=== PATIENT | female | born 1950 | race Caucasian/White ===

== ENCOUNTER → 2019-12-20 13:57 | Outpatient (REF) | payer OTHER, SELFPAY ==
--- NOTE | 2019-12-20 14:00 | CA_ITS ---
Transthoracic Echocardiogram Patient (Last, First, Middle): Negra Cameron, Gender: Female Date of : 1950 Age: 69 Procedure Date: 12/20/2019 Procedure Type: Transthoracic Echocardiogram Location: OP Height: 165.1 cm Weight: 109.77 kg BSA: 2.15 m2 Heart Rate: bpm BP: 142 / 76 mmHg [employer] Manager: BENOIT Referring MD: Axel Whitehead MD Credit Risk Analytics Manager: Jamaal William MD Symptoms: [facility] Study Quality: Fair ECG Rhythm: Sinus Conclusions: - 1. Normal LV systolic function with mild LVH with impaired relaxation filling pattern 2. Mildly dilated left atrium 3. Mild aortic stenosis 4. Moderate mitral annular calcification 5. Normal RV systolic pressure 6. No pericardial effusion Findings Left Ventricle Normal left ventricular size and systolic function. There is mildly increased left ventricular wall thickness. The visually estimated ejection fraction is between 65-70%. Spectral Doppler is indicative of an impaired relaxation filling pattern. E/E prime ratio is between 8 and 15 consistent with indeterminate filling pressures. Right Ventricle Normal right ventricular cavity size and systolic function. Atria The left atrium is mildly dilated. There is lipomatous hypertrophy of the interatrial septum. There is no evidence of interatrial shunt. The right atrium is normal in size. Aortic Valve There is moderate calcification of the aortic valve. There is mild thickening of the aortic valve. There is mild aortic valve stenosis. There is no aortic valve regurgitation. Mitral Valve There is mild anterior and moderate posterior mitral leaflet thickening. There is moderate mitral annular calcification. There is mild mitral valve regurgitation. There is no mitral valve stenosis. Pulmonic Valve The pulmonic valve was not well visualized. Tricuspid Valve Likely normal tricuspid valve structure and function. There is mild tricuspid valve regurgitation. The right ventricular systolic pressure is normal. The right ventricular systolic pressure is 31 mmHg. Normal right atrial pressure. There is no evidence of pulmonary hypertension. Great Vessels All visible segments of the aorta are normal in size. The pulmonary artery was not well visualized. Venous The inferior vena cava is normal in size and collapses greater than 50% with inspiration. Pericardium/Pleural There is no evidence of pericardial effusion. Prior Study Comparison No prior study available for comparison. Measurements 2D Linear Measurements IVSd: 1.46 0.6-0.9/0.6-1.0 cm LVIDd: 4.09 3.9-5.3/4.2-5.9 cm LVIDd Index: 1.90 2.4-3.2/2.2-3.1 cm/m2 LVIDs: 2.97 2.0-3.6 cm LVPWd: 1.24 0.7-1.1 cm Ao Root: 2.70 2.1-3.5 cm LA Diam: 4.50 2.7-3.8/3.0-4.0 cm LAIDs Index: 2.09 1.5-2.3 cm/m2 LV Mass: 254.41 67-162/88-224 g LV Mass Index: 118.33 43-95/49-115 g/m2 LVOT Diam: 2.00 3.0+(-)1.3 cm 2D Systolic Function EF 4C: 62.50 >55% EF 2C: 73.00 >55% EF BiP: 68.40 >55% Mitral Valve MV Pk E: 1.02 MV PK A: 1.15 MV Decel Time: 246.00 E/A: 0.90 E'Lateral: 6.77 E'Medial: 7.16 E/E' Med: 14.20 E/E' Lat: 15.10 PHT: 72.00 MVA PHT: 3.06 Decel Grimes: 4.13 Aortic Valve AoV Pk Hans: 3.01 AoV Mn Hans: 2.21 AoV VTI: 0.74 AoV Pk Grad: 36.00 Aov Mn Grad: 22.00 DEREK Cont.VTI: 1.59 LVOT LVOT Pk Hans: 1.50 LVOT Mn Hans: 1.07 LVOT VTI: 0.38 LVOT Pk Grad: 9.00 LVOT Mn Grad: 5.00 LVOT Diam: 2.00 LVOT Area: 3.14 Diastolic Function MV Pk E: 1.02 MV Pk A: 1.15 E/A: 0.90 E'Medial: 7.16 E/E' Med: 14.20 E' Laterial: 6.77 E/E' Lat: 15.10 Tricuspid Valve TR Pk Hans: 2.63 TR Pk Grad: 28.00 RA Press: 3.00 RVSP: 31.00 Great Vessels Aorta Ao Root-2D: 2.70 2.0-3.7 cm Ao Asc: 3.40 2.1-3.4 cm Updated in Other Vendor System with Status of Final Jamaal William MD electronically signed on 12/21/2019 2:58:01 PM with status of Final
== END ==
LOC: HO.CARD 13:57
PROVIDERS: PCP Internal Medicine; Visit Provider Internal Medicine
DX: R01.1 Cardiac murmur, unspecified (principal)
CPT/HCPCS: 93306

== ENCOUNTER 2021-01-21 13:06 | Emergency (ER) | payer MEDICARE, SELFPAY ==
--- NOTE | ~2021-01-21 | CT_ITS ---
EXAMINATION: CT ABDOMEN AND PELVIS WITH CONTRAST CLINICAL INFORMATION: Diffuse abdominal pain with vomiting and diarrhea COMPARISON: None TECHNIQUE: Multidetector volumetric images were obtained from the superior aspect of the liver through the pubic symphysis following administration 85 mL of Omnipaque 350 intravenous contrast. Sagittal and coronal reformatted images were obtained on the technologist's workstation. Oral contrast: No This CT examination was performed using dose optimization techniques as appropriate, variously including the following: *Automated exposure control *Adjustment of mA and/or kV according to patient size (this includes techniques or standardized protocols for targeted exams where dose is matched to indication/reason for exam; i.e. extremities or head) *Use of iterative reconstruction technique DLP: 971 mGy-cm FINDINGS: LUNG BASES: Mosaic groundglass changes are present at the lung bases along with right basilar atelectasis. Calcification of the aortic cusps noted along with a calcified mitral annulus. LIVER, GALLBLADDER, AND BILIARY TREE: The liver is normal in size, shape, and attenuation. No focal hepatic lesion or biliary ductal dilatation is present. The gallbladder has been removed. PANCREAS: Unremarkable. SPLEEN: Unremarkable. A small splenule is present. ADRENAL GLANDS: Unremarkable. KIDNEYS AND URETERS: The kidneys are normal in size, shape, and attenuation. No hydronephrosis, hydroureter, or calculi seen. No perinephric stranding. BLADDER: Unremarkable. GASTROINTESTINAL TRACT: A small hiatal hernia is present. There is a thickened loop of small bowel present in the right mid abdomen with some minimal inflammatory changes around it. A small spigelian hernia is present in the right lower quadrant in this region containing a knuckle of small bowel. There is atrophy of the right rectus muscle. A tiny fluid collection is present in this region measuring 4.3 x 1.4 x 0.4 cm. The small and large bowel are otherwise unremarkable. The appendix is seen.. ABDOMINAL WALL: See discussion above regarding right sided small spigelian hernia with collection LYMPH NODES: No retroperitoneal lymphadenopathy. VASCULAR: Atherosclerotic changes with calcified plaque but no aneurysm. PELVIC VISCERA: An anteverted uterus is present. An abnormal adnexal mass is not seen. There is a tiny amount of free fluid present in the cul-de-sac. OSSEOUS STRUCTURES: Marked degenerative changes are present throughout the spine most marked at L5-S1 with grade 1 anterolisthesis L4 upon L5. CT/CT abdomen pelvis w con IMPRESSION: There is a thickened loop is small bowel right midabdomen with some inflammatory changes around it which could represent focal enteritis. At this same location, there is a small spigelian hernia seen with a tiny knuckle of small bowel extending into it with a fluid collection present adjacent to it. Please correlate with physical exam to ascertain if this is the region of the patient's discomfort.
[2021-01-21 13:45] VITALS: BP 178/76; PULSE 85; RESP 18; TEMP 36.9; O2SAT 99; BMI 44.2
--- NOTE | 2021-01-21 17:02 | ED.NAVMDI ---
HPI - Nausea/Vomiting/Diarrhea General Chief complaint: Nausea/Vomiting/Diarrhea Stated complaint: abd pain Time Seen by Provider: 01/21/21 16:32 Source: patient Mode of arrival: ambulatory Limitations: no limitations History of Present Illness HPI Narrative: 70 yo female with past medical history of cholecystectomy, bowel obstruction w/ resection at [facility] (2016), HTN here with complaints of abdominal pain, nausea/vomiting/diarrhea since Tuesday. Went to PCP today and referred into the emergency department for further evaluation. patient tells me that she started to have pain with vomiting and diarrhea on Tuesday evening. This continued until yesterday afternoon. No vomiting or diarrhea since then. Today she is having persistent pain. She feels like the pain is generalized. No urinary symptoms. She did have a low-grade fever of 99.38 yesterday but no fever today. Fully vaccinated for COVID. Associated nausea: Yes Related Data Previous Rx's Medication Instructions Recorded dicyclomine 10 mg capsule 10 mg PO QID PRN #10 cap 01/21/21 ondansetron 4 mg disintegrating 4 mg PO Q6H PRN #10 tab 01/21/21 tablet oxycodone 5 mg tablet 5 mg PO Q6H PRN #5 tab 01/21/21 Allergies Allergy/AdvReac Type Severity Reaction Status Date / Time vancomycin [VANCOMYCIN] Allergy Unknown HIVES Unverified 12/06/19 15:56 Review of Systems Review of Systems: Yes all other systems are reviewed and are negative Constitutional: Constitutional: Reports no additional constitutional complaints, Denies body ache(s), Denies chills, Reports fever(s) (low grade fever ), Denies headache(s) and Denies weakness Eyes: Eyes: Reports no additional eye complaints and Denies change in vision ENT: Reports system reviewed and no additional complaints, except as documented, Denies dizziness, Denies headache(s), Denies nasal congestion, Denies nasal discharge and Denies neck pain Cardiovascular: Cardiovascular: Reports no additional cardiovascular complaints, Denies chest pain, Denies leg edema and Denies dyspnea Respiratory: Respiratory: Reports no additional respiratory complaints, Denies cough and Denies dyspnea Gastrointestinal: Gastrointestinal: Reports no additional gastrointestinal complaints, Reports abdominal pain, Reports diarrhea, Reports nausea and Reports vomiting Genitourinary: Genitourinary: Reports no additional female genitourinary complaints and Denies urinary incontinence Musculoskeletal: Musculoskeletal: Reports no additional musculoskeletal complaints, Denies back pain, Denies arthralgias, Denies joint swelling, Denies neck pain, Denies numbness and Denies tingling Integumentary/Breasts: Skin/Breast: Reports system reviewed and no additional complaints, except as docu and Denies rash Neurologic: Reports system reviewed and no additional complaints, except as documented, Denies Abnormal speech present, Denies dizziness, Denies headache(s), Denies numbness, Denies tingling and Denies weakness PMFSH Past Medical History Attestation statement: The following information was validated with the patient. Source: old records reviewed and nursing notes reviewed Social History Social History Advance Directives: No Advance Directives Information Provided: No Physical Exam Vital Signs: Vital Signs: Last Vital Signs Temp 98.3 F 01/21/21 17:04 Pulse 70 01/21/21 19:35 Resp 18 01/21/21 19:35 BP 152/60 H 01/21/21 19:35 Pulse Ox 94 01/21/21 19:35 Body Mass Index 44.2 Const: General: cooperative, healthy appearing, comfortable and no acute distress Orientation/consciousness: patient oriented x3 Limitations: no limitations HENMT: Head: Yes normal to inspection Ears: hearing grossly normal bilaterally General nose exam: Normal external nose present Face and sinus: Yes normal facial exam Mouth: Normal oral and palatal mucosa present Throat: Yes posterior oropharynx normal Eyes: General: appearance normal, both eyes and all related structures Pupils: Equal, round and reactive pupils present Neck: Neck: Yes normal visual inspection Chest: Chest palpation & inspection: normal inspection of the chest Resp: Effort & Inspection: normal respiratory effort Auscultation: clear to auscultation bilaterally Cardio: Rate: regular rate Rhythm: regular rhythm Peripheral pulses: Peripheral pulses 2+ throughout GI: Inspection: Yes normal to inspection Palpation (GI): Soft to palpation and Tenderness to palpation present (GI) (Diffuse abdominal pain. No rebound or guarding) Auscultation: normal bowel sounds Back/Spine/Pelvis: Thoracic/Lumbar Spine: thoracic and lumbar spine normal to inspection Skin: General skin exam: no rashes or lesions noted Neuro: General: patient oriented x3, no focal motor deficits and normal sensation to monofilament Cranial nerves: Yes Equal, round and reactive pupils present Cognition (Neuro): normal cognition Speech: No Abnormal speech present Gait exam (Neuro): Normal gait present Motor exam (neuro): 5/5 motor strength present throughout Extrem: General: Yes normal to inspection Course Course Course Narrative: 70-year-old female here with complaints of abdominal pain, vomiting and diarrhea since Tuesday evening was low-grade fever. On exam she has diffuse tenderness with no focal tenderness, rebound or guarding. Will check labs, UA, COVID screen, CT A/P. 1910-CT shows thickened loop of the small bowel right mid abdomen with some inflammatory changes which could represent focal enteritis. There is a small spigelian hernia seen with a tiny knuckle of small bowel extending into it with a fluid collection adjacent to this. Labs are unremarkable. I spoke to the patient and her pain is improved in the abdomen. She still has some mild diffuse tenderness of overall is feeling better after 1 dose of morphine 4 mg. Will discuss with General surgery 1929-discussed case with Dr. Baker from General surgery. More likely enteritis viral infection. No obstruction noted. Spoke to the patient. She is feeling improved. Her abdominal exam is improved. No vomiting episodes here. She is drinking jose daniel shania. Will discharge her home with supportive care. Reviewed worrisome signs and symptoms and when to return to the emergency department. Comfortable discharge home. MDM - Nausea/Vomiting/Diarrhea MDM Narrative Medical decision making narrative: Bowel obstruction, diverticulitis, viral syndrome, gastroenteritis Medical Records Attestation: I reviewed the patient's medical records. Lab Data Attestation: I reviewed the patient's lab results. Result diagrams: 01/21/21 17:01/21/21 17:01 Labs: Lab Results 01/21/21 01/21/21 01/21/21 Range/Units 17:01 17:01 17:19 WBC 8.9 (4.8-10.8) X10*3/uL RBC 3.95 L (4.20-5.50) X10*6/uL Hgb 10.2 L (12.0-16.0) g/dl Hct 30.1 L (37.0-47.0) % MCV 76.2 L (80.0-98.0) fL MCH 25.8 L (27.0-33.0) pg MCHC 33.9 (31.0-35.0) g/dl RDW 15.5 (11.0-16.0) % Plt Count 257 (160-400) X10*3/uL MPV 9.4 (9.4-12.3) fL Immature Gran % (Auto) 0.3 (0.0-0.4) % Neut % (Auto) 65.2 (45-73) % Lymph % (Auto) 22.3 (20-40) % [place] % (Auto) 10.5 (2-11) % Eos % (Auto) 1.3 (0-4) % Baso % (Auto) 0.4 (0-2) % Lymph # (Auto) 2.0 (1.2-4.9) X10*3/uL [place] # (Auto) 0.9 (0.1-1.2) X10*3/uL Eos # (Auto) 0.1 (0.0-0.4) X10*3/uL Baso # (Auto) 0.0 (0.0-0.2) X10*3/uL Abs Immat Gran (auto) 0.03 (0.00-0.03) X10*3/uL Absolute Neuts (auto) 5.82 (2.0-8.3) x10*3/uL Absolute Nucleated RBC 0.000 (0.0-0.012) X10*3/uL Nucleated RBC % (auto) 0.0 (0.0-0.2) /100WBC Sodium 143 (135-145) mmol/L Potassium 3.3 (3.3-5.1) mmol/L Chloride 106 (96-108) mmol/L Carbon Dioxide 30 H (22-29) mmol/L Anion Gap 10 L (12-20) BUN 6 L (9-16) mg/dL Creatinine 0.58 (0.5-1.4) mg/dL Estim Creat Clear Calc 112.5 Estimated GFR > 60 Random Glucose 84 (60-115) mg/dL Calcium 8.7 (8.4-10.2) mg/dL Total Bilirubin 0.9 (0.0-1.0) mg/dL Direct Bilirubin 0.4 (0.0-0.5) mg/dL AST 23 (5-31) U/L ALT 14 (0-31) U/L Alkaline Phosphatase 90 (39-117) U/L Total Protein 6.4 L (6.5-8.0) g/dL Albumin 3.9 (3.5-5.0) g/dL Lipase 30 (8-78) U/L Urine Color Urine Appearance Urine pH (5.0-8.0) Ur Specific [place] (1.005-1.025) Urine Protein (NEG-TRACE) MG/DL Urine Glucose (UA) (NEG) MG/DL Urine Ketones (NEG) MG/DL Urine Blood (NEG) Urine Nitrite (NEG) Ur Leukocyte Esterase (NEG) Urine RBC (0) /HPF Urine WBC (0-4) /HPF Ur Squamous Epith Cells /LPF Urine Bacteria /LPF COVID-19 (TANVI) Negative (Negative) COVID-19 Clin Com See Note 01/21/21 Range/Units 18:45 WBC (4.8-10.8) X10*3/uL RBC (4.20-5.50) X10*6/uL Hgb (12.0-16.0) g/dl Hct (37.0-47.0) % MCV (80.0-98.0) fL MCH (27.0-33.0) pg MCHC (31.0-35.0) g/dl RDW (11.0-16.0) % Plt Count (160-400) X10*3/uL MPV (9.4-12.3) fL Immature Gran % (Auto) (0.0-0.4) % Neut % (Auto) (45-73) % Lymph % (Auto) (20-40) % [place] % (Auto) (2-11) % Eos % (Auto) (0-4) % Baso % (Auto) (0-2) % Lymph # (Auto) (1.2-4.9) X10*3/uL [place] # (Auto) (0.1-1.2) X10*3/uL Eos # (Auto) (0.0-0.4) X10*3/uL Baso # (Auto) (0.0-0.2) X10*3/uL Abs Immat Gran (auto) (0.00-0.03) X10*3/uL Absolute Neuts (auto) (2.0-8.3) x10*3/uL Absolute Nucleated RBC (0.0-0.012) X10*3/uL Nucleated RBC % (auto) (0.0-0.2) /100WBC Sodium (135-145) mmol/L Potassium (3.3-5.1) mmol/L Chloride (96-108) mmol/L Carbon Dioxide (22-29) mmol/L Anion Gap (12-20) BUN (9-16) mg/dL Creatinine (0.5-1.4) mg/dL Estim Creat Clear Calc Estimated GFR Random Glucose (60-115) mg/dL Calcium (8.4-10.2) mg/dL Total Bilirubin (0.0-1.0) mg/dL Direct Bilirubin (0.0-0.5) mg/dL AST (5-31) U/L ALT (0-31) U/L Alkaline Phosphatase (39-117) U/L Total Protein (6.5-8.0) g/dL Albumin (3.5-5.0) g/dL Lipase (8-78) U/L Urine Color YELLOW Urine Appearance CLEAR Urine pH 6.0 (5.0-8.0) Ur Specific [place] 1.015 (1.005-1.025) Urine Protein NEG (NEG-TRACE) MG/DL Urine Glucose (UA) NEG (NEG) MG/DL Urine Ketones 40 (NEG) MG/DL Urine Blood TRACE (NEG) Urine Nitrite NEG (NEG) Ur Leukocyte Esterase NEG (NEG) Urine RBC 5-9 H (0) /HPF Urine WBC 0-2 (0-4) /HPF Ur Squamous Epith Cells TRACE /LPF Urine Bacteria NONE /LPF COVID-19 (TANVI) (Negative) COVID-19 Clin Com Imaging Data CT scan - abdomen: Attestation: I personally reviewed and interpreted this imaging study as follows: Radiologist's impression: IMPRESSION: There is a thickened loop is small bowel right midabdomen with some inflammatory changes around it which could represent focal enteritis. At this same location, there is a small spigelian hernia seen with a tiny knuckle of small bowel extending into it with a fluid collection present adjacent to it. Please correlate with physical exam to ascertain if this is the region of the patient's discomfort. Discharge Plan Discharge Clinical Impression: Enteritis Patient Disposition: Home, Self-Care Instructions: Gastroenteritis (ED) Additional Instructions: Increase fluids, then advance diet as tolerated Return for severe abdominal pain, 2 or more vomiting episodes, fever greater than 100.4 Prescriptions: New ondansetron 4 mg tablet,disintegrating 4 mg PO Q6H PRN (Reason: nausea and vomiting) Qty: 10 RF: 0 oxycodone 5 mg tablet 5 mg PO Q6H PRN (Reason: pain) Qty: 5 RF: 0 dicyclomine 10 mg capsule 10 mg PO QID PRN (Reason: abdominal pain) Qty: 10 RF: 0 Referrals: Axel Whitehead MD [Primary Care Provider] - 2 days Stand Alone Forms: Work/School Release Interventions: ED Discharge Assessment Last Done: 01/21/21 19:52 Discharge Date/Time: 01/21/21 20:00
[2021-01-21 17:04] VITALS: BP 174/63; PULSE 70; RESP 16; TEMP 36.8; O2SAT 99
[2021-01-21 17:12] LABS: MANUAL DIFF FLAG NO
[2021-01-21 17:16] LABS: Basophils Percent Auto 0.4 % (0-2); Eosinophils Absolute Auto 0.1 X10*3/uL (0.0-0.4); Eosinophils Percent Auto 1.3 % (0-4); Hematocrit 30.1 % (37.0-47.0); Hemoglobin 10.2 g/dl (12.0-16.0); Imm Gran Abs Auto 0.03 X10*3/uL (0.00-0.03); Imm Gran Pct Auto 0.3 % (0.0-0.4); Lymphocytes Percent Auto 22.3 % (20-40); Mean Corpuscular HGB Conc 33.9 g/dl (31.0-35.0); Mean Corpuscular Hemoglobin 25.8 pg (27.0-33.0); Mean Corpuscular Volume 76.2 fL (80.0-98.0); Mean Platelet Volume 9.4 fL (9.4-12.3); Monocytes Absolute Auto 0.9 X10*3/uL (0.1-1.2); Monocytes Percent Auto 10.5 % (2-11); Neutrophils Absolute Auto 5.82 x10*3/uL (2.0-8.3); Neutrophils Percent Auto 65.2 % (45-73); Platelet Count 257 X10*3/uL (160-400); Red Blood Count 3.95 X10*6/uL (4.20-5.50); Red Cell Distribution Width 15.5 % (11.0-16.0); White Blood Count 8.9 X10*3/uL (4.8-10.8)
[2021-01-21] MEDS: ondansetron HCL 4 MG/2 ML VIAL IVPUSH (17:17)
[2021-01-21] MEDS: Morphine Sulfate 2 MG/ML CARTRIDGE IVPUSH (17:17)
[2021-01-21 17:32] VITALS: BP 159/64; PULSE 68; RESP 16; O2SAT 94
[2021-01-21 17:40] LABS: Potassium 3.3 mmol/L (3.3-5.1); Sodium 143 mmol/L (135-145)
[2021-01-21 17:41] LABS: Alanine Aminotransferase 14 U/L (0-31); Albumin Level 3.9 g/dL (3.5-5.0); Alkaline Phosphatase 90 U/L (39-117); Anion Gap 10 (12-20); Aspartate Amino Transferase 23 U/L (5-31); Bilirubin Direct 0.4 mg/dL (0.0-0.5); Bilirubin Total 0.9 mg/dL (0.0-1.0); Blood Urea Nitrogen 6 mg/dL (9-16); Calcium 8.7 mg/dL (8.4-10.2); Carbon Dioxide 30 mmol/L (22-29); Chloride 106 mmol/L (96-108); Creatinine Clr Calc Pharmacy 112.5; Estimated Glomerular Filt Rate > 60; Glucose Random 84 mg/dL (60-115); Lipase 30 U/L (8-78); Total Protein 6.4 g/dL (6.5-8.0)
[2021-01-21 17:44] LABS: COVID-19 Test Negative (Negative); IDNOW Serial# 9DD0AD1C
[2021-01-21] MEDS: iohexoL 350 MG/ML 100 ML INFUS..BTL IV (18:01)
[2021-01-21 18:59] VITALS: BP 118/70; PULSE 76; RESP 18; O2SAT 99
[2021-01-21 19:00] LABS: Appearance Urine CLEAR; Color Urine YELLOW; Glucose Urine UA NEG (NEG); Leukocyte Esterase Urine NEG (NEG); Nitrite Urine NEG (NEG); Specific Gravity - Urine 1.015 (1.005-1.025); UACC Culture Trigger NO; Urine Blood TRACE (NEG); Urine Ketones 40 MG/DL (NEG); Urine Protein NEG (NEG-TRACE)
[2021-01-21 19:13] LABS: Squamous Epithelial Cell Urine TRACE /LPF; WBC Urine 0-2 /HPF (0-4)
[2021-01-21] MEDS: Acetaminophen 325 MG TABLET 650 MG PO (19:32)
[2021-01-21 19:35] VITALS: BP 152/60; PULSE 70; RESP 18; O2SAT 94
== END 2021-01-21 20:00 | disposition home or self-care (01) ==
PROVIDERS: Nurse Practitioner Family; Emergency Provider Internal Medicine; PCP Internal Medicine
DX: K52.9 Noninfective gastroenteritis and colitis, unspecified (principal); I10 Essential (primary) hypertension; Z20.822 Contact with and (suspected) exposure to COVID-19; Z90.49 Acquired absence of other specified parts of digestive tract
CPT/HCPCS: 36415; 74177; 80048; 80076; 81001; 81003; 83690; 85025; 87635; 96374; 96375; 99284; J2270; J2405; Q9967

== ENCOUNTER 2021-04-17 07:58 | Outpatient (REF) | payer MEDICARE, SELFPAY ==
--- NOTE | ~2021-04-17 | CT_ITS ---
EXAMINATION: CT ABDOMEN AND PELVIS WITH CONTRAST CLINICAL INFORMATION: 41-pound weight loss, anemia. Rule out mass. COMPARISON: CT abdomen pelvis 01/21/2021 TECHNIQUE: Multidetector volumetric images were obtained from the superior aspect of the liver through the pubic symphysis following administration 85 mL of Omnipaque 350 intravenous contrast. Sagittal and coronal reformatted images were obtained on the technologist's workstation. Oral contrast: No This CT examination was performed using dose optimization techniques as appropriate, variously including the following: *Automated exposure control *Adjustment of mA and/or kV according to patient size (this includes techniques or standardized protocols for targeted exams where dose is matched to indication/reason for exam; i.e. extremities or head) *Use of iterative reconstruction technique DLP: 618 mGy-cm FINDINGS: LUNG BASES: There is emphysematous changes of both lungs with right lower lobe basilar atelectasis or scarring. There is a 2 mm nodule left lower lobe, axial image 7/3. Heart size is normal with coronary artery calcifications. There is small pericardial effusion. Dense mitral valve calcification is seen. There is a soft tissue mass along the medial fundus and at the GE junction measuring 4.63 x 2.9 cm with proximal small hiatal hernia. LIVER, GALLBLADDER, AND BILIARY TREE: The liver is normal in size, shape, and attenuation. No focal hepatic lesion or biliary ductal dilatation is present. The gallbladder is contracted. PANCREAS: Unremarkable. SPLEEN: Unremarkable. ADRENAL GLANDS: Unremarkable. KIDNEYS AND URETERS: The kidneys are normal in size, shape, and attenuation. No hydronephrosis, hydroureter, or calculi seen. No perinephric stranding. BLADDER: Unremarkable. GASTROINTESTINAL TRACT: There is a soft tissue mass along the GE junction and the medial fundus measuring approximately 4.7 x 2.9 cm with a proximal small hiatal hernia. Rest of the stomach is unremarkable. There is some thickening of the pylorus, nonspecific. There is mild mural thickening involving a loop of small bowel in left midabdomen likely a small intussusception on axial image 42/3. Underlying annular lesion is not excluded. An abnormality was seen in the right midabdomen on previous study. The terminal ileum is nonopacified with contrast. Appendix is not seen. Scattered stool is seen throughout the colon without significant distention. ABDOMINAL WALL: A small umbilical hernia is noted. LYMPH NODES: There are small shotty lymph nodes seen in the left para-aortic region. VASCULAR: Unremarkable. PELVIC VISCERA: Scattered sigmoid and rest of the colon diverticulosis without diverticulitis. No free air or free fluid. No abnormal pelvic lymph nodes. OSSEOUS STRUCTURES: Degenerative disc changes throughout every disc level with vacuum disc phenomena. Grade 1 anterolisthesis L4-L5. There is moderate ventral spondylosis throughout dorsal spine. CT/CT abdomen pelvis w con IMPRESSION: 2 areas of concern. Left mid abdomen concerning small-bowel loop likely small bowel intussusception with adjacent annular lesion. A thickened loop of small bowel wall was seen in the right midabdomen on the last CT abdomen exam 01/21/2021 Moderate-sized soft tissue mass in medial fundus of the GE junction. Recommend endoscopy. There are small mesenteric lymph nodes and retroperitoneal lymph nodes which measure 6 mm and less. Fleischner guidelines were followed.
[2021-04-17] MEDS: iohexoL 350 MG/ML 100 ML INFUS..BTL IV (11:06)
[2021-04-17] MEDS: Barium Sulfate Oral (Berry) 450 ML ORAL.SUSP 900 ML PO (12:02)
== END 2021-04-17 07:59 | disposition home or self-care (01) ==
LOC: HO.CT 07:58
PROVIDERS: PCP Internal Medicine; Visit Provider Internal Medicine
DX: R63.4 Abnormal weight loss (principal); D64.9 Anemia, unspecified
CPT/HCPCS: 74177; Q9967

== ENCOUNTER → 2021-04-21 12:57 | Outpatient (BNVA) | payer MEDICARE, SELFPAY | PROVIDERS: PCP Internal Medicine; Referring Provider Internal Medicine; Visit Provider Surgery | DX: K31.89 Other diseases of stomach and duodenum (principal); K63.89 Other specified diseases of intestine | CPT/HCPCS: 99202 ==

== ENCOUNTER 2021-05-01 09:51 | Day surgery (SDC) | payer MEDICARE, SELFPAY ==
--- NOTE | 2021-04-30 11:01 | P.CONAN_ITS ---
Documented by User: Chica Padilla NP 04/30/21 11:02 HPI - Anesthesia Eval Consult details Narrative: 70yo F for Upper Endoscopy PMFSH Active Problems Active Problems: All Active Problems (Updated 04/30/21 @ 09:18 by Cathie Roche, [place]) Gastric mass (Acute) Small bowel mass (Acute) Past Medical History Medical History (Updated 05/01/21 @ 11:49 by Kylie Mcadams MD) Anemia Arthritis Back pain HTN (hypertension) Hyperlipidemia Lower extremity edema Neuropathy Family History Family History Sister Breast cancer, Onset Age: 49 Father Prostate cancer Brother Leukemia Surgical History Surgical History History of cholecystectomy (1975) History of hernia repair (2015) History of rotator cuff surgery (2012) History of tonsillectomy (1978) Social History Social History Alcohol intake: current Alcohol intake frequency: holidays/special occasions only Patient Tobacco Use Status: Never used Tobacco Use of substances other than those prescribed or required for medical reasons: No Are you DNR?: No Advance Directives: No Advance Directives Information Provided: Yes Meds Allergies Allergy/AdvReac Type Severity Reaction Status Date / Time vancomycin [VANCOMYCIN] Allergy Unknown HIVES Verified 05/01/21 10:39 Home Medications Medication Instructions Recorded Confirmed Last Taken Type atorvastatin 10 mg tablet 10 mg PO DAILY 04/21/21 04/21/21 Unknown History ferrous fumarate 325 mg (106 mg 325 mg PO DAILY 04/21/21 04/21/21 Unknown History iron) tablet furosemide 20 mg tablet (Lasix) 20 mg PO DAILY 04/21/21 04/21/21 Unknown History gabapentin 800 mg tablet 800 mg PO TID 04/21/21 04/21/21 Unknown History hydralazine 25 mg tablet 25 mg PO BID tab 04/21/21 04/21/21 05/01/21 07:30 History losartan 50 mg tablet 50 mg PO DAILY 04/21/21 04/21/21 05/01/21 07:30 History metoprolol succinate 50 mg 50 mg PO DAILY 04/21/21 04/21/21 05/01/21 07:30 History tablet,extended release 24 hr (Toprol XL) oxybutynin chloride 10 mg 10 mg PO DAILY 04/21/21 04/21/21 05/01/21 07:30 History tablet,extended release 24 hr Exam Exam Date and Time: April 30, 2021 1101 Pertinent Lab Results Pertinent Lab Results: Laboratory Tests 01/21/21 01/21/21 17:01 17:01 WBC 8.9 Hgb 10.2 L Hct 30.1 L Plt Count 257 Sodium 143 Potassium 3.3 Chloride 106 Carbon Dioxide 30 H BUN 6 L Creatinine 0.58 Narrative Narrative: ECHO 2020 Conclusions: - 1. Normal LV systolic function with mild LVH with impaired ? ? relaxation filling pattern ? 2. Mildly dilated left atrium? 3. Mild aortic stenosis? 4. Moderate mitral annular calcification ? 5. Normal RV systolic pressure ? 6. No pericardial effusion ? ? ? Assessment and Plan Assessment Anesthesia Assessment: Chart Reviewed Documented by User: Kylie Mcadams MD 05/01/21 12:31 PMFSH Active Problems Active Problems: All Active Problems (Updated 04/30/21 @ 09:18 by Cathie Roche RN) Gastric mass (Acute) Small bowel mass (Acute) Increased BMI Past Medical History Medical History (Updated 05/01/21 @ 11:49 by Kylie Mcadams MD) Anemia Arthritis Back pain HTN (hypertension) Hyperlipidemia Lower extremity edema Neuropathy Family History Family History Sister Breast cancer, Onset Age: 49 Father Prostate cancer Brother Leukemia Family history of problems with anesthesia: No Surgical History Surgical History History of cholecystectomy (1975) History of hernia repair (2015) History of rotator cuff surgery (2012) History of tonsillectomy (1978) History of Problems with Anesthesia: No Social History Social History Alcohol intake: current Alcohol intake frequency: holidays/special occasions only Patient Tobacco Use Status: Never used Tobacco Use of substances other than those prescribed or required for medical reasons: No Are you DNR?: No Advance Directives: No Advance Directives Information Provided: Yes Meds Allergies Allergy/AdvReac Type Severity Reaction Status Date / Time vancomycin [VANCOMYCIN] Allergy Unknown HIVES Verified 05/01/21 10:39 Home Medications Medication Instructions Recorded Confirmed Last Taken Type atorvastatin 10 mg tablet 10 mg PO DAILY 04/21/21 04/21/21 Unknown History ferrous fumarate 325 mg (106 mg 325 mg PO DAILY 04/21/21 04/21/21 Unknown History iron) tablet furosemide 20 mg tablet (Lasix) 20 mg PO DAILY 04/21/21 04/21/21 Unknown History gabapentin 800 mg tablet 800 mg PO TID 04/21/21 04/21/21 Unknown History hydralazine 25 mg tablet 25 mg PO BID tab 04/21/21 04/21/21 05/01/21 07:30 History losartan 50 mg tablet 50 mg PO DAILY 04/21/21 04/21/21 05/01/21 07:30 History metoprolol succinate 50 mg 50 mg PO DAILY 04/21/21 04/21/21 05/01/21 07:30 History tablet,extended release 24 hr (Toprol XL) oxybutynin chloride 10 mg 10 mg PO DAILY 04/21/21 04/21/21 05/01/21 07:30 Histo ry tablet,extended release 24 hr Exam Height,Weight and Vital Signs: Height 5 ft 4 in Weight 96.162 kg Vital Signs Temp Pulse Resp BP Pulse Ox 05/01/21 10:35 98.7 F 63 18 162/69 H 98 Airway Mallampati Class: II TM Dist: >3cm Neck ROM: Full Heart: RRR+ systolic murmur Lungs: CTAB Assessment and Plan Assessment Anesthesia Assessment: Anesthesia Plan Discussed Final Anesthetic Review Family History of Problems with Anesthesia: No History of Problems with Anesthesia: No NPO: Yes ASA Class: II Final Preanesthetic Review: No Changes in Pt Med Stat, Meds/Allgs Chart Reviewed, Consent Obtained/Reviewed and Anes Risks/Benef Reviewed Patient Risk: Intermediate Procedure Risk: Low Assessment/Block/Sedation in SS: Assess/Block/Sedation-SS Anesthetic Plan Anesthetic Plan: MAC: Disposition: Standard PACU
[2021-05-01 10:17] VITALS: BMI 36.3
[2021-05-01 10:35] VITALS: BP 162/69; PULSE 63; RESP 18; TEMP 37.1; O2SAT 98
[2021-05-01] MEDS: Lactated Ringers 1,000 ML 100 ML IVCONT (10:56)
[2021-05-01 12:39] VITALS: BP 109/55; PULSE 66; RESP 12; TEMP 36.1; O2SAT 98
--- NOTE | 2021-05-01 12:41 | PM.OP ---
Brief Operative Note Date of Service: 05/01/21 Pre-op diagnosis: Abdominal pain, abnormal CT of stomach Post-op diagnosis: other (Hiatal hernia, Gastritis) Procedure: EGD with biopsies Surgeon: Maximiliano Coats Anesthesia: MAC Was an Glucose And Syrup Weigher used for this Procedure?: No Estimated blood loss (mL): 2.0 Pathology: other (A. Gastric antrum) Condition: stable Disposition: PACU
[2021-05-01 12:54] VITALS: BP 156/68; PULSE 56; RESP 14; O2SAT 97
[2021-05-01 13:10] VITALS: BP 154/67; PULSE 67; RESP 18; O2SAT 97
--- NOTE | 2021-05-01 13:14 | OP_ITS ---
SURGEON: Maximiliano Coats MD INDICATIONS: The patient presents for evaluation of abdominal pain, weight loss, anemia, and question of gastric mass seen on CT scan. Full consent was obtained from her for this, including risks of bleeding and perforation. PREOPERATIVE DIAGNOSIS: POSTOPERATIVE DIAGNOSIS: PROCEDURE PERFORMED: Esophagogastroduodenoscopy with biopsies. ESTIMATED BLOOD LOSS: COMPLICATIONS: ANESTHESIA: monitored anesthesia care. ASSISTANTS: SPECIMENS: PREOPERATIVE DIAGNOSES: Abdominal pain, weight loss, anemia, and abnormal CT scan of the stomach. POSTOPERATIVE DIAGNOSES: Abdominal pain, weight loss, anemia, abnormal CT scan of stomach, hiatal hernia, mild gastritis. DESCRIPTION OF PROCEDURE: The patient was placed in the left lateral decubitus position. The Olympus video gastroscope was passed in the posterior oropharynx and upper esophagus under direct vision. The scope was passed slowly to the distal esophagus. The gastroesophageal junction appeared normal at 34 cm. There was no sign of any esophagitis nor mass. The scope entered the stomach. There was a small to moderate-sized hiatal hernia. The hiatal hernia mucosa appeared normal. The scope was advanced to the pylorus, and the duodenum was cannulated to the descending portion. The duodenum including the bulb appeared normal without mass or ulceration. After the scope was advanced well beyond the 3rd portion of the duodenum, and the small bowel mucosa appeared normal to as far as I could go with the scope, the scope was withdrawn back to the stomach. The gastric antrum and body had some edema and minimal erythema but no ulceration nor mass. There was good peristalsis. Biopsies were obtained from the antrum. The scope was retroflexed visualizing the proximal stomach carefully, which appeared normal other than some very minimal areas of erythema as well, but without any sign of mass nor ulceration. The scope was straightened and withdrawn back into the esophagus. The esophageal mucosa appeared normal. The scope was withdrawn from patient. She tolerated the procedure well and was returned to the recovery area in stable condition. IMPRESSION: 1. Hiatal hernia. 2. Mild gastritis. PLAN: The results of the biopsy will be checked. At this point, these findings would not account for her symptoms and obviously do not correlate with the recent abdominal CT report that suspected a gastric mass. We shall review things further, and she may need a colonoscopy if she has not had 1 recently, as well as a small bowel video capsule study, in regard to the anemia and also questionable abnormality seen in the small intestine on the CT scan. I shall also put her on a trial of a PPI to see if that gives her any clinical relief as well. This has been discussed with her family. MD SILVA Pedroza/TAVARES / [id number] MTDD
[2021-05-01 13:25] VITALS: BP 153/59; PULSE 56; RESP 18; TEMP 37; O2SAT 97
[2021-05-01] MEDS: Acetaminophen 325 MG TABLET 650 MG PO (13:37)
[2021-05-01 13:38] VITALS: BP 156/64; PULSE 57; RESP 18; O2SAT 98
== END 2021-05-01 14:16 | disposition home or self-care (01) ==
PROVIDERS: PCP Internal Medicine; Visit Provider Internal Medicine
PROC: 0DJ08ZZ Inspection of Upper Intestinal Tract, Via Natural or Artificial Opening Endoscopic (ICD-10-PCS; CPT 43235; principal; 2021-05-01 11:10)
DX: R10.12 Left upper quadrant pain (principal); R93.3 Abnormal findings on diagnostic imaging of other parts of digestive tract; R63.4 Abnormal weight loss; R68.81 Early satiety; D64.9 Anemia, unspecified; K29.50 Unspecified chronic gastritis without bleeding; K44.9 Diaphragmatic hernia without obstruction or gangrene; I10 Essential (primary) hypertension; E78.5 Hyperlipidemia, unspecified; R60.0 Localized edema; Z79.899 Other long term (current) drug therapy; Z90.49 Acquired absence of other specified parts of digestive tract
CPT/HCPCS: 43239; 88305; 88342; J2250

== ENCOUNTER 2021-05-18 11:58 | Day surgery (SDC) | payer MEDICARE, SELFPAY ==
--- NOTE | 2021-05-15 10:57 | HO.ANESPROP2 ---
Documented by User: Chica Padilla NP 05/15/21 10:58 HPI - Anesthesia Eval Consult details Narrative: 70yo F for Colonoscopy s/p EGD 05/01/21 with [facility]A PMFSH Active Problems Active Problems: All Active Problems (Updated 05/01/21 @ 11:49 by Kylie Mcadams MD) Gastric mass (Acute) Small bowel mass (Acute) Past Medical History Medical History Anemia Arthritis Back pain HTN (hypertension) Hyperlipidemia Lower extremity edema Neuropathy Family History Family History Sister Breast cancer, Onset Age: 49 Father Prostate cancer Brother Leukemia Family history of problems with anesthesia: No Surgical History Surgical History History of cholecystectomy (1975) History of hernia repair (2015) History of rotator cuff surgery (2012) History of tonsillectomy (1978) History of Problems with Anesthesia: No Social History Social History Alcohol intake: current Alcohol intake frequency: holidays/special occasions only Patient Tobacco Use Status: Never used Tobacco Use of substances other than those prescribed or required for medical reasons: No Advance Directives: No Advance Directives Information Provided: Yes Recently lost weight without trying: No Meds Allergies Allergy/AdvReac Type Severity Reaction Status Date / Time vancomycin [VANCOMYCIN] Allergy Unknown HIVES Verified 05/01/21 10:39 Home Medications Medication Instructions Recorded Confirmed Last Taken Type atorvastatin 10 mg tablet 10 mg PO DAILY 04/21/21 04/21/21 Unknown History ferrous fumarate 325 mg (106 mg 325 mg PO DAILY 04/21/21 04/21/21 Unknown History iron) tablet furosemide 20 mg tablet (Lasix) 20 mg PO DAILY 04/21/21 04/21/21 Unknown History gabapentin 800 mg tablet 800 mg PO TID 04/21/21 04/21/21 Unknown History hydralazine 25 mg tablet 25 mg PO BID tab 04/21/21 04/21/21 05/01/21 07:30 History losartan 50 mg tablet 50 mg PO DAILY 04/21/21 04/21/21 05/01/21 07:30 History metoprolol succinate 50 mg 50 mg PO DAILY 04/21/21 04/21/21 05/01/21 07:30 History tablet,extended release 24 hr (Toprol XL) oxybutynin chloride 10 mg 10 mg PO DAILY 04/21/21 04/21/21 05/01/21 07:30 History tablet,extended release 24 hr Exam Exam Date and Time: May 15, 2021 1057 Pertinent Lab Results Pertinent Lab Results: Laboratory Tests ? 01/21/21 01/21/21 ? 17:01 17:01 WBC ?8.9 ? Hgb ?10.2 L ? Hct ?30.1 L ? Plt Count ?257 ? Sodium ? ?143 Potassium ? ?3.3 Chloride ? ?106 Carbon Dioxide ? ?30 H BUN ? ?6 L Creatinine ? ?0.58 Narrative Narrative: ECHO 2020 Conclusions: - 1. Normal LV systolic function with mild LVH with impaired ? ? relaxation filling pattern ? 2. Mildly dilated left atrium? 3. Mild aortic stenosis? 4. Moderate mitral annular calcification ? 5. Normal RV systolic pressure ? 6. No pericardial effusion ? Assessment and Plan Assessment Anesthesia Assessment: Chart Reviewed Final Anesthetic Review Family History of Problems with Anesthesia: No History of Problems with Anesthesia: No Documented by User: Kylie Mcadams MD 05/18/21 13:49 PMFSH Active Problems Active Problems: All Active Problems (Updated 05/01/21 @ 11:49 by Kylie Mcadams MD) Gastric mass (Acute) Small bowel mass (Acute) Fell on 05/03/21. Did not hit head. Fell on hip. X-rays - no fracture Past Medical History Medical History Anemia Arthritis Back pain HTN (hypertension) Hyperlipidemia Lower extremity edema Neuropathy Family History Family History Sister Breast cancer, Onset Age: 49 Father Prostate cancer Brother Leukemia Surgical History Surgical History History of cholecystectomy (1975) History of hernia repair (2015) History of rotator cuff surgery (2012) History of tonsillectomy (1978) Social History Social History Alcohol intake: current Alcohol intake frequency: holidays/special occasions only Patient Tobacco Use Status: Never used Tobacco Use of substances other than those prescribed or required for medical reasons: No Advance Directives: No Advance Directives Information Provided: Yes Recently lost weight without trying: No Meds Allergies Allergy/AdvReac Type Severity Reaction Status Date / Time vancomycin [VANCOMYCIN] Allergy Unknown HIVES Verified 05/01/21 10:39 Home Medications Medication Instructions Recorded Confirmed Last Taken Type atorvastatin 10 mg tablet 10 mg PO DAILY 04/21/21 04/21/21 Unknown History ferrous fumarate 325 mg (106 mg 325 mg PO DAILY 04/21/21 04/21/21 Unknown History iron) tablet furosemide 20 mg tablet (Lasix) 20 mg PO DAILY 04/21/21 04/21/21 Unknown History gabapentin 800 mg tablet 800 mg PO TID 04/21/21 04/21/21 Unknown History hydralazine 25 mg tablet 25 mg PO BID tab 04/21/21 04/21/21 05/01/21 07:30 History losartan 50 mg tablet 50 mg PO DAILY 04/21/21 04/21/21 05/01/21 07:30 History metoprolol succinate 50 mg 50 mg PO DAILY 04/21/21 04/21/21 05/01/21 07:30 History tablet,extended release 24 hr (Toprol XL) oxybutynin chloride 10 mg 10 mg PO DAILY 04/21/21 04/21/21 05/01/21 07:30 History tablet,extended release 24 hr Exam Height,Weight and Vital Signs: Height 5 ft 5 in Weight 93.667 kg Vital Signs Temp Pulse Resp BP Pulse Ox 05/18/21 12:28 98.4 F 67 19 155/60 H 99 Airway Mallampati Class: II TM Dist: >3cm Neck ROM: Full Heart: RRR + systolic murmur Lungs: CTAB Assessment and Plan Assessment Anesthesia Assessment: Anesthesia Plan Discussed Final Anesthetic Review NPO: Yes ASA Class: II Final Preanesthetic Review: No Changes in Pt Med Stat, Meds/Allgs Chart Reviewed, Consent Obtained/Reviewed and Anes Risks/Benef Reviewed Patient Risk: Intermediate Procedure Risk: Low Assessment/Block/Sedation in SS: Assess/Block/Sedation-SS Anesthetic Plan Anesthetic Plan: MAC: Disposition: Standard PACU
[2021-05-18 12:28] VITALS: BP 155/60; PULSE 67; RESP 19; TEMP 36.9; O2SAT 99; BMI 34.3
[2021-05-18 14:11] VITALS: BP 117/58; PULSE 76; RESP 16; TEMP 36.5; O2SAT 97
--- NOTE | 2021-05-18 14:17 | PM.OP ---
Brief Operative Note Date of Service: 05/18/21 Pre-op diagnosis: Anemia Post-op diagnosis: other (Gastritis, R/O celiac disease, Diverticulosis) Procedure: Colonoscopy to the cecum and TI, EGD with biopsies Surgeon: Maximiliano Coats Anesthesia: MAC Was an Senior Technical Support Engineer used for this Procedure?: No Estimated blood loss (mL): 2.0 Pathology: other (A. Descending duodenum B. Proximal stomach) Condition: stable Disposition: PACU
[2021-05-18 14:25] VITALS: BP 153/66; PULSE 71; RESP 18; O2SAT 99
[2021-05-18 14:40] VITALS: BP 151/72; PULSE 78; RESP 18; TEMP 36.2; O2SAT 99
--- NOTE | 2021-05-18 14:40 | HO.POSTANES ---
Post Anesthesia Evaluation Post Anesthesia Evaluation Vital Signs: Vital Signs Temp Pulse Resp BP Pulse Ox 05/18/21 12:28 98.4 F 67 19 155/60 H 99 Anesthesia: Monitored Mental Status: Awake Pain Control: Satisfactory Nausea/Vomiting: None Hydration: Adequate Anesthesia-Related Issues: No Anes. Related Issues
--- NOTE | 2021-05-18 15:23 | HO.POSTANES ---
Post Anesthesia Evaluation Post Anesthesia Evaluation Vital Signs: Vital Signs Temp Pulse Resp BP Pulse Ox 05/18/21 14:40 97.1 F 78 18 151/72 H 99 05/18/21 14:25 71 18 153/66 H 99 05/18/21 14:11 97.7 F 76 16 117/58 L 97 05/18/21 12:28 98.4 F 67 19 155/60 H 99 Mental Status: Awake Pain Control: Satisfactory Nausea/Vomiting: None Hydration: Adequate Anesthesia-Related Issues: No Anes. Related Issues
--- NOTE | 2021-05-18 21:39 | OP_ITS ---
SURGEON: Maximiliano Coats MD INDICATIONS: The patient presents for evaluation of microcytic anemia and abdominal discomfort. Full consent has been obtained from her for this, including risks of bleeding and perforation. PREOPERATIVE DIAGNOSIS: POSTOPERATIVE DIAGNOSIS: PROCEDURE PERFORMED: Colonoscopy to the cecum and terminal ileum, and esophagogastroduodenoscopy with biopsies. ESTIMATED BLOOD LOSS: COMPLICATIONS: ANESTHESIA: Medication used, monitored anesthesia care. ASSISTANTS: SPECIMENS: PREOPERATIVE DIAGNOSES: Microcytic anemia and abdominal discomfort. POSTOPERATIVE DIAGNOSES: Microcytic anemia and abdominal discomfort, diverticulosis, internal hemorrhoids, gastritis, hiatal hernia, rule out celiac disease. DESCRIPTION OF PROCEDURE: The patient was placed in the left lateral decubitus position. The digital rectal exam revealed no abnormalities. The Olympus video pediatric colonoscope was entered into the rectum and advanced easily to the cecum. Once in the cecum, I did identify normal-appearing cecal pouch with appendiceal orifice and a normal-appearing ileocecal valve. The terminal ileum was cannulated and appeared normal. The scope was withdrawn back in the colon. The entire cecum and ileocecal valve appeared normal. The scope was slowly withdrawn assessing all mucosal surfaces carefully. Preparation was excellent. I did not visualize any sign of polyps, colitis, nor angiodysplasia. There was a mild amount of sigmoid diverticulosis. In the rectum, the scope was retroflexed visualizing internal hemorrhoids, but no other pathology. The rectal mucosa appeared normal. The scope was straightened and withdrawn from the patient. She was turned around for the upper endoscopy. Although I had done the upper endoscopy earlier this month, I decided to do another one to obtain duodenal biopsies to rule out celiac disease as a cause of her anemia. The scope was passed in the posterior oropharynx and upper esophagus under direct vision. The scope was passed slowly into the distal esophagus. The gastroesophageal junction appeared normal at 34 cm. There was no sign of any esophagitis. The scope entered the stomach, there was a small to moderate-sized hiatal hernia with normal mucosa. The scope was advanced to the pylorus, and the duodenum was cannulated to the descending portion. The duodenum including the bulb appeared normal without mass or ulceration. Biopsies were obtained from the 2nd and 3rd portions of duodenum. The scope was withdrawn back to the stomach. The gastric antrum and body appeared normal with good peristalsis. The scope was retroflexed visualizing the proximal stomach carefully, which appeared to have some chronic appearing gastritis, but without any sign of mass nor ulceration. Biopsies were obtained from the proximal stomach. The scope was then withdrawn into the esophagus. The esophageal mucosa appeared normal. The scope was withdrawn from the patient. She tolerated both procedures well and was returned to the recovery area in stable condition. IMPRESSION: 1. Proximal gastritis, status post biopsy. 2. Rule out celiac disease. 3. Hiatal hernia. 4. Diverticulosis. 5. Internal hemorrhoids. PLAN: The results of the biopsies will be checked. She has been advised to continue her iron, and avoid aspirin and NSAIDs. At this point, I have not found any cause of her anemia from a definitive standpoint, although perhaps her gastritis is contributing to this. She may need further evaluation with a small bowel video capsule study. She will start omeprazole 20mg daily. She will be seen in followup in the office. This has been discussed with her sister. MD SILVA Pedroza/TAVARES / [id number] MUKESH
== END 2021-05-18 15:40 | disposition home or self-care (01) ==
PROVIDERS: PCP Internal Medicine; Visit Provider Internal Medicine
PROC: 0DJD8ZZ Inspection of Lower Intestinal Tract, Via Natural or Artificial Opening Endoscopic (ICD-10-PCS; CPT 45378; principal; 2021-05-18 13:10)
PROC: 0DJ08ZZ Inspection of Upper Intestinal Tract, Via Natural or Artificial Opening Endoscopic (ICD-10-PCS; CPT 43235; 2021-05-18 13:10)
DX: K29.50 Unspecified chronic gastritis without bleeding (principal); B96.81 Helicobacter pylori [H. pylori] as the cause of diseases classified elsewhere; R63.4 Abnormal weight loss; Z68.36 Body mass index [BMI] 36.0-36.9, adult; R68.81 Early satiety; R93.3 Abnormal findings on diagnostic imaging of other parts of digestive tract; K44.9 Diaphragmatic hernia without obstruction or gangrene; I10 Essential (primary) hypertension; E78.5 Hyperlipidemia, unspecified; D64.9 Anemia, unspecified; R60.9 Edema, unspecified; Z79.899 Other long term (current) drug therapy
CPT/HCPCS: 45378; 43239; 88305; 88342

== ENCOUNTER 2021-06-26 08:41 | Outpatient (REF) | payer MEDICARE, SELFPAY ==
--- NOTE | ~2021-06-26 | FL_ITS ---
EXAMINATION: XR UPPER GI SERIES WITH SMALL BOWEL CLINICAL INFORMATION: Iron deficiency anemia and weight loss COMPARISON: Previous CT of the abdomen and pelvis March 2021 TECHNIQUE: Heavy Coil Winder film was obtained. Upper GI was performed using thin and thick barium. Small bowel follow-through was subsequently performed. Evaluation of the stomach is limited due to patient's limited mobility. FINDINGS: There is a small sliding-type hiatal hernia. There is significant gastroesophageal reflux. There is question of a esophagitis mucosal irregularity of the esophagus. The stomach is not well evaluated. Small bowel mucosal pattern is normal. There is normal small bowel transit with contrast reaching the large bowel at 3 hours. No mucosal irregularity, mass, evidence of obstruction or stricture is. FLUOROSCOPY TIME: 1.4 minutes DOSE AREA PRODUCT: 22 Wheeler per centimeters squared. 38 saved fluoroscopic images. FL/FL upper GI w air w SBFT IMPRESSION: Significant gastroesophageal reflux. Small sliding-type hiatal hernia. Question esophagitis of the distal esophagus. The stomach is not well evaluated due to limited patient mobility. The small bowel is normal.
[2021-06-26 09:21] LABS: MANUAL DIFF FLAG NO
[2021-06-26 09:35] LABS: Basophils Absolute Auto 0.1 X10*3/uL (0.0-0.2); Basophils Percent Auto 0.9 % (0-2); Eosinophils Absolute Auto 0.2 X10*3/uL (0.0-0.4); Eosinophils Percent Auto 2.7 % (0-4); Hematocrit 30.8 % (37.0-47.0); Hemoglobin 10.5 g/dl (12.0-16.0); Imm Gran Abs Auto 0.01 X10*3/uL (0.00-0.03); Imm Gran Pct Auto 0.1 % (0.0-0.4); Lymphocytes Absolute Auto 1.4 X10*3/uL (1.2-4.9); Lymphocytes Percent Auto 21.2 % (20-40); Mean Corpuscular HGB Conc 34.1 g/dl (31.0-35.0); Mean Corpuscular Hemoglobin 25.5 pg (27.0-33.0); Mean Corpuscular Volume 74.8 fL (80.0-98.0); Mean Platelet Volume 9.6 fL (9.4-12.3); Monocytes Absolute Auto 0.5 X10*3/uL (0.1-1.2); Monocytes Percent Auto 7.2 % (2-11); Neutrophils Absolute Auto 4.5 x10*3/uL (2.0-8.3); Neutrophils Percent Auto 67.9 % (45-73); Platelet Count 217 X10*3/uL (160-400); Red Blood Count 4.12 X10*6/uL (4.20-5.50); Red Cell Distribution Width 19.9 % (11.0-16.0); White Blood Count 6.7 X10*3/uL (4.8-10.8)
[2021-06-26 10:38] LABS: Iron 50 mcg/dL (30-160); Percent Iron Saturation 17 % (15-50); Total Iron Binding Capacity 301 mcg/dL (228-428); Unsaturated Iron Binding 251 ug/dL
[2021-06-26 10:40] LABS: Folate 8.5 ng/mL (> or = 4.0); Vitamin B12 334 pg/mL (200-900)
[2021-06-26 11:02] LABS: Ferritin 19 ng/mL (10-250)
[2021-06-30 10:01] LABS: Immunoglobulin A 275 mg/dL (70-320)
[2021-06-30 12:02] LABS: Gliadin Deamidated IgA Ab <1.0 U/mL; Gliadin Deamidated IgG Ab <1.0 U/mL; Transglutaminase Ab IgG <1.0 U/mL; Transglutaminase IgA <1.0 U/mL
[2021-07-01 15:26] LABS: Intrinsic Factor Antibodies Negative (Negative)
[2021-07-02 13:26] LABS: Parietal Cell Antibody <=20.0 Unit (<=20.0)
[2021-07-02 22:01] LABS: Endomysial IgA Antibody Negative (Negative)
== END 2021-06-26 08:42 | disposition home or self-care (01) ==
LOC: HO.XRAY 08:41
PROVIDERS: PCP Internal Medicine; Visit Provider Internal Medicine
DX: R10.12 Left upper quadrant pain (principal); D50.9 Iron deficiency anemia, unspecified; R63.4 Abnormal weight loss; K29.70 Gastritis, unspecified, without bleeding
CPT/HCPCS: 36415; 74246; 74248; 82607; 82728; 82746; 82784; 83516; 83540; 85025; 86231; 86258; 86340; 86364

== ENCOUNTER → 2022-02-04 10:24 | Outpatient (REF) | payer MEDICARE, SELFPAY ==
--- NOTE | 2022-02-04 10:29 | CA_ITS ---
Transthoracic Echocardiogram Patient (Last, First, Middle): Negra Cameron, Gender: Female Date of : 1950 Age: 71 Procedure Date: 02/04/2022 Procedure Type: Transthoracic Echocardiogram Location: OP Height: 160.02 cm Weight: 90.27 kg BSA: 1.93 m2 Heart Rate: bpm BP: 150 / 80 mmHg Chargemaster Specialist: ADRIANO Referring MD: Axel Whitehead MD Lock Corner Machine Operator: Jamaal William MD Symptoms: [place] Study Quality: Fair ECG Rhythm: Sinus Conclusions: - 1. Normal LV systolic function with moderate LVH with impaired relaxation filling pattern 2. Moderately dilated left atrium 3. Zxhx-xd-vnulxnim aortic stenosis with evidence of possible subaortic obstruction as well 4. Moderate mitral calcification with mild mitral regurgitation 5. Mildly elevated right ventricular systolic pressure 6. No pericardial effusion Findings Left Ventricle Normal left ventricular size and systolic function. There is moderately increased left ventricular wall thickness. The visually estimated ejection fraction is between 65-70%. Spectral Doppler is indicative of an impaired relaxation filling pattern. E/E prime ratio is between 8 and 15 consistent with indeterminate filling pressures. Peak GLS is -19.4%, which is within normal limits Right Ventricle Normal right ventricular cavity size and systolic function. Atria The left atrium is moderately dilated. There is no evidence of interatrial shunt. The right atrium is likely dilated. Aortic Valve There is moderate calcification of the aortic valve. There is moderate thickening of the aortic valve. There is mild to moderate aortic valve stenosis. The mean gradient is 34 mmHg. The aortic valve area is 1.60 cm2. There is mild aortic valve regurgitation. there is increased gradient across the LVOT, contributing to increased gradient across aortic valve. Subaortic obstruction cannot be ruled out Mitral Valve There is mild anterior and moderate posterior mitral leaflet thickening. There is moderate mitral annular calcification. There is mild mitral valve regurgitation. There is no mitral valve stenosis. Pulmonic Valve The pulmonic valve was not well visualized. Tricuspid Valve Normal tricuspid valve structure. There is mild tricuspid valve regurgitation. Normal right atrial pressure. Mild pulmonary hypertension is present. Great Vessels All visible segments of the aorta are normal in size. The pulmonary artery was not well visualized. Venous The inferior vena cava is normal in size and collapses greater than 50% with inspiration. Pericardium/Pleural There is no evidence of pericardial effusion. Prior Study Comparison Changes noted compared to prior study dated: 12/20/2019. RV systolic pressure is elevated. Aortic stenosis appears to be ejcy-hx-fnjtlxmo with possible LVOT obstructive physiology as well. Measurements 2D Linear Measurements IVSd: 1.41 0.6-0.9/0.6-1.0 cm LVIDd: 4.13 3.9-5.3/4.2-5.9 cm LVIDd Index: 2.14 2.4-3.2/2.2-3.1 cm/m2 LVIDs: 2.26 2.0-3.6 cm LVPWd: 1.42 0.7-1.1 cm LA Diam: 4.00 2.7-3.8/3.0-4.0 cm LAIDs Index: 2.07 1.5-2.3 cm/m2 LV Mass: 277.38 67-162/88-224 g LV Mass Index: 143.72 43-95/49-115 g/m2 LVOT Diam: 2.00 3.0+(-)1.3 cm 2D Systolic Function EF 4C: 70.00 >55% EF 2C: 68.50 >55% EF BiP: 67.50 >55% Mitral Valve MV VTI: 0.38 MV Pk Hans: 1.92 MV Mn Hans: 1.15 MV Pk Grad: 15.00 MV Mn Grad: 6.00 MV Pk E: 0.91 MV PK A: 1.64 MV Decel Time: 147.00 E/A: 0.60 E'Lateral: 15.00 E'Medial: 13.30 E/E' Med: 6.80 E/E' Lat: 6.00 PHT: 43.00 MVA PHT: 5.12 MVA Continuity: 3.83 Decel Pine: 6.19 Aortic Valve AoV Pk Hans: 3.83 AoV Mn Hans: 2.73 AoV VTI: 90.20 AoV Pk Grad: 59.00 Aov Mn Grad: 34.00 DEREK Cont.VTI: 1.60 LVOT LVOT Pk Hans: 1.92 LVOT Mn Hans: 1.36 LVOT VTI: 0.46 LVOT Pk Grad: 15.00 LVOT Mn Grad: 8.00 LVOT Diam: 2.00 LVOT Area: 3.14 Diastolic Function MV Pk E: 0.91 MV Pk A: 1.64 E/A: 0.60 E'Medial: 13.30 E/E' Med: 6.80 E' Laterial: 15.00 E/E' Lat: 6.00 Right Ventricle TAPSE (mm): 27.70 TVS' Hans: 13.50 Tricuspid Valve TR Pk Hans: 3.11 TR Pk Grad: 39.00 RA Press: 3.00 RVSP: 42.00 Great Vessels Aorta Sinus of Valsalva: 3.12 2.0-3.[address] [place]: 2.20 1.7-3.4 cm Ao Asc: 3.40 2.1-3.4 cm Updated in Other Vendor System with Status of Final Jamaal William MD electronically signed on 02/05/2022 2:25:18 PM with status of Final
== END ==
LOC: HO.CARD 10:24
PROVIDERS: PCP Internal Medicine; Visit Provider Internal Medicine
DX: R01.1 Cardiac murmur, unspecified (principal)
CPT/HCPCS: 93306; 93356

== ENCOUNTER 2022-11-30 08:42 | Outpatient (REF) | payer OTHER, MEDICARE, SELFPAY ==
[2022-11-30 09:00] LABS: MANUAL DIFF FLAG NO
[2022-11-30 09:20] LABS: Basophils Absolute Auto 0.1 X10*3/uL (0.0-0.2); Basophils Percent Auto 1.1 % (0-2); Eosinophils Absolute Auto 0.2 X10*3/uL (0.0-0.4); Hemoglobin 8.5 g/dl (12.0-16.0); Imm Gran Abs Auto 0.01 X10*3/uL (0.00-0.03); Imm Gran Pct Auto 0.2 % (0.0-0.4); Lymphocytes Absolute Auto 1.4 X10*3/uL (1.2-4.9); Lymphocytes Percent Auto 21.5 % (20-40); Mean Corpuscular HGB Conc 31.5 g/dl (31.0-35.0); Mean Corpuscular Hemoglobin 22.1 pg (27.0-33.0); Mean Corpuscular Volume 70.3 fL (80.0-98.0); Mean Platelet Volume 8.9 fL (9.4-12.3); Monocytes Absolute Auto 0.4 X10*3/uL (0.1-1.2); Monocytes Percent Auto 6.4 % (2-11); Neutrophils Absolute Auto 4.3 x10*3/uL (2.0-8.3); Neutrophils Percent Auto 67.8 % (45-73); Platelet Count 383 X10*3/uL (160-400); Red Blood Count 3.84 X10*6/uL (4.20-5.50); Red Cell Distribution Width 22.9 % (11.0-16.0); White Blood Count 6.3 X10*3/uL (4.8-10.8)
== END 2022-11-30 08:43 | disposition home or self-care (01) ==
LOC: HO.LAB 08:42
PROVIDERS: PCP Internal Medicine; Visit Provider Internal Medicine
DX: R53.83 Other fatigue (principal)
CPT/HCPCS: 36415; 85025

== ENCOUNTER 2022-12-03 09:21 | Outpatient (REF) | payer OTHER, MEDICARE, SELFPAY ==
[2022-12-03 09:47] LABS: MANUAL DIFF FLAG NO
[2022-12-03 10:02] LABS: Basophils Absolute Auto 0.1 X10*3/uL (0.0-0.2); Basophils Percent Auto 0.8 % (0-2); Eosinophils Absolute Auto 0.2 X10*3/uL (0.0-0.4); Eosinophils Percent Auto 2.1 % (0-4); Hematocrit 28.2 % (37.0-47.0); Hemoglobin 8.9 g/dl (12.0-16.0); Imm Gran Abs Auto 0.02 X10*3/uL (0.00-0.03); Imm Gran Pct Auto 0.3 % (0.0-0.4); Lymphocytes Percent Auto 12.9 % (20-40); Mean Corpuscular HGB Conc 31.6 g/dl (31.0-35.0); Mean Corpuscular Hemoglobin 22.4 pg (27.0-33.0); Mean Corpuscular Volume 70.9 fL (80.0-98.0); Mean Platelet Volume 8.9 fL (9.4-12.3); Monocytes Absolute Auto 0.5 X10*3/uL (0.1-1.2); Monocytes Percent Auto 6.8 % (2-11); Neutrophils Absolute Auto 5.7 x10*3/uL (2.0-8.3); Neutrophils Percent Auto 77.1 % (45-73); Platelet Count 379 X10*3/uL (160-400); Red Blood Count 3.98 X10*6/uL (4.20-5.50); White Blood Count 7.5 X10*3/uL (4.8-10.8)
== END 2022-12-03 09:22 | disposition home or self-care (01) ==
LOC: HO.LAB 09:21
PROVIDERS: PCP Internal Medicine; Visit Provider Internal Medicine
DX: D64.9 Anemia, unspecified (principal); R53.83 Other fatigue
CPT/HCPCS: 36415; 85025

== ENCOUNTER 2022-12-21 09:34 | Outpatient (REF) | payer OTHER, MEDICARE, SELFPAY ==
[2022-12-21 10:05] LABS: MANUAL DIFF FLAG NO
[2022-12-21 10:36] LABS: Basophils Percent Auto 0.5 % (0-2); Eosinophils Absolute Auto 0.3 X10*3/uL (0.0-0.4); Eosinophils Percent Auto 4.5 % (0-4); Hematocrit 24.7 % (37.0-47.0); Hemoglobin 7.8 g/dl (12.0-16.0); Imm Gran Abs Auto 0.04 X10*3/uL (0.00-0.03); Imm Gran Pct Auto 0.7 % (0.0-0.4); Lymphocytes Absolute Auto 1.5 X10*3/uL (1.2-4.9); Lymphocytes Percent Auto 26.4 % (20-40); Mean Corpuscular HGB Conc 31.6 g/dl (31.0-35.0); Mean Corpuscular Hemoglobin 22.5 pg (27.0-33.0); Mean Corpuscular Volume 71.4 fL (80.0-98.0); Mean Platelet Volume 9.5 fL (9.4-12.3); Monocytes Absolute Auto 0.5 X10*3/uL (0.1-1.2); Monocytes Percent Auto 8.3 % (2-11); Neutrophils Absolute Auto 3.5 x10*3/uL (2.0-8.3); Neutrophils Percent Auto 59.6 % (45-73); Platelet Count 200 X10*3/uL (160-400); Red Blood Count 3.46 X10*6/uL (4.20-5.50); White Blood Count 5.8 X10*3/uL (4.8-10.8)
== END 2022-12-21 09:35 | disposition home or self-care (01) ==
LOC: HO.LAB 09:34
PROVIDERS: PCP Internal Medicine; Visit Provider Internal Medicine
DX: D64.9 Anemia, unspecified (principal); R53.83 Other fatigue
CPT/HCPCS: 36415; 85025

== ENCOUNTER 2022-12-21 11:51 | Outpatient (REF) | payer OTHER, MEDICARE, SELFPAY ==
[2022-12-21 16:23] LABS: MANUAL DIFF FLAG NO
[2022-12-21 16:46] LABS: Basophils Absolute Auto 0.1 X10*3/uL (0.0-0.2); Basophils Percent Auto 0.8 % (0-2); Eosinophils Absolute Auto 0.3 X10*3/uL (0.0-0.4); Eosinophils Percent Auto 4.6 % (0-4); Hematocrit 28.5 % (37.0-47.0); Hemoglobin 9.5 g/dl (12.0-16.0); Imm Gran Abs Auto 0.02 X10*3/uL (0.00-0.03); Imm Gran Pct Auto 0.3 % (0.0-0.4); Lymphocytes Absolute Auto 2.1 X10*3/uL (1.2-4.9); Lymphocytes Percent Auto 31.8 % (20-40); Mean Corpuscular HGB Conc 33.3 g/dl (31.0-35.0); Mean Corpuscular Hemoglobin 24.5 pg (27.0-33.0); Mean Corpuscular Volume 73.5 fL (80.0-98.0); Mean Platelet Volume 9.3 fL (9.4-12.3); Monocytes Absolute Auto 0.7 X10*3/uL (0.1-1.2); Monocytes Percent Auto 10.2 % (2-11); Neutrophils Absolute Auto 3.4 x10*3/uL (2.0-8.3); Neutrophils Percent Auto 52.3 % (45-73); Platelet Count 177 X10*3/uL (160-400); Red Blood Count 3.88 X10*6/uL (4.20-5.50); Red Cell Distribution Width 23.7 % (11.0-16.0); White Blood Count 6.6 X10*3/uL (4.8-10.8)
== END 2022-12-21 11:52 | disposition home or self-care (01) ==
LOC: HO.MDS 11:51
PROVIDERS: Visit Provider Internal Medicine
DX: D64.9 Anemia, unspecified (principal)
CPT/HCPCS: 36415; 36430; 85025; 86850; 86900; 86901; 86923; P9016

== ENCOUNTER 2022-12-28 11:00 | Outpatient (REF) | payer OTHER, MEDICARE, SELFPAY ==
[2022-12-28 11:14] LABS: MANUAL DIFF FLAG NO
[2022-12-28 11:19] LABS: Basophils Absolute Auto 0.1 X10*3/uL (0.0-0.2); Eosinophils Absolute Auto 0.2 X10*3/uL (0.0-0.4); Eosinophils Percent Auto 3.4 % (0-4); Hematocrit 31.6 % (37.0-47.0); Hemoglobin 10.2 g/dl (12.0-16.0); Imm Gran Abs Auto 0.01 X10*3/uL (0.00-0.03); Imm Gran Pct Auto 0.2 % (0.0-0.4); Lymphocytes Absolute Auto 1.6 X10*3/uL (1.2-4.9); Lymphocytes Percent Auto 26.8 % (20-40); Mean Corpuscular HGB Conc 32.3 g/dl (31.0-35.0); Mean Corpuscular Hemoglobin 24.2 pg (27.0-33.0); Mean Corpuscular Volume 75.1 fL (80.0-98.0); Monocytes Absolute Auto 0.5 X10*3/uL (0.1-1.2); Monocytes Percent Auto 7.7 % (2-11); Neutrophils Absolute Auto 3.7 x10*3/uL (2.0-8.3); Neutrophils Percent Auto 60.9 % (45-73); Platelet Count 230 X10*3/uL (160-400); Red Blood Count 4.21 X10*6/uL (4.20-5.50); Red Cell Distribution Width 24.2 % (11.0-16.0); White Blood Count 6.1 X10*3/uL (4.8-10.8)
== END 2022-12-28 11:01 | disposition home or self-care (01) ==
LOC: HO.LAB 11:00
PROVIDERS: PCP Internal Medicine; Visit Provider Internal Medicine
DX: D64.9 Anemia, unspecified (principal); R53.83 Other fatigue
CPT/HCPCS: 36415; 85025

== ENCOUNTER 2023-01-10 10:53 | Outpatient (REF) | payer OTHER, MEDICARE, SELFPAY ==
[2023-01-10 11:09] LABS: MANUAL DIFF FLAG NO
[2023-01-10 11:12] LABS: Basophils Absolute Auto 0.1 X10*3/uL (0.0-0.2); Eosinophils Absolute Auto 0.1 X10*3/uL (0.0-0.4); Eosinophils Percent Auto 2.3 % (0-4); Hemoglobin 11.1 g/dl (12.0-16.0); Imm Gran Abs Auto 0.02 X10*3/uL (0.00-0.03); Imm Gran Pct Auto 0.3 % (0.0-0.4); Lymphocytes Absolute Auto 1.5 X10*3/uL (1.2-4.9); Lymphocytes Percent Auto 24.1 % (20-40); Mean Corpuscular HGB Conc 32.6 g/dl (31.0-35.0); Mean Corpuscular Hemoglobin 24.2 pg (27.0-33.0); Mean Corpuscular Volume 74.2 fL (80.0-98.0); Mean Platelet Volume 9.2 fL (9.4-12.3); Monocytes Absolute Auto 0.5 X10*3/uL (0.1-1.2); Monocytes Percent Auto 8.5 % (2-11); Neutrophils Absolute Auto 3.9 x10*3/uL (2.0-8.3); Neutrophils Percent Auto 63.8 % (45-73); Platelet Count 221 X10*3/uL (160-400); Red Blood Count 4.58 X10*6/uL (4.20-5.50); Red Cell Distribution Width 23.8 % (11.0-16.0); White Blood Count 6.1 X10*3/uL (4.8-10.8)
== END 2023-01-10 10:54 | disposition home or self-care (01) ==
LOC: HO.LAB 10:53
PROVIDERS: PCP Internal Medicine; Visit Provider Internal Medicine
DX: D64.9 Anemia, unspecified (principal)
CPT/HCPCS: 36415; 85025

== ENCOUNTER → 2023-01-28 08:00 | Outpatient (BNVA) | payer MEDICARE, SELFPAY | PROVIDERS: PCP Internal Medicine; Visit Provider Internal Medicine Gastroenterology | DX: D64.9 Anemia, unspecified (principal) | CPT/HCPCS: 91110 ==

== ENCOUNTER 2023-02-08 10:31 | Outpatient (REF) | payer OTHER, MEDICARE, SELFPAY ==
[2023-02-08 10:56] LABS: MANUAL DIFF FLAG NO
[2023-02-08 11:35] LABS: Basophils Absolute Auto 0.1 X10*3/uL (0.0-0.2); Eosinophils Absolute Auto 0.2 X10*3/uL (0.0-0.4); Eosinophils Percent Auto 2.5 % (0-4); Hematocrit 34.4 % (37.0-47.0); Imm Gran Abs Auto 0.01 X10*3/uL (0.00-0.03); Imm Gran Pct Auto 0.2 % (0.0-0.4); Lymphocytes Absolute Auto 1.7 X10*3/uL (1.2-4.9); Lymphocytes Percent Auto 26.3 % (20-40); Mean Corpuscular Hemoglobin 23.9 pg (27.0-33.0); Mean Corpuscular Volume 74.6 fL (80.0-98.0); Mean Platelet Volume 9.2 fL (9.4-12.3); Monocytes Absolute Auto 0.5 X10*3/uL (0.1-1.2); Monocytes Percent Auto 8.4 % (2-11); Neutrophils Absolute Auto 3.9 x10*3/uL (2.0-8.3); Neutrophils Percent Auto 61.6 % (45-73); Platelet Count 231 X10*3/uL (160-400); Red Blood Count 4.61 X10*6/uL (4.20-5.50); Red Cell Distribution Width 21.2 % (11.0-16.0); White Blood Count 6.3 X10*3/uL (4.8-10.8)
[2023-02-08 12:19] LABS: Iron 44 mcg/dL (30-160); Percent Iron Saturation 15 % (15-50); Total Iron Binding Capacity 286 mcg/dL (228-428); Unsaturated Iron Binding 242 ug/dL
[2023-02-08 12:23] LABS: Ferritin 14 ng/mL (10-250)
== END 2023-02-08 10:32 | disposition home or self-care (01) ==
LOC: HO.LAB 10:31
PROVIDERS: Absent Provider Internal Medicine; PCP Internal Medicine; Visit Provider Internal Medicine
DX: D50.9 Iron deficiency anemia, unspecified (principal); R53.83 Other fatigue
CPT/HCPCS: 36415; 82728; 83540; 85025

== ENCOUNTER 2023-02-24 14:52 | Outpatient (AMB) | payer OTHER, MEDICARE, SELFPAY ==
[2023-02-24 14:56] VITALS: BP 132/80; PULSE 85; BMI 35.2
--- NOTE | 2023-02-24 14:56 | A.OFFVIS_ITS ---
Intake Vital Signs 02/24/23 14:56 Height 5 ft 5 in Weight 211 lb 10.3 oz BMI 35.2 BP 132/80 Blood Pressure Location Lt brachial Position Sitting Pulse 85 Intake Visit Reasons: CREDIT PROFESSIONAL/ Dr. Whitehead/aortic stenosis Intake Note: New patient dx per patient pcp order another echo but hasn't heard yet Software Test Manager Required: No Allergies vancomycin [VANCOMYCIN] Allergy (Unknown, Verified 05/01/21 10:39) HIVES Medication List - Last Reconciled 02/24/23 by Jamaal William MD atorvastatin 10 mg PO DAILY bisacodyl (Dulcolax (bisacodyl)) 10 mg (2 x 5 mg) PO ONCE 1 day dicyclomine 10 mg PO QID PRN ferrous fumarate 325 mg PO DAILY furosemide (Lasix) 20 mg PO DAILY gabapentin 800 mg PO TID hydralazine 25 mg PO BID losartan 50 mg PO DAILY metoprolol succinate ER (Toprol XL) 50 mg PO DAILY ondansetron 4 mg PO Q6H PRN oxybutynin chloride ER 10 mg PO DAILY tramadol 50 mg PO BID PRN HPI HPI Comments History of Present Illness Details Negra was referred here for management of aortic stenosis. She had an echocardiogram last year which had shown normal LV systolic function with moderate LVH with moderately dilated left atrium and oxea-jw-wxynitif calcific aortic stenosis as well as moderate mitral calcification with mild mitral regurgitation. Compared to echocardiogram from 2 years before there was some progression of aortic stenosis. This echocardiogram was done January of 2022. She was advised for multiple follow-up for finally had appointment done recently. She has multiple issues and including gastric/GI issues of unclear etiology, hypertension, hyperlipidemia, limited exercise activity due to spinal issues as well as significant lymphedema in the right lower extremity. Patient has had left bundle-branch block for many years, no ischemic workup or prior history of heart disease. Patient says she has had murmur for long time as well. She denies any symptoms of exertional chest pain or shortness of breath. No exertional lightheadedness. No syncopal episodes. No prolonged palpitations irregular heartbeat. Her patient exercise capacity is quite limited. She takes all her medications. No recent lipid panel. [facility] Medical History Left bundle branch block Aortic stenosis Arthritis Lower extremity edema Anemia Neuropathy Back pain Hyperlipidemia HTN (hypertension) Surgical History History of hernia repair (2015) History of rotator cuff surgery (2012) History of tonsillectomy (1978) History of cholecystectomy (1975) Family History Sister Breast cancer, Onset Age: 49 Father Prostate cancer Brother Leukemia Social History Alcohol intake: current Alcohol intake frequency: holidays/special occasions only Patient Tobacco Use Status: Never used Tobacco Review of Systems Const Denies chills, Denies fatigue, Denies fever(s), Denies frequent falls, Denies weakness, Denies weight gain and Denies weight loss Eyes Denies loss of vision ENT Denies dizziness Card Denies chest pain, Denies leg edema, Denies lightheadedness, Denies palpitations, Denies dyspnea, Denies dyspnea on exertion, Denies orthopnea and Denies other (loss of consciousness) Resp Denies cough, Denies dyspnea, Denies dyspnea on exertion and Denies wheezing GI Denies hematochezia and Denies change in stool character Denies urinary frequency and Denies dysuria Musc Denies abnormal gait, Denies muscle weakness, Denies numbness, Denies radiating pain into limb and Denies tingling Skin/Breast Denies nail changes and Denies rash Neuro Denies abnormal gait, Denies dizziness, Denies frequent falls, Denies loss of vision, Denies memory loss, Denies numbness, Denies tingling and Denies weakness Psych Denies depression and Denies memory loss Endo Denies fatigue and Denies palpitations Estevan/Lymph Reports easy bruising and Reports other (anemia) Aller/Immun Denies wheezing Physical Exam Vital Signs: Last Vital Signs Pulse 85 02/24/23 14:56 BP 132/80 02/24/23 14:56 BMI result Body Mass Index 35.2 Const General: cooperative, comfortable, no acute distress, alert and awake Nutritional Appearance: obese Orientation/consciousness: patient oriented x3 Limitations: ambulation with walker HEENT Head: Yes normocephalic and Yes atraumatic Neck Neck: Yes trachea midline, Yes supple and Yes no JVD Resp Effort & Inspection: normal respiratory effort Auscultation: clear to auscultation bilaterally Cardio Jugular venous distension: no JVD Rate: regular rate Rhythm: regular rhythm Heart sounds: S1 normal heart sound present, S2 normal heart sound present, no click, no gallops and Murmur heart sound present systolic mid, decrescendo, crescendo, harsh and at the base GI Auscultation: normal bowel sounds Skin General skin exam: no rashes or lesions noted Neuro General: patient oriented x3 and no focal motor deficits Extrem General: No clubbing, No cyanosis and Yes edema (Significant swelling of the right lower extremity related to lymphedema) Office Procedures EKG Details: EKG shows normal sinus rhythm with left bundle-branch block with first-degree AV block [id number], Complete Assessment & Plan Assessment & Plan (1) Aortic stenosis: Code(s): I35.0 - Nonrheumatic aortic (valve) stenosis Plan: Patient with calcific aortic stenosis, question congenital malformation of the valve. Unclear from the last echocardiogram. It appears that clinically she might have more moderate aortic stenosis. Subaortic obstruction cannot be ruled out. Will suggest a echocardiogram to follow-up on the last use echocardiogram. Nature of aortic stenosis and pathophysiology was discussed. Cardinal symptoms associated with aortic stenosis were discussed. Advise low- dose aspirin therapy for neuro protection. Continue aggressive risk factor modification with goal LDL less than 100 mg/dL. Blood pressure is currently well optimized. Consider screening of kids. (2) Left bundle branch block: Code(s): I44.7 - Left bundle-branch block, unspecified Plan: Left bundle-branch block which is chronic. We discussed about pathophysiology of left bundle-branch block. Will follow-up with vasodilating myocardial perfusion imaging to rule out obstructive coronary artery disease. Could be related to calcific valve disease. One in 6 patients can develop progressive cardiomyopathy and annual echocardiogram will be pursued any way as patient has aortic stenosis this will be done anyway. No treatment per se for the left bundle-branch block. Follow up in the clinic in 6 weeks time, sooner p.r.n.. Thank you for allowing me to partake in her care Orders: Orders CA echo transthoracic complete Today I35.0 - Nonrheumatic aortic (valve) stenosis CA lexiscan stress w jennie Today I44.7 - Left bundle-branch block, unspecified Medications: Changed From dicyclomine 10 mg PO QID PRN 10 caps 0RF abdominal pain To dicyclomine 10 mg PO QID PRN abdominal pain Coding Level of Care Code New Pt Level 4 (12922) Diagnoses Aortic stenosis I35.0 Left bundle branch block I44.7 CPT Codes EKG - CPT: 21615-[id number], Complete ([id number])
== END 2023-02-24 15:38 | disposition home or self-care (01) ==
PROVIDERS: PCP Internal Medicine; Visit Provider Internal Medicine Cardiovascular Disease
DX: I35.0 Nonrheumatic aortic (valve) stenosis (principal); I44.7 Left bundle-branch block, unspecified
CPT/HCPCS: 93010; 99214

== ENCOUNTER → 2023-02-24 14:52 | Outpatient (BNVA) | payer OTHER, MEDICARE, SELFPAY | PROVIDERS: PCP Internal Medicine; Visit Provider Internal Medicine Cardiovascular Disease | DX: I35.0 Nonrheumatic aortic (valve) stenosis (principal); I44.7 Left bundle-branch block, unspecified | CPT/HCPCS: 93005; 99212 ==

== ENCOUNTER 2023-03-17 08:58 | Outpatient (REF) | payer OTHER, MEDICARE, SELFPAY ==
[2023-03-17 09:14] LABS: MANUAL DIFF FLAG NO
[2023-03-17 09:36] LABS: Basophils Absolute Auto 0.1 X10*3/uL (0.0-0.2); Eosinophils Absolute Auto 0.2 X10*3/uL (0.0-0.4); Eosinophils Percent Auto 3.9 % (0-4); Hematocrit 33.1 % (37.0-47.0); Hemoglobin 11.3 g/dl (12.0-16.0); Imm Gran Abs Auto 0.03 X10*3/uL (0.00-0.03); Imm Gran Pct Auto 0.5 % (0.0-0.4); Lymphocytes Absolute Auto 1.6 X10*3/uL (1.2-4.9); Mean Corpuscular HGB Conc 34.1 g/dl (31.0-35.0); Mean Corpuscular Hemoglobin 25.8 pg (27.0-33.0); Mean Corpuscular Volume 75.6 fL (80.0-98.0); Mean Platelet Volume 9.6 fL (9.4-12.3); Monocytes Absolute Auto 0.5 X10*3/uL (0.1-1.2); Monocytes Percent Auto 8.7 % (2-11); Neutrophils Absolute Auto 3.8 x10*3/uL (2.0-8.3); Neutrophils Percent Auto 60.9 % (45-73); Platelet Count 220 X10*3/uL (160-400); Red Blood Count 4.38 X10*6/uL (4.20-5.50); Red Cell Distribution Width 20.1 % (11.0-16.0); White Blood Count 6.2 X10*3/uL (4.8-10.8)
[2023-03-17 10:12] LABS: Iron 156 mcg/dL (30-160); Percent Iron Saturation 52 % (15-50); Total Iron Binding Capacity 301 mcg/dL (228-428); Unsaturated Iron Binding 145 ug/dL
[2023-03-17 10:25] LABS: Ferritin 17 ng/mL (10-250)
[2023-03-17 10:31] LABS: Folate 15.7 ng/mL (> or = 4.0)
[2023-03-17 14:53] LABS: Vitamin B12 1422 pg/mL (200-900)
== END 2023-03-17 08:59 | disposition home or self-care (01) ==
LOC: HO.LAB 08:58
PROVIDERS: PCP Internal Medicine; Visit Provider Internal Medicine
DX: D64.9 Anemia, unspecified (principal); R53.83 Other fatigue
CPT/HCPCS: 36415; 82607; 82728; 82746; 83540; 85025

== ENCOUNTER 2023-05-12 08:32 | Outpatient (REF) | payer OTHER, MEDICARE, SELFPAY ==
[2023-05-12 08:48] LABS: MANUAL DIFF FLAG NO
[2023-05-12 09:34] LABS: Basophils Absolute Auto 0.1 X10*3/uL (0.0-0.2); Basophils Percent Auto 0.7 % (0-2); Eosinophils Absolute Auto 0.3 X10*3/uL (0.0-0.4); Eosinophils Percent Auto 3.9 % (0-4); Hematocrit 34.4 % (37.0-47.0); Hemoglobin 11.9 g/dl (12.0-16.0); Imm Gran Abs Auto 0.02 X10*3/uL (0.00-0.03); Imm Gran Pct Auto 0.3 % (0.0-0.4); Lymphocytes Absolute Auto 1.7 X10*3/uL (1.2-4.9); Lymphocytes Percent Auto 23.4 % (20-40); Mean Corpuscular HGB Conc 34.6 g/dl (31.0-35.0); Mean Corpuscular Hemoglobin 26.9 pg (27.0-33.0); Mean Corpuscular Volume 77.8 fL (80.0-98.0); Mean Platelet Volume 9.2 fL (9.4-12.3); Monocytes Absolute Auto 0.6 X10*3/uL (0.1-1.2); Monocytes Percent Auto 8.1 % (2-11); Neutrophils Absolute Auto 4.6 x10*3/uL (2.0-8.3); Neutrophils Percent Auto 63.6 % (45-73); Platelet Count 243 X10*3/uL (160-400); Red Blood Count 4.42 X10*6/uL (4.20-5.50); Red Cell Distribution Width 16.8 % (11.0-16.0); White Blood Count 7.2 X10*3/uL (4.8-10.8)
[2023-05-12 10:05] LABS: Cholesterol 156 mg/dL (<200); HDL Cholesterol 54 mg/dL (>40); LDL Cholesterol Calculated 92 mg/dL (<100); Triglycerides 54 mg/dL (<150)
[2023-05-12 10:19] LABS: Iron 56 mcg/dL (30-160); Percent Iron Saturation 22 % (15-50); Total Iron Binding Capacity 249 mcg/dL (228-428); Unsaturated Iron Binding 193 ug/dL
[2023-05-12 10:35] LABS: Ferritin 18 ng/mL (10-250)
== END 2023-05-12 08:33 | disposition home or self-care (01) ==
LOC: HO.LAB 08:32
PROVIDERS: Absent Provider Internal Medicine; PCP Internal Medicine; Visit Provider Internal Medicine Cardiovascular Disease
DX: I25.10 Atherosclerotic heart disease of native coronary artery without angina pectoris (principal); D50.9 Iron deficiency anemia, unspecified
CPT/HCPCS: 36415; 80061; 82728; 83540; 85025

== ENCOUNTER → 2023-05-18 07:44 | Outpatient (REF) | payer MEDICARE, SELFPAY ==
--- NOTE | ~2023-05-18 | NM_ITS ---
Myocardial perfusion study Indication: Left bundle branch block to evaluate for myocardial ischemia Technique: The patient was brought in for a Lexiscan perfusion study on 05/18/2023. Patient performed low-level exercise and was injected 0.4 mg of Lexiscan intravenously. Within a minute of injection, 35 mCi of sestamibi was given intravenously. Images were obtained using the SPECT gamma camera interlaced with the gating device. Images were obtained in supine position. Resting perfusion study was performed on 05/19/2023. Patient was administered 35 mCi of sestamibi intravenously at rest. Images were then obtained in supine position. Images obtained with and without CT attenuation. Total DLP 80 mGy-cm. Images were processed with the software and compared side to side in short axis, horizontal long axis and vertical long axis views. Findings: The stress perfusion study showed non attenuated images show diffusely and mildly reduced thickening most of the basal segments of the LV myocardium. Remainder of the LV. Attenuation corrected images show mildly reduced uptake in the apex of the LV myocardium. The gated study shows normal LV systolic function with calculated LVEF of 66%. LV cavity is normal in size. The gated study shows normal systolic wall thickening and contraction of segments. Resting study shows no change in perfusion pattern compared to stress. Gating at rest reveals normal systolic wall motion with ejection fraction at 64%. The findings are consistent with likely normal myocardial perfusion. NM/NM jennie perf SPECT rest & str Impression: 1. Myocardial perfusion imaging study shows likely normal myocardial perfusion 2. Gated LVEF is 66% 3. Transient ischemic dilatation not present EKG is nondiagnostic for ischemia
--- NOTE | 2023-05-18 07:50 | CA_ITS ---
Transthoracic Echocardiogram Patient (Last, First, Middle): Negra Cameron, Gender: Female Date of : 1950 Age: 72 Procedure Date: 05/18/2023 Procedure Type: Transthoracic Echocardiogram Location: OP Height: 162.56 cm Weight: 96.16 kg BSA: 2.01 m2 Heart Rate: bpm BP: 128 / 80 mmHg Quality Compliance Manager: Referring MD: Jamaal William MD Symptoms: I35.0 - Nonrheumatic aortic (valve) stenosis Study Quality: Fair ECG Rhythm: Sinus Conclusions: - The left ventricular systolic function is normal. The calculated ejection fraction is 62% by biplane method. - There is moderate aortic valve stenosis. - There is moderate mitral annular calcification. - Mild pulmonary hypertension is present. Findings Left Ventricle Normal left ventricular cavity size. There is severely increased left ventricular wall thickness. The left ventricular systolic function is normal. The calculated ejection fraction is 62% by biplane method. There is no evidence of regional wall motion abnormalities. Evidence suggests grade I (mild) diastolic dysfunction. LV peak GLS -17.9%. Right Ventricle Mildly increased right ventricular cavity size. There is normal right ventricular systolic function. Atria The left atrium is severely dilated. The right atrium is normal in size. Aortic Valve There is moderate calcification of the aortic valve. There is moderate aortic valve stenosis. The peak aortic velocity is 3.65 m/s with a calculated peak gradient of 53 mmHg. The mean gradient is 30 mmHg. The aortic valve area is 1.40 cm2. Mitral Valve There is moderate mitral annular calcification. There is mild mitral valve regurgitation. There is no mitral valve stenosis. Pulmonic Valve The pulmonic valve is likely normal. Tricuspid Valve Normal tricuspid valve structure. There is mild tricuspid valve regurgitation. Mild pulmonary hypertension is present. Great Vessels The asc aorta is normal in size. Venous The inferior vena cava is normal in size and collapses greater than 50% with inspiration. Pericardium/Pleural There is no evidence of pericardial effusion. Prior Study Comparison No significant change compared to prior study dated: 02/04/2022. Measurements 2D Linear Measurements IVSd: 1.80 0.6-0.9/0.6-1.0 cm LVIDd: 3.82 3.9-5.3/4.2-5.9 cm LVIDd Index: 1.90 2.4-3.2/2.2-3.1 cm/m2 LVIDs: 2.51 2.0-3.6 cm LVPWd: 1.58 0.7-1.1 cm Ao Root: 2.90 2.1-3.5 cm LA Diam: 5.20 2.7-3.8/3.0-4.0 cm LAIDs Index: 2.59 1.5-2.3 cm/m2 LV Mass: 330.21 67-162/88-224 g LV Mass Index: 164.28 43-95/49-115 g/m2 LVOT Diam: 2.00 3.0+(-)1.3 cm 2D Systolic Function EF 4C: 69.30 >55% EF 2C: 55.70 >55% EF BiP: 61.60 >55% Mitral Valve MV VTI: 0.39 MV Pk Hans: 1.59 MV Mn Hans: 0.93 MV Pk Grad: 10.00 MV Mn Grad: 4.00 MV Pk E: 0.95 MV PK A: 1.42 MV Decel Time: 114.00 E/A: 0.70 E'Lateral: 5.77 E'Medial: 5.00 E/E' Med: 18.90 E/E' Lat: 16.40 PHT: 33.00 MVA PHT: 6.67 MVA Continuity: 3.08 Decel Mckinley: 8.30 Aortic Valve AoV Pk Hans: 3.65 AoV Mn Hans: 2.55 AoV VTI: 0.85 AoV Pk Grad: 53.00 Aov Mn Grad: 30.00 DEREK Cont.VTI: 1.40 LVOT LVOT Pk Hans: 1.43 LVOT Mn Hans: 1.01 LVOT VTI: 0.38 LVOT Pk Grad: 8.00 LVOT Mn Grad: 5.00 LVOT Diam: 2.00 LVOT Area: 3.14 Diastolic Function MV Pk E: 0.95 MV Pk A: 1.42 E/A: 0.70 E'Medial: 5.00 E/E' Med: 18.90 E' Laterial: 5.77 E/E' Lat: 16.40 Right Ventricle TAPSE (mm): 32.00 TVS' Hans: 11.00 Tricuspid Valve TR Pk Hans: 3.19 TR Pk Grad: 41.00 RA Press: 3.00 RVSP: 44.00 Great Vessels Aorta Ao Root-2D: 2.90 2.0-3.7 cm Ao Asc: 3.50 2.1-3.4 cm Pulmonary Valve PV Pk Hans: 1.30 Peak PV Grad: 7.00 Updated in Other Vendor System with Status of Final Shine Malik MD electronically signed on 05/19/2023 8:08:53 AM with status of Final
--- NOTE | 2023-05-18 09:04 | CA_ITS ---
Acquisition Time: 2023-05-18 09:03:09 Total Exercise Time: 00:02:00 Test Indications: LBBB Medications: SEE MED SHEET Protocol: LEXISCAN Max HR: 096 BPM 64% of Pred: 150 BPM Max BP: 154/072 mmHG Max Work Load: 1.0 METS Pharmacological stress test with Lexiscan injection while sitting and slowling moving legs due to bradycardia, with mild SOB, no chest discomfort, without arrhythmias, with normotensive response to injection, with nondiagnoisitic EKGs. Nuclear images pending. Test reviewed with Dr. Malik. Referred By: Jamaal William Overread By: Griselda Constantino
== END ==
LOC: HO.CARD 07:44
PROVIDERS: PCP Internal Medicine; Visit Provider Internal Medicine Cardiovascular Disease
DX: I35.0 Nonrheumatic aortic (valve) stenosis (principal); I44.7 Left bundle-branch block, unspecified
CPT/HCPCS: 78452; 93017; 93306; 93356; A9500; J0280; J2785

== ENCOUNTER → 2023-05-18 09:04 | Outpatient (BNV) | payer MEDICARE, SELFPAY | PROVIDERS: PCP Internal Medicine; Visit Provider Nurse Practitioner | DX: I44.7 Left bundle-branch block, unspecified (principal); R94.31 Abnormal electrocardiogram [ECG] [EKG] | CPT/HCPCS: 78452; 93016; 93018; 93306 ==

== ENCOUNTER 2023-06-16 14:09 | Outpatient (AMB) | payer MEDICARE, SELFPAY ==
[2023-06-16 14:33] VITALS: BP 114/62; PULSE 60; BMI 34.3
--- NOTE | 2023-06-16 14:33 | MHC.OFFVIS ---
Intake Vital Signs 06/16/23 14:33 Height 5 ft 5 in Weight 206 lb BMI 34.3 BP 114/62 Blood Pressure Location Lt brachial Position Sitting Pulse 60 Pulse Source Pulse Oximeter Intake Visit Reasons: f/u after testing Conversion Man Required: No Allergies vancomycin [VANCOMYCIN] Allergy (Unknown, Verified 06/16/23 14:39) HIVES Medication List - Last Reconciled 06/16/23 by Olga Bernal NP-C atorvastatin 20 mg PO DAILY bisacodyl (Dulcolax (bisacodyl)) 10 mg (2 x 5 mg) PO ONCE 1 day dicyclomine 10 mg PO QID PRN ferrous fumarate 325 mg PO DAILY furosemide (Lasix) 20 mg PO DAILY gabapentin 800 mg PO TID hydralazine 25 mg PO BID losartan 50 mg PO DAILY metoprolol succinate ER (Toprol XL) 50 mg PO DAILY ondansetron 4 mg PO Q6H PRN oxybutynin chloride ER 10 mg PO DAILY tramadol 50 mg PO BID PRN HPI f/u after testing HPI Details Negra is a 72-year-old female with past medical history of hypertension, hyperlipidemia, left bundle branch block, LVH, aortic stenosis who presents for follow-up after recent nuclear stress test and echocardiogram. Today she reports that she was recently admitted to [facility] and underwent abdominal surgery. She still has some mild discomfort. She is trying to increase her physical activity. She ambulates with a walker. She is chronic issues with lymphedema in her right leg. Her breathing is generally comfortable. She denies PND, orthopnea. No chest discomfort at rest or with activity. No heart palpitations, lightheadedness, presyncope, syncope, falls. Taking meds as directed. [facility] Medical History Left bundle branch block Aortic stenosis Arthritis Lower extremity edema Anemia Neuropathy Back pain Hyperlipidemia HTN (hypertension) Surgical History History of hernia repair (2015) History of rotator cuff surgery (2012) History of tonsillectomy (1978) History of cholecystectomy (1975) Family History Sister Breast cancer, Onset Age: 49 Father Prostate cancer Brother Leukemia Social History Alcohol intake: current Alcohol intake frequency: holidays/special occasions only Patient Tobacco Use Status: Never used Tobacco Review of Systems Const All systems reviewed & are unremarkable except as noted in HPI and below ENT Denies dizziness Card Denies chest pain, Denies chest pain at rest, Denies chest pain with activity, Denies rapid heart rate, Denies pedal edema, Denies edema, Denies leg edema, Denies lightheadedness, Denies palpitations, Denies dyspnea, Denies dyspnea on exertion and Reports orthopnea Resp Denies cough, Denies dyspnea and Denies dyspnea on exertion GI Details: discomfort from recent surgery Denies hematochezia and Denies change in stool character Musc Details: lymphedema right leg Denies abnormal gait, Denies limited range of motion, Denies muscle cramps, Denies muscle weakness, Denies numbness, Denies radiating pain into limb, Denies stiffness and Denies tingling Neuro Denies abnormal gait, Denies dizziness, Denies numbness and Denies tingling Endo Denies palpitations Physical Exam Vital Signs: Last Vital Signs Pulse 60 06/16/23 14:33 BP 114/62 06/16/23 14:33 BMI result Body Mass Index 34.3 Const General: cooperative, healthy appearing, comfortable and no acute distress Orientation/consciousness: patient oriented x3 Neck Neck: Yes normal visual inspection Resp Effort & Inspection: normal respiratory effort Auscultation: clear to auscultation bilaterally, no rales and no rhonchi Cardio Jugular venous distension: no JVD Rate: regular rate Rhythm: regular rhythm Heart sounds: S2 normal heart sound present, Murmur heart sound present (systolic murmur, heard best at left sternal border. 2nd heart sound present) and no rubs Skin General skin exam: no rashes or lesions noted Neuro General: patient oriented x3 Extrem Other: Lymphedema right leg, jelena wrap in use. Compression sock on left leg, mild edema present General: No normal to inspection and No calf tenderness Psych Appearance: grossly normal Mental Status: mental status grossly normal Speech and movement: Normal speech and movement present Assessment & Plan Assessment & Plan (1) Aortic stenosis: Code(s): I35.0 - Nonrheumatic aortic (valve) stenosis Plan: History of aortic stenosis. Last echocardiogram done 05/18/2023 shows EF 62%, moderate aortic stenosis, moderate mitral annular calcification, mild pulmonary hypertension. She does have a significant heart murmur noted on exam. Second heart tone is audible. Cardinal signs of severe aortic stenosis reviewed with her. Will plan for cardiology follow-up in 6 months. Repeat echo 1 year, sooner if needed. (2) Left bundle branch block: Code(s): I44.7 - Left bundle-branch block, unspecified Plan: History of left bundle branch block. No finding of cardiomyopathy on recent echocardiogram. She did have a nuclear stress test on 05/18/2023 which showed normal myocardial perfusion imaging. She has no chest discomfort at rest or with activity. She does have some shortness of breath which is not new. Her echocardiogram shows mild pulmonary hypertension. She is on Lasix 20 mg daily. (3) LVH (left ventricular hypertrophy): Code(s): I51.7 - Cardiomegaly Plan: Most recent echo shows severe increase in the LV wall thickness, normal EF. She does have a history of hypertension. Blood pressure is currently well controlled, 114/62 today. She is on Lasix, hydralazine, losartan, metoprolol XL. Labs are followed by her PCP. Will forward this note to him for review. No med changes made. (4) Hyperlipidemia: Code(s): E78.5 - Hyperlipidemia, unspecified Plan: [place] LDL goal less than 100. Labs done 05/12/2023 showed LDL 92. Continue atorvastatin. Plan Time spent on chart review, documentation, interview and assessment Coding Level of Care Code Est Pt Level 4 (92608) Diagnoses Aortic stenosis I35.0 Left bundle branch block I44.7 LVH (left ventricular hypertrophy) I51.7 Hyperlipidemia E78.5 Time Spent (min) 28
== END 2023-06-16 15:04 | disposition home or self-care (01) ==
PROVIDERS: PCP Internal Medicine; Visit Provider Nurse Practitioner Family
DX: I35.0 Nonrheumatic aortic (valve) stenosis (principal); I44.7 Left bundle-branch block, unspecified; I51.7 Cardiomegaly; E78.5 Hyperlipidemia, unspecified
CPT/HCPCS: 99214

== ENCOUNTER → 2023-06-16 14:09 | Outpatient (BNVA) | payer MEDICARE, SELFPAY | PROVIDERS: PCP Internal Medicine; Visit Provider Nurse Practitioner Family | DX: I35.0 Nonrheumatic aortic (valve) stenosis (principal); I44.7 Left bundle-branch block, unspecified; I51.7 Cardiomegaly | CPT/HCPCS: 99212 ==

== ENCOUNTER 2023-08-12 11:44 | Outpatient (REF) | payer MEDICARE, SELFPAY | END 2023-08-12 11:45 | disposition home or self-care (01) | LOC: HO.MAMMO 11:44 | PROVIDERS: PCP Internal Medicine; Visit Provider Internal Medicine | DX: Z12.31 Encounter for screening mammogram for malignant neoplasm of breast (principal) | CPT/HCPCS: 77063; 77067 ==

== ENCOUNTER → 2023-08-12 12:00 | Outpatient (BNV) | payer MEDICARE, SELFPAY | PROVIDERS: PCP Internal Medicine; Visit Provider Radiology Diagnostic Radiology | DX: Z12.31 Encounter for screening mammogram for malignant neoplasm of breast (principal) | CPT/HCPCS: 77063; 77067 ==

== ENCOUNTER 2023-10-28 08:31 | Outpatient (REF) | payer MEDICARE, SELFPAY ==
[2023-10-28 09:48] LABS: Cholesterol 159 mg/dL (<200); HDL Cholesterol 62 mg/dL (>40); LDL Cholesterol Calculated 87 mg/dL (<100); Triglycerides 54 mg/dL (<150)
== END 2023-10-28 08:32 | disposition home or self-care (01) ==
LOC: HO.LAB 08:31
PROVIDERS: PCP Internal Medicine; Visit Provider Internal Medicine Cardiovascular Disease
DX: E78.5 Hyperlipidemia, unspecified (principal)
CPT/HCPCS: 36415; 80061

== ENCOUNTER 2023-10-28 09:18 | Outpatient (REF) | payer MEDICARE, SELFPAY | END 2023-10-28 09:19 | disposition home or self-care (01) | LOC: HO.SH 09:18 | PROVIDERS: Visit Provider Internal Medicine | DX: Z01.118 Encounter for examination of ears and hearing with other abnormal findings (principal); H90.3 Sensorineural hearing loss, bilateral | CPT/HCPCS: 92557; 92567 ==

== ENCOUNTER 2023-11-30 10:48 | Outpatient (AMB) | payer MEDICARE, SELFPAY ==
--- NOTE | 2023-11-30 11:07 | MHC.OFFVIS ---
Vital Signs 11/30/23 11:09 Height 5 ft 5 in Weight 205 lb 0.478 oz BMI 34.1 BP 114/68 Blood Pressure Location Lt brachial Pulse 58 Intake Visit Reasons: 6 month follow up Intake Note: 6 month follow-up hearts ok had covid a few weeks ago still recovered B2B Managed Service Sales Exec Required: No Allergies vancomycin [VANCOMYCIN] Allergy (Unknown, Verified 06/16/23 14:39) HIVES Medication List - Last Reconciled 11/30/23 by Jamaal William MD atorvastatin 20 mg PO DAILY bisacodyl (Dulcolax (bisacodyl)) 10 mg (2 x 5 mg) PO ONCE 1 day ferrous fumarate 325 mg PO DAILY gabapentin 800 mg PO TID hydralazine 25 mg PO BID losartan 50 mg PO DAILY magnesium glycinate 100 mg PO DAILY metoprolol succinate ER (Toprol XL) 50 mg PO DAILY ondansetron 4 mg PO Q6H PRN oxybutynin chloride ER 10 mg PO DAILY tramadol 50 mg PO BID PRN turmeric mg PO HPI Comments Details: Negra comes for follow-up. She says she is recuperating from recent COVID infection including sinusitis. She denies any new cardiac symptoms. Walks with help of walker due to balance issues related to her back pain as well as lymphedema. She denies any exertional chest pain, shortness of breath, lightheadedness. No syncopal episode. No prolonged palpitation irregular heartbeat. Takes all her medications. Blood pressure is generally well controlled [facility] Medical History Left bundle branch block Aortic stenosis Arthritis Lower extremity edema Anemia Neuropathy Back pain Hyperlipidemia HTN (hypertension) Surgical History History of hernia repair (2015) History of rotator cuff surgery (2012) History of tonsillectomy (1978) History of cholecystectomy (1975) Family History Sister Breast cancer, Onset Age: 49 Father Prostate cancer Brother Leukemia Social History Alcohol intake: current Alcohol intake frequency: holidays/special occasions only Patient Tobacco Use Status: Never used Tobacco Review of Systems Const Denies chills, Denies fatigue, Denies fever(s), Denies frequent falls, Denies weakness, Denies weight gain and Denies weight loss ENT Denies dizziness Card Denies chest pain, Denies leg edema, Denies lightheadedness, Denies palpitations, Denies dyspnea, Denies dyspnea on exertion, Denies orthopnea and Denies other (loss of consciousness) Resp Denies cough, Denies dyspnea and Denies dyspnea on exertion GI Denies hematochezia and Denies change in stool character Musc Denies abnormal gait, Denies muscle weakness, Denies numbness, Denies radiating pain into limb and Denies tingling Neuro Denies abnormal gait, Denies dizziness, Denies frequent falls, Denies numbness, Denies tingling and Denies weakness Endo Denies fatigue and Denies palpitations Physical Exam Vital Signs: Last Vital Signs Pulse 58 11/30/23 11:09 BP 114/68 11/30/23 11:09 BMI result Body Mass Index 34.1 Const General: cooperative, healthy appearing, comfortable and no acute distress Orientation/consciousness: patient oriented x3 Neck Neck: Yes normal visual inspection Resp Effort & Inspection: normal respiratory effort Auscultation: clear to auscultation bilaterally, no rales and no rhonchi Cardio Jugular venous distension: no JVD Rate: regular rate Rhythm: regular rhythm Heart sounds: S2 normal heart sound present, Murmur heart sound present (systolic murmur, heard best at left sternal border. 2nd heart sound present) systolic mid, decrescendo and crescendo and no rubs Skin General skin exam: no rashes or lesions noted Neuro General: patient oriented x3 Extrem Other: Lymphedema right leg, jelena wrap in use. Compression sock on left leg, mild edema present General: No normal to inspection, No calf tenderness, No clubbing, No cyanosis and Yes other (Bilateral significant lymphedema) Psych Appearance: grossly normal Mental Status: mental status grossly normal Speech and movement: Normal speech and movement present Assessment & Plan Assessment & Plan (1) Aortic stenosis: Code(s): I35.0 - Nonrheumatic aortic (valve) stenosis Category: Medical Plan: Aortic stenosis which she was clinically and by echocardiogram moderate. Gradually progressive nature of aortic stenosis were discussed with her. Continue aggressive medical therapy. She is currently on low-dose aspirin therapy. Continue the same. Continue aggressive blood pressure control, see below. Continue statin therapy target goal LDL less than 100 mg/dL which is well optimized. Annual echocardiogram will be pursued in 6 months. Follow-up after that. Cardinal symptoms associated with aortic stenosis were discussed again. (2) Left bundle branch block: Code(s): I44.7 - Left bundle-branch block, unspecified Category: Medical Plan: Left bundle-branch block which is chronic and stable. Follow-up echocardiogram as above. No treatment per se. (3) HTN (hypertension): Code(s): I10 - Essential (primary) hypertension Category: Medical Plan: Hypertension which is currently well optimized on current therapy. Importance of good blood pressure control was discussed. Continue current therapy with metoprolol, losartan as well as hydralazine. Target goal blood pressure less than 130/84. Low-salt diet was discussed. Advised to participate in weight loss program. Follow up in the clinic in 6 months time, sooner p.r.n.. Thank you for allowing me to partake in her care Orders: Orders CA echo transthoracic complete 6 Months I35.0 - Nonrheumatic aortic (valve) stenosis Coding Level of Care Code Est Pt Level 4 (27042) Diagnoses Aortic stenosis I35.0 Left bundle branch block I44.7 HTN (hypertension) I10
[2023-11-30 11:09] VITALS: BP 114/68; PULSE 58; BMI 34.1
== END 2023-11-30 11:34 | disposition home or self-care (01) ==
PROVIDERS: PCP Internal Medicine; Visit Provider Internal Medicine Cardiovascular Disease
DX: I35.0 Nonrheumatic aortic (valve) stenosis (principal); I44.7 Left bundle-branch block, unspecified; I10 Essential (primary) hypertension
CPT/HCPCS: 99214

== ENCOUNTER → 2023-11-30 10:48 | Outpatient (BNVA) | payer MEDICARE, SELFPAY | PROVIDERS: PCP Internal Medicine; Visit Provider Internal Medicine Cardiovascular Disease | DX: I35.0 Nonrheumatic aortic (valve) stenosis (principal); I44.7 Left bundle-branch block, unspecified; I10 Essential (primary) hypertension | CPT/HCPCS: 99212 ==

== ENCOUNTER → 2024-05-21 15:06 | Outpatient (REF) | payer MEDICARE, SELFPAY ==
--- NOTE | 2024-05-21 15:08 | CA_ITS ---
Transthoracic Echocardiogram Patient (Last, First, Middle): Negra Cameron, Gender: Female Date of : 1950 Age: 73 Procedure Date: 05/21/2024 Procedure Type: Transthoracic Echocardiogram Location: OP Height: 160.02 cm Weight: 97.07 kg BSA: 1.99 m2 Heart Rate: bpm BP: 118 / 64 mmHg Watch Repairer Apprentice: ADRIANO Referring MD: Jamaal William MD Sewage Plant Attendant: Jamaal William MD Symptoms: I35.0 - Nonrheumatic aortic (valve) stenosis Study Quality: Technically Difficult ECG Rhythm: Sinus Conclusions: - 1. Normal LV ejection fraction of 60 65% with mild concentric left ventricular hypertrophy and severe asymmetric septal hypertrophy with pseudonormal filling pattern 2. Severe aortic stenosis with mean gradient of 43 mm Hg with valve area of 1 cm2 3. Moderately dilated left atrium 4. Mild calcific mitral stenosis 5. Mildly elevated right ventricular systolic pressure with mildly elevated right atrial pressures 6. No pericardial effusion Findings Left Ventricle Normal left ventricular size and systolic function. There is mildly increased left ventricular wall thickness. The visually estimated ejection fraction is between 60-65%. Spectral Doppler is indicative of a pseudonormal filling pattern. There is severe septal asymmetric hypertrophy. Right Ventricle Normal right ventricular cavity size and systolic function. Atria The left atrium is moderately dilated. Interatrial shunt cannot be excluded. The right atrium is mildly dilated. Aortic Valve There is moderate calcification of the aortic valve. There is moderate thickening of the aortic valve. There is severe aortic valve stenosis. The peak aortic velocity is 4.09 m/s with a calculated peak gradient of 67 mmHg. The mean gradient is 43 mmHg. The aortic valve area is 1.00 cm2. There is mild aortic valve regurgitation. Mitral Valve There is mild anterior and severe posterior mitral leaflet thickening. There is severe mitral annular calcification. There is mild mitral valve regurgitation. There is mild mitral valve stenosis. Pulmonic Valve The pulmonic valve was not well visualized. Tricuspid Valve Normal tricuspid valve structure. There is mild tricuspid valve regurgitation. Mildly elevated right atrial pressure. Mild pulmonary hypertension is present. Great Vessels All visible segments of the aorta are normal in size. There is no dilatation of the ascending aorta measuring 3.40 cm. Pericardium/Pleural There is no evidence of pericardial effusion. Measurements 2D Linear Measurements IVSd: 1.81 0.6-0.9/0.6-1.0 cm LVIDd: 4.37 3.9-5.3/4.2-5.9 cm LVIDd Index: 2.20 2.4-3.2/2.2-3.1 cm/m2 LVIDs: 2.69 2.0-3.6 cm LVPWd: 1.21 0.7-1.1 cm LA Diam: 4.10 2.7-3.8/3.0-4.0 cm LAIDs Index: 2.06 1.5-2.3 cm/m2 LV Mass: 332.94 67-162/88-224 g LV Mass Index: 167.30 43-95/49-115 g/m2 LVOT Diam: 2.00 3.0+(-)1.3 cm 2D Systolic Function EF 4C: 66.80 >55% EF 2C: 62.40 >55% EF BiP: 64.50 >55% Mitral Valve MV VTI: 0.63 MV Pk Hans: 1.57 MV Mn Hans: 1.03 MV Pk Grad: 10.00 MV Mn Grad: 5.00 MV Pk E: 1.61 MV PK A: 1.26 MV Decel Time: 260.00 E/A: 1.30 E'Lateral: 7.62 E'Medial: 6.64 E/E' Med: 24.20 E/E' Lat: 21.10 PHT: 76.00 MVA PHT: 2.89 MVA Continuity: 1.[address] [place]: 6.19 Aortic Valve AoV Pk Hans: 4.09 AoV Mn Hans: 3.16 AoV VTI: 1.15 AoV Pk Grad: 67.00 Aov Mn Grad: 43.00 DEREK Cont.VTI: 1.00 AI Pk Hans: 4.[address] [place]: 3.12 LVOT LVOT Pk Hans: 1.37 LVOT Mn Hans: 1.02 LVOT VTI: 0.37 LVOT Pk Grad: 8.00 LVOT Mn Grad: 5.00 LVOT Diam: 2.00 LVOT Area: 3.14 Diastolic Function MV Pk E: 1.61 MV Pk A: 1.26 E/A: 1.30 E'Medial: 6.64 E/E' Med: 24.20 E' Laterial: 7.62 E/E' Lat: 21.10 Right Ventricle TAPSE (mm): 29.50 TVS' Hans: 13.20 Tricuspid Valve TR Pk Hans: 3.00 TR Pk Grad: 36.00 RA Press: 8.00 RVSP: 44.00 Great Vessels Aorta Sinus of Valsalva: 3.04 2.0-3.5 cm Ao Asc: 3.40 2.1-3.4 cm Updated in Other Vendor System with Status of Final Jamaal William MD electronically signed on 05/22/2024 3:06:13 PM with status of Final
--- OUTSIDE RECORDS SUMMARY | 2024-05-21 17:58 | XMS_ITS ---
Author Organization [facility] Address [address] [place] [address] Care Team Providers Care Bulk Plant Supervisor Name Role Phone Axel Whitehead MD Primary Care Provider Unavailab Maximiliano Baeza Unavailable [phone] Lamont Baker Unavailable Unavailable Encounters Encounter Location Date Provider Diagnosis [facility] [address] [place] [address] 05/21/2024 Maximiliano Coats PLAN OF TREATMENT Next Appt Details Provider Name:Maximiliano Coats , 09/19/2024 01:20:00 PM, [address], [address], [place], [address],
--- OUTSIDE RECORDS SUMMARY | 2024-05-21 17:59 | XMS_ITS ---
Author Organization [facility] Address [address] [place] [address] Care Team Providers Care Jewelry Dipper Name Role Phone Axel Whitehead MD Primary Care Provider Unavailab Maximiliano Baeza Unavailable [phone] Lamont Baker Unavailable Unavailable Encounters Encounter Location Date Provider Diagnosis [facility] [address] [place] [address] 01/19/2024 Maximiliano Coats PLAN OF TREATMENT Next Appt Details Provider Name:Maximiliano Coats , 09/19/2024 01:20:00 PM, [address], [address], [place], [address],
--- OUTSIDE RECORDS SUMMARY | 2024-05-21 17:59 | XMS_ITS | Patient Health Record ---
Author Organization [facility] Address [address] [place] [address] Care Team Providers Care Label Maker Name Role Phone Axel Whitehead MD Primary Care Provider Unavailab Maximiliano Baeza Unavailable [phone] Lamont Baker Unavailable Unavailable ALLERGIES Allergen (clinical drug ingredient) Drug/Non Drug Allergy documented on EMR Reaction Allergy Type Onset Date Status vancomycin Vancomycin hives Drug Allergy Activ e REASON FOR REFERRAL No Information MEDICATIONS Medication SIG (Take, Route, Frequency, Duration) Notes Start Date End Date Status Omeprazole 20 MG 1 capsule 30 minutes before morning meal Orally Once a day for 30 day(s) Active Align Active traMADol HCl 50 MG Oral for 7 Active Turmeric Active Toprol XL 50 MG 1 tablet Orally Once a day for 30 day(s) Active Sudafed Not-Taking Losartan Potassium 100 MG 1 tablet Orall y Once a day Active hydrALAZINE HCl 25 MG 1 tablet with food Orally Twice a day Active oxyBUTYnin Chloride ER 10 MG 1 tablet Orally Once a day for 30 day(s) Active Lasix 20 MG 1 tablet Orally Once a day/prn Active Gabapentin 800 MG 1 tablet Orally Once a day for 30 day(s) Active Atorvastatin Calcium 10 MG 1 tablet Orally Once a day for 30 day(s) Active Iron 325 (65 Fe) MG 1 tablet Orally Once a day for 30 day(s) Active Multivitamin Adult A ctive Cami Not-Taking IMMUNIZATIONS Vaccine Route Administration Date Status Comme nts Influenza Unknown 04/16/2020 Administered Influenza Unknown 12/19/2021 Administered SOCIAL HISTORY Tobacco Use: Social History Observation Description Date Details (start date - stop date) Never Smoker NA - NA Sex Assigned At : Social History Observation Description Sex Assigned At Unknown Tobacco Use/Smoking Question Answer Notes Patient is a nonsmoker Alcohol Screen Question Answer Notes Did you have a drink contain ing alcohol in the past year? Yes How often did you have a dri nk containing alcohol in the past year? Never (0 point) How many drinks did you have on a typical day when you were drinking in the past year? 1 or 2 drinks (0 point) How often did you have 6 or more drinks on one occasion in the past year? Never (0 point) Points 0 Interpretation Negative PROBLEMS Problem Type ICD Code Onset Dates Problem Status W/U Status Risk SNOMED Code Notes Problem Weight loss (R63.4) Active confirmed 41415136 Problem Gastritis, unspecified, without bleeding (K29.70) Active confirmed 790209119 Problem Early satiety (R68.81) Active confirmed 259304191 Problem Iron deficiency anemia (D50.9) Active confirmed Iron deficien cy anemia (66683893) Problem Abdominal pain, left upper quadrant (R10.12) Active confirmed 964508797 Problem Gastritis (K29.70) Active confirmed Gastritis (0724786) Problem Irregular bowel habits (R19.8) Active confirmed 542598399 Problem Iron deficiency anemia, unspecified iron deficiency anemia type (D50.9) Active confirmed 21024945 Problem Abnormal CT scan, stomach (R93.3) Active confirmed 384999417 Problem Chronic constipation (K59.09) Active confirmed Chronic constipation (787100628) Problem Diverticulosis of colon (K57.30) Active confirmed Diverticulosi s of colon (102898955) Problem Left upper quadrant abdominal pain (R10.12) Active confirmed 046516578 Encounters Encounter Location Date Provider Diagnosis [facility] [address] [place] [address] 01/19/2024 Maximiliano Coats [facility] [address] [place] [address] 05/21/2024 Maximiliano Coats [facility] [address] [place] [address] 01/19/2024 Maximiliano Coats PLAN OF TREATMENT Pending Test Test Name Order Date IRON + IBC (FE) 02/20/2023 IRON + IBC (FE) 08/04/2021 IRON + IBC (FE) 05/25/2021 IRON + IBC (FE) 01/11/2023 VITAMIN B12 AND FOLATE 05/25/2021 CBC w DIFF 01/11/2023 CBC w DIFF 02/20/2023 CBC w DIFF 08/04/2021 CBC w DIFF 05/25/2021 CELIAC PANEL #10 05/25/2021 XR GI SMALL BOWEL SERIES 05/25/2021 Ferritin 05/25/2021 Ferritin 01/11/2023 Ferritin 02/20/2023 Ferritin 08/04/2021 Intrinsic Factor Antibodies 05/25/2021 Parietal Cell Antibody 05/25/2021 Future Test Test Name Order Date UPPER GI ENDOSCOPY 04/28/2021 Next Appt Details Provider Name:Maximiliano Coats , 09/19/2024 01:20:00 PM, [address] [facility], [address], [place], [address], Insurance Providers Payer Name Payer Address Payer Phone Subscriber Number Group Number Insured Name Patient Relationship to Insured Coverage Start Date Coverage End Date [facility] Medicare Advantage Plan [address] [address] [place] [address] [id number] ANGEL GEORGE Self - patient is the insured [facility] [address] [place], [place] [id number] ARIEL ANGEL Self - patient is the insured MEDICAL (GENERAL) HISTORY Medical History History ICD Code Iron deficiency anemia--nega tive colonoscopy in April of 2021, 2 upper endoscopies in April of 2021 revealing a hiatal hernia, some proximal gastritis and H. pylori, and duodenal biopsies negative for celiac disease; negative laboratories for intrinsic factor and parietal cell antibodies. She has required transfusions in October of 2022 and December of 2022 Hypertension Left bundle branch block (LBBB) Herniated disc Hyperlipidemia Lower extremity edema Neuropathy Arthritis Upper endoscopy in October of 2022 at [facility] with Dr. Carter revealed some gastric intestinal metaplasia but biopsies were negative for dysplasia and H. pylori. There was no ulcer disease or any other significant pathology. Having a stress test and echocardiogram with Dr. William at the end of 04/2023 Negative small bowel still i n January of 2023, although the capsule apparently did not reach the distal small bowel according to the report Surgical History Surgery Date(Month/Year) Intestinal surgery at [facility] for some type of internal hernia and SBO--resection of approx 20cm of necrotic small bowel 2015 Rotator cuff surgery 2008 Gallbladder 1975 Tonsillectomy 1977
--- OUTSIDE RECORDS SUMMARY | 2024-05-21 17:59 | XMS_ITS ---
Author Organization [facility] Address [address] [place] [address] Care Team Providers Care Front Desk Administrator Name Role Phone Axel Whitehead MD Primary Care Provider Unavailab Maximiliano Baeza Unavailable [phone] Lamont Baker Unavailable Unavailable REASON FOR VISIT Patient presents today for anemia Encounters Encounter Location Date Provider Diagnosis [facility] [address] [facility] [address] [place] [address] 01/19/2024 Maximiliano Coats PLAN OF TREATMENT Next Appt Details Provider Name:Maximiliano Coats , 09/19/2024 01:20:00 PM, [address] [facility], [address], [place], [address],
--- OUTSIDE RECORDS SUMMARY | 2024-05-21 17:59 | XMS_ITS | Data Portability ---
Author Organization [facility], [address] Address [address] [place] [address] Care Team Providers Care Sliver Former Name Role Phone ORLANDO CHAVEZ Primary Care Provider Assessment No assessment recorded. Plan of Treatment Reminders Order Date Submit Date Provider Last Modified By Organization Details Last Modified Time Details Appointments None recorded. Lab SARS CoV 2 (COVID-19) Ag, QL, IA, upper respiratory specimen 2023 024 [email or web address] [address]100[address], [address] [place] [address], [address], 10:54:53 Referral general surgeon referral 2023 024 [email or web address] Not available 13:16:25 Procedures None recorded. Surgeries None recorded. Imaging None recorded. Medication Orders Bactrim DS 800 mg-160 mg tablet 2023 024 [id number], [address], [place], [phone], 11:25:44 Patient TargetsNo targets recorded. Patient Instructions Encounter Date Encounter Id Patient Instructions Last Modified By Organization Details Last Modified Time 07/02/2023 [id number] opened cut after surgery: care instructions mani Not available 07/02/2023 11:25:34 wound care* AMALIA Not available 06/19 12:04:06 application of wound dressing* AMALIA Not available 07/02/2023 12:03:43 Please follow up with your surgeon in 2-3 days mani Not available 07/02/2023 11:31:10 11/21/2023 [id number] coronavirus (covid-19): care instructions [email or web address] Not available 11/21/2023 10:54:14 Reason for Referral General Surgeon Referral for Dehiscence of surgical wound Referring Physician: Matty Atkins, Urgent Care, Encounter Date: 07/02/2023 Results Created Date Observation Date Name Description Value Unit Range Abnormal Flag Note LastModifiedBy Organization Detail LastModifiedTime 11/21/19 24 11/21/2023 SARS CoV 2 (COVI D-19) Ag, QL, IA, upper respi rator y speci men Unknown Analyte negati ve Not Available [facility] [place], [address], 11/21/2023 10:54:25 11/21/19 24 11/21/2023 SARS CoV 2 (COVI D-19) Ag, QL, IA, upper respi rator y speci men Unknown Analyte yes Not Available _ [facility] [address] [place], [address], 11/21/2023 10:54:25 Result Notes None recorded. Problems Name Problem SNOMED Code Status Onset Date Resolution Date Notes Provider Name and Address Organization Details Recorded Time Hypertensive disorder 99238815 Active 2023 KAILA PARISICA null, [place] - [facility] 10:47:58 Nerve injury 82304485 Active 2023 low back KAILA LUPICA null, PA - [facility] 10:48:55 Neuropathy 053621702 Active 2023 KAILA LUPICA null, PA - [facility] 10:49:05 Heart murmur 00124016 Active 2023 KAILA PARISICA null, PA - [facility] 10:51:29 Bundle branch block 1374283 Active 2023 left KAILA LUPICA null, PA - [facility] 4 10:51:59 Dehiscence of surgical wound 08162041 Active 2023 MATTY ATKINS NP [address] [place], [place], [address] [facility] PA - [facility] 11:25:10 Problem Notes None recorded. Procedures Surgical History Date Name Laterality Status Provider Name and Address Organization Details Recorded Time 06/01/19 hernia repair completed KAILA JO PA - [facility] 07/02/2023 10:50:11 cholecystectomy completed KAILA JO PA - [facility] 07/02/2023 10:50:24 operation on intestine completed KAILA LUPICA PA - [facility] 07/02/2023 10:51:00 complete repair of rotator cuff completed KAILA LUPICA PA - [facility] 07/02/2023 10:51:16 Imaging Results None recorded. Procedure Notes None recorded. Medical Equipment None Reported. Allergies Allergen ID Allergen Name Allergen Category Reaction Reaction Severity Criticality Documentation Date Start Date Code Code System Note Provider Name and Address Organization Details Recorded Time 963114 vancomyci n medicatio n hives Not available Not available 07/02/2023 98559 RxNorm KAILA JO [facility], [place] - [facility] 10:44:47 Medications Name Sig Start Date Stop Date Status Note LastModified by Organization Details LastModified Time losartan 50 mg tablet TAKE 2 TABLETS BY MOUTH DAILY active Not Available Not Available No t Available doxycycline hyclate 100 mg capsule 07/01 completed Not Available Not Available Not Available atorvastati n 20 mg tablet TAKE 1 TABLET BY MOUTH DAILY. REPEAT LAB WORK IN 3 MONTHS FIRST WEEK OF AUGUST active Not Available Not Available No t Available metoprolol succinate ER 50 mg tablet,exte nded release 24 hr Take 1 tablet every day by oral route. active Not Available Not Available No t Available hydralazine 25 mg tablet Take 1 tablet twice a day by oral route. active Not Available Not Available No t Available tramadol 50 mg tablet TAKE 1 TABLET BY MOUTH TWICE DAILY active Not Available Not Available No t Available gabapentin 800 mg tablet active Not Available Not Available Not Available amoxicillin 875 mg-potassiu m clavulanate 125 mg tablet TAKE 1 TABLET BY MOUTH EVERY 12 HOURS FOR 7 DAYS 07/01 completed Not Available Not Available Not Available oxycodone 5 mg tablet TAKE 1 TABLET BY MOUTH EVERY 4 HOURS NEEDED FOR MODERATE PAIN active Not Available Not Available No t Available Bactrim DS 800 mg-160 mg tablet Take 1 tablet every 12 hours by oral route for 7 days. 2023 active Not Available Not Available Not Avai lable multivitami n active Not Available Not Available Not Available oxybutynin 10 mg daily active Not Available Not Available No t Available Ferretts 325 mg (106 mg iron) tablet TAKE 1 TABLET BY MOUTH TWICE DAILY active Not Available Not Available No t Available Align (B.infantis ) active Not Available Not Available Not Available Vitals Date Recorded Body height Body mass index (BMI) Body weight Pain severity - 0-10 verbal numeric rating [Score] - Reported Respiratory rate Body temperature Oxygen saturation Oxygen saturation in Arterial blood by Pulse oximetry Heart rate Systolic blood pressure Diastolic blood pressure Provider Name and Address Organization Details Last Updated DateTime 4 163.83 cm 34.8 kg/m2 96434.0 3 g 4 16 /min 97.1 [degF] 99 % 99 % 66 /min 120 mm[Hg] 72 mm[Hg] KAILA JO PA - [facility] 4 10:54:54 Date Recorded Body height Body mass index (BMI) Body weight Pain severity - 0-10 verbal numeric rating [Score] - Reported Oxygen saturation Oxygen saturation in Arterial blood by Pulse oximetry Heart rate Respiratory rate Body temperature Systolic blood pressure Diastolic blood pressure Provider Name and Address Organization Details Last Updated DateTime 4 163.83 cm 33.8 kg/m2 59059.4 7 g 0 98 % 98 % 75 /min 18 /min 97.1 [degF] 113 mm[Hg] 71 mm[Hg] Marlene Gonzales PA - [facility] 4 10:41:20 Social History Question Answer Notes LastModified by Organizat ion Details LastModified Time Tobacco Smoking Status Never Smoker KAILA bang PA - [facility] 07/02/2023 10:49:41 What Is Your Level Of Alcohol Consumption? Occasional [email or web address] Information not available 07/02/2023 Do You Use Any Illicit Or Recreational Drugs? No [email or web address] Information not available 07/02/2023 Have You Recently Traveled Abroad? No [email or web address] Information not available 07/02/2023 Do You Or Have You Ever Used Any Other Forms Of Tobacco Or Nicotine? No [email or web address] Information not available 07/02/2023 Sex: Unknown Functional Status None recorded. Mental Status None recorded. Family History Nothing Reported. Medical History No medical history recorded. Gynecological History Statement/Question Response Date of LMP Obstetrics History GPAL:G 0 P 0 0 0 0 Past Encounters Encounter ID Performer Location Encounter Start Date Encounter Closed Date Diagnosis/Indication Diagnosis SNOMED-CT Code Diagnosis ICD10 Code Diagnosis Note [id number] [address] [place] [address] 10/05/2015 08:13:12 10/05/2015 08:50:57 [id number] [address] [place] [address] [place] [address] 10/08/2015 09:45:44 10/08/2015 10:59:06 [id number] [address] [place] [address] 11/13/2016 09:08:27 11/13/2016 09:35:19 [id number] [address] [place] [address] 10/11/2015 09:45:49 10/11/2015 12:27:21 [id number] [address] [place] [address] 07/23/2019 13:57:32 07/23/2019 14:39:40 [id number] [address] [address] [place] [address] 08/13/2017 09:39:52 08/13/2017 11:20:34 [id number] [address] [place] [address] 10/14/2015 12:36:29 10/14/2015 14:00:50 [id number] [address] [place] [address] 10/12/2015 12:00:42 10/12/2015 14:30:32 [id number] [address] [place] [address] 10/16/2015 10:58:27 10/16/2015 12:10:43 [id number] [address] [address] 05/17/2015 09:25:41 05/17/2015 10:07:05 [id number] [address] [place] [address] 08/19/2018 09:19:54 08/19/2018 11:25:06 [id number] [place] [address] [place] [address] 07/02/2023 10:16:54 07/02/2023 12:34:13 Dehiscence of surgical wound 17895590 T81.30XA [id number] GRISEL Boyer [address] [place] [address] 11/21/2023 10:36:01 11/21/2023 10:56:24 COVID-19 075554345 U07.1 If you test positive for COVID-19, stay home for at least 5 days and isolate from others in your home. You are likely most infectious during these first 5 days. Wear a high-quali ty mask if you must be around others at home and in public.Do not go places where you are unable to wear a mask. For travel guidance, see CDC? s Travel webpage.Do not travel.Sta y home and separate from others as much as possible.U se a separate bathroom, if possible.T elsa steps to improve ventilatio n at home, if possible.D on? t share personal household items, like cups, towels, and utensils.M onitor your symptoms. If you have an emergency warning sign (like trouble breathing) , seek emergency medical care immediatel y.If you had symptoms and:Your symptoms are improvingY ou may end isolation after day 5 if: You are fever-free for 24 hours (without the use of fever-redu cing medication ).Your symptoms are not improvingC ontinue to isolate until: You are fever-free for 24 hours (without the use of fever-redu cing medication ).Your symptoms are improving. Regardless of when you end isolationU ntil at least day 11:Avoid being around people who are more likely to get very sick from COVID-19.R emember to wear a high-quali ty mask when indoors around others at home and in public.Do not go places where you are unable to wear a mask until you are able to discontinu e masking (see below).For travel guidance, see [facility]? s Travel webpage. Health Concerns Section Related Observation LastModified by Organization Detai ls LastModified Time None Recorded Concern Status LastModified by Organization Details LastModified Time None Recorded Advance Directives Directive None Recorded Payers Encounter Date Sequence Insurance Name Policy Number Policy Méndez Covered Member ID Méndez Member ID Guarantor Name 07/23/2019 2 [facility] - [employer] (PPO) [id number] Negra Cameron [id number] Negra Cameron 07/02/2023 2 [facility] - GROUP BENEFIT SERVICES (O) [id number] Negra Rakesh [id number] Negra Cameron 11/21/2023 1 MEDICARE [place]: [employer] Negra Cameron [id number] Negra Cameron 11/21/2023 2 [facility] (O) [id number] Negra L Rakesh [id number] Negra Cameron Notes Date Note Type Note Provider Name and Address Organization Details Recorded Time 07/02/2023 text/html Generic HPI TemplateReported bypatient.source of patient informationleft lower quadrant abdominal wound pt had hernias surgery with mesh in june 01 2023, laparascopic and now reports that one of the lap sites arnold been draining, painful and redness, reports fever at home a few days ago. no fever today MATTY ATKINS NP [address] [place], [address], PA - [facility] 07/02/2023 11:31:38 11/21/2023 text/html 73 y/o female he re 5 days after testing positive for COVID. Her PCP started her on Paxlovid, she has a terrible taste in her mouth and has a hard time eating. Her cough is continuing, not taking anyhing OTC for symptoms GRISEL Boyer [facility] [address] [place] [place], [place], [address], PA - [facility] 11/21/2023 10:58:16 OBGyn Episode No OBEpisode recorded.
== END ==
LOC: HO.CARD 15:06
PROVIDERS: PCP Internal Medicine; Visit Provider Internal Medicine Cardiovascular Disease
DX: I35.0 Nonrheumatic aortic (valve) stenosis (principal)
CPT/HCPCS: 93306

== ENCOUNTER → 2024-05-21 15:08 | Outpatient (BNV) | payer MEDICARE, SELFPAY | PROVIDERS: PCP Internal Medicine; Visit Provider Internal Medicine Cardiovascular Disease | DX: I35.2 Nonrheumatic aortic (valve) stenosis with insufficiency (principal); I34.81 Nonrheumatic mitral (valve) annulus calcification; I34.0 Nonrheumatic mitral (valve) insufficiency | CPT/HCPCS: 93306 ==

== ENCOUNTER 2024-06-06 10:58 | Outpatient (AMB) | payer MEDICARE, SELFPAY ==
--- NOTE | 2024-06-06 10:59 | A.OFFVIS_ITS ---
Vital Signs 06/06/24 11:00 Height 5 ft 5 in Weight 209 lb 7.026 oz BMI 34.8 BP 122/60 Blood Pressure Location Lt brachial Position Sitting Pulse 62 Pulse Source Monitor Intake Visit Reasons: 6mth/echo Allergies vancomycin [VANCOMYCIN] Allergy (Unknown, Verified 06/16/23 14:39) HIVES Medication List - Last Reconciled 06/06/24 by Jamaal William MD atorvastatin 20 mg PO DAILY bisacodyl (Dulcolax (bisacodyl)) 10 mg (2 x 5 mg) PO ONCE 1 day gabapentin 800 mg PO TID hydralazine 25 mg PO BID losartan 50 mg PO DAILY magnesium glycinate 100 mg PO DAILY metoprolol succinate ER (Toprol XL) 50 mg PO DAILY naproxen 500 mg PO BID oxybutynin chloride ER 10 mg PO DAILY tramadol 50 mg PO BID PRN turmeric mg PO HPI Comments Details: Negra comes for follow-up of recent echocardiogram shows severe aortic stenosis with mean gradient of 43 mm Hg. Patient has limited exercise activity due to her arthritis and back pain and walks with a walker although she said with the usual walking she does not have any exertional symptoms of chest discomfort, shortness of breath or lightheadedness. She has not had any syncopal episode. 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 She has had no new symptoms. She has planning as the weather gets improved to start walking outside again. She denies any orthopnea, PND, leg edema. She is taking all her medications. [facility] Medical History Left bundle branch block Aortic stenosis Arthritis Lower extremity edema Anemia Neuropathy Back pain Hyperlipidemia HTN (hypertension) Surgical History History of hernia repair (2015) History of rotator cuff surgery (2012) History of tonsillectomy (1978) History of cholecystectomy (1975) Family History Sister Breast cancer, Onset Age: 49 Father Prostate cancer Brother Leukemia Social History Alcohol intake: current Alcohol intake frequency: holidays/special occasions only Patient Tobacco Use Status: Never used Tobacco Review of Systems Const Denies weakness ENT Denies dizziness Card Denies chest pain, Denies chest pain with activity, Denies syncope, Denies rapid heart rate, Denies pedal edema, Denies edema, Denies leg edema, Denies lightheadedness, Denies palpitations, Denies dyspnea, Denies dyspnea on exertion and Denies orthopnea Resp Denies cough, Denies dyspnea and Denies dyspnea on exertion GI Denies hematochezia and Denies change in stool character Musc Denies abnormal gait, Denies muscle cramps, Denies muscle weakness, Denies numbness, Denies radiating pain into limb and Denies tingling Neuro Denies abnormal gait, Denies dizziness, Denies syncope, Denies numbness, Denies tingling and Denies weakness Endo Denies palpitations Physical Exam Vital Signs: Last Vital Signs Pulse 62 06/06/24 11:00 BP 122/60 06/06/24 11:00 BMI result Body Mass Index 34.8 Const General: cooperative, healthy appearing, comfortable and no acute distress Orientation/consciousness: patient oriented x3 Neck Neck: Yes normal visual inspection Carotids: delayed carotid upstroke Resp Effort & Inspection: normal respiratory effort Auscultation: clear to auscultation bilaterally, no rales and no rhonchi Cardio Jugular venous distension: no JVD Rate: regular rate Rhythm: regular rhythm Heart sounds: S1 normal heart sound present, S2 abnormal (Soft), Murmur heart sound present (systolic murmur, heard best at left sternal border. 2nd heart sound present) systolic late, decrescendo and crescendo and no rubs GI Auscultation: normal bowel sounds Skin General skin exam: no rashes or lesions noted Neuro General: patient oriented x3 Extrem Other: Lymphedema right leg, jelena wrap in use. Compression sock on left leg, mild edema present General: No normal to inspection, No calf tenderness, No clubbing, No cyanosis and Yes other (Bilateral significant lymphedema) Psych Appearance: grossly normal Mental Status: mental status grossly normal Speech and movement: Normal speech and movement present Office Procedures EKG Details: EKG shows normal sinus rhythm with left bundle-branch block, unchanged 76550-Lqqebiinqpsisbgcm, Complete Assessment & Plan Assessment & Plan (1) Aortic stenosis: Code(s): I35.0 - Nonrheumatic aortic (valve) stenosis Category: Medical Plan: Aortic stenosis which has progressed to severe aortic stenosis, although she was not developed any new symptoms at current functional level. Her functional status is limited because of arthritis and difficult to evaluate if aortic stenosis truly clinically significant although he was not affecting her day-to-day life at current point in time. She is planning to increase her activity level in the near future. I have advised her to gradually do so. She noticed any symptoms with increasing activity will definitely pursue transcatheter valve replacement. Were discussed the need for intervention needed in her lifetime given her progressive aortic stenosis. This could happen in the near future. Will refer her for TAVR evaluation to . We discussed the procedure of transcatheter aortic valve replacement. Ideally I would have like to perform a stress test although her dependence and walker makes this difficult to perform. Continue low-dose aspirin therapy. Continue current blood pressure control which is currently well optimized. Continue statin therapy with target goal LDL less than 100 mg/dL. Advised to call me with any new symptoms. Will follow up with echocardiogram in 6 months. Thank you for allowing me to partake in her care Orders: Orders CA echo transthoracic complete 6 Months I35.0 - Nonrheumatic aortic (valve) stenosis Referrals Interventional Cardiology Referral I35.0 - Nonrheumatic aortic (valve) stenosis Medications: New aspirin (Ecotrin Low Strength) 81 mg PO DAILY 30 tabs 5RF Coding Level of Care Code Est Pt Level 4 (41167) Complex EM visit Add On G2211 Diagnoses Aortic stenosis I35.0 CPT Codes EKG - CPT: 70939-Cusnuajgmlmhyddfz, Complete ([id number])
[2024-06-06 11:00] VITALS: BP 122/60; PULSE 62; BMI 34.8
--- OUTSIDE RECORDS SUMMARY | 2024-06-06 13:13 | XMS_ITS ---
Author Organization [facility] Address [address] [place] [address] Care Team Providers Care Quality Assurance Coordinator Name Role Phone Axel Whitehead MD Primary Care Provider Unavailab Maximiliano Baeza Unavailable [phone] Lamont Baker Unavailable Unavailable Encounters Encounter Location Date Provider Diagnosis [facility] [address] [place] [address] 05/21/2024 Maximiliano Coats Plan Of Treatment Next Appt Details Provider Name:Maximiliano Coats , 09/19/2024 01:20:00 PM, [address], [address], [place], [address], Progress Notes * ANGEL GEORGEDOB: [birth year] (73 yo F)Acc No.[id number]:05/21/2024 Patient:?ANGEL GEORGE :1950???Age:73 Y???Sex:Female Address:[address], [place], [address] * * Date:?
--- OUTSIDE RECORDS SUMMARY | 2024-06-06 13:14 | XMS_ITS ---
Author Organization [facility] Address [address] [place] [address] Care Team Providers Care Money Room Teller Name Role Phone Axel Whitehead MD Primary Care Provider Unavailab Maximiliano Baeza Unavailable [phone] Lamont Baker Unavailable Unavailable REASON FOR VISIT Patient presents today for anemia Encounters Encounter Location Date Provider Diagnosis [facility] [address] [place] [address] 01/19/2024 Maximiliano Coats Plan Of Treatment Next Appt Details Provider Name:Maximiliano Coats , 09/19/2024 01:20:00 PM, [address], [address], [place], [address], Progress Notes * ANGEL GEORGEDOB: [birth year] (73 yo F)Acc No.[id number]:01/19/2024 Progress Notes Patient:?ANGEL GEORGE Provider:?Maximiliano Coats MD :1950???Age:73 Y???Sex:Female D ate:01/19/2024 Address:[address] [place], [place] [address] Pcp:Axel Whitehead MD Subjective: * Chief Complaints: * ???1. Patient presents today for anemia. * Medical History:? Objective: * Vitals:? Assessment: Plan: * Treatment: * * The named appointment provid er may or may not be the originator of this progress note, and it is not deemed complete until electronically signed by the appointment provider. Sign off status: Pending * Provider:?Maximiliano Coats MD Date:? 024 Generated for Melonie gomez/Ysabel/Sarah on:?06/06/2024 01:13 PM EDT
--- OUTSIDE RECORDS SUMMARY | 2024-06-06 13:14 | XMS_ITS | Data Portability ---
Author Organization [facility] [address] Address [address] [place] [address] Care Team Providers Care Roofing Tile Sorter Name Role Phone ORLANDO CHAVEZ Primary Care Provider Assessment No assessment recorded. Plan of Treatment Reminders Order Date Submit Date Provider Last Modified By Organization Details Last Modified Time Details Appointments None recorded. Lab SARS CoV 2 (COVID-19) Ag, QL, IA, upper respiratory specimen 2023 024 [email or web address] [facility], [address] [place] [address], [address], 10:54:53 Referral general surgeon referral 2023 024 [email or web address] Not available 13:16:25 Procedures None recorded. Surgeries None recorded. Imaging None recorded. Medication Orders Bactrim DS 800 mg-160 mg tablet 2023 024 [id number], [address] [place], [place], [id number], 11:25:44 Patient TargetsNo targets recorded. Patient Instructions Encounter Date Encounter Id Patient Instructions Last Modified By Organization Details Last Modified Time 07/02/2023 [id number] opened cut after surgery: care instructions mani Not available 07/02/2023 11:25:34 wound care* AMALIA Not available 06/19 12:04:06 application of wound dressing* AMALIA Not available 07/02/2023 12:03:43 Please follow up with your surgeon in 2-3 days mani Not available 07/02/2023 11:31:10 11/21/2023 [id number] coronavirus (covid-19): care instructions [email or web address] Not available [...] ve Not Available [address] [facility] [place], [address], 11/21/2023 10:54:25 11/21/19 24 11/21/2023 SARS CoV 2 (COVI D-19) Ag, QL, IA, upper respi rator y speci men Unknown Analyte yes Not Available _ [facility] [address] [place], [address], 11/21/2023 10:54:25 Result Notes None recorded. Problems Name Problem SNOMED Code Status Onset Date Resolution Date Notes Provider Name and Address Organization Details Recorded Time Hypertensive disorder 80108564 Active 2023 KAILA PARISICA null, [place] - [facility] 10:47:58 Nerve injury 53962619 Active 2023 low back KAILA LUPICA null, [place] - [facility] 10:48:55 Neuropathy 141540288 Active 2023 KAILA LUPICA null, [place] - [facility] 10:49:05 Heart murmur 55187474 Active 2023 KAILA PARISICA null, [place] - [facility] 10:51:29 Bundle branch block 3683935 Active 2023 left KAILA LUPICA null, [place] - [facility] 4 10:51:59 Dehiscence of surgical wound 97996506 Active 2023 MATTY ATKINS NP [address] [place], [place], [address] [facility] [place] - [facility] 11:25:10 Problem Notes [...] Name and Address Organization Details Recorded Time 659349 vancomyci n medicatio n hives Not available Not available 07/02/2023 04527 RxNorm KAILA JO [facility], [place] - [facility] 10:44:47 Medications Name [...] Updated DateTime 4 163.83 cm 34.8 kg/m2 81818.0 3 g 4 16 /min 97.1 [degF] [...] Updated DateTime 4 163.83 cm 33.8 kg/m2 80427.4 7 g 0 98 % 98 % 75 /min 18 /min 97.1 [degF] 113 mm[Hg] 71 mm[Hg] Marlene Gonzales PA - [facility] 4 10:41:20 Social History Question Answer Notes LastModified by Organizat ion Details LastModified Time Tobacco Smoking Status Never Smoker KAILA bang [place] - [facility] 07/02/2023 10:49:41 What Is Your Level Of Alcohol Consumption? Occasional [email or web address] Information not available 07/02/2023 Do You Use Any Illicit Or Recreational Drugs? No [email or web address] Information not available 07/02/2023 Have You Recently Traveled Abroad? No Information not available 07/02/2023 Do You Or Have You Ever Used Any Other Forms Of Tobacco Or Nicotine? No [email or web address] Information not available 07/02/2023 Sex: Unknown Functional Status None recorded. Mental Status None recorded. Family History Nothing Reported. Medical History No medical history recorded. Gynecological History Statement/Question Response Date of LMP Obstetrics History GPAL:G 0 P 0 0 0 0 Past Encounters Encounter ID Performer Location Encounter Start Date Encounter Closed Date Diagnosis/Indication Diagnosis SNOMED-CT Code Diagnosis ICD10 Code Diagnosis Note [id number] [address] [facility] [place] [address] 10/05/2015 08:13:12 10/05/2015 08:50:57 [id number] [address] [place] [address] [place] [address] 10/08/2015 09:45:44 10/08/2015 10:59:06 [id number] [address] [facility] [place] [address] 11/13/2016 09:08:27 11/13/2016 09:35:19 [id number] [address] [facility] [place] [place] [address] 10/11/2015 09:45:49 10/11/2015 12:27:21 [id number] [address] [facility] [place] [place] [address] 07/23/2019 13:57:32 07/23/2019 14:39:40 [id number] [address] [address] [place] [address] 08/13/2017 09:39:52 08/13/2017 11:20:34 [id number] [address] [facility] [place] [address] 10/14/2015 12:36:29 10/14/2015 14:00:50 [id number] [address] [facility] [place] [place] [address] 10/12/2015 12:00:42 10/12/2015 14:30:32 [id number] [address] [place] [address] 10/16/2015 10:58:27 10/16/2015 12:10:43 [id number] [address] [address] 05/17/2015 09:25:41 05/17/2015 10:07:05 [id number] [address] [place] [address] 08/19/2018 09:19:54 08/19/2018 11:25:06 [id number] [place] [address] [place] [address] 07/02/2023 10:16:54 07/02/2023 12:34:13 Dehiscence of surgical wound 94268117 T81.30XA [id number] GRISEL Boyer [address] [place] [address] 11/21/2023 10:36:01 11/21/2023 10:56:24 COVID-19 241458252 U07.1 If you test positive for COVID-19, [...] e masking (see below).For travel guidance, see [facility]? s Travel webpage. Health Concerns Section Related Observation LastModified by Organization Detai ls LastModified Time None Recorded Concern Status LastModified by Organization Details LastModified Time None Recorded Advance Directives Directive None Recorded Payers Encounter Date Sequence Insurance Name Policy Number Policy Méndez Covered Member ID Méndez Member ID Guarantor Name 07/23/2019 2 [facility] [employer] [facility] (PPO) [id number] Negra Cameron [id number] Negra Cameron 07/02/2023 2 [facility] - GROUP BENEFIT SERVICES (O) [id number] Negra Rakesh [id number] Negra Cameron 11/21/2023 1 MEDICARE [place]: [employer] Negra Cameron [id number] Negra Cameron 11/21/2023 2 [facility] (O) [id number] Negra L Rakesh [id number] Negra Cameron Notes Date Note Type Note [...] ATKINS NP [address] [place], [address], [place] - [facility] 07/02/2023 11:31:38 11/21/2023 text/html 73 y/o female he re 5 days after testing positive for COVID. Her PCP started her on Paxlovid, she has a terrible taste in her mouth and has a hard time eating. Her cough is continuing, not taking anyhing OTC for symptoms GRISEL Boyer [facility] [address] [place], [place], [address], [place] - [facility] 11/21/2023 10:58:16 OBGyn Episode No OBEpisode recorded.
--- OUTSIDE RECORDS SUMMARY | 2024-06-06 13:14 | XMS_ITS | Patient Health Record ---
Author Organization [facility] Address [address] [place] [address] Care Team Providers Care Senior Controller Name Role Phone Axel Whitehead MD Primary Care Provider Unavailab Maximiliano Baeza Unavailable [phone] Lamont Baker Unavailable Unavailable Allergies Allergen (clinical drug ingredient) Drug/Non Drug Allergy documented on EMR Reaction Allergy Type Onset Date Status vancomycin Vancomycin hives Drug Allergy Activ e Reason For Referral No Information Medications Medication SIG (Take, Route, Frequency, Duration) Notes [...] Active Multivitamin Adult A ctive Cami Not-Taking Immunizations Vaccine Route Administration Date Status Comme nts Influenza Unknown 04/16/2020 Administered Influenza Unknown 12/19/2021 Administered Social History Tobacco Use: Social History Observation Description Date Details (start date - stop date) Never Smoker NA - NA Tobacco Use/Smoking Question Answer Notes Patient is [...] Never (0 point) Points 0 Interpretation Negative Section Notes: Nonsmoker; no sig alcohol Nonsmoker; no sig alcohol Nonsmoker; no sig alcohol Nonsmoker; no sig alcohol Nonsmoker; no sig alcohol Problems Problem Type SNOMED Code ICD Code Onset Dates Problem Status W/U Status Risk Notes Problem 44964411 Weight loss (R63.4) Active confirmed Problem 572008224 Gastritis, unspecified, without bleeding (K29.70) Active confirmed Problem 391643366 Early satiety (R68.81) Active confirmed Problem Iron deficiency anemia (51389358) Iron deficiency anemia (D50.9) Active confirmed Problem 730065949 Abdominal pain, left upper quadrant (R10.12) Active confirmed Problem Gastritis (0989612) Gastritis (K29.70) Active confirmed Problem 893214178 Irregular bowel habits (R19.8) Active confirmed Problem 78110590 Iron deficiency anemia, unspecified iron deficiency anemia type (D50.9) Active confirmed Problem 092117485 Abnormal CT scan , stomach (R93.3) Active confirmed Problem Chronic constipation (361306058) Chronic constipation (K59.09) Active confirmed Problem Diverticulosis of colon (580240575) Diverticulosis of colon (K57.30) Active confirmed Problem 631969722 Left upper quadrant abdominal pain (R10.12) Active confirmed Encounters Encounter Location Date Provider Diagnosis [facility] [address] [place] [address] 05/21/2024 Maximiliano Coats [facility] [address] [place] [address] 01/19/2024 Maximiliano Coats Plan Of Treatment Pending Test Test Name Order Date IRON + IBC (FE) 08/04/2021 IRON + IBC (FE) 02/20/2023 IRON + IBC (FE) 05/25/2021 IRON + IBC (FE) 01/11/2023 VITAMIN B12 AND FOLATE 05/25/2021 CBC w DIFF 01/11/2023 CBC w DIFF 08/04/2021 CBC w DIFF 02/20/2023 CBC w DIFF 05/25/2021 CELIAC PANEL #10 05/25/2021 XR GI SMALL BOWEL SERIES 05/25/2021 Ferritin 01/11/2023 Ferritin 05/25/2021 Ferritin 08/04/2021 Ferritin 02/20/2023 Intrinsic Factor Antibodies 05/25/2021 Parietal Cell Antibody 05/25/2021 Future Test Test Name Order Date UPPER GI ENDOSCOPY 04/28/2021 Next Appt Details Provider Name:Maximiliano Coats , 09/19/2024 01:20:00 PM, [address], [address], [place], [address], Insurance Providers Payer Name Payer Address Payer Phone Subscriber Number Group Number Insured Name Patient Relationship to Insured Coverage Start Date Coverage End Date [facility] Medicare Advantage Plan [address] [address] [place] [address] [id number] ANGEL GEORGE Self - patient is the insured [facility] Travelata [address] [place], [place] [id number] JACQUELIN GEORGETINA Self - patient is the insured Medical (General) History Medical History History ICD Code Iron deficiency [...] Upper endoscopy in October of 2022 at [facility] with Dr. [place] revealed some gastric intestinal [...] Surgical History Surgery Date(Month/Year) Intestinal surgery at [facility] for some type of internal hernia and SBO--resection of approx 20cm of necrotic small bowel 2015 Rotator cuff surgery 2008 Gallbladder 1976 Tonsillectomy 1978
--- OUTSIDE RECORDS SUMMARY | 2024-06-06 13:14 | XMS_ITS ---
Author Organization [facility] Address [address] [facility] [address] [place] [address] Care Team Providers Care Screen Examiner Name Role Phone Axel Whitehead MD Primary Care Provider Unavailab Maximiliano Baeza Unavailable [phone] Lamont Baker Unavailable Unavailable REASON FOR VISIT Patient presents today for anemia Encounters Encounter Location Date Provider Diagnosis [facility] [address] [facility] [address] [place] [address] 05/22/2024 Maximiliano Coats Plan Of Treatment Next Appt Details Provider Name:Maximiliano Coats , 09/19/2024 01:20:00 PM, [address] [facility] [facility], [address], [place], [address], Progress Notes * ANGEL GEORGEDOB: [birth year] (73 yo F)Acc No.[id number]:05/22/2024 Progress Notes Patient:?ANGEL GEORGE Provider:?Maximiliano Coats MD :1950???Age:73 Y???Sex:Female D ate:05/22/2024 Address:[address] [place], [place] [address] Pcp:Axel Whitehead MD Subjective: * Chief Complaints: [...] status: Pending * Provider:?Maximiliano Coats MD Date:? 025 Generated for Melonie gomez/Ysabel/Sarah on:?06/06/2024 01:13 PM EDT
== END 2024-06-06 12:41 | disposition home or self-care (01) ==
LOC: HO.HCS 10:59
PROVIDERS: PCP Internal Medicine; Visit Provider Internal Medicine Cardiovascular Disease
DX: I35.0 Nonrheumatic aortic (valve) stenosis (principal)
CPT/HCPCS: 93010; 99214; G2211

== ENCOUNTER → 2024-06-06 10:58 | Outpatient (BNVA) | payer MEDICARE, SELFPAY | PROVIDERS: PCP Internal Medicine; Visit Provider Internal Medicine Cardiovascular Disease | DX: I35.0 Nonrheumatic aortic (valve) stenosis (principal); I44.7 Left bundle-branch block, unspecified; R94.31 Abnormal electrocardiogram [ECG] [EKG] | CPT/HCPCS: 93005; 99212 ==

== ENCOUNTER 2024-06-27 10:26 | Outpatient (AMB) | payer MEDICARE, SELFPAY ==
--- NOTE | 2024-06-27 10:34 | MHC.OFFVIS ---
Vital Signs 06/27/24 10:37 BP 120/62 Blood Pressure Location Lt brachial Position Sitting Pulse 63 Pulse Source Monitor Intake Visit Reasons: TAVR Consult NS pt Intake Note: TAVR Consult NS PT Electronic Transaction Implementer Required: No Accompanied by: Self / Same As Patient Allergies vancomycin [VANCOMYCIN] Allergy (Unknown, Verified 06/16/23 14:39) HIVES Medication List - Last Reconciled 06/27/24 by Curtis Burr MD aspirin (Ecotrin Low Strength) 81 mg PO DAILY atorvastatin 20 mg PO DAILY bisacodyl (Dulcolax (bisacodyl)) 10 mg (2 x 5 mg) PO ONCE 1 day gabapentin 800 mg PO TID hydralazine 25 mg PO BID losartan 50 mg PO DAILY magnesium glycinate 100 mg PO DAILY metoprolol succinate ER (Toprol XL) 50 mg PO DAILY naproxen 500 mg PO BID oxybutynin chloride ER 10 mg PO DAILY tramadol 50 mg PO BID PRN turmeric mg PO HPI Comments Details: 73-year-old female who is here for TAVR consult. She has background history of hypertension, hyperlipidemia, left ventricular hypertrophy, left bundle-branch block, obesity, lymphedema and chronic back issues. She walks with a walker. She was able to walk 3/4 of a mi in last summer but over the winter time she has not been active. She is saying that she gets limited by shortness of breath as well as back issues. No documented lung disease. Recent echocardiography reviewed showing normal LVEF 60 65% with mild concentric left ventricle hypertrophy and severe asymmetric septal hypertrophy, severe aortic valve stenosis with mean gradient of 43 mm Hg and valve area of 1 cm2. Mild calcific mitral stenosis and mild pulmonary hypertension. EKGs in the office is showing sinus rhythm with left bundle-branch block. She is denying any chest discomfort. Occasionally gets dizziness but she is describing more postural dizziness. Never had syncope before. [facility] Medical History Left bundle branch block Aortic stenosis Arthritis Lower extremity edema Anemia Neuropathy Back pain Hyperlipidemia HTN (hypertension) Surgical History History of hernia repair (2015) History of rotator cuff surgery (2012) History of tonsillectomy (1978) History of cholecystectomy (1975) Family History Sister Breast cancer, Onset Age: 49 Father Prostate cancer Brother Leukemia Social History Alcohol intake: current Alcohol intake frequency: holidays/special occasions only Patient Tobacco Use Status: Never used Tobacco Review of Systems Const Denies chills, Denies fatigue, Denies fever(s), Denies frequent falls, Denies weakness, Denies weight gain and Denies weight loss ENT Denies dizziness Card Denies chest pain, Denies leg edema, Denies lightheadedness, Denies palpitations, Denies dyspnea and Denies dyspnea on exertion Resp Denies cough, Denies dyspnea and Denies dyspnea on exertion GI Denies hematochezia Musc Denies abnormal gait, Denies muscle weakness, Denies numbness, Denies radiating pain into limb and Denies tingling Neuro Denies abnormal gait, Denies dizziness, Denies frequent falls, Denies numbness, Denies tingling and Denies weakness Endo Denies fatigue and Denies palpitations Physical Exam Vital Signs: Last Vital Signs Pulse 63 06/27/24 10:37 BP 120/62 06/27/24 10:37 GENERAL APPEARANCE: Obese, in no acute distress. NECK: Carotid upstrokes are delayed, murmur radiating to the carotids bilaterally, no jugular venous distention. SKIN: no suspicious lesions, warm and dry. HEART: Ejection systolic murmur with a feeble 2nd heart sound, regular rate and rhythm. LUNGS: clear to auscultation bilaterally. Diminished breath sounds bilaterally. ABDOMEN: soft, nontender. EXTREMITIES: Bilateral lymphedema-legs are wrapped. PERIPHERAL PULSES: equal. NEUROLOGIC: No gross deficits, AAO X 3 Office Procedures EKG Details: Normal sinus rhythm 63 beats per minute, normal axis, left bundle-branch block with QRS duration of 148 milliseconds. QTC 462 milliseconds. [id number], Complete Assessment & Plan Assessment & Plan (1) Aortic stenosis: Code(s): I35.0 - Nonrheumatic aortic (valve) stenosis Category: Medical Plan Very pleasant 73-year-old female who is here for management of severe aortic valve stenosis. Echocardiography she has mean gradient of 43 mm Hg with valve area 1 centimeter sq. Clinical exam is suggestive of severe aortic valve stenosis. She was walking up to 3/4 for mi in last summer but during winter has not been exercising and has been quite sedentary. She is saying even in last summer when she was walking she was short of breath with activities which is mostly multifactorial due to her weight as well as deconditioning due to back problems. We discussed about natural history of aortic stenosis. We also discussed about surgical versus transcatheter aortic valve replacement. I have told her that she maybe a candidate for either but we need further information. I will start with a diagnostic cardiac catheterization which we will arrange soon. She will get TAVR protocol CT performed and we will see Cardiothoracic surgery in consultation. After that we will discuss her in the heart team meeting and decide about what is the best and safest approach for her. From transcatheter aortic valve replacement point of view, I have quoted her a risk of vascular injury, bleeding, infection, stroke, annular rupture/ and permanent pacemaker placement. She understands the pros and cons of surgical versus transcatheter aortic valve replacement. She is interested in TAVR. I will do some basic blood workup including BNP level today. As her workup completes, we will be able to decide about transcatheter versus surgical aortic valve replacement. Thank you for allowing me to participate in the care of your patient. Please feel free to contact me if you have any questions. Orders: Orders B Type Natriuretic Peptide Today I35.0 - Nonrheumatic aortic (valve) stenosis Basic Metabolic Panel Today I35.0 - Nonrheumatic aortic (valve) stenosis Cardiac Cath LT Diagnostic Today I35.0 - Nonrheumatic aortic (valve) stenosis Complete Blood Count no Diff Today I35.0 - Nonrheumatic aortic (valve) stenosis Prothrombin Time INR Today I35.0 - Nonrheumatic aortic (valve) stenosis Coding Level of Care Code New Pt Level 5 (62030) Diagnoses Aortic stenosis I35.0 CPT Codes EKG - CPT: 11825-[id number], Complete ([id number])
[2024-06-27 10:37] VITALS: BP 120/62; PULSE 63
--- OUTSIDE RECORDS SUMMARY | 2024-06-27 11:53 | XMS_ITS ---
Author Organization [facility] Address [address] [place] [address] Care Team Providers Care Import/Export Agent Name Role Phone Axel Whitehead MD Primary Care Provider Unavailab Maximiliano Baeza Unavailable [phone] Lamont Baker Unavailable Unavailable REASON FOR VISIT Patient presents today for anemia Encounters Encounter Location Date Provider Diagnosis [facility] [address] [place] [address] 05/22/2024 Maximiliano Coats Plan Of Treatment Next Appt Details Provider Name:Maximiliano Coats , 09/19/2024 01:20:00 PM, [address], [address], [place], [address], Progress Notes * ANGEL GEORGEDOB: [birth year] (73 yo F)Acc No.[id number]:05/22/2024 Progress Notes Patient:?ANGEL GEORGE Provider:?Maximiliano Coats MD :1950???Age:73 Y???Sex:Female D ate:05/22/2024 Address:[address] [place], [place] [address] Pcp:Axel Whitehead MD Subjective: * Chief Complaints: [...] Coats MD Date:? 025 Generated for Melonie gomez/Ysabel/Linseyitting on:?06/27/2024 11:53 AM EDT
--- OUTSIDE RECORDS SUMMARY | 2024-06-27 11:53 | XMS_ITS ---
Author Organization [facility] Address [address] [place] [address] Care Team Providers Care Textile Science Technician Name Role Phone Axel Whitehead MD Primary Care Provider Unavailab Maximiliano Baeza Unavailable [phone] Lamont Baker Unavailable Unavailable Encounters Encounter Location Date Provider Diagnosis [facility] [address] [place] [address] 05/21/2024 Maximiliano Coats Plan Of Treatment Next Appt Details Provider Name:Maximiliano Coats , 09/19/2024 01:20:00 PM, [address], [address], [place], [address], Progress Notes * ANGEL GEORGEDOB: [birth year] (73 yo F)Acc No.[id number]:05/21/2024 Patient:?ANGEL GEORGE :1950???Age:73 Y???Sex:Female Address:[address], [place], [address] * * Date:?
--- OUTSIDE RECORDS SUMMARY | 2024-06-27 11:53 | XMS_ITS ---
Author Organization [facility] Address [address] [place] [address] Care Team Providers Care National Investigative Producer Name Role Phone Axel Whitehead MD Primary Care Provider Unavailab Maximiliano Baeza Unavailable [phone] Lamont Baker Unavailable Unavailable REASON FOR VISIT Patient presents today for anemia Encounters Encounter Location Date Provider Diagnosis [facility] [address] [place] [address] 01/19/2024 Maximiliano Coats Plan Of Treatment Next Appt Details Provider Name:Maximiliano Coats , 09/19/2024 01:20:00 PM, [address], [address], [place], [address], Progress Notes * ANGEL GEORGEDOB: [birth year] (73 yo F)Acc No.[id number]:01/19/2024 Progress Notes Patient:?ANGEL GEORGE Provider:?Maximiliano Coats MD :1950???Age:73 Y???Sex:Female D ate:01/19/2024 Address:[address] [place], [place] [address] Pcp:Axel Whitehead MD Subjective: * Chief Complaints: [...] MD Date:? 024 Generated for Melonie gomez/Ysabel/Sarah on:?06/27/2024 11:53 AM EDT
--- OUTSIDE RECORDS SUMMARY | 2024-06-27 11:54 | XMS_ITS | Patient Health Record ---
Author Organization [facility] Address [address] [place] [address] Care Team Providers Care Chemistry Manager Name Role Phone Axel Whitehead MD Primary Care Provider Unavailab Maximiliano Baeza Unavailable [phone] Lamont Baker Unavailable Unavailable Allergies Allergen (clinical [...] Problem Status W/U Status Risk Notes Problem 92294795 Weight loss (R63.4) Active confirmed Problem 175626522 Gastritis, unspecified, without bleeding (K29.70) Active confirmed Problem 775061162 Early satiety (R68.81) Active confirmed Problem Iron deficiency anemia (27133813) Iron deficiency anemia (D50.9) Active confirmed Problem 648387391 Abdominal pain, left upper quadrant (R10.12) Active confirmed Problem Gastritis (0812764) Gastritis (K29.70) Active confirmed Problem 910551346 Irregular bowel habits (R19.8) Active confirmed Problem 90344411 Iron deficiency anemia, unspecified iron deficiency anemia type (D50.9) Active confirmed Problem 291116261 Abnormal CT scan , stomach (R93.3) Active confirmed Problem Chronic constipation (712934333) Chronic constipation (K59.09) Active confirmed Problem Diverticulosis of colon (366190164) Diverticulosis of colon (K57.30) Active confirmed Problem 171776933 Left upper quadrant abdominal pain (R10.12) Active confirmed Encounters Encounter Location Date Provider Diagnosis [facility] [address] [place] [address] 05/21/2024 Maximiliano Coats [facility] [address] [place] [address] 01/19/2024 Maximiliano Coats Plan Of Treatment Pending Test Test Name Order Date IRON + IBC (FE) 08/04/2021 IRON + IBC (FE) 02/20/2023 IRON + IBC (FE) 05/25/2021 IRON + IBC (FE) 01/11/2023 VITAMIN B12 AND FOLATE 05/25/2021 CBC w DIFF 05/25/2021 CBC w DIFF 01/11/2023 CBC w DIFF 08/04/2021 CBC w DIFF 02/20/2023 CELIAC PANEL #10 05/25/2021 XR GI SMALL BOWEL SERIES 05/25/2021 Ferritin 01/11/2023 Ferritin 05/25/2021 Ferritin 08/04/2021 Ferritin 02/20/2023 Intrinsic Factor Antibodies 05/25/2021 Parietal Cell Antibody 05/25/2021 Future Test Test Name Order Date UPPER GI ENDOSCOPY 04/28/2021 Next Appt Details Provider Name:Maximiliano Coats , 09/19/2024 01:20:00 PM, [address], [address], [place], [address], Insurance Providers Payer Name Payer Address Payer Phone Subscriber Number Group Number Insured Name Patient Relationship to Insured Coverage Start Date Coverage End Date [facility] Medicare Advantage Plan [address] [address] [place] [address] [id number] ANGEL GEORGE Self - patient is the insured [facility] [employer] [address] [place], [place] [id number] JACQUELIN GEORGETINA Self - patient is the [...] Upper endoscopy in October of 2022 at [facility] with Dr. Carter revealed some gastric intestinal [...]
--- OUTSIDE RECORDS SUMMARY | 2024-06-27 11:54 | XMS_ITS | Data Portability ---
Author Organization [facility] [address] Address [address] [place] [address] Care Team Providers Care Pattern Lease Inspector Name Role Phone ORLANDO CHAVEZ Primary Care Provider Assessment No assessment recorded. Plan of Treatment Reminders Order Date Submit Date Provider Last Modified By Organization Details Last Modified Time Details Appointments None recorded. Lab SARS CoV 2 (COVID-19) Ag, QL, IA, upper respiratory specimen 2023 024 [email or web address] [facility], [address] [place] [address], [address], 10:54:53 Referral general surgeon referral 2023 024 [email or web address] Not available 13:16:25 Procedures None recorded. Surgeries None recorded. Imaging None recorded. Medication Orders Bactrim DS 800 mg-160 mg tablet 2023 024 [id number], [address] [place], [place], [phone], 11:25:44 Patient TargetsNo targets recorded. Patient Instructions Encounter Date Encounter Id Patient Instructions Last Modified By Organization Details Last Modified Time 07/02/2023 [id number] opened cut after surgery: care instructions mani Not available 07/02/2023 11:25:34 wound care* AMALIA Not available 06/19 12:04:06 application of wound dressing* AMALIA Not available 07/02/2023 12:03:43 Please follow up with your surgeon in 2-3 days mani Not available 07/02/2023 11:31:10 11/21/2023 [id number] coronavirus (covid-19): care instructions [email or web address] Not available [...] ve Not Available [address] [place], [address], 11/21/2023 10:54:25 11/21/19 24 11/21/2023 SARS CoV 2 (COVI D-19) Ag, QL, IA, upper respi rator y speci men Unknown Analyte yes Not Available _ [facility] [address] [place] [place], [address], 11/21/2023 10:54:25 Result Notes None recorded. Problems Name Problem SNOMED Code Status Onset Date Resolution Date Notes Provider Name and Address Organization Details Recorded Time Hypertensive disorder 92747633 Active 2023 KAILA PARISICA null, [place] - [facility] 10:47:58 Nerve injury 66100553 Active 2023 low back KAILA LUPICA null, [place] - [facility] 10:48:55 Neuropathy 128540199 Active 2023 KAILA LUPICA null, [place] - [facility] 10:49:05 Heart murmur 98293786 Active 2023 KAILA PARISICA null, [place] - [facility] 10:51:29 Bundle branch block 8274619 Active 2023 left KAILA LUPICA null, [place] - [facility] 4 10:51:59 Dehiscence of surgical wound 33593728 Active 2023 MATTY ATKINS NP [address] [place], [place], [address] [facility] [place] - [facility] 11:25:10 Problem [...] Name and Address Organization Details Recorded Time 877959 vancomyci n medicatio n hives Not available Not available 07/02/2023 54652 RxNorm KAILA JO [facility], [place] - [facility] 10:44:47 Medications Name [...] Updated DateTime 4 163.83 cm 34.8 kg/m2 00361.0 3 g 4 16 /min 97.1 [degF] [...] Updated DateTime 4 163.83 cm 33.8 kg/m2 52486.4 7 g 0 98 % 98 % 75 /min 18 /min 97.1 [degF] 113 mm[Hg] 71 mm[Hg] Marlene Gonzales PA - [facility] 4 10:41:20 Social History Question Answer Notes LastModified by Organizat ion Details LastModified Time Tobacco Smoking Status Never Smoker KAILA bang [place] - [facility] 07/02/2023 10:49:41 What Is Your Level Of Alcohol Consumption? Occasional [email or web address] Information not available 07/02/2023 Do You Use Any Illicit Or Recreational Drugs? No [email or web address] Information not available 07/02/2023 Have You Recently Traveled Abroad? No [email or web address] Information not available 07/02/2023 Do You Or Have You Ever Used Any Other Forms Of Tobacco Or Nicotine? No [email or web address] Information not available 07/02/2023 Sex: Unknown Functional Status None recorded. Mental Status None recorded. Family History Nothing Reported. Medical History No medical history recorded. Gynecological History Statement/Question Response Date of LMP Obstetrics History GPAL:G 0 P 0 0 0 0 Past Encounters Encounter ID Performer Location Encounter Start Date Encounter Closed Date Diagnosis/Indication Diagnosis SNOMED-CT Code Diagnosis ICD10 Code Diagnosis Note [id number] [address] [facility] [place] [address] 10/05/2015 08:13:12 10/05/2015 08:50:57 [id number] [address] [place] [address] [place] [address] 10/08/2015 09:45:44 10/08/2015 10:59:06 [id number] [address] [facility] [place] [address] 11/13/2016 09:08:27 11/13/2016 09:35:19 [id number] [address] [facility] [place] [address] 10/11/2015 09:45:49 10/11/2015 12:27:21 [id number] [address] [facility] [place] [address] 07/23/2019 13:57:32 07/23/2019 14:39:40 [id number] [address] [address] [place] [address] 08/13/2017 09:39:52 08/13/2017 11:20:34 [id number] [address] [facility] [place] [address] 10/14/2015 12:36:29 10/14/2015 14:00:50 [id number] [address] [facility] [place] [address] 10/12/2015 12:00:42 10/12/2015 14:30:32 [id number] [address] [place] [address] 10/16/2015 10:58:27 10/16/2015 12:10:43 [id number] [address] [address] 05/17/2015 09:25:41 05/17/2015 10:07:05 [id number] [address] [place] [address] 08/19/2018 09:19:54 08/19/2018 11:25:06 [id number] [place] [address] [place] [address] 07/02/2023 10:16:54 07/02/2023 12:34:13 Dehiscence of surgical wound 98914417 T81.30XA [id number] GRISEL Boyer [address] [place] [address] 11/21/2023 10:36:01 11/21/2023 10:56:24 COVID-19 263664245 U07.1 If you test positive for COVID-19, [...] masking (see below).For travel guidance, see [facility]? s Travel webpage. Health Concerns Section Related Observation LastModified by Organization Detai ls LastModified Time None Recorded Concern Status LastModified by Organization Details LastModified Time None Recorded Advance Directives Directive None Recorded Payers Encounter Date Sequence Insurance Name Policy Number Policy Méndez Covered Member ID Méndez Member ID Guarantor Name 07/23/2019 2 [facility] [employer] (PPO) [id number] Negra Cameron [id number] Negra Cameron 07/02/2023 2 [facility] - GROUP BENEFIT SERVICES (O) [id number] Negra Rakesh [id number] Negra Cameron 11/21/2023 1 [place]: [employer] Negra Cameron [id number] Negra Cameron 11/21/2023 2 [facility] (O) [id number] Neg[address] L Rakesh [id number] Negra Cameron Notes Date Note Type Note [...] ATKINS NP [address] [place], [address], [place] - [facility] 07/02/2023 11:31:38 11/21/2023 text/html 73 y/o female he re 5 days after testing positive for COVID. Her PCP started her on Paxlovid, she has a terrible taste in her mouth and has a hard time eating. Her cough is continuing, not taking anyhing OTC for symptoms GRISEL Boyer [facility] [address] [place], [place], [address], [place] - [facility] 11/21/2023 10:58:16 OBGyn Episode No OBEpisode recorded.
== END 2024-06-27 11:45 | disposition home or self-care (01) ==
LOC: HO.HCS 10:26
PROVIDERS: PCP Internal Medicine; Visit Provider Internal Medicine Cardiovascular Disease
DX: I35.0 Nonrheumatic aortic (valve) stenosis (principal); R94.31 Abnormal electrocardiogram [ECG] [EKG]
CPT/HCPCS: 93010; 99204

== ENCOUNTER → 2024-06-27 10:26 | Outpatient (BNVA) | payer MEDICARE, SELFPAY | PROVIDERS: PCP Internal Medicine; Visit Provider Internal Medicine Cardiovascular Disease | DX: I35.0 Nonrheumatic aortic (valve) stenosis (principal); I44.7 Left bundle-branch block, unspecified; R94.31 Abnormal electrocardiogram [ECG] [EKG] | CPT/HCPCS: 93005; 99202 ==

== ENCOUNTER 2024-07-13 11:28 | Observation (INO) | payer MEDICARE, SELFPAY ==
[2024-07-13] VITALS (7 sets, daily range): BP systolic 109–144; BP diastolic 36–77; PULSE 58–80; RESP 12–14; TEMP 36.4–36.6; O2SAT 97–100; BMI 34.9
--- NOTE | ~2024-07-13 | CT_ITS ---
CLINICAL HISTORY: anemia, dizzy, occult ++ CT abdomen and pelvis with and without IV contrast. COMPARISON: None FINDINGS: Osteophyte fibrosis along the medial right lower lobe. Minimal linear atelectasis versus scarring within the left lingular and right lower lobe. Small hiatal hernia. Mitral annular and aortic annular calcifications. Cardiomegaly. Trace pericardial effusion. Coronary artery calcifications present within the LAD and RCA. Elevation of the right hemidiaphragm. No focal hepatic lesion. Cholecystectomy. Normal spleen. Normal pancreas. Normal adrenal glands. Symmetric renal enhancement. No hydronephrosis. Appendix is not seen. No right lower quadrant or pericecal inflammatory changes. No focus of active hemorrhage identified within the bowel lumen. Mild distal colonic diverticulosis without evidence of diverticulitis. There is dilatation of a loop of small bowel within the right hemiabdomen measuring up to 4.6 cm with fecal material of the small bowel contents. More distal small bowel is contracted. Multiple normal-sized mesenteric and retroperitoneal lymph nodes. Moderate aortoiliac atherosclerotic vascular calcifications. Urinary bladder is unremarkable given degree of distention. No adnexal mass. Grade 1 anterolisthesis of L4 on L5 and L5 on S1, degenerative. There is fusion of the vertebral bodies at L4-5 anteriorly. Moderate to advanced multilevel spondylosis. No acute fracture. IMPRESSION: 1. Probable early/partial small bowel obstruction. Focally dilated loop of small bowel measuring up to 4.6 cm in the midabdomen with fecalization of the small bowel contents. This is directly adjacent to an anastomosis. More distal small bowel is contracted. 2. No focus of active hemorrhage identified within the bowel lumen. 3. Distal colonic diverticulosis without evidence of diverticulitis. 4. Small hiatal hernia. 5. Cardiomegaly with coronary artery atherosclerosis. Mitral annular and aortic annular calcifications. This document has been electronically signed by: Rod Anthony MD on 07/13/2024 17:14:07
--- NOTE | ~2024-07-13 | CT_ITS ---
EXAMINATION: CT HEAD WITHOUT IV CONTRAST HISTORY: dizziness, blurry vision. TECHNIQUE: Unenhanced helical CT of the head was performed per standard departmental protocol. Coronal and sagittal reformats of the head were also evaluated. One or more of the following techniques was used for dose reduction: Automated exposure control, adjustment of the mA and/or kV according to patient size, use of iterative reconstruction technique. DLP: 592 mGy-cm COMPARISON: There are no prior studies for comparison. FINDINGS: BRAIN: The brain parenchyma is unremarkable. There is normal meredith/white differentiation. The ventricular system is normal in size and configuration. There is no mass effect or midline shift. No intra- or extra-axial fluid collections are identified. SINUSES: The visualized paranasal sinuses are clear. The mastoid air cells and middle ear cavities are well pneumatized. ORBITS: The visualized orbits are unremarkable. BONES/SOFT TISSUES: The extracranial soft tissues are unremarkable. The calvarium is intact. No suspicious lytic or sclerotic lesions. CT/CT head/brain wo IV con IMPRESSION: Unremarkable unenhanced head CT. Electronically signed by: Maximiliano Anand MD 07/13/2024 02:41 PM EDT
--- NOTE | ~2024-07-13 | XR_ITS ---
EXAMINATION: XR CHEST 2 VIEWS HISTORY: dizziness, weakness COMPARISON: There are no prior studies for comparison. FINDINGS: PA and lateral views of the chest are submitted. The lungs are expanded and clear. There is no pleural effusion, pneumothorax, or pulmonary vascular congestion. The heart is normal in size. The aorta is calcified. There is degenerative disc disease of the spine. XR/XR chest 2V IMPRESSION: Clear lungs. Electronically signed by: Maximiliano Anand MD 07/13/2024 01:36 PM EDT
--- NOTE | 2024-07-13 11:50 | ECG_ITS ---
Test Reason : DIZZINESS Blood Pressure : */* mmHG Vent. Rate : 67 BPM Atrial Rate : 67 BPM P-R Int : 208 ms QRS Dur : 150 ms QT Int : 444 ms P-R-T Axes : 70 -38 110 degrees QTcB Int : 469 ms Normal sinus rhythm Left axis deviation Left bundle branch block Abnormal ECG No previous ECGs available Referred By: Kalina Gray Electronically Signed By: DANILO GEORGES
--- NOTE | 2024-07-13 11:51 | ED.DIZZY ---
HPI - Dizziness General Chief Complaint: Dizziness Stated Complaint: Light headed, Dizziness, Cold Time Seen by Provider: 07/13/24 11:55 Source: patient, RN notes reviewed and old records reviewed Mode of arrival: ambulatory History of Present Illness ED Provider: Tran Zaragoza PA-C HPI Narrative: 74-year-old female with a past medical history of LBBB, aortic stenosis, arthritis, anemia, HTN, HLD, presenting to the ED complaining of room spinning dizziness and lightheadedness s/p bending down to empty box at work [employer]. Reports associated generalized fatigue/weakness, and associated blurry vision during episode this morning, resolved at present. Symptoms worse with position changes, resolved at rest. Admits she has currently being follow up with Dr. William for , scheduled for cardiac catheterization on 08/02/24 & CTA, admits has been experiencing intermittent dizziness/lightheadedness for some time however today was worse than normal. Denies headache, vision loss, CP/SOB, abdominal pain, nausea/vomiting, focal weakness, numbness/tingling. Related Data Home Medications ?Medication ?Instructions ?Recorded ?Confirmed gabapentin 800 mg tablet 800 mg PO TID 04/21/21 06/27/24 hydralazine 25 mg tablet 25 mg PO BID 04/21/21 06/27/24 losartan 50 mg tablet 50 mg PO DAILY 04/21/21 06/27/24 metoprolol succinate 50 mg 50 mg PO DAILY 04/21/21 06/27/24 tablet,extended release 24 hr (Toprol XL) oxybutynin chloride 10 mg 10 mg PO DAILY 04/21/21 06/27/24 tablet,extended release 24 hr tramadol 50 mg tablet 50 mg PO BID PRN 02/24/23 06/27/24 magnesium glycinate 100 mg (as 100 mg PO DAILY 11/30/23 06/27/24 glycinate) tablet turmeric 400 mg capsule mg PO 11/30/23 06/27/24 naproxen 500 mg tablet 500 mg PO BID 06/06/24 06/27/24 Previous Rx's ?Medication ?Instructions ?Recorded bisacodyl 5 mg tablet,delayed 10 mg (2 x 5 mg) PO ONCE 1 day #2 06/25/21 release (Dulcolax (bisacodyl)) tabs atorvastatin 20 mg tablet 20 mg PO DAILY #90 tabs 04/24/24 aspirin 81 mg tablet,delayed 81 mg PO DAILY #30 tabs 06/06/24 release (Ecotrin Low Strength) Allergies Allergy/AdvReac Type Severity Reaction Status Date / Time vancomycin [VANCOMYCIN] Allergy Unknown HIVES Verified 07/13/24 11:50 Review of Systems Review of Systems: Yes all other systems are reviewed and are negative Constitutional: Constitutional: Reports as per HPI Neurologic: Reports Abnormal speech present [facility] Past Medical History Attestation statement: The following information was validated with the patient. Source: old records reviewed Medical History Left bundle branch block Aortic stenosis Arthritis Lower extremity edema Anemia Neuropathy Back pain Hyperlipidemia HTN (hypertension) Surgical History History of hernia repair (2015) History of rotator cuff surgery (2012) History of tonsillectomy (1978) History of cholecystectomy (1975) Family History Family History Sister Breast cancer, Onset Age: 49 Father Prostate cancer Brother Leukemia Social History Social History Alcohol intake: current Alcohol intake frequency: holidays/special occasions only Patient Tobacco Use Status: Never used Tobacco Smoked in Last 30 Days: No Use of substances other than those prescribed or required for medical reasons: No Advance Directives: No Advance Directives Information Provided: Yes Physical Exam Vital Signs: Vital Signs: Last Vital Signs Temp 97.6 F 07/13/24 16:54 Pulse 74 07/13/24 16:54 Resp 12 07/13/24 16:54 BP 119/38 L 07/13/24 16:54 Pulse Ox 99 07/13/24 16:54 O2 Del Method Room Air 07/13/24 16:54 BMI result Body Mass Index 34.9 Const: General: cooperative, healthy appearing and no acute distress Orientation/consciousness: patient oriented x3 Limitations: no limitations HEENT: Head: Yes normal to inspection and Yes atraumatic Ears: hearing grossly normal bilaterally General nose exam: Normal external nose present Face and sinus: Yes normal facial exam Mouth: Normal oral and palatal mucosa present Throat: Yes posterior oropharynx normal and Yes uvula midline Eyes: General: appearance normal, both eyes and all related structures Pupils: Equal, round and reactive pupils present EOM: EOMs intact bilaterally Neck: Neck: Yes normal visual inspection and Yes no meningeal signs Resp: Effort & Inspection: normal respiratory effort and no respiratory distress Auscultation: clear to auscultation bilaterally, no crackles and no wheezes Cardio: Rate: regular rate Heart sounds: S1 normal heart sound present and S2 normal heart sound present GI: Inspection: Yes normal to inspection Palpation (GI): Soft to palpation, nontender, no guarding and not rigid : General: Yes no CVA tenderness Back/Spine/Pelvis: Back: no CVA tenderness Skin: Rashes: no rashes Wounds: no wounds Neuro: General: patient oriented x3, gait normal, tone normal, moves all extremities, no meningeal signs, no focal motor deficits and CN's II-XI intact bilaterally Cranial nerves: Yes CN's II-XII intact bilaterally, Yes Equal, round and reactive pupils present and Yes Bilaterally intact EOM present Cognition (Neuro): normal cognition Speech: Abnormal speech present Gait exam (Neuro): Normal gait present Motor exam (neuro): 5/5 motor strength present throughout Extrem: Other: Chronic bilateral LE lymphedema Course Course Course Narrative: This is a Rapid Medical Examination (RME) performed by Eber Gray PA-C in triage. Full HPI, ROS, assessment and treatment plan per primary provider in the Main ED. 07/13/24 1152 GRISEL Bach Hx: 74 yo female hx of cholecystectomy, bowel obstruction w/ resection at [facility] (2016), HTN, aortic stenosis here for eval of generalized weakness and dizziness which began around 0900 this morning while at work. Dizziness began while she was bending over grabbing her bag at work. Reports room spinning sensation with occasional lightheadedness. No history of similar. Admits to decreased appetite recently states I just dont feel good. Admits recent follow up with Dr. William for aortic stenosis, not on thinners, cardiac catheterization scheduled for 08/02. Reports increased swelling and lower extremities, (R>L). Denies chest pain, shortness breath, nausea, vomiting, diarrhea, headache. PE/vitals: NIH 0. Attempted to assess nystagmus however patient reported dizziness with rightward motion of eyes. Normal [id number]. patient has b/l LE edema, difficulty assessing [id number] or ambulation in triage. Plan: Labs, EKG, chest x-ray. Patient being brought back to main ED room at 1154 - will defer imaging to primary provider. -1343--no leukocytosis. H/H with drop from priors, has been low in the past > patient with known history of anemia. Admits to requiring blood transfusions in the past. Denies any active bleeding, bloody stools, melena, hematuria > will obtain occult stool -troponin 5.7 will obtain repeat XR chest 2V IMPRESSION: Clear lungs. -1353--BUN elevated to 23. UA not infected -orthostatic vital signs negative >1430--occult blood stool positive. Will obtain CT for further eval -1719--repeat H/H stable, slight drop to 8.2/24.1 CT gi bleed abd pel wo/w IVcon IMPRESSION: 1. Probable early/partial small bowel obstruction. Focally dilated loop of small bowel measuring up to 4.6 cm in the midabdomen with fecalization of the small bowel contents. This is directly adjacent to an anastomosis. More distal small bowel is contracted. 2. No focus of active hemorrhage identified within the bowel lumen. 3. Distal colonic diverticulosis without evidence of diverticulitis. 4. Small hiatal hernia. 5. Cardiomegaly with coronary artery atherosclerosis. Mitral annular and aortic annular calcifications. > will consult General surgery, Dr. Maddox > evaluated patient in the ED, low suspicion for acute SBO. Plan to admit to medicine for further management/monitoring Medications Administered Discontinued Medications Generic Name Dose Route Start Last Admin Trade Name Freq PRN Reason Stop Dose Admin Sodium Chloride 250 mls @ 999 mls/hr 07/13/24 12:15 07/13/24 13:43 Ns IV 07/13/24 12:30 Infused .Q16M ISMA Infusion Iohexol 80 ml 07/13/24 16:25 07/13/24 16:26 Iohexol 350 Mg/Ml 100 Ml Infus..Btl IV 07/13/24 16:26 80 ml ONCE ONE Administration Meclizine HCl 25 mg 07/13/24 12:10 07/13/24 12:34 Meclizine Hcl 25 Mg Tablet PO 07/13/24 12:11 25 mg ONCE ONE Administration Medical Decision Making Medical Decision Making MDM Narrative: 74-year-old female with a past medical history of LBBB, aortic stenosis, arthritis, anemia, HTN, HLD, presenting to the ED complaining of room spinning dizziness and lightheadedness s/p bending down to empty box at work [employer]. On exam vital signs stable, NAD, nontoxic appearing, no focal neuro deficits, ambulating with steady gait, no ataxia, lungs CTA, abdomen soft/nontender. Concern for vertigo vs ACS vs metabolic abnormalities. Rule out infectious etiology. Lower suspicion for acute CVA/TIA or ICH. Lower suspicion or CHF or PE/DVT Plan: EKG, labs, UA, CXR, orthostatics, meclizine, re-evaluate Please refer to course for remaining clinical decision making, interpretation of labs/imaging results, and discussions with consultants and/or family members. Differential Diagnosis Differential Diagnoses: The differential diagnosis associated with the presentation includes As above Admission/Observation Consideration of admission/observation: Escalation of care including admission/observation considered Lab Data [facility] Lab Attestation statement: I reviewed the patient's lab results. 07/13/24 15:43 07/13/24 13:11 Labs: Lab Results 07/13/24 07/13/24 07/13/24 Range/Units 13:11 14:01 15:43 WBC 8.3 8.2 (4.8-10.8) X10*3/uL RBC 3.70 L 3.52 L (4.20-5.50) X10*6/uL Hgb 8.5 L D 8.2 L (12.0-16.0) g/dl Hct 25.6 L D 24.1 L (37.0-47.0) % MCV 69.2 L 68.5 L (80.0-98.0) fL MCH 23.0 L 23.3 L (27.0-33.0) pg MCHC 33.2 34.0 (31.0-35.0) g/dl RDW 17.1 H 17.2 H (11.0-16.0) % Plt Count 249 255 (160-400) X10*3/uL MPV 9.1 L 9.1 L (9.4-12.3) fL Immature Gran % (Auto) 0.5 H 0.2 (0.0-0.4) % Neut % (Auto) 67.5 62.3 (45-73) % Lymph % (Auto) 18.7 L 22.0 (20-40) % [place] % (Auto) 7.7 9.6 (2-11) % Eos % (Auto) 4.6 H 5.2 H (0-4) % Baso % (Auto) 1.0 0.7 (0-2) % Lymph # (Auto) 1.6 1.8 (1.2-4.9) X10*3/uL [place] # (Auto) 0.6 0.8 (0.1-1.2) X10*3/uL Eos # (Auto) 0.4 0.4 (0.0-0.4) X10*3/uL Baso # (Auto) 0.1 0.1 (0.0-0.2) X10*3/uL Abs Immat Gran (auto) 0.04 H 0.02 (0.00-0.03) X10*3/uL Absolute Neuts (auto) 5.6 5.1 (2.0-8.3) x10*3/uL Absolute Nucleated RBC 0.000 0.000 (0.0-0.012) X10*3/uL Nucleated RBC % (auto) 0.0 0.0 (0.0-0.2) /100WBC Sodium 139 (135-145) mmol/L Potassium 5.1 (3.3-5.1) mmol/L Chloride 110 H (96-108) mmol/L Carbon Dioxide 23 (22-29) mmol/L Anion Gap 11 L (12-20) BUN 23 H (9-16) mg/dL Creatinine 0.77 (0.5-1.4) mg/dL Estim Creat Clear Calc 75.3 Estimated GFR > 60 Random Glucose 74 (60-115) mg/dL Calcium 8.9 (8.4-10.2) mg/dL Magnesium 2.5 (1.6-2.6) mg/dL Total Bilirubin 0.3 (0.0-1.0) mg/dL AST 31 (5-31) U/L ALT 11 (0-31) U/L Alkaline Phosphatase 61 (39-117) U/L Troponin I High Sens 5.7 5.9 (<3.5-17.0) ng/L B-Natriuretic Peptide 167 H (<100) pg/mL Total Protein 6.5 (6.5-8.0) g/dL Albumin 3.6 (3.5-5.0) g/dL TSH 0.64 (0.32-4.0) uIU/mL Urine Color Yellow Urine Appearance Clear Urine pH 6.0 (5.0-9.0) Ur Specific [place] <= 1.005 (1.005-1.025) Urine Protein Negative (Neg-Trace) mg/dL Urine Glucose (UA) Negative (Negative) mg/dL Urine Ketones Negative (Negative) mg/dL Urine Blood Negative (Negative) Urine Nitrite Negative (Negative) Ur Leukocyte Esterase Trace H (Negative) Urine RBC 0-2 (0-2) /HPF Urine WBC 0-5 (0-5) /HPF Ur Squamous Epith Cells 0-2 (0-2) /HPF Urine Bacteria Trace (None Seen) Hyaline Casts 0-2 (0-2) /LPF Stool Occult Blood POSITIVE (NEGATIVE) Influenza Type A (PCR) NEGATIVE (Negative) Influenza Type B (PCR) NEGATIVE (Negative) RSV RNA Qual (PCR) NEGATIVE (Negative) SARS-CoV-2 RNA (RT-PCR) NEGATIVE (Negative) Independent Interpretation I performed an independent interpretation of an: EKG (My interpretation EKG sinus rhythm rate of 67. [place] interval 208. No previous to compare. No STEMI. ) and Plain X-Ray Radiology Impression Discussion of test interpretation with radiology: I have reviewed the radiologist's reading. External Record Review External record reviewed: Inpatient record, Office record, Outpatient record, Prior outpatient labs, Prior outpatient radiology, Primary care record and Outside ED record Tests considered The following testing was considered but not selected: As above Prescription Management I considered prescription management with: Other Chronic Conditions Patient?s care impacted by: Hypertension and Other () Critical Care Time Critical Care Time Critical Care Time: Yes Total Critical Care Time: 45 Attestation: I have personally provided critical care time exclusive of time spent on separately billable procedures. Time includes review of lab data, radiology results, discussion with consultants, and monitoring for potential decompensation. Intervention performed as documented. Discharge Plan Discharge Clinical Impression: Dizziness, Partial small bowel obstruction, Occult blood positive stool, Anemia, Weakness Patient Disposition: Admitted As Inpatient Print Language: Kinyarwanda
[2024-07-13] MEDS: 0.9 % Sodium Chloride 250 ML 999 ML IV (12:30)
[2024-07-13] MEDS: Meclizine HCl 25 MG TABLET PO (12:34)
--- OUTSIDE RECORDS SUMMARY | 2024-07-13 12:51 | XMS_ITS | Data Portability ---
Author Organization [facility], [address] Address [address] [place] [address] Care Team Providers Care Shirt Hemmer Name Role Phone ORLANDO CHAVEZ Primary Care Provider Assessment No assessment recorded. Plan of Treatment Reminders Order Date Submit Date Provider Last Modified By Organization Details Last Modified Time Details Appointments None recorded. Lab SARS CoV 2 (COVID-19) Ag, QL, [place], upper respiratory specimen 2023 024 [email or web address] [address], [address] [place] [address], [id number], 10:54:53 Referral general surgeon referral 2023 024 [email or web address] Not available 13:16:25 Procedures None recorded. Surgeries None recorded. Imaging None recorded. Medication Orders Bactrim DS 800 mg-160 mg tablet 2023 024 [id number], [address], [place], [id number], 11:25:44 Patient TargetsNo targets recorded. Patient Instructions Encounter Date Encounter Id Patient Instructions Last Modified By Organization Details Last Modified Time 07/02/2023 [id number] opened cut after surgery: care instructions mani Not available 07/02/2023 11:25:34 wound care* AMALIA Not available 06/19 12:04:06 application of wound dressing* AMALIA Not available 07/02/2023 12:03:43 Please follow up with your surgeon in 2-3 days mani Not available 07/02/2023 11:31:10 11/21/2023 [id number] coronavirus (covid-19): care instructions [email or web address] Not available [...] ve Not Available [address] [place], [address], 11/21/2023 10:54:25 11/21/19 24 11/21/2023 SARS CoV 2 (COVI D-19) Ag, QL, [place], upper respi rator y speci men Unknown Analyte yes Not Available [facility] [address] [place], [address], 11/21/2023 10:54:25 Result Notes None recorded. Problems Name Problem SNOMED Code Status Onset Date Resolution Date Notes Provider Name and Address Organization Details Recorded Time Hypertensive disorder 98742212 Active 2023 KAILA PARISICA null, [place] - [facility] 10:47:58 Nerve injury 21840095 Active 2023 low back KAILA LUPICA null, PA - [facility] 10:48:55 Neuropathy 550839063 Active 2023 KAILA LUPICA null, PA - [facility] 10:49:05 Heart murmur 23893342 Active 2023 KAILA PARISICA null, PA - [facility] 10:51:29 Bundle branch block 7899450 Active 2023 left KAILA LUPICA null, PA - [facility] 4 10:51:59 Dehiscence of surgical wound 37711026 Active 2023 MATTY ATKINS NP [address] [place], [place], [address] [facility] - [facility] [...] Name and Address Organization Details Recorded Time 681791 vancomyci n medicatio n hives Not available Not available 07/02/2023 95725 RxNorm KAILA JO [facility], [place] - [facility] 10:44:47 Medications Name [...] Updated DateTime 4 163.83 cm 34.8 kg/m2 14913.0 3 g 4 16 /min 97.1 [degF] [...] Updated DateTime 4 163.83 cm 33.8 kg/m2 40148.4 7 g 0 98 % 98 % 75 /min 18 /min 97.1 [degF] 113 mm[Hg] 71 mm[Hg] Marlene Gonzales PA - [facility] 4 10:41:20 Social History Question Answer Notes LastModified by Organizat ion Details LastModified Time Tobacco Smoking Status Never Smoker KAILA bang PA - [facility] 07/02/2023 10:49:41 What Is Your Level Of Alcohol Consumption? Occasional [email or web address] Information not available 07/02/2023 Do You Use Any Illicit Or Recreational Drugs? No [email or web address] Information not available 07/02/2023 Have You Recently Traveled Abroad? No [email or web address] Information not available 07/02/2023 Do You Or Have You Ever Used Any Other Forms Of Tobacco Or Nicotine? No [email or web address] Information not available 07/02/2023 Sex: Unknown Functional Status None recorded. Mental Status None recorded. Family History Nothing Reported. Medical History No medical history recorded. Gynecological History Statement/Question Response Date of LMP Obstetrics History GPAL:G 0 P 0 0 0 0 Past Encounters Encounter ID Performer Location Encounter Start Date Encounter Closed Date Diagnosis/Indication Diagnosis SNOMED-CT Code Diagnosis ICD10 Code Diagnosis Note [id number] [address] [facility] [place] [address] 10/05/2015 08:13:12 10/05/2015 08:50:57 [id number] [address] [place] [address] [place] [address] 10/08/2015 09:45:44 10/08/2015 10:59:06 [id number] [address] [facility] [place] [address] 11/13/2016 09:08:27 11/13/2016 09:35:19 [id number] [address] [facility] [place] [address] 10/11/2015 09:45:49 10/11/2015 12:27:21 [id number] [address] [facility] [place] [address] 07/23/2019 13:57:32 07/23/2019 14:39:40 [id number] [address] [address] [place] [address] 08/13/2017 09:39:52 08/13/2017 11:20:34 [id number] [address] [facility] [place] [address] 10/14/2015 12:36:29 10/14/2015 14:00:50 [id number] [address] [facility] [place] [address] 10/12/2015 12:00:42 10/12/2015 14:30:32 [id number] [address] [place] [address] 10/16/2015 10:58:27 10/16/2015 12:10:43 [id number] [address] [address] 05/17/2015 09:25:41 05/17/2015 10:07:05 [id number] [address] [place] [address] 08/19/2018 09:19:54 08/19/2018 11:25:06 [id number] [place] [address] [place] [address] 07/02/2023 10:16:54 07/02/2023 12:34:13 Dehiscence of surgical wound [id number] T81.30XA [id number] GRISEL Boyer [address] [place] [address] 11/21/2023 10:36:01 11/21/2023 10:56:24 COVID-19 957172405 U07.1 If you test positive for COVID-19, [...] e masking (see below).For travel guidance, see [facility]? s Travel webpage. Health Concerns Section Related Observation LastModified by Organization Detai ls LastModified Time None Recorded Concern Status LastModified by Organization Details LastModified Time None Recorded Advance Directives Directive None Recorded Payers Encounter Date Sequence Insurance Name Policy Number Policy Méndez Covered Member ID Méndez Member ID Guarantor Name 07/23/2019 2 [facility] [employer] (PPO) [id number] Negra Cameron [id number] Negra Cameron 07/02/2023 2 [facility] - GROUP BENEFIT SERVICES (O) [id number] Negra Rakesh [id number] Negra Cameron 11/21/2023 1 MEDICARE B-[place]: [employer] Negra Cameron [id number] Negra Cameron 11/21/2023 2 [facility] (O) [id number] [address] L Rakesh [id number] Negra Cameron Notes Date Note Type Note [...] ATKINS NP [address] [place], [address], PA - [facility] 07/02/2023 11:31:38 11/21/2023 text/html 73 y/o female he re 5 days after testing positive for COVID. Her PCP started her on Paxlovid, she has a terrible taste in her mouth and has a hard time eating. Her cough is continuing, not taking anyhing OTC for symptoms GRISEL Boyer [facility] [address] [place], [place], [address], [place] - [facility] 11/21/2023 10:58:16 OBGyn Episode No OBEpisode recorded.
[2024-07-13 13:17] LABS: MANUAL DIFF FLAG NO
[2024-07-13 13:20] LABS: Appearance Urine Clear; Color Urine Yellow; Glucose Urine UA Negative (Negative); Leukocyte Esterase Urine Trace (Negative); Nitrite Urine Negative (Negative); Specific Gravity - Urine <= 1.005 (1.005-1.025); UMIC TRIGGER UACC YES; Urine Blood Negative (Negative); Urine Ketones Negative (Negative); Urine Protein Negative (Neg-Trace)
[2024-07-13 13:23] LABS: Bacteria Urine Trace (None Seen); Hyaline Casts Urine 0-2 /LPF (0-2); RBC Urine 0-2 /HPF (0-2); Squamous Epithelial Cell Urine 0-2 /HPF (0-2); WBC Urine 0-5 /HPF (0-5)
[2024-07-13 13:24] LABS: Basophils Absolute Auto 0.1 X10*3/uL (0.0-0.2); Eosinophils Absolute Auto 0.4 X10*3/uL (0.0-0.4); Eosinophils Percent Auto 4.6 % (0-4); Hematocrit 25.6 % (37.0-47.0); Hemoglobin 8.5 g/dl (12.0-16.0); Imm Gran Abs Auto 0.04 X10*3/uL (0.00-0.03); Imm Gran Pct Auto 0.5 % (0.0-0.4); Lymphocytes Absolute Auto 1.6 X10*3/uL (1.2-4.9); Lymphocytes Percent Auto 18.7 % (20-40); Mean Corpuscular HGB Conc 33.2 g/dl (31.0-35.0); Mean Corpuscular Volume 69.2 fL (80.0-98.0); Mean Platelet Volume 9.1 fL (9.4-12.3); Monocytes Absolute Auto 0.6 X10*3/uL (0.1-1.2); Monocytes Percent Auto 7.7 % (2-11); Neutrophils Absolute Auto 5.6 x10*3/uL (2.0-8.3); Neutrophils Percent Auto 67.5 % (45-73); Platelet Count 249 X10*3/uL (160-400); Red Cell Distribution Width 17.1 % (11.0-16.0); White Blood Count 8.3 X10*3/uL (4.8-10.8)
[2024-07-13 13:43] LABS: Troponin-I High Sensitivity 5.7 ng/L (<3.5-17.0)
[2024-07-13 13:47] LABS: Alanine Aminotransferase 11 U/L (0-31); Albumin Level 3.6 g/dL (3.5-5.0); Alkaline Phosphatase 61 U/L (39-117); Anion Gap 11 (12-20); Aspartate Amino Transferase 31 U/L (5-31); Bilirubin Total 0.3 mg/dL (0.0-1.0); Blood Urea Nitrogen 23 mg/dL (9-16); Calcium 8.9 mg/dL (8.4-10.2); Carbon Dioxide 23 mmol/L (22-29); Chloride 110 mmol/L (96-108); Creatinine Clr Calc Pharmacy 75.3; Estimated Glomerular Filt Rate > 60; Glucose Random 74 mg/dL (60-115); Magnesium 2.5 mg/dL (1.6-2.6); Potassium 5.1 mmol/L (3.3-5.1); Sodium 139 mmol/L (135-145); Total Protein 6.5 g/dL (6.5-8.0)
[2024-07-13 13:56] LABS: Influenza A PCR NEGATIVE (Negative); Influenza B PCR NEGATIVE (Negative); Resp Syncy Virus RNA Qual PCR NEGATIVE (Negative); SARS COV2 PCR INHOUSE NEGATIVE (Negative)
[2024-07-13 13:58] LABS: TSH reflex Free T4 0.64 uIU/mL (0.32-4.0)
[2024-07-13 14:01] LABS: B Type Natriuretic Peptide 167 pg/mL (<100)
[2024-07-13 14:25] LABS: OBS Int Ctl Valid YES; OBS1 POSITIVE (NEGATIVE)
[2024-07-13 15:47] LABS: MANUAL DIFF FLAG NO
[2024-07-13 15:49] LABS: Basophils Absolute Auto 0.1 X10*3/uL (0.0-0.2); Basophils Percent Auto 0.7 % (0-2); Eosinophils Absolute Auto 0.4 X10*3/uL (0.0-0.4); Eosinophils Percent Auto 5.2 % (0-4); Hematocrit 24.1 % (37.0-47.0); Hemoglobin 8.2 g/dl (12.0-16.0); Imm Gran Abs Auto 0.02 X10*3/uL (0.00-0.03); Imm Gran Pct Auto 0.2 % (0.0-0.4); Lymphocytes Absolute Auto 1.8 X10*3/uL (1.2-4.9); Mean Corpuscular Hemoglobin 23.3 pg (27.0-33.0); Mean Corpuscular Volume 68.5 fL (80.0-98.0); Mean Platelet Volume 9.1 fL (9.4-12.3); Monocytes Absolute Auto 0.8 X10*3/uL (0.1-1.2); Monocytes Percent Auto 9.6 % (2-11); Neutrophils Absolute Auto 5.1 x10*3/uL (2.0-8.3); Neutrophils Percent Auto 62.3 % (45-73); Platelet Count 255 X10*3/uL (160-400); Red Blood Count 3.52 X10*6/uL (4.20-5.50); Red Cell Distribution Width 17.2 % (11.0-16.0); White Blood Count 8.2 X10*3/uL (4.8-10.8)
[2024-07-13 16:08] LABS: Troponin-I High Sensitivity 5.9 ng/L (<3.5-17.0)
[2024-07-13] MEDS: iohexoL 350 MG/ML 100 ML INFUS..BTL 80 ML IV (16:26)
--- NOTE | 2024-07-13 18:01 | P.CONGS_ITS ---
History of Present Illness Consult details Consult date: 07/13/24 Narrative: 74F here in the ED for lightheadedness and dizziness. She says this started today. She has known aortic stenosis and was worried that this was related to her dizziness and lightheadedness. Her Hg was 8.2 from a baseline of around 11 last year. She therefore was sent for a CT scan which showed one dilated segment of jejunum wtih fecalization of contents. She however denies any GI complaints. She denies any nausea or vomitting. She denies any abdominal pain. She has BMs and flatus. She had surgery for an internal hernia in 2017 in [facility] and had resection of a segment of small bowel at that time due to necrosis. She had laparoscopic surgery last year in [facility] for small bowel obstruction and apparently had adhesions then. Review of Systems 2 Constitutional: Constitutional: Denies chills and Denies fever(s) Cardiovascular: Cardiovascular: Denies chest pain, Denies dyspnea and Reports dyspnea on exertion Respiratory: Respiratory: Denies cough, Denies dyspnea and Reports dyspnea on exertion Gastrointestinal: Gastrointestinal: Denies hematochezia and Denies change in bowel habits Genitourinary: Genitourinary: Denies hematuria Musculoskeletal: Musculoskeletal: Denies back pain and Denies limited range of motion Neurologic: Denies focal weakness and Denies convulsions Psychiatric: Psychiatric: Denies depression and Denies mood swings [facility] Past Medical History Medical History (Updated 07/14/24 @ 11:05 by Newton Maddox MD) Abnormal CT scan, gastrointestinal tract Left bundle branch block Aortic stenosis Arthritis Lower extremity edema Anemia Neuropathy Back pain Hyperlipidemia HTN (hypertension) Family History Family History Sister Breast cancer, Onset Age: 49 Father Prostate cancer Brother Leukemia Surgical History Surgical History History of hernia repair (2015) History of rotator cuff surgery (2012) History of tonsillectomy (1978) History of cholecystectomy (1975) Social History Social History Household Members: None Housing: Apartment Do you presently have visiting nurse or other home services: No Alcohol intake: current Alcohol intake frequency: holidays/special occasions only Patient Tobacco Use Status: Never used Tobacco Meds Allergies Allergy/AdvReac Type Severity Reaction Status Date / Time vancomycin [VANCOMYCIN] Allergy Unknown HIVES Verified 07/13/24 11:50 Home Medications ?Medication ?Instructions ?Recorded ?Confirmed ?Last Taken ?Type gabapentin 800 mg tablet 800 mg PO BID 04/21/21 07/13/24 07/13/24 History oxybutynin chloride 10 mg 10 mg PO DAILY 04/21/21 07/13/24 07/13/24 History tablet,extended release 24 hr tramadol 50 mg tablet 50 mg PO BID PRN Pain 02/24/23 07/13/24 Unknown History turmeric 400 mg capsule 400 mg PO DAILY 11/30/23 07/13/24 07/13/24 History atorvastatin 20 mg tablet 20 mg PO BEDTIME 07/13/24 07/13/24 07/13/24 History omeprazole 20 mg capsule,delayed 20 mg PO DAILY@0630 07/13/24 07/13/24 07/13/24 History release Physical Exam 2 Vital Signs: Vital Signs: Last Vital Signs Temp 97.6 F 07/13/24 16:54 Pulse 74 07/13/24 16:54 Resp 12 07/13/24 16:54 BP 119/38 L 07/13/24 16:54 Pulse Ox 99 07/13/24 16:54 O2 Del Method Room Air 07/13/24 16:54 BMI result Body Mass Index 34.9 Const: General: comfortable and no acute distress O rientation/consciousness: patient oriented x3 Neck: Neck: Yes no lymphadenopathy Resp: Auscultation: clear to auscultation bilaterally Cardio: Rhythm: regular rhythm GI: Palpation (GI): Soft to palpation, nontender and no guarding Neuro: General: patient oriented x3 Results Labs 07/15/24 06:21 07/15/24 06:21 Labs: Abnormal lab results 07/13/24 07/13/24 Range/Units 13:11 15:43 RBC 3.70 L 3.52 L (4.20-5.50) X10*6/uL Hgb 8.5 L D 8.2 L (12.0-16.0) g/dl Hct 25.6 L D 24.1 L (37.0-47.0) % MCV 69.2 L 68.5 L (80.0-98.0) fL MCH 23.0 L 23.3 L (27.0-33.0) pg RDW 17.1 H 17.2 H (11.0-16.0) % MPV 9.1 L 9.1 L (9.4-12.3) fL Immature Gran % (Auto) 0.5 H (0.0-0.4) % Lymph % (Auto) 18.7 L (20-40) % Eos % (Auto) 4.6 H 5.2 H (0-4) % Abs Immat Gran (auto) 0.04 H (0.00-0.03) X10*3/uL Chloride 110 H (96-108) mmol/L Anion Gap 11 L (12-20) BUN 23 H (9-16) mg/dL B-Natriuretic Peptide 167 H (<100) pg/mL Ur Leukocyte Esterase Trace H (Negative) Short CBC 07/13/24 07/13/24 Range/Units 13:11 15:43 WBC 8.3 8.2 (4.8-10.8) X10*3/uL Hgb 8.5 L D 8.2 L (12.0-16.0) g/dl Hct 25.6 L D 24.1 L (37.0-47.0) % Plt Count 249 255 (160-400) X10*3/uL BMP 07/13/24 13:11 Sodium 139 Potassium 5.1 Chloride 110 H Carbon Dioxide 23 BUN 23 H Creatinine 0.77 Calcium 8.9 Liver Function 07/13/24 Range/Units 13:11 Total Bilirubin 0.3 (0.0-1.0) mg/dL AST 31 (5-31) U/L ALT 11 (0-31) U/L Alkaline Phosphatase 61 (39-117) U/L Albumin 3.6 (3.5-5.0) g/dL Urine 07/13/24 Range/Units 13:11 Urine Color Yellow Urine Appearance Clear Urine pH 6.0 (5.0-9.0) Ur Specific [place] <= 1.005 (1.005-1.025) Urine Protein Negative (Neg-Trace) mg/dL Urine Glucose (UA) Negative (Negative) mg/dL All other labs normal. Imaging Abdomen CT scan report/results: report reviewed and image reviewed CT scan - pelvis: report reviewed and image reviewed Additional studies: IMPRESSION: 1. Probable early/partial small bowel obstruction. Focally dilated loop of small bowel measuring up to 4.6 cm in the midabdomen with fecalization of the small bowel contents. This is directly adjacent to an anastomosis. More distal small bowel is contracted. 2. No focus of active hemorrhage identified within the bowel lumen. 3. Distal colonic diverticulosis without evidence of diverticulitis. 4. Small hiatal hernia. 5. Cardiomegaly with coronary artery atherosclerosis. Mitral annular and aortic annular calcifications. Assessment and Plan (1) Anemia: Status: Acute She came to the ED for dizziness and lightheadness. Her Hg was 8.[address] scan was done showiing a dilated loop of jejunum with fecalization of enteric contents. This is likely from chronic changes on her anastomosis. She has good air and stool distally including the colon. She does not have any obstructive synptoms. This is unlikely to be related to her anemia. Her exam is very benign.Clinically she is not obstructed. I explained this to her. She is to be admitted to the Hospital service for her he anemia. She does have a history of this and she has undergone GI workup with Dr Coats and Dr Cormier in the past. She had an EGD in 2021 showing gastritis. I will follow along while she is in the hospital. Procedures Date of Service Date of Service: 07/17/24
--- NOTE | 2024-07-13 19:22 | P.HPHOSP_ITS ---
History of Present Illness Date of Service: 07/13/24 <GRISEL Pace - Last Filed: 07/13/24 19:56> Attending physician on admission: Nick Owen <GRISEL Pace - Last Filed: 07/13/24 19:56> Chief Complaint: Lightheadedness and dizziness <GRISEL Pace - Last Filed: 07/13/24 19:56> Pt is a 74-year-old female with a PMH significant for?left ventricular hypertrophy, LBBB, severe aortic stenosis, lymphedema, hx of SBO s/p resection in 2016, chronic iron deficiency anemia, and chronic back pain who presents to the ED with?episode of lightheadedness and dizziness while at work. 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 Episode lasted for 2+ hours. Denies LOC. No fall. Denies chest pain/pressure, or palpitations. Pt reports has had similar though less severe episodes previously, including 1 around 1 week ago that lasted 15-20 minutes that was also associated with position changes. Pt denies nausea, vomiting, abdominal pain. No change to bowel or bladder habits. Has been passing flatus. Denies melena or hematochezia. Of note, pt follows with Dr. William and Dr. Burr in Cardiology for management of severe aortic valve stenosis. Is being worked up for TAVR vs surgical aortic valve repair with cardiac catheterization scheduled in a few weeks on 08/02/2024. Pt also notes she has been on iron supplementation for the past few years, though has had difficulty tolerating it due to constipation and has only intermittently been taking it for the past 6 months, maybe 1-2 times per week. In the ED pt's BP soft at 131/36, otherwise stable and WNL. Labs were significant for stool positive for occult blood, microcytic anemia of 8.5/25.6 with MCV 69.2 (decreased from prior of 11.9/34.4 on 05/12/2023), and mildly elevated BNP 167. No leukocytosis. No significant electrolyte abnormalities. Renal function WNL. Hepatic function WNL. Serial troponins flat at 5.7 and 5.9. TSH WNL. UA negative for UTI. Tested negative for flu, RSV, COVID. CXR negative for acute cardiopulmonary process. CT?of head unremarkable. CT of abdomen/pelvis concerning for possible early/partial SBO, but negative for acute hemorrhage. EKG demonstrated normal sinus rhythm with chronic LBBB without evidence of acute ischemic changes. Given CT findings, ED clinician reached out to General surgery who evaluated pt and thought even partial SBO highly unlikely. Pt was treated in the ED with IVF and meclizine. Pt is admitted to the hospital under observation for treatment and further evaluation of presyncope in the setting of likely severe aortic stenosis. <GRISEL Pace - Last Filed: 07/13/24 19:56> Review of Systems 2 Review of Systems: Negative except for that which is stated in the HPI. <GRISEL Pace - Last Filed: 07/13/24 19:56> [facility] Medical History: Medical History Left bundle branch block Aortic stenosis Arthritis Lower extremity edema Anemia Neuropathy Back pain Hyperlipidemia HTN (hypertension) <GRISEL Pace - Last Filed: 07/13/24 19:56> Family History: Family History Sister Breast cancer, Onset Age: 49 Father Prostate cancer Brother Leukemia <GRISEL Pace - Last Filed: 07/13/24 19:56> Surgical History: Surgical History History of hernia repair (2015) History of rotator cuff surgery (2012) History of tonsillectomy (1978) History of cholecystectomy (1975) <GRISEL Pace - Last Filed: 07/13/24 19:56> Social History: Social History Alcohol intake: current Alcohol intake frequency: holidays/special occasions only Patient Tobacco Use Status: Never used Tobacco Smoked in Last 30 Days: No Use of substances other than those prescribed or required for medical reasons: No Advance Directives: No Advance Directives Information Provided: Yes <GRISEL Pace Last Filed: 07/13/24 19:56> Meds Allergies/Adverse reactions: Allergies Allergy/AdvReac Type Severity Reaction Status Date / Time vancomycin [VANCOMYCIN] Allergy Unknown HIVES Verified 07/13/24 11:50 <GRISEL Pace - Last Filed: 07/13/24 19:56> Active Medications: Current Medications Acetaminophen (Acetaminophen 325 Mg Tablet) 650 mg PO Q6H PRN PRN Reason: Pain, Mild 1-3,fever,headache Calcium Carbonate (Calcium Carbonate 750 Mg Tab.Chew) 750 mg PO Q4H PRN PRN Reason: Heartburn Magnesium Hydroxide (Milk Of Magnesia 30 Ml Oral.Susp) 30 ml PO DAILY PRN PRN Reason: Constipation Melatonin (Melatonin 3 Mg Tablet) 6 mg PO BEDTIME PRN PRN Reason: Insomnia Ondansetron HCl (Ondansetron Hcl 4 Mg/2 Ml Vial) 4 mg IVPUSH Q8H PRN PRN Reason: Nausea and Vomiting Sodium Chloride (0.9 % Sodium Chloride Flush 3 Ml Syringe) 3 ml IVFLUSH QSHIFT [facility] <GRISEL Pace - Last Filed: 07/13/24 19:56> Home medications: Home Medications ?Medication ?Instructions ?Recorded ?Confirmed ?Last Taken ?Type gabapentin 800 mg tablet 800 mg PO BID 04/21/21 07/13/24 07/13/24 History hydralazine 25 mg tablet 25 mg PO BID 04/21/21 07/13/24 07/13/24 History metoprolol succinate 50 mg 50 mg PO DAILY 04/21/21 07/13/24 07/13/24 History tablet,extended release 24 hr (Toprol XL) oxybutynin chloride 10 mg 10 mg PO DAILY 04/21/21 07/13/24 07/13/24 History tablet,extended release 24 hr tramadol 50 mg tablet 50 mg PO BID PRN Pain 02/24/23 07/13/24 Unknown History turmeric 400 mg capsule 400 mg PO DAILY 11/30/23 07/13/24 07/13/24 History naproxen 500 mg tablet 500 mg PO TID PRN Pain 06/06/24 07/13/24 Unknown History atorvastatin 20 mg tablet 20 mg PO BEDTIME 07/13/24 07/13/24 07/13/24 History losartan 100 mg tablet 100 mg PO DAILY 07/13/24 07/13/24 07/13/24 History omeprazole 20 mg capsule,delayed 20 mg PO DAILY@0630 07/13/24 07/13/24 07/13/24 History release <GRISEL Pace - Last Filed: 07/13/24 19:56> Physical Exam 2 Vital Signs and Narrative: Vital Signs: Last Vital Signs Temp 97.6 F 07/13/24 16:54 Pulse 74 07/13/24 16:54 Resp 12 07/13/24 16:54 BP 119/38 L 07/13/24 16:54 Pulse Ox 99 07/13/24 16:54 O2 Del Method Room Air 07/13/24 16:54 BMI result Body Mass Index 34.9 <GRISEL Pace - Last Filed: 07/13/24 19:56> General: AOx3, no acute distress Resp: CTA bilaterally CVS: S1, S2, RRR, +murmur GI: Mild epigastric tenderness, +BS, no distention Skin: Warm, dry Neuro: Cranial nerves II-XII grossly intact bilaterally. Motor grossly intact bilaterally Extremities: Lower extremities in leg wraps. Psych: Appropriate affect <GRISEL Pace - Last Filed: 07/13/24 19:56> Results Labs CBC and Chem 7: 07/13/24 15:43 07/13/24 13:11 <GRISEL Pace - Last Filed: 07/13/24 19:56> Labs: Laboratory Results - last 24 hr 07/13/24 07/13/24 07/13/24 13:11 14:01 15:43 MCV 69.2 L 68.5 L MCH 23.0 L 23.3 L MCHC 33.2 34.0 RDW 17.1 H 17.2 H Plt Count 249 255 MPV 9.1 L 9.1 L Immature Gran % (Auto) 0.5 H 0.2 Neut % (Auto) 67.5 62.3 Lymph % (Auto) 18.7 L 22.0 [place] % (Auto) 7.7 9.6 Eos % (Auto) 4.6 H 5.2 H Baso % (Auto) 1.0 0.7 Lymph # (Auto) 1.6 1.8 [place] # (Auto) 0.6 0.8 Eos # (Auto) 0.4 0.4 Baso # (Auto) 0.1 0.1 Abs Immat Gran (auto) 0.04 H 0.02 Absolute Neuts (auto) 5.6 5.1 Absolute Nucleated RBC 0.000 0.000 Nucleated RBC % (auto) 0.0 0.0 Anion Gap 11 L Estim Creat Clear Calc 75.3 Estimated GFR > 60 Random Glucose 74 Calcium 8.9 Magnesium 2.5 Total Bilirubin 0.3 AST 31 ALT 11 Alkaline Phosphatase 61 B-Natriuretic Peptide 167 H Total Protein 6.5 Albumin 3.6 TSH 0.64 Urine Color Yellow Urine Appearance Clear Urine pH 6.0 Ur Specific [place] <= 1.005 Urine Protein Negative Urine Glucose (UA) Negative Urine Ketones Negative Urine Blood Negative Urine Nitrite Negative Ur Leukocyte Esterase Trace H Urine RBC 0-2 Urine WBC 0-5 Ur Squamous Epith Cells 0-2 Urine Bacteria Trace Hyaline Casts 0-2 Stool Occult Blood POSITIVE Influenza Type A (PCR) NEGATIVE Influenza Type B (PCR) NEGATIVE RSV RNA Qual (PCR) NEGATIVE SARS-CoV-2 RNA (RT-PCR) NEGATIVE <GRISEL Pace - Last Filed: 07/13/24 19:56> Imaging Radiologist's Impressions: Impressions Chest X-Ray 07/13/24 12:50 IMPRESSION: Clear lungs. Electronically signed by: Maximiliano Anand MD 07/13/2024 01:36 PM EDT RP Head CT 07/13/24 14:23 IMPRESSION: Unremarkable unenhanced head CT. Electronically signed by: Maximiliano Anand MD 07/13/2024 02:41 PM EDT RP <GRISEL Pace - Last Filed: 07/13/24 19:56> Assessment and Plan (1) Dizziness: Status: Acute <GRISEL Pace - Last Filed: 07/13/24 19:56> Pt is a 74-year-old female with a PMH significant for?left ventricular hypertrophy, LBBB, severe aortic stenosis, lymphedema, hx of SBO s/p resection in 2016, chronic iron deficiency anemia, and chronic back pain who presents to the ED with?episode of lightheadedness and dizziness while at work. Pt is admitted to the hospital under observation for treatment and further evaluation of presyncope in the setting of likely severe aortic stenosis. 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 William and Dr. Nabil maynard Cardiology for TAVR vs aortic valve surgical repair Has cardiac catheterization planned for 08/02/2024 Echo on 05/21/2024 with LVEF 60-65%, left ventricular hypertrophy, severe asymmetric septal hypertrophy, and severe aortic stenosis Cardiology consult Monitor on telemetry Acute on chronic iron deficiency anemia Patient's H&H 8.5/25.6 with repeat stable at 8 0.2/24.1, decreased from 11.9/34.4 on 05/12/2023 Likely secondary to noncompliance with iron supplementation x6 months Stool positive for occult blood, the pt denies hematochezia or melena; GIB less likely Will check iron studies Continue iron supplementation Monitor CBC Pt could consider IV or IM iron infusions outpatient as she has difficulty tolerating p.o. iron Question of SBO CT of abdomen/pelvis concerning for possible early/partial SBO Pt asymptomatic: Denies N/V/abdominal pain; last bowel movement yesterday, has been passing flatus Pt seen and evaluated by General surgery in the ED who think SBO highly unlikely No indication to treat for SBO with bowel rest Monitor for SBO symptoms HLD Continue statin HTN Continue losartan, hydralazine, metoprolol Chronic back pain Continue Naprosyn, tramadol GERD PPI Full Code Attending:?Dr. Owen DVT Prophylaxis: Pneumatic compression due to concerns for possible GI bleed Pt will be admitted to the hospital under observation for treatment and further evaluation of presyncope in setting of likely severe aortic stenosis and acute on chronic iron deficiency anemia with question of GI bleed. pt require hospital level care for close monitoring of H&H, cardiac monitoring, and specialist consultation with Cardiology. <GRISEL Pace - Last Filed: 07/13/24 19:56> Pt is a 74-year-old female with a PMH significant for?left ventricular hypertrophy, LBBB, severe aortic stenosis, lymphedema, hx of SBO s/p resection in 2016, chronic iron deficiency anemia, and chronic back pain who presents to the ED with?episode of lightheadedness and dizziness while at work. Pt is admitted to the hospital under observation for treatment and further evaluation of presyncope in the setting of likely severe aortic stenosis. 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 William and Dr. Nabil maynard Cardiology for TAVR vs aortic valve surgical repair Has cardiac catheterization planned for 08/02/2024 Echo on 05/21/2024 with LVEF 60-65%, left ventricular hypertrophy, severe asymmetric septal hypertrophy, and severe aortic stenosis Cardiology consult Monitor on telemetry Acute on chronic iron deficiency anemia Patient's H&H 8.5/25.6 with repeat stable at 8 0.2/24.1, decreased from 11.9/34.4 on 05/12/2023 Likely secondary to noncompliance with iron supplementation x6 months Stool positive for occult blood, the pt denies hematochezia or melena; GIB less likely Will check iron studies Continue iron supplementation Monitor CBC, if Hb lowers, consider GI consult Pt could consider IV or IM iron infusions outpatient as she has difficulty tolerating p.o. iron Question of SBO CT of abdomen/pelvis concerning for possible early/partial SBO Pt asymptomatic: Denies N/V/abdominal pain; last bowel movement yesterday, has been passing flatus Pt seen and evaluated by General surgery in the ED who think SBO highly unlikely No indication to treat for SBO with bowel rest Monitor for SBO symptoms HLD Continue statin HTN Continue losartan, hydralazine, metoprolol Chronic back pain Continue Naprosyn, tramadol GERD PPI Full Code Attending:?Dr. Owen DVT Prophylaxis: Pneumatic compression due to concerns for possible GI bleed Pt will be admitted to the hospital under observation for treatment and further evaluation of presyncope in setting of likely severe aortic stenosis and acute on chronic iron deficiency anemia with question of GI bleed. pt require hospital level care for close monitoring of H&H, cardiac monitoring, and specialist consultation with Cardiology. <Nick Owen MD - Last Filed: 07/13/24 20:24> Quality Stroke Does the patient have a stroke diagnosis?: No <GRISEL Pace - Last Filed: 07/13/24 19:56> VTE Prior VTE?: No <GRISEL Pace - Last Filed: 07/13/24 19:56> VTE Risk Level:: Medical - moderate - high <GRISEL Pace - Last Filed: 07/13/24 19:56> VTE Device Contraindication: Treatment Not Indicated <GRISEL Pace - Last Filed: 07/13/24 19:56> VTE Drug Contraindication: N/A - Med Ordered <GRISEL Pace - Last Filed: 07/13/24 19:56>
[2024-07-13 19:51] LABS: Iron 24 mcg/dL (30-160); Percent Iron Saturation 8 % (15-50); Total Iron Binding Capacity 302 mcg/dL (228-428); Unsaturated Iron Binding 278 ug/dL
--- NOTE | 2024-07-13 19:56 | PHA.MEDREC ---
Addendum entered by Walker Henry RPh 07/13/24 20:00: Reviewed by [facility] Original Note: Pharmacy Consult ? Medication Reconciliation Pharmacy has completed the medication reconciliation. Spoke to patient to confirm med list. Patient confirmed all her medications . Patient states she takes Gabapentin 800 mg BID not TID and Naproxen 500 mg TID not BID.
[2024-07-13] MEDS: Pantoprazole Sodium 40 MG/10 ML VIAL 80 MG IVPUSH (20:53)
[2024-07-13] MEDS: Gabapentin 400 MG CAPSULE 800 MG PO (20:53)
[2024-07-13] MEDS: Atorvastatin Calcium 20 MG TABLET PO (20:53)
[2024-07-13] MEDS: Acetaminophen 325 MG TABLET 650 MG PO (21:53)
--- NOTE | 2024-07-13 21:57 | PC.NURSE ---
Pt reports lanette leg pain. PRN tylenol administered per MAR
[2024-07-14 04:17] VITALS: BP 102/44; PULSE 49; RESP 15
[2024-07-14] MEDS: Omeprazole 20 MG CAPSULE.DR PO (05:46)
[2024-07-14 06:10] LABS: Hematocrit 23.4 % (37.0-47.0); Hemoglobin 7.8 g/dl (12.0-16.0); Mean Corpuscular HGB Conc 33.3 g/dl (31.0-35.0); Mean Corpuscular Hemoglobin 22.7 pg (27.0-33.0); Mean Platelet Volume 9.2 fL (9.4-12.3); Platelet Count 234 X10*3/uL (160-400); Red Blood Count 3.44 X10*6/uL (4.20-5.50); Red Cell Distribution Width 17.2 % (11.0-16.0); White Blood Count 7.3 X10*3/uL (4.8-10.8)
[2024-07-14] MEDS: 0.9 % Sodium Chloride Flush 3 ML SYRINGE IVFLUSH ×2 (08:47→15:54)
[2024-07-14] MEDS: Gabapentin 400 MG CAPSULE 800 MG PO ×2 (08:48→20:28)
[2024-07-14] MEDS: oxyBUTYnin chloride ER 5 MG TAB.ER.24 10 MG PO (08:48)
[2024-07-14 08:50] VITALS: BP 124/43; PULSE 57; RESP 14; TEMP 36.4; O2SAT 100
--- NOTE | 2024-07-14 09:42 | PM.CNCAR ---
History of Present Illness History of Present Illness Date of Service: 07/14/24 Chief complaint: presyncope Narrative: This is a cardiology consultation regarding dizziness. Patient has generally seen by Dr. William but referred to for consideration of TAVR. It appears that she has been having dizzy episodes for quite some time. Previously thought to be rather postural in nature. Current visit is because of another episode of postural dizziness. She was apparently bending down to put her back down before she started work. In that context, again felt dizzy and this time the dizziness lasted for almost a couple of hours and that led to hospital visit. Currently, she states she is much improved. She did not have a syncopal episode. No other clear-cut complaints like chest pains or breathing difficulty. She has already been set up for cardiac catheterization followed by potential TAVR. Review of Systems Review of Systems: Yes all other systems are reviewed and are negative Constitutional: Constitutional: Reports as per HPI and Reports no additional constitutional complaints Eyes: Eyes: Reports as per HPI and Denies no additional eye complaints ENT: Denies system reviewed and no additional complaints, except as documented and Reports as per HPI Cardiovascular: Cardiovascular: Reports as per HPI, Reports no additional cardiovascular complaints, Denies acrocyanosis, Denies cool extremities, Denies chest pain, Denies leg edema, Reports lightheadedness, Denies palpitations and Denies dyspnea Respiratory: Respiratory: Reports as per HPI, Denies no additional respiratory complaints and Denies dyspnea Gastrointestinal: Gastrointestinal: Reports as per HPI and Denies no additional gastrointestinal complaints Genitourinary: Genitourinary: Reports as per HPI Musculoskeletal: Musculoskeletal: Reports no additional musculoskeletal complaints and Reports as per HPI Integumentary/Breasts: Skin/Breast: Reports system reviewed and no additional complaints, except as docu Neurologic: Reports system reviewed and no additional complaints, except as documented and Reports as per HPI Psychiatric: Psychiatric: Reports no additional psychiatric complaints and Reports as per HPI Endocrine: Endocrine: Reports no additional endocrine complaints, Reports as per HPI and Denies palpitations Hematologic/Lymphatic: Hematologic/Lymphatic: Reports no additional hematologic/lymphatic complaints and Reports as per HPI Allergic/Immunologic: Allergic/Immunologic: Reports no additional allergic/immunologic complaints and Reports as per HPI [facility] Past Medical History Medical History Left bundle branch block Aortic stenosis Arthritis Lower extremity edema Anemia Neuropathy Back pain Hyperlipidemia HTN (hypertension) Family History Family History Sister Breast cancer, Onset Age: 49 Father Prostate cancer Brother Leukemia Surgical History Surgical History History of hernia repair (2015) History of rotator cuff surgery (2012) History of tonsillectomy (1978) History of cholecystectomy (1975) Social History Social History Alcohol intake: current Alcohol intake frequency: holidays/special occasions only Patient Tobacco Use Status: Never used Tobacco Smoked in Last 30 Days: No Use of substances other than those prescribed or required for medical reasons: No Advance Directives: No Advance Directives Information Provided: Yes Nutrition Risks: No Nutritional Risk Meds Allergies Allergy/AdvReac Type Severity Reaction Status Date / Time vancomycin [VANCOMYCIN] Allergy Unknown HIVES Verified 07/13/24 11:50 Active Medications: Current Medications Acetaminophen (Acetaminophen 325 Mg Tablet) 650 mg PO Q6H PRN PRN Reason: Pain, Mild 1-3,fever,headache Last Admin: 07/13/24 21:53 Dose: 650 mg Atorvastatin Calcium (Atorvastatin Calcium 20 Mg Tablet) 20 mg PO BEDTIME [facility] Last Admin: 07/13/24 20:53 Dose: 20 mg Calcium Carbonate (Calcium Carbonate 750 Mg Tab.Chew) 750 mg PO Q4H PRN PRN Reason: Heartburn Gabapentin (Gabapentin 400 Mg Capsule) 800 mg PO BID [facility] Last Admin: 07/14/24 08:48 Dose: 800 mg Ferric Sodium Gluconate Complex 125 mg/ Sodium Chloride 110 mls @ 100 mls/hr IV DAILY [facility] Stop: 07/16/24 10:05 Magnesium Hydroxide (Milk Of Magnesia 30 Ml Oral.Susp) 30 ml PO DAILY PRN PRN Reason: Constipation Melatonin (Melatonin 3 Mg Tablet) 6 mg PO BEDTIME PRN PRN Reason: Insomnia Omeprazole (Omeprazole 20 Mg Capsule.Dr) 20 mg PO DAILY@0630 [facility] Last Admin: 07/14/24 05:46 Dose: 20 mg Ondansetron HCl (Ondansetron Hcl 4 Mg/2 Ml Vial) 4 mg IVPUSH Q8H PRN PRN Reason: Nausea and Vomiting Oxybutynin Chloride (Oxybutynin Chloride Er 5 Mg Tab.Er.24) 10 mg PO DAILY [facility] Last Admin: 07/14/24 08:48 Dose: 10 mg Sodium Chloride (0.9 % Sodium Chloride Flush 3 Ml Syringe) 3 ml IVFLUSH QSHIFT [facility] Last Admin: 07/14/24 08:47 Dose: 3 ml Home Medications ?Medication ?Instructions ?Recorded ?Confirmed ?Last Taken ?Type gabapentin 800 mg tablet 800 mg PO BID 04/21/21 07/13/24 07/13/24 History hydralazine 25 mg tablet 25 mg PO BID 04/21/21 07/13/24 07/13/24 History metoprolol succinate 50 mg 50 mg PO DAILY 04/21/21 07/13/24 07/13/24 History tablet,extended release 24 hr (Toprol XL) oxybutynin chloride 10 mg 10 mg PO DAILY 04/21/21 07/13/24 07/13/24 History tablet,extended release 24 hr tramadol 50 mg tablet 50 mg PO BID PRN Pain 02/24/23 07/13/24 Unknown History turmeric 400 mg capsule 400 mg PO DAILY 11/30/23 07/13/24 07/13/24 History naproxen 500 mg tablet 500 mg PO TID PRN Pain 06/06/24 07/13/24 Unknown History atorvastatin 20 mg tablet 20 mg PO BEDTIME 07/13/24 07/13/24 07/13/24 History losartan 100 mg tablet 100 mg PO DAILY 07/13/24 07/13/24 07/13/24 History omeprazole 20 mg capsule,delayed 20 mg PO DAILY@0630 07/13/24 07/13/24 07/13/24 History release Physical Exam Vital Signs: Vital Signs: Last Vital Signs Temp 97.6 F 07/14/24 08:50 Pulse 57 07/14/24 08:50 Resp 14 07/14/24 08:50 BP 124/43 L 07/14/24 08:50 Pulse Ox 100 07/14/24 08:50 O2 Del Method Room Air 07/14/24 08:50 BMI result Body Mass Index 34.9 Const: General: comfortable and no acute distress Orientation/consciousness: patient oriented x3 HEENT: Other: Unremarkable Head: Yes normal to inspection Neck: Neck: Yes normal visual inspection Chest: Chest palpation & inspection: normal inspection of the chest Resp: Auscultation: clear to auscultation bilaterally Cardio: Palpation: normal PMI Heart sounds: S1 normal heart sound present, S2 normal heart sound present, no gallops, Murmur heart sound present systolic III/ and at the right sternal border and no rubs GI: Palpation (GI): Soft to palpation Back/Spine/Pelvis: Other: unremarkable Skin: General skin exam: no rashes or lesions noted Neuro: General: patient oriented x3 Extrem: General: Yes normal to inspection Psych: Mental Status: mental status grossly normal Objective Labs and Meds 07/14/24 05:42 07/13/24 13:11 Lab results: Laboratory Results - last 24 hr 07/13/24 07/13/24 07/13/24 13:11 14:01 15:43 WBC 8.3 8.2 RBC 3.70 L 3.52 L Hgb 8.5 L D 8.2 L Hct 25.6 L D 24.1 L MCV 69.2 L 68.5 L MCH 23.0 L 23.3 L MCHC 33.2 34.0 RDW 17.1 H 17.2 H Plt Count 249 255 MPV 9.1 L 9.1 L Immature Gran % (Auto) 0.5 H 0.2 Neut % (Auto) 67.5 62.3 Lymph % (Auto) 18.7 L 22.0 [place] % (Auto) 7.7 9.6 Eos % (Auto) 4.6 H 5.2 H Baso % (Auto) 1.0 0.7 Lymph # (Auto) 1.6 1.8 [place] # (Auto) 0.6 0.8 Eos # (Auto) 0.4 0.4 Baso # (Auto) 0.1 0.1 Abs Immat Gran (auto) 0.04 H 0.02 Absolute Neuts (auto) 5.6 5.1 Absolute Nucleated RBC 0.000 0.000 Nucleated RBC % (auto) 0.0 0.0 Sodium 139 Potassium 5.1 Chloride 110 H Carbon Dioxide 23 Anion Gap 11 L BUN 23 H Creatinine 0.77 Estim Creat Clear Calc 75.3 Estimated GFR > 60 Random Glucose 74 Calcium 8.9 Magnesium 2.5 Iron 24 L TIBC 302 % Saturation 8 L Unsat Iron Binding 278 Total Bilirubin 0.3 AST 31 ALT 11 Alkaline Phosphatase 61 Troponin I High Sens 5.7 5.9 B-Natriuretic Peptide 167 H Total Protein 6.5 Albumin 3.6 TSH 0.64 Urine Color Yellow Urine Appearance Clear Urine pH 6.0 Ur Specific [place] <= 1.005 Urine Protein Negative Urine Glucose (UA) Negative Urine Ketones Negative Urine Blood Negative Urine Nitrite Negative Ur Leukocyte Esterase Trace H Urine RBC 0-2 Urine WBC 0-5 Ur Squamous Epith Cells 0-2 Urine Bacteria Trace Hyaline Casts 0-2 Stool Occult Blood POSITIVE Influenza Type A (PCR) NEGATIVE Influenza Type B (PCR) NEGATIVE RSV RNA Qual (PCR) NEGATIVE SARS-CoV-2 RNA (RT-PCR) NEGATIVE 07/14/24 05:42 WBC 7.3 RBC 3.44 L Hgb 7.8 L Hct 23.4 L MCV 68.0 L MCH 22.7 L MCHC 33.3 RDW 17.2 H Plt Count 234 MPV 9.2 L Immature Gran % (Auto) Neut % (Auto) Lymph % (Auto) [place] % (Auto) Eos % (Auto) Baso % (Auto) Lymph # (Auto) [place] # (Auto) Eos # (Auto) Baso # (Auto) Abs Immat Gran (auto) Absolute Neuts (auto) Absolute Nucleated RBC 0.000 Nucleated RBC % (auto) 0.0 Sodium Potassium Chloride Carbon Dioxide Anion Gap BUN Creatinine Estim Creat Clear Calc Estimated GFR Random Glucose Calcium Magnesium Iron TIBC % Saturation Unsat Iron Binding Total Bilirubin AST ALT Alkaline Phosphatase Troponin I High Sens B-Natriuretic Peptide Total Protein Albumin TSH Urine Color Urine Appearance Urine pH Ur Specific [place] Urine Protein Urine Glucose (UA) Urine Ketones Urine Blood Urine Nitrite Ur Leukocyte Esterase Urine RBC Urine WBC Ur Squamous Epith Cells Urine Bacteria Hyaline Casts Stool Occult Blood Influenza Type A (PCR) Influenza Type B (PCR) RSV RNA Qual (PCR) SARS-CoV-2 RNA (RT-PCR) ECG Interpretation: EKG with underlying sinus rhythm and left bundle-branch block. Ventricular rate 67/Min. MD interval 208 milliseconds. Imaging Radiologist's impression: Impressions Chest X-Ray 07/13/24 12:50 IMPRESSION: Clear lungs. Electronically signed by: Maximiliano Anand MD 07/13/2024 01:[address] 07/13/24 14:23 IMPRESSION: Unremarkable unenhanced head CT. Electronically signed by: Maximiliano Anand MD 07/13/2024 02:41 PM EDT RP Assessment and Plan (1) Dizziness: Status: Acute (2) Aortic stenosis: Status: Acute (3) Left bundle branch block: Status: Acute (4) SVT (supraventricular tachycardia): Status: Acute (5) Anemia: Status: Acute Plan Echocardiogram with LVEF of 60-65%. Severe asymmetric septal hypertrophy. Moderate diastolic dysfunction. Severe aortic stenosis with a mean gradient of 43 mm Hg and valve area of one cm2. Mild pulmonary hypertension. Labs show anemia with low MCV. Cardiac BNP is 167. High sensitivity troponin within range. Telemetry shows a short run of SVT for about 30 seconds. Patient did not have any palpitations at that time. Overall, suspect the dizzy episode brother orthostatic as it happen after pending now. Less likely related to aortic stenosis as there is no exertional dizziness or exertional syncope. Home meds listed to be a combination of losartan, metoprolol, hydralazine and that might exacerbate orthostatic dizziness. Consider cutting back on possibly metoprolol as she also has some conduction system disease and there is increased likelihood of pacemaker implant post TAVR. Her anemia also needs workup. It seems that she has had previous GI workup and may need to follow up with them again. Procedures Date of Service Date of Service: 07/14/24
[2024-07-14] MEDS: Sodium Ferric Gluconat/Sucrose 125 MG in 0.9 % Sodium Chloride 100 ML 100 MG IV (10:04)
--- NOTE | 2024-07-14 10:09 | PC.NURSE ---
Pt remains A/O. 1x assist to the commode
--- NOTE | 2024-07-14 10:17 | HO.PM.IMPN ---
Subjective Subjective Date of Service: 07/14/24 Interval History: no copmlaints, brief SVT episode asymptomatic Physical Exam Vital Signs: Vital Signs: Last Vital Signs Temp 97.6 F 07/14/24 08:50 Pulse 57 07/14/24 08:50 Resp 14 07/14/24 08:50 BP 124/43 L 07/14/24 08:50 Pulse Ox 100 07/14/24 08:50 O2 Del Method Room Air 07/14/24 08:50 BMI result Body Mass Index 34.9 General: AO X 3, no acute distress Resp: CTA bilateral, no accessory muscles used CVS: S1,S2,RRR, murmur GI: soft, non tender, non distended Neuro: motor grossly intact, alert Psych: appropriate affect, appropriate insight Objective Data Active Medications Acetaminophen (Acetaminophen 325 Mg Tablet) 650 mg PO Q6H PRN PRN Reason: Pain, Mild 1-3,fever,headache Last Admin: 07/13/24 21:53 Dose: 650 mg Documented By: TIMOTHY Atorvastatin Calcium (Atorvastatin Calcium 20 Mg Tablet) 20 mg PO BEDTIME [facility] Last Admin: 07/13/24 20:53 Dose: 20 mg Documented By: TIMOTHY Calcium Carbonate (Calcium Carbonate 750 Mg Tab.Chew) 750 mg PO Q4H PRN PRN Reason: Heartburn Gabapentin (Gabapentin 400 Mg Capsule) 800 mg PO BID [facility] Last Admin: 07/14/24 08:48 Dose: 800 mg Documented By: KASSY Ferric Sodium Gluconate Complex 125 mg/ Sodium Chloride 110 mls @ 100 mls/hr IV DAILY [facility] Stop: 07/16/24 10:05 Last Admin: 07/14/24 10:04 Dose: 100 mls/hr Documented By: KASSY Magnesium Hydroxide (Milk Of Magnesia 30 Ml Oral.Susp) 30 ml PO DAILY PRN PRN Reason: Constipation Melatonin (Melatonin 3 Mg Tablet) 6 mg PO BEDTIME PRN PRN Reason: Insomnia Omeprazole (Omeprazole 20 Mg Capsule.Dr) 20 mg PO DAILY@0630 [facility] Last Admin: 07/14/24 05:46 Dose: 20 mg Documented By: TIMOTHY Ondansetron HCl (Ondansetron Hcl 4 Mg/2 Ml Vial) 4 mg IVPUSH Q8H PRN PRN Reason: Nausea and Vomiting Oxybutynin Chloride (Oxybutynin Chloride Er 5 Mg Tab.Er.24) 10 mg PO DAILY [facility] Last Admin: 07/14/24 08:48 Dose: 10 mg Documented By: KASSY Sodium Chloride (0.9 % Sodium Chloride Flush 3 Ml Syringe) 3 ml IVFLUSH QSHIFT [facility] Last Admin: 07/14/24 08:47 Dose: 3 ml Documented By: KASSY Labs 07/14/24 05:42 07/13/24 13:11 Labs: Laboratory Results - last 24 hr 07/13/24 07/13/24 07/13/24 13:11 14:01 15:43 MCV 69.2 L 68.5 L MCH 23.0 L 23.3 L MCHC 33.2 34.0 RDW 17.1 H 17.2 H Plt Count 249 255 MPV 9.1 L 9.1 L Immature Gran % (Auto) 0.5 H 0.2 Neut % (Auto) 67.5 62.3 Lymph % (Auto) 18.7 L 22.0 [place] % (Auto) 7.7 9.6 Eos % (Auto) 4.6 H 5.2 H Baso % (Auto) 1.0 0.7 Lymph # (Auto) 1.6 1.8 [place] # (Auto) 0.6 0.8 Eos # (Auto) 0.4 0.4 Baso # (Auto) 0.1 0.1 Abs Immat Gran (auto) 0.04 H 0.02 Absolute Neuts (auto) 5.6 5.1 Absolute Nucleated RBC 0.000 0.000 Nucleated RBC % (auto) 0.0 0.0 Anion Gap 11 L Estim Creat Clear Calc 75.3 Estimated GFR > 60 Random Glucose 74 Calcium 8.9 Magnesium 2.5 Iron 24 L TIBC 302 % Saturation 8 L Unsat Iron Binding 278 Total Bilirubin 0.3 AST 31 ALT 11 Alkaline Phosphatase 61 B-Natriuretic Peptide 167 H Total Protein 6.5 Albumin 3.6 TSH 0.64 Urine Color Yellow Urine Appearance Clear Urine pH 6.0 Ur Specific [place] <= 1.005 Urine Protein Negative Urine Glucose (UA) Negative Urine Ketones Negative Urine Blood Negative Urine Nitrite Negative Ur Leukocyte Esterase Trace H Urine RBC 0-2 Urine WBC 0-5 Ur Squamous Epith Cells 0-2 Urine Bacteria Trace Hyaline Casts 0-2 Stool Occult Blood POSITIVE Influenza Type A (PCR) NEGATIVE Influenza Type B (PCR) NEGATIVE RSV RNA Qual (PCR) NEGATIVE SARS-CoV-2 RNA (RT-PCR) NEGATIVE 07/14/24 05:42 MCV 68.0 L MCH 22.7 L MCHC 33.3 RDW 17.2 H Plt Count 234 MPV 9.2 L Immature Gran % (Auto) Neut % (Auto) Lymph % (Auto) [place] % (Auto) Eos % (Auto) Baso % (Auto) Lymph # (Auto) [place] # (Auto) Eos # (Auto) Baso # (Auto) Abs Immat Gran (auto) Absolute Neuts (auto) Absolute Nucleated RBC 0.000 Nucleated RBC % (auto) 0.0 Anion Gap Estim Creat Clear Calc Estimated GFR Random Glucose Calcium Magnesium Iron TIBC % Saturation Unsat Iron Binding Total Bilirubin AST ALT Alkaline Phosphatase B-Natriuretic Peptide Total Protein Albumin TSH Urine Color Urine Appearance Urine pH Ur Specific [place] Urine Protein Urine Glucose (UA) Urine Ketones Urine Blood Urine Nitrite Ur Leukocyte Esterase Urine RBC Urine WBC Ur Squamous Epith Cells Urine Bacteria Hyaline Casts Stool Occult Blood Influenza Type A (PCR) Influenza Type B (PCR) RSV RNA Qual (PCR) SARS-CoV-2 RNA (RT-PCR) Assessment and Plan (1) Aortic stenosis: Status: Acute Plan 74F PMH severe aortic stenosis, chronic diastolic CHF, chronic iron-deficiency anemia, chronic back pain, history of small-bowel obstruction status post resection presented with presyncopal symptoms Presyncope Orthostasis versus SVT Symptomatic less likely Holding metoprolol and hydralazine and losartan Monitor BPs, monitor tele Acute on chronic iron deficiency anemia Giving IV iron GI eval PPI Chronic diastolic CHF with severe Outpatient follow up has cath scheduled and likely TAVR Question of SBO Asymptomatic, unlikely DVT prophylaxis-mechanical due to iron-deficiency anemia Full code reason for continued hospitalization: Working up anemia Quality Stroke Does the patient have a stroke diagnosis?: No VTE Prior VTE?: No VTE Risk Level:: Medical - moderate - high VTE Device Contraindication: Treatment Not Indicated VTE Drug Contraindication: N/A - Med Ordered
[2024-07-14 10:42] VITALS: BMI 36.8
--- NOTE | 2024-07-14 11:04 | PM.PNGS ---
Subjective Subjective Date of Service: 07/14/24 Interval history: Feels well No events overnight Says she does not have any weakness or dizziness No abdominal pain Tolerating regular diet Physical Exam Vital Signs: Vital Signs: Last Vital Signs Temp 97.6 F 07/14/24 08:50 Pulse 57 07/14/24 08:50 Resp 14 07/14/24 08:50 BP 124/43 L 07/14/24 08:50 Pulse Ox 100 07/14/24 08:50 O2 Del Method Room Air 07/14/24 08:50 BMI result Body Mass Index 36.8 Const: General: comfortable and no acute distress Resp: Effort & Inspection: normal respiratory effort Cardio: Rate: regular rate GI: Inspection: No distended Palpation (GI): Soft to palpation, not firm, nontender and no guarding Objective Data Active Medications Acetaminophen (Acetaminophen 325 Mg Tablet) 650 mg PO Q6H PRN PRN Reason: Pain, Mild 1-3,fever,headache Last Admin: 07/13/24 21:53 Dose: 650 mg Documented By: TIMOTHY Atorvastatin Calcium (Atorvastatin Calcium 20 Mg Tablet) 20 mg PO BEDTIME [facility] Last Admin: 07/13/24 20:53 Dose: 20 mg Documented By: TIMOTHY Calcium Carbonate (Calcium Carbonate 750 Mg Tab.Chew) 750 mg PO Q4H PRN PRN Reason: Heartburn Gabapentin (Gabapentin 400 Mg Capsule) 800 mg PO BID [facility] Last Admin: 07/14/24 08:48 Dose: 800 mg Documented By: KASSY Ferric Sodium Gluconate Complex 125 mg/ Sodium Chloride 110 mls @ 100 mls/hr IV DAILY [facility] Stop: 07/16/24 10:05 Last Admin: 07/14/24 10:04 Dose: 100 mls/hr Documented By: KASSY Magnesium Hydroxide (Milk Of Magnesia 30 Ml Oral.Susp) 30 ml PO DAILY PRN PRN Reason: Constipation Melatonin (Melatonin 3 Mg Tablet) 6 mg PO BEDTIME PRN PRN Reason: Insomnia Omeprazole (Omeprazole 20 Mg Capsule.Dr) 20 mg PO DAILY@0630 [facility] Last Admin: 07/14/24 05:46 Dose: 20 mg Documented By: TIMOTHY Ondansetron HCl (Ondansetron Hcl 4 Mg/2 Ml Vial) 4 mg IVPUSH Q8H PRN PRN Reason: Nausea and Vomiting Oxybutynin Chloride (Oxybutynin Chloride Er 5 Mg Tab.Er.24) 10 mg PO DAILY [facility] Last Admin: 07/14/24 08:48 Dose: 10 mg Documented By: KASSY Sodium Chloride (0.9 % Sodium Chloride Flush 3 Ml Syringe) 3 ml IVFLUSH QSHIFT [facility] Last Admin: 07/14/24 08:47 Dose: 3 ml Documented By: KASSY Labs 07/14/24 05:42 07/13/24 13:11 Labs: Laboratory Results - last 24 hr 07/13/24 07/13/24 07/13/24 13:11 14:01 15:43 MCV 69.2 L 68.5 L MCH 23.0 L 23.3 L MCHC 33.2 34.0 RDW 17.1 H 17.2 H Plt Count 249 255 MPV 9.1 L 9.1 L Immature Gran % (Auto) 0.5 H 0.2 Neut % (Auto) 67.5 62.3 Lymph % (Auto) 18.7 L 22.0 [place] % (Auto) 7.7 9.6 Eos % (Auto) 4.6 H 5.2 H Baso % (Auto) 1.0 0.7 Lymph # (Auto) 1.6 1.8 [place] # (Auto) 0.6 0.8 Eos # (Auto) 0.4 0.4 Baso # (Auto) 0.1 0.1 Abs Immat Gran (auto) 0.04 H 0.02 Absolute Neuts (auto) 5.6 5.1 Absolute Nucleated RBC 0.000 0.000 Nucleated RBC % (auto) 0.0 0.0 Anion Gap 11 L Estim Creat Clear Calc 75.3 Estimated GFR > 60 Random Glucose 74 Calcium 8.9 Magnesium 2.5 Iron 24 L TIBC 302 % Saturation 8 L Unsat Iron Binding 278 Total Bilirubin 0.3 AST 31 ALT 11 Alkaline Phosphatase 61 B-Natriuretic Peptide 167 H Total Protein 6.5 Albumin 3.6 TSH 0.64 Urine Color Yellow Urine Appearance Clear Urine pH 6.0 Ur Specific [place] <= 1.005 Urine Protein Negative Urine Glucose (UA) Negative Urine Ketones Negative Urine Blood Negative Urine Nitrite Negative Ur Leukocyte Esterase Trace H Urine RBC 0-2 Urine WBC 0-5 Ur Squamous Epith Cells 0-2 Urine Bacteria Trace Hyaline Casts 0-2 Stool Occult Blood POSITIVE Influenza Type A (PCR) NEGATIVE Influenza Type B (PCR) NEGATIVE RSV RNA Qual (PCR) NEGATIVE SARS-CoV-2 RNA (RT-PCR) NEGATIVE 07/14/24 05:42 MCV 68.0 L MCH 22.7 L MCHC 33.3 RDW 17.2 H Plt Count 234 MPV 9.2 L Immature Gran % (Auto) Neut % (Auto) Lymph % (Auto) [place] % (Auto) Eos % (Auto) Baso % (Auto) Lymph # (Auto) [place] # (Auto) Eos # (Auto) Baso # (Auto) Abs Immat Gran (auto) Absolute Neuts (auto) Absolute Nucleated RBC 0.000 Nucleated RBC % (auto) 0.0 Anion Gap Estim Creat Clear Calc Estimated GFR Random Glucose Calcium Magnesium Iron TIBC % Saturation Unsat Iron Binding Total Bilirubin AST ALT Alkaline Phosphatase B-Natriuretic Peptide Total Protein Albumin TSH Urine Color Urine Appearance Urine pH Ur Specific [place] Urine Protein Urine Glucose (UA) Urine Ketones Urine Blood Urine Nitrite Ur Leukocyte Esterase Urine RBC Urine WBC Ur Squamous Epith Cells Urine Bacteria Hyaline Casts Stool Occult Blood Influenza Type A (PCR) Influenza Type B (PCR) RSV RNA Qual (PCR) SARS-CoV-2 RNA (RT-PCR) Procedures Date of Service Date of Service: 07/14/24 Progress Note: A&P Assessment and plan (1) Abnormal CT scan, gastrointestinal tract: Status: Acute Assessment and Plan: Note of a segment of dilated bowel with fecalization near a previous anastomosis She does not have any abdominal pain or tenderness She is benign and does not have any GI complaints CAT scan findings may be secondary to narrowing of the old anastomosis No intervention at this time as this does not appear to be clinically significant She has a very benign exam Patient was chronic anemia Time Spent With Patient Time: Total time managing care of this patient today ____ minutes. Quality Stroke Does the patient have a stroke diagnosis?: No VTE Prior VTE?: No VTE Risk Level:: Medical - moderate - high VTE Device Contraindication: Treatment Not Indicated VTE Drug Contraindication: N/A - Med Ordered
[2024-07-14 12:00] VITALS: BP 115/58; PULSE 54; RESP 20; TEMP 36.6; O2SAT 99
--- NOTE | 2024-07-14 12:07 | P.CNGI_ITS ---
History of Present Illness Data of Consult Service Date: 07/14/24 Requesting physician: Yg Kerr Primary Care Provider: Axel Whitehead MD HPI Reason for consult: Anemia This is a 74-year-old female with past medical history of severe aortic stenosis, undergoing workup for TAVR, chronic iron deficiency anemia status post EGD/colonoscopy 2021 (Dr. Coats), hypertension, left bundle branch block, who was brought to the hospital by her family for lightheadedness and dizziness. Patient reports no abdominal pain, nausea, vomiting, change in bowel habits. Reports that dizziness and lightheadedness started Tuesday. When she called her PCP office, she was advised to come to the hospital given her underlying cardiac history. In the emergency room she was noted to be vitally stable. Labs with hemoglobin of 8.5 decreased from hemoglobin of 11.9 more than a year ago, with microcytosis. Chem 7 with baseline renal function. Of note, CT abdomen and pelvis showed question of partial SBO, but clinically patient does not have any obstructive symptoms. Has also been seen by surgery and no intervention advised. Patient does not report any chest pain, palpitations, shortness of breath. She follows with Dr. Coats as outpatient. As mentioned above, had bidirectional endoscopy in the beginning of 2021 for longstanding anemia. This was followed by capsule endoscopy, which was incomplete as it timed out in the small bowel. Currently, dizziness has gone away, but still endorses lightheadedness specially on postural changes. Review of Systems 2 Review of Systems: Yes all other systems are reviewed and are negative PMFSH Past Medical History Medical History (Updated 07/14/24 @ 11:05 by Newton Maddox MD) Abnormal CT scan, gastrointestinal tract Left bundle branch block Aortic stenosis Arthritis Lower extremity edema Anemia Neuropathy Back pain Hyperlipidemia HTN (hypertension) Family History Family History Sister Breast cancer, Onset Age: 49 Father Prostate cancer Brother Leukemia Surgical History Surgical History History of hernia repair (2015) History of rotator cuff surgery (2012) History of tonsillectomy (1978) History of cholecystectomy (1975) Social History Social History Household Members: None Housing: Apartment Do you presently have visiting nurse or other home services: No Alcohol intake: current Alcohol intake frequency: holidays/special occasions only Patient Tobacco Use Status: Never used Tobacco Meds Allergies Allergy/AdvReac Type Severity Reaction Status Date / Time vancomycin [VANCOMYCIN] Allergy Unknown HIVES Verified 07/13/24 11:50 Active Medications: Current Medications Acetaminophen (Acetaminophen 325 Mg Tablet) 650 mg PO Q6H PRN PRN Reason: Pain, Mild 1-3,fever,headache Last Admin: 07/13/24 21:53 Dose: 650 mg Atorvastatin Calcium (Atorvastatin Calcium 20 Mg Tablet) 20 mg PO BEDTIME [facility] Last Admin: 07/13/24 20:53 Dose: 20 mg Calcium Carbonate (Calcium Carbonate 750 Mg Tab.Chew) 750 mg PO Q4H PRN PRN Reason: Heartburn Gabapentin (Gabapentin 400 Mg Capsule) 800 mg PO BID [facility] Last Admin: 07/14/24 08:48 Dose: 800 mg Ferric Sodium Gluconate Complex 125 mg/ Sodium Chloride 110 mls @ 100 mls/hr IV DAILY [facility] Stop: 07/16/24 10:05 Last Admin: 07/14/24 10:04 Dose: 100 mls/hr Magnesium Hydroxide (Milk Of Magnesia 30 Ml Oral.Susp) 30 ml PO DAILY PRN PRN Reason: Constipation Melatonin (Melatonin 3 Mg Tablet) 6 mg PO BEDTIME PRN PRN Reason: Insomnia Omeprazole (Omeprazole 20 Mg Capsule.Dr) 20 mg PO DAILY@0630 [facility] Last Admin: 07/14/24 05:46 Dose: 20 mg Ondansetron HCl (Ondansetron Hcl 4 Mg/2 Ml Vial) 4 mg IVPUSH Q8H PRN PRN Reason: Nausea and Vomiting Oxybutynin Chloride (Oxybutynin Chloride Er 5 Mg Tab.Er.24) 10 mg PO DAILY [facility] Last Admin: 07/14/24 08:48 Dose: 10 mg Sodium Chloride (0.9 % Sodium Chloride Flush 3 Ml Syringe) 3 ml IVFLUSH QSHIFT [facility] Last Admin: 07/14/24 08:47 Dose: 3 ml Home Medications ?Medication ?Instructions ?Recorded ?Confirmed ?Last Taken ?Type gabapentin 800 mg tablet 800 mg PO BID 04/21/21 07/13/24 07/13/24 History hydralazine 25 mg tablet 25 mg PO BID 04/21/21 07/13/24 07/13/24 History metoprolol succinate 50 mg 50 mg PO DAILY 04/21/21 07/13/24 07/13/24 History tablet,extended release 24 hr (Toprol XL) oxybutynin chloride 10 mg 10 mg PO DAILY 04/21/21 07/13/24 07/13/24 History tablet,extended release 24 hr tramadol 50 mg tablet 50 mg PO BID PRN Pain 02/24/23 07/13/24 Unknown History turmeric 400 mg capsule 400 mg PO DAILY 11/30/23 07/13/24 07/13/24 History naproxen 500 mg tablet 500 mg PO TID PRN Pain 06/06/24 07/13/24 Unknown History atorvastatin 20 mg tablet 20 mg PO BEDTIME 07/13/24 07/13/24 07/13/24 History losartan 100 mg tablet 100 mg PO DAILY 07/13/24 07/13/24 07/13/24 History omeprazole 20 mg capsule,delayed 20 mg PO DAILY@0630 07/13/24 07/13/24 07/13/24 History release Physical Exam 2 Vital Signs: Vital Signs: Last Vital Signs Temp 97.8 F 07/14/24 12:00 Pulse 54 07/14/24 12:00 Resp 20 07/14/24 12:00 BP 115/58 L 07/14/24 12:00 Pulse Ox 99 07/14/24 12:00 O2 Del Method Room Air 07/14/24 12:00 BMI result Body Mass Index 36.8 No apparent distress Nonicteric No resp distress Abdomen soft, nondistended Alert and oriented x3, no focal deficits Results Labs 07/14/24 05:42 07/13/24 13:11 Labs: Short CBC 07/13/24 07/13/24 07/14/24 Range/Units 13:11 15:43 05:42 WBC 8.3 8.2 7.3 (4.8-10.8) X10*3/uL Hgb 8.5 L D 8.2 L 7.8 L (12.0-16.0) g/dl Hct 25.6 L D 24.1 L 23.4 L (37.0-47.0) % Plt Count 249 255 234 (160-400) X10*3/uL BMP 07/13/24 13:11 Sodium 139 Potassium 5.1 Chloride 110 H Carbon Dioxide 23 BUN 23 H Creatinine 0.77 Calcium 8.9 Liver Function 07/13/24 Range/Units 13:11 Total Bilirubin 0.3 (0.0-1.0) mg/dL AST 31 (5-31) U/L ALT 11 (0-31) U/L Alkaline Phosphatase 61 (39-117) U/L Albumin 3.6 (3.5-5.0) g/dL Urine 07/13/24 Range/Units 13:11 Urine Color Yellow Urine Appearance Clear Urine pH 6.0 (5.0-9.0) Ur Specific [place] <= 1.005 (1.005-1.025) Urine Protein Negative (Neg-Trace) mg/dL Urine Glucose (UA) Negative (Negative) mg/dL Assessment and Plan (1) Anemia: Status: Acute (2) Dizziness: Status: Acute (3) Aortic stenosis: Status: Acute Plan Differentials for subacute to chronic iron deficiency anemia include AVMs, especially given underlying severe aortic stenosis ( heyde syndrome ), gastritis/duodenitis, mass etc. Would favor pursuing repeat endoscopic workup after patient has been optimized for severe aortic stenosis and conduction abnormalities. Can review timing with cardiology and interventional cardiology. Thank you for allowing me to participate in her care. Please do not hesitate to reach out for any questions or concerns. Procedures Date of Service Date of Service: 07/14/24
[2024-07-14 16:00] VITALS: BP 116/57; PULSE 52; RESP 20; TEMP 36.6; O2SAT 100
[2024-07-14 19:49] VITALS: BP 116/55; PULSE 59; RESP 16; TEMP 36.1; O2SAT 97
[2024-07-14] MEDS: Acetaminophen 325 MG TABLET 650 MG PO (20:28)
[2024-07-14] MEDS: Atorvastatin Calcium 20 MG TABLET PO (20:28)
[2024-07-14] MEDS: Nystatin Cream 15 GM TUBE 1 APPL TOPICAL (20:29)
[2024-07-14 23:53] VITALS: BP 109/53; PULSE 54; RESP 16; TEMP 36; O2SAT 96
[2024-07-15 04:00] VITALS: BP 131/61; PULSE 58; RESP 16; TEMP 36.2; O2SAT 96
[2024-07-15] MEDS: 0.9 % Sodium Chloride Flush 3 ML SYRINGE IVFLUSH ×2 (06:05→09:27)
[2024-07-15] MEDS: Omeprazole 20 MG CAPSULE.DR PO (06:05)
[2024-07-15 07:18] VITALS: BP 124/60; PULSE 58; RESP 16; TEMP 36.8; O2SAT 97
[2024-07-15 07:27] LABS: Hematocrit 25.4 % (37.0-47.0); Hemoglobin 8.3 g/dl (12.0-16.0); Mean Corpuscular HGB Conc 32.7 g/dl (31.0-35.0); Mean Corpuscular Hemoglobin 22.6 pg (27.0-33.0); Mean Corpuscular Volume 69.2 fL (80.0-98.0); Platelet Count 248 X10*3/uL (160-400); Red Blood Count 3.67 X10*6/uL (4.20-5.50); Red Cell Distribution Width 17.1 % (11.0-16.0); White Blood Count 6.3 X10*3/uL (4.8-10.8)
[2024-07-15 07:36] LABS: Anion Gap 11 (12-20); Blood Urea Nitrogen 14 mg/dL (9-16); Calcium 8.8 mg/dL (8.4-10.2); Carbon Dioxide 25 mmol/L (22-29); Chloride 109 mmol/L (96-108); Creatinine Clr Calc Pharmacy 81.8; Estimated Glomerular Filt Rate > 60; Glucose Random 95 mg/dL (60-115); Sodium 140 mmol/L (135-145)
[2024-07-15] MEDS: oxyBUTYnin chloride ER 5 MG TAB.ER.24 10 MG PO (09:04)
[2024-07-15] MEDS: Gabapentin 400 MG CAPSULE 800 MG PO (09:04)
[2024-07-15] MEDS: Nystatin Cream 15 GM TUBE 1 APPL TOPICAL (09:05)
--- NOTE | 2024-07-15 09:18 | P.PNGI_ITS ---
Subjective Subjective Date of Service: 07/15/24 Interval History: Patient seen and evaluated in follow-up at bedside. Reports improvement of sx of lightheadedness and dizziness since titration of BP meds. No GI complaints. H/H unchanged. Critical Care Time (minutes): 0 Physical Exam 2 Vital Signs: Vital Signs: Last Vital Signs Temp 98.3 F 07/15/24 07:18 Pulse 58 07/15/24 07:18 Resp 16 07/15/24 07:18 BP 124/60 07/15/24 07:18 Pulse Ox 97 07/15/24 07:18 O2 Del Method Room Air 07/15/24 07:18 BMI result Body Mass Index 36.8 No apparent distress Nonicteric Abdomen soft, nondistended Alert and oriented x3 Objective Data Labs 07/15/24 06:21 07/15/24 06:21 Labs: Laboratory Results - last 24 hr 07/15/24 06:21 WBC 6.3 RBC 3.67 L Hgb 8.3 L Hct 25.4 L MCV 69.2 L MCH 22.6 L MCHC 32.7 RDW 17.1 H Plt Count 248 MPV 9.0 L Absolute Nucleated RBC 0.000 Nucleated RBC % (auto) 0.0 Sodium 140 Potassium 5.0 Chloride 109 H Carbon Dioxide 25 Anion Gap 11 L BUN 14 Creatinine 0.73 Estim Creat Clear Calc 81.8 Estimated GFR > 60 Random Glucose 95 Calcium 8.8 Procedures Date of Service Date of Service: 07/15/24 Progress Note: A&P Assessment and plan (1) Anemia: Status: Acute (2) Dizziness: Status: Acute (3) Aortic stenosis: Status: Acute (4) Left bundle branch block: Status: Acute Plan Discharge planned for today. 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 Cont PPI as outpatient. Consider CBC in 1 week post discharge. Time Spent With Patient Time: Total time managing care of this patient today ____ minutes. Quality Stroke Does the patient have a stroke diagnosis?: No VTE Prior VTE?: No VTE Risk Level:: Medical - moderate - high VTE Device Contraindication: Treatment Not Indicated VTE Drug Contraindication: N/A - Med Ordered
--- NOTE | 2024-07-15 09:22 | PM.PNGS ---
Subjective Subjective Date of Service: 07/15/24 Interval history: Feels much better Says she still a little weak but much improved Denies abdominal pain Good oral intake No GI complaints Physical Exam Vital Signs: Vital Signs: Last Vital Signs Temp 98.3 F 07/15/24 07:18 Pulse 58 07/15/24 07:18 Resp 16 07/15/24 07:18 BP 124/60 07/15/24 07:18 Pulse Ox 97 07/15/24 07:18 O2 Del Method Room Air 07/15/24 07:18 BMI result Body Mass Index 36.8 Const: General: comfortable and no acute distress Resp: Effort & Inspection: normal respiratory effort Cardio: Rate: regular rate GI: Inspection: No distended Palpation (GI): Soft to palpation, not firm, nontender and no guarding Objective Data Active Medications Acetaminophen (Acetaminophen 325 Mg Tablet) 650 mg PO Q6H PRN PRN Reason: Pain, Mild 1-3,fever,headache Last Admin: 07/14/24 20:28 Dose: 650 mg Documented By: LEISA Atorvastatin Calcium (Atorvastatin Calcium 20 Mg Tablet) 20 mg PO BEDTIME [facility] Last Admin: 07/14/24 20:28 Dose: 20 mg Documented By: LEISA Calcium Carbonate (Calcium Carbonate 750 Mg Tab.Chew) 750 mg PO Q4H PRN PRN Reason: Heartburn Gabapentin (Gabapentin 400 Mg Capsule) 800 mg PO BID [facility] Last Admin: 07/15/24 09:04 Dose: 800 mg Documented By: YOMI Ferric Sodium Gluconate Complex 125 mg/ Sodium Chloride 110 mls @ 100 mls/hr IV DAILY [facility] Stop: 07/16/24 10:05 Last Infusion: 07/14/24 11:20 Dose: Infused Documented By: DARCY Magnesium Hydroxide (Milk Of Magnesia 30 Ml Oral.Susp) 30 ml PO DAILY PRN PRN Reason: Constipation Melatonin (Melatonin 3 Mg Tablet) 6 mg PO BEDTIME PRN PRN Reason: Insomnia Nystatin (Nystatin Cream 15 Gm Tube) 1 appl TOPICAL BID [facility]; Protocol Last Admin: 07/15/24 09:05 Dose: 1 appl Documented By: YOMI Omeprazole (Omeprazole 20 Mg Capsule.) 20 mg PO DAILY@0630 [facility] Last Admin: 07/15/24 06:05 Dose: 20 mg Documented By: ROBERT Ondansetron HCl (Ondansetron Hcl 4 Mg/2 Ml Vial) 4 mg IVPUSH Q8H PRN PRN Reason: Nausea and Vomiting Oxybutynin Chloride (Oxybutynin Chloride Er 5 Mg Tab.Er.24) 10 mg PO DAILY [facility] Last Admin: 07/15/24 09:04 Dose: 10 mg Documented By: RICCIAV Sodium Chloride (0.9 % Sodium Chloride Flush 3 Ml Syringe) 3 ml IVFLUSH QSHIFT [facility] Last Admin: 07/15/24 06:05 Dose: 3 ml Documented By: ORBERT Labs 07/15/24 06:21 07/15/24 06:21 Labs: Laboratory Results - last 24 hr 07/15/24 06:21 MCV 69.2 L MCH 22.6 L MCHC 32.7 RDW 17.1 H Plt Count 248 MPV 9.0 L Absolute Nucleated RBC 0.000 Nucleated RBC % (auto) 0.0 Anion Gap 11 L Estim Creat Clear Calc 81.8 Estimated GFR > 60 Random Glucose 95 Calcium 8.8 Procedures Date of Service Date of Service: 07/15/24 Progress Note: A&P Assessment and plan (1) Abnormal CT scan, gastrointestinal tract: Status: Acute Assessment and Plan: Clinically not obstructed No GI complaints Has been tolerating regular diet Abdomen is soft, benign and nontender No surgical intervention needed currently Rest of care as per medical service - she is being seen as well by Cardiology for her aortic stenosis Time Spent With Patient Time: Total time managing care of this patient today ____ minutes. Quality Stroke Does the patient have a stroke diagnosis?: No VTE Prior VTE?: No VTE Risk Level:: Medical - moderate - high VTE Device Contraindication: Treatment Not Indicated VTE Drug Contraindication: N/A - Med Ordered
[2024-07-15] MEDS: Sodium Ferric Gluconat/Sucrose 125 MG in 0.9 % Sodium Chloride 100 ML 100 MG IV (09:27)
--- NOTE | 2024-07-15 10:28 | PM.DS ---
DS: Providers Provider Date of Service: 07/15/24 Date of admission: 07/13/24 18:59 Date of discharge: 07/15/24 Primary care physician: Axel Whitehead MD Consults: 07/13/24 19:17 Consult to Cardiology Routine Consulting Provider: [facility] Reason for consultation: Dizziness/presyncope; pt with severe aortic stenosis 07/14/24 10:16 Consult to Gastroenterology Routine Consulting Provider: Rosa Davies Reason for consultation: AGNIESZKA DS: Diagnosis Discharge Diagnosis (1) Abnormal CT scan, gastrointestinal tract: Status: Acute DS: Summary Hospital Course Hospital Course: from initial hpi: 74-year-old female with a PMH significant for?left ventricular hypertrophy, LBBB, severe aortic stenosis, lymphedema, hx of SBO s/p resection in 2016, chronic iron deficiency anemia, and chronic back pain who presents to the ED with?episode of lightheadedness and dizziness while at work. 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 Episode lasted for 2+ hours. Denies LOC. No fall. Denies chest pain/pressure, or palpitations. Pt reports has had similar though less severe episodes previously, including 1 around 1 week ago that lasted 15-20 minutes that was also associated with position changes. Pt denies nausea, vomiting, abdominal pain. No change to bowel or bladder habits. Has been passing flatus. Denies melena or hematochezia. Of note, pt follows with Dr. William and Dr. Burr in Cardiology for management of severe aortic valve stenosis. Is being worked up for TAVR vs surgical aortic valve repair with cardiac catheterization scheduled in a few weeks on 08/02/2024. Pt also notes she has been on iron supplementation for the past few years, though has had difficulty tolerating it due to constipation and has only intermittently been taking it for the past 6 months, maybe 1-2 times per week. In the ED pt's BP soft at 131/36, otherwise stable and WNL. Labs were significant for stool positive for occult blood, microcytic anemia of 8.5/25.6 with MCV 69.2 (decreased from prior of 11.9/34.4 on 05/12/2023), and mildly elevated BNP 167. No leukocytosis. No significant electrolyte abnormalities. Renal function WNL. Hepatic function WNL. Serial troponins flat at 5.7 and 5.9. TSH WNL. UA negative for UTI. Tested negative for flu, RSV, COVID. CXR negative for acute cardiopulmonary process. CT?of head unremarkable. CT of abdomen/pelvis concerning for possible early/partial SBO, but negative for acute hemorrhage. EKG demonstrated normal sinus rhythm with chronic LBBB without evidence of acute ischemic changes. Given CT findings, ED clinician reached out to General surgery who evaluated pt and thought even partial SBO highly unlikely. Pt was treated in the ED with IVF and meclizine. Pt is admitted to the hospital under observation for treatment and further evaluation of presyncope in the setting of likely severe aortic stenosis hospital course: Patient was admitted for presyncope this was likely due to orthostatic hypotension. Her medications of losartan, hydralazine, metoprolol have been held. Her blood pressure should be monitored as outpatient and she may need to restart at lower doses. Patient did have brief episode of SVT while on monitor but this is unlikely to be contributing. She does have severe aortic stenosis but this is unlikely to be cause either. She was scheduled to follow up for diagnostic catheterization and TAVR. She was noted to have acute on chronic iron-deficiency anemia and given IV iron she should follow up with GI as outpatient and continue PPI. On imaging there was a question of small-bowel obstruction but patient was asymptomatic and SBO was ruled out. Time Attestation Discharge Coordination Time (in mins): 32 Quality: Safe Use of Opioids Does Pt have an Active Cancer Diagnosis on the Problem List?: No Quality: Stroke Does the patient have a stroke diagnosis?: No Physical Exam Vital Signs: Vital Signs: Last Vital Signs Temp 98.3 F 07/15/24 07:18 Pulse 58 07/15/24 07:18 Resp 16 07/15/24 07:18 BP 124/60 07/15/24 07:18 Pulse Ox 97 07/15/24 07:18 O2 Del Method Room Air 07/15/24 07:18 BMI result Body Mass Index 36.8 General: AO X 3, no acute distress Resp: CTA bilateral, no accessory muscles used CVS: S1,S2,RRR GI: soft, non tender, non distended Neuro: motor grossly intact, alert Psych: appropriate affect, appropriate insight DS: Data Data Completed and Pending Labs on day of discharge: Laboratory Results - last 24 hr 07/15/24 06:21 WBC 6.3 RBC 3.67 L Hgb 8.3 L Hct 25.4 L MCV 69.2 L MCH 22.6 L MCHC 32.7 RDW 17.1 H Plt Count 248 MPV 9.0 L Absolute Nucleated RBC 0.000 Nucleated RBC % (auto) 0.0 Sodium 140 Potassium 5.0 Chloride 109 H Carbon Dioxide 25 Anion Gap 11 L BUN 14 Creatinine 0.73 Estim Creat Clear Calc 81.8 Estimated GFR > 60 Random Glucose 95 Calcium 8.8 Discharge Plan Discharge Anticipated Discharge Date/Time: 07/15/24 10:01 Patient Disposition: Home, Self-Care Discharge Diagnosis: Presyncope due to hypotension Referrals: Axel Whitehead MD [Primary Care Provider] - 1 Week Maximiliano Coats MD [Physician] - 1 Week Discharge Medications: Continued omeprazole 20 mg capsule,delayed release(DR/EC) 20 mg PO DAILY@0630 atorvastatin 20 mg tablet 20 mg PO BEDTIME oxybutynin chloride 10 mg tablet extended release 24hr 10 mg PO DAILY gabapentin 800 mg tablet 800 mg PO BID tramadol 50 mg tablet 50 mg PO BID PRN (Reason: Pain) turmeric 400 mg capsule 400 mg PO DAILY aspirin [Ecotrin Low Strength] 81 mg tablet,delayed release (DR/EC) 81 mg PO DAILY Qty: 30 5RF Discontinued losartan 100 mg tablet 100 mg PO DAILY metoprolol succinate [Toprol XL] 50 mg tablet extended release 24 hr 50 mg PO DAILY hydralazine 25 mg tablet 25 mg PO BID naproxen 500 mg tablet 500 mg PO TID PRN (Reason: Pain) Discharge Orders: Discharge Order (Routine); Ordered 07/15/24 Ordered By: Yg Kerr Diet: Advance to usual diet Activity on Discharge: As tolerated Stand Alone Forms: Patient Portal Discharge page Print Language: Jamaican Care Plan Goals: Recovery Health Concerns: Aortic stenosis, hypotension, anemia, SVT Plan of Treatment: Stop blood pressure medications for now and keep an eye on your blood pressures may need to be restarted at a smaller dose follow up with gi for iron deficiency follow up with cardiology Assessment: see above
--- NOTE | 2024-07-15 10:36 | P.PNCA_ITS ---
Subjective Subjective Date of Service: 07/15/24 Interval history: She states that she is not getting dizzy anymore. Feels okay since admission. Of note, blood pressure meds are on hold. Review of Systems Review of Systems Yes all other systems are reviewed and are negative Constitutional: Reports as per HPI and Reports no additional constitutional complaints Eyes: Reports as per HPI and Denies no additional eye complaints Denies system reviewed and no additional complaints, except as documented and Reports as per HPI Cardiovascular: Reports as per HPI, Reports no additional cardiovascular complaints, Denies acrocyanosis, Denies cool extremities, Denies chest pain, Denies leg edema, Denies lightheadedness, Denies palpitations and Denies dyspnea Respiratory: Reports as per HPI, Denies no additional respiratory complaints and Denies dyspnea Gastrointestinal: Reports as per HPI and Denies no additional gastrointestinal complaints Genitourinary: Reports as per HPI Musculoskeletal: Reports no additional musculoskeletal complaints and Reports as per HPI Skin/Breast: Reports system reviewed and no additional complaints, except as docu Reports system reviewed and no additional complaints, except as documented and Reports as per HPI Psychiatric: Reports no additional psychiatric complaints and Reports as per HPI Endocrine: Reports no additional endocrine complaints, Reports as per HPI and Denies palpitations Hematologic/Lymphatic: Reports no additional hematologic/lymphatic complaints and Reports as per HPI Allergic/Immunologic: Reports no additional allergic/immunologic complaints and Reports as per HPI Physical Exam Vital Signs: Last Vital Signs Temp 98.3 F 07/15/24 07:18 Pulse 58 07/15/24 07:18 Resp 16 07/15/24 07:18 BP 124/60 07/15/24 07:18 Pulse Ox 97 07/15/24 07:18 O2 Del Method Room Air 07/15/24 07:18 BMI result Body Mass Index 36.8 Const General: comfortable and no acute distress Orientation/consciousness: patient oriented x3 HEENT Other: Unremarkable Head: Yes normal to inspection Neck Neck: Yes normal visual inspection Chest Chest palpation & inspection: normal inspection of the chest Resp Auscultation: clear to auscultation bilaterally Cardio Palpation: normal PMI Heart sounds: S1 normal heart sound present, S2 normal heart sound present, no gallops, Murmur heart sound present systolic III/ and at the right sternal border and no rubs GI Palpation (GI): Soft to palpation Back/Spine/Pelvis Other: unremarkable Skin General skin exam: no rashes or lesions noted Neuro General: patient oriented x3 Extrem General: Yes normal to inspection Psych Mental Status: mental status grossly normal Objective Labs and Meds 07/15/24 06:21 07/15/24 06:21 Lab results: Laboratory Results - last 24 hr 07/15/24 06:21 WBC 6.3 RBC 3.67 L Hgb 8.3 L Hct 25.4 L MCV 69.2 L MCH 22.6 L MCHC 32.7 RDW 17.1 H Plt Count 248 MPV 9.0 L Absolute Nucleated RBC 0.000 Nucleated RBC % (auto) 0.0 Sodium 140 Potassium 5.0 Chloride 109 H Carbon Dioxide 25 Anion Gap 11 L BUN 14 Creatinine 0.73 Estim Creat Clear Calc 81.8 Estimated GFR > 60 Random Glucose 95 Calcium 8.8 Progress Note: A&P Assessment and plan (1) Dizziness: Status: Acute (2) Aortic stenosis: Status: Acute (3) Left bundle branch block: Status: Acute (4) SVT (supraventricular tachycardia): Status: Acute (5) Anemia: Status: Acute Plan Echocardiogram with LVEF of 60-65%. Severe asymmetric septal hypertrophy. Moderate diastolic dysfunction. Severe aortic stenosis with a mean gradient of 43 mm Hg and valve area of 1 cm2. Mild pulmonary hypertension. Labs show anemia with low MCV. Cardiac BNP is 167. High sensitivity troponin within range. Telemetry shows a short run of SVT for about 30 seconds. Patient did not have any palpitations at that time. Not regarding. Overall, dizziness is more than likely orthostatic in nature and less likely, aortic stenosis. We discussed about this at length. She has not blood pressure medications including losartan, metoprolol, hydralazine in the hospital and blood pressure still normal. We discussed about holding off on her BP meds and just watching her blood pressure at home. She can record the numbers and if it is going up again, probably resume probably some of these but not all. Anemia workup. She can follow up with her primary historian research assistant Dr. William and . Time Spent With Patient Time: Total time managing care of this patient today ____ minutes. Progress Note: Quality Stroke Does the patient have a stroke diagnosis?: No Procedures Date of Service Date of Service: 07/15/24
== END 2024-07-15 12:53 | disposition home or self-care (01) ==
LOC: HO.ED 17:37 → HO.EDOVER 19:36 → HO.IMC 07-14 07:52
PROVIDERS: Physician Assistant; Physician Assistant Medical; Admitting Provider Student in an Organized Health Care Education/Training Program; Emergency Provider Emergency Medicine; PCP Internal Medicine; Visit Provider Internal Medicine
DX: I95.9 Hypotension, unspecified (principal); K92.1 Melena; R93.3 Abnormal findings on diagnostic imaging of other parts of digestive tract; D50.9 Iron deficiency anemia, unspecified; I35.0 Nonrheumatic aortic (valve) stenosis; I47.10 Supraventricular tachycardia, unspecified; H53.8 Other visual disturbances; K44.9 Diaphragmatic hernia without obstruction or gangrene; K63.89 Other specified diseases of intestine; I44.7 Left bundle-branch block, unspecified; K21.9 Gastro-esophageal reflux disease without esophagitis; I11.0 Hypertensive heart disease with heart failure; I50.30 Unspecified diastolic (congestive) heart failure; E78.5 Hyperlipidemia, unspecified; Z79.899 Other long term (current) drug therapy; Z03.818 Encounter for observation for suspected exposure to other biological agents ruled out
CPT/HCPCS: 0241U; 36415; 70450; 71046; 74178; 80048; 80053; 81001; 82272; 83540; 83735; 83880; 84443; 84484; 85025; 85027; 93005; 96361; 96365; 96366; 96374; 99222; 99285; J2470; J2916; Q9967

== ENCOUNTER → 2024-07-13 11:50 | Outpatient (BNV) | payer MEDICARE, SELFPAY | PROVIDERS: Emergency Provider Emergency Medicine; PCP Internal Medicine; Visit Provider Radiology Diagnostic Radiology | DX: R42 Dizziness and giddiness (principal) | CPT/HCPCS: 70450; 71046; 74178 ==

== ENCOUNTER → 2024-07-13 18:59 | Outpatient (BNV) | payer MEDICARE, SELFPAY | PROVIDERS: Admitting Provider Student in an Organized Health Care Education/Training Program; Emergency Provider Emergency Medicine; PCP Internal Medicine; Visit Provider Surgery | DX: R93.3 Abnormal findings on diagnostic imaging of other parts of digestive tract (principal) | CPT/HCPCS: 99232 ==

== ENCOUNTER → 2024-07-13 18:59 | Outpatient (BNV) | payer MEDICARE, SELFPAY | PROVIDERS: Admitting Provider Student in an Organized Health Care Education/Training Program; Emergency Provider Emergency Medicine; PCP Internal Medicine; Visit Provider Student in an Organized Health Care Education/Training Program | DX: I35.0 Nonrheumatic aortic (valve) stenosis (principal) | CPT/HCPCS: 99223; 99232; 99239 ==

== ENCOUNTER → 2024-07-13 18:59 | Outpatient (BNV) | payer MEDICARE, SELFPAY | PROVIDERS: Admitting Provider Student in an Organized Health Care Education/Training Program; Emergency Provider Emergency Medicine; PCP Internal Medicine; Visit Provider Internal Medicine | DX: D64.9 Anemia, unspecified (principal); R42 Dizziness and giddiness; I35.0 Nonrheumatic aortic (valve) stenosis | CPT/HCPCS: 99222; 99232 ==

== ENCOUNTER → 2024-07-13 18:59 | Outpatient (BNV) | payer MEDICARE, SELFPAY | PROVIDERS: Admitting Provider Student in an Organized Health Care Education/Training Program; Emergency Provider Emergency Medicine; PCP Internal Medicine; Visit Provider Internal Medicine | DX: R42 Dizziness and giddiness (principal); I35.0 Nonrheumatic aortic (valve) stenosis; I44.7 Left bundle-branch block, unspecified; I47.10 Supraventricular tachycardia, unspecified; D64.9 Anemia, unspecified | CPT/HCPCS: 93010; 99223; 99233 ==

== ENCOUNTER → 2024-07-18 09:52 | Outpatient (BNVA) | payer MEDICARE, SELFPAY | PROVIDERS: PCP Internal Medicine; Visit Provider Internal Medicine Cardiovascular Disease | DX: H66.002 Acute suppurative otitis media without spontaneous rupture of ear drum, left ear (principal); H60.392 Other infective otitis externa, left ear | CPT/HCPCS: 99212 ==

== ENCOUNTER 2024-07-18 11:39 | Outpatient (AMB) | payer MEDICARE, SELFPAY ==
--- NOTE | 2024-07-18 12:08 | AM.OFFWIN_ITS ---
Intake Vital Signs 07/18/24 12:09 Height 5 ft 5 in Weight 203 lb 8 oz BMI 33.9 BP 120/64 Blood Pressure Location Lt brachial Position Sitting Pulse 64 Pulse Source Pulse Oximeter Temp 98 F Temp Source Oral Pulse Oximetry (%) 97 Oxygen Delivery Method Room Air Intake Visit Reasons: EP Lt ear pain Intake Note: Patient complains of left ear pain radiating to neck area Patient Tobacco Use Status: Never used Tobacco Paving Rammer Required: No Communications Lead: Not Required per policy Accompanied by: Self / Same As Patient Allergies vancomycin [VANCOMYCIN] Allergy (Unknown, Verified 07/18/24 12:09) HIVES Do you need a note to return to daycare/school/sports/work: No HPI HPI Comments History of Present Illness Details History - The patient is a 74-year-old female pr esenting with left ear pain and asso ciated symptoms. - The left ear pain commenced the day be fore the visit; it intensified by the following morning, with soreness upon touch and radiation into the neck affecting swallowing. - No fevers have been experienced, altho ugh swallowing difficulties are noted. - A chronic cough has been present since a COVID-19 infection a year ago, persisting since then but no acute uri symptoms - There is no previous history of ear in fections or asthma, though she has allergies. - The right ear is characterized as bein g the better ear but requires a hearing aid. Physical Exam General: Cooperative, healthy appearing, comfortable and no acute distress Orientation/consciousness: Patient oriented x3 Limitations: No limitations Head: Normal to inspection Ears: Hearing grossly normal bilat, left TM with purulence and loss of landmarks with bulging, left EAC with edema and erythema, right EAC normal, right TM normal Nose: Normal external nose present Face and sinus: Normal facial exam Eyes: Appearance normal, both eyes and all related structures Neck: Normal visual inspection Respiratory: Normal respiratory effort, able to speak in complete sentences, no respiratory distress, not tachypneic, no tripod positioning and no use of accessory muscles Skin: No rashes or lesions noted Neuro: Patient oriented x3 Extremities: Normal to inspection and Yes no clubbing, cyanosis or edema [facility] Medical History (Updated 07/18/24 @ 12:32 by Judith Rich PA-C) Abnormal CT scan, gastrointestinal tract Left bundle branch block Aortic stenosis Arthritis Lower extremity edema Anemia Neuropathy Back pain Hyperlipidemia HTN (hypertension) Surgical History History of hernia repair (2015) History of rotator cuff surgery (2012) History of tonsillectomy (1978) History of cholecystectomy (1975) Family History Sister Breast cancer, Onset Age: 49 Father Prostate cancer Brother Leukemia Social History Household Members: None Housing: Apartment Do you presently have visiting nurse or other home services: No Alcohol intake: current Alcohol intake frequency: holidays/special occasions only Patient Tobacco Use Status: Never used Tobacco Review of Systems Const All systems reviewed & are unremarkable except as noted in HPI and below Physical Exam Vital Signs: Last Vital Signs Temp 98 F 07/18/24 12:09 Pulse 64 07/18/24 12:09 BP 120/64 07/18/24 12:09 Pulse Ox 97 07/18/24 12:09 Oxygen Delivery Method Room Air 07/18/24 12:09 BMI result Body Mass Index 33.9 Assessment & Plan Assessment & Plan (1) Otitis media: Code(s): H66.90 - Otitis media, unspecified, unspecified ear Qualifiers: Otitis media type: suppurative Chronicity: acute Laterality: left Recurrence: non-recurrent Spontaneous tympanic membrane rupture: without spontaneous rupture Qualified Code(s): H66.002 - Acute suppurative otitis media without spontaneous rupture of ear drum, left ear Plan: VSS, pt well appearing and PE unremarkable. Today, I have prescribed amoxicillin to be taken orally every 12 hours for 5 days in response to the identified acute otitis media and otitis externa in the patient's left ear. Complementary ear drops, containing anti-inflammatory ingredients, will be used every 8 hours for 7 days. With adherence to the treatment regimen, substantial improvement is expected shortly following the initiation of therapies. Medications have been directed to the patient's chosen pharmacy, confirming accessibility for today. Patient was informed and verbally consented to the use of an ambient scribe for clinic note documentation during this visit (2) Otitis externa: Code(s): H60.90 - Unspecified otitis externa, unspecified ear Qualifiers: Otitis externa type: other infective Chronicity: acute Laterality: left Qualified Code(s): H60.392 - Other infective otitis externa, left ear Plan: as above Medications: New mrbjdsso-ywboslefy-RO 3.5-10,000-1 mg/mL-unit/mL-% 4 drps otic (ears) Q8H 7 days 10 mL 0RF amoxicillin 875 mg PO Q12H 10 tabs 0RF Coding Level of Care Code Est Pt Level 3 (24611) Diagnoses Non-recurrent acute suppurative otitis media of left ear without spontaneous rupture of tympanic membrane H66.002 Otitis media type: suppurative Chronicity: acute Laterality: left Recurrence: non-recurrent Spontaneous tympanic membrane rupture: without spontaneous rupture Other infective acute otitis externa of left ear H60.392 Otitis externa type: other infective Chronicity: acute Laterality: left
[2024-07-18 12:09] VITALS: BP 120/64; PULSE 64; TEMP 36.6; O2SAT 97; BMI 33.9
--- OUTSIDE RECORDS SUMMARY | 2024-07-18 13:15 | XMS_ITS | Data Portability ---
Author Organization [facility] [address] Address [address] [place] [address] Care Team Providers Care Hand Coke Drawer Name Role Phone ORLANDO CHAVEZ Primary Care Provider [phone] Assessment No assessment recorded. Plan of Treatment Reminders Order Date Submit Date Provider Last Modified By Organization Details Last Modified Time Details Appointments None recorded. Lab SARS CoV 2 (COVID-19) Ag, QL, IA, upper respiratory specimen 2023 024 [email or web address] [facility]100[address], [address] [place] [address], [id number], 10:54:53 Referral general surgeon referral 2023 024 [email or web address] Not available 13:16:25 Procedures None recorded. Surgeries None recorded. Imaging None recorded. Medication Orders Bactrim DS 800 mg-160 mg tablet 2023 024 [id number], [address] [place], [place], [phone], 11:25:44 Patient TargetsNo targets recorded. Patient Instructions Encounter Date Encounter Id Patient Instructions Last Modified By Organization Details Last Modified Time 07/02/2023 [id number] opened cut after surgery: care instructions mani Not available 07/02/2023 11:25:34 wound care* AMALIA Not available 06/19 12:04:06 application of wound dressing* AMALIA Not available 07/02/2023 12:03:43 Please follow up with your surgeon in 2-3 days mani Not available 07/02/2023 11:31:10 11/21/2023 [id number] coronavirus (covid-19): care instructions [email or web address] Not available [...] ve Not Available [address] [place], [address], 11/21/2023 10:54:25 11/21/19 24 11/21/2023 SARS CoV 2 (COVI D-19) Ag, QL, IA, upper respi rator y speci men Unknown Analyte yes Not Available _ [facility] [address] [place], [address], 11/21/2023 10:54:25 Result Notes None recorded. Problems Name Problem SNOMED Code Status Onset Date Resolution Date Notes Provider Name and Address Organization Details Recorded Time Hypertensive disorder 74622690 Active 2023 KAILA PARISICA null, [place] - [facility] 10:47:58 Nerve injury 89237044 Active 2023 low back KAILA LUPICA null, PA - [facility] 10:48:55 Neuropathy 580854436 Active 2023 KAILA LUPICA null, PA - [facility] 10:49:05 Heart murmur 49451722 Active 2023 KAILA PARISICA null, PA - [facility] 10:51:29 Bundle branch block 3978082 Active 2023 left KAILA LUPICA null, PA - [facility] 4 10:51:59 Dehiscence of surgical wound 06545116 Active 2023 MATTY ATKINS NP [address], [place], [address] [facility] PA - [facility] 11:25:10 Problem [...] Name and Address Organization Details Recorded Time 547603 vancomyci n medicatio n hives Not available Not available 07/02/2023 97568 RxNorm KAILA JO [facility], [place] - [facility] 10:44:47 Medications [...] Updated DateTime 4 163.83 cm 34.8 kg/m2 87124.0 3 g 4 16 /min 97.1 [degF] [...] Updated DateTime 4 163.83 cm 33.8 kg/m2 57625.4 7 g 0 98 % 98 % 75 /min 18 /min 97.1 [degF] 113 mm[Hg] 71 mm[Hg] Marlene Gonzales PA - [facility] 4 10:41:20 Social History Question Answer Notes LastModified by Organizat ion Details LastModified Time Tobacco Smoking Status Never Smoker KAILA bang PA - [facility] 07/02/2023 10:49:41 What Is Your Level Of Alcohol Consumption? Occasional [email or web address] Information not available 07/02/2023 Do You Use Any Illicit Or Recreational Drugs? No [email or web address] Information not available 07/02/2023 Have You Recently Traveled Abroad? No [email or web address] Information not available 07/02/2023 Do You Or Have You Ever Used Any Other Forms Of Tobacco Or Nicotine? No [email or web address] Information not available 07/02/2023 Sex: Unknown Functional Status None recorded. Mental Status None recorded. Family History Nothing Reported. Medical History No medical history recorded. Gynecological History Statement/Question Response Date of LMP Obstetrics History GPAL:G 0 P 0 0 0 0 Past Encounters Encounter ID Performer Location Encounter Start Date Encounter Closed Date Diagnosis/Indication Diagnosis SNOMED-CT Code Diagnosis ICD10 Code Diagnosis Note [id number] [address] [facility] [place] [address] 10/05/2015 08:13:12 10/05/2015 08:50:57 [id number] [address] [place] [address] [place] [address] 10/08/2015 09:45:44 10/08/2015 10:59:06 [id number] [address] [facility] [place] [address] 11/13/2016 09:08:27 11/13/2016 09:35:19 [id number] [address] [facility] [address] 10/11/2015 09:45:49 10/11/2015 12:27:21 [id number] [address] [facility] [address] 07/23/2019 13:57:32 07/23/2019 14:39:40 [id number] [address] [address] [place] [address] 08/13/2017 09:39:52 08/13/2017 11:20:34 [id number] [address] [facility] [place] [address] 10/14/2015 12:36:29 10/14/2015 14:00:50 [id number] [address] [facility] [address] 10/12/2015 12:00:42 10/12/2015 14:30:32 [id number] [address] [place] [address] 10/16/2015 10:58:27 10/16/2015 12:10:43 [id number] [address] [address] 05/17/2015 09:25:41 05/17/2015 10:07:05 [id number] [address] [place] [address] 08/19/2018 09:19:54 08/19/2018 11:25:06 [id number] [place] [address] [place] [address] 07/02/2023 10:16:54 07/02/2023 12:34:13 Dehiscence of surgical wound 60169686 T81.30XA [id number] GRISEL Boyer [address] [place] [address] 11/21/2023 10:36:01 11/21/2023 10:56:24 COVID-19 221786080 U07.1 If you test positive for COVID-19, [...] Méndez Member ID Guarantor Name 07/23/2019 2 [facility] (PPO) [id number] Negra Cameron [id number] Negra Cameron 07/02/2023 2 [facility] (O) 504 Negra Rakesh [id number] Negra Cameron 11/21/2023 1 MEDICARE B-[place]: [employer] Negra Cameron [id number] Negra Cameron 11/21/[address] [facility] (O) [id number] [address] L Rakesh [id number] Negra Cameron Notes Date Note Type Note [...] ATKINS NP [address] [place], [address], PA - [facility] 07/02/2023 11:31:38 11/21/2023 text/html 73 y/o female he re 5 days after testing positive for COVID. Her PCP started her on Paxlovid, she has a terrible taste in her mouth and has a hard time eating. Her cough is continuing, not taking anyhing OTC for symptoms GRISEL Boyer [facility] [address] [place], [place], [address], [place] - [facility] 11/21/2023 10:58:16 OBGyn Episode No OBEpisode recorded.
== END 2024-07-18 13:14 | disposition home or self-care (01) ==
PROVIDERS: PCP Internal Medicine; Visit Provider Physician Assistant
DX: H66.002 Acute suppurative otitis media without spontaneous rupture of ear drum, left ear (principal); H60.392 Other infective otitis externa, left ear

== ENCOUNTER 2024-07-30 15:20 | Outpatient (REF) | payer MEDICARE, SELFPAY ==
--- OUTSIDE RECORDS SUMMARY | 2024-07-30 15:23 | XMS_ITS ---
Author Organization [facility] Address [address] [place] [address] Care Team Providers Care General Office Dispatcher Name Role Phone Axel Whitehead MD Primary Care Provider Unavailab Maximiliano Baeza Unavailable [phone] Lamont Baker Unavailable Unavailable Encounters Encounter Location Date Provider Diagnosis [facility] [address] [place] [address] 05/21/2024 Maximiliano Coats Plan Of Treatment Next Appt Details Provider Name:Maximiliano Coats , 09/19/2024 01:20:00 PM, [address], [address], [place], [address], Progress Notes * ANGEL GEORGEDOB: [birth year] (74 yo F)Acc No.[id number]:05/21/2024 Patient:?ANGEL GEORGE :1950???Age:73 Y???Sex:Female Address:[address], [place], [address] * true * Date:? Generated for Printi ng/Fajuanitag/eTransmitting on:?07/30/2024 03:23 PM EDT
--- OUTSIDE RECORDS SUMMARY | 2024-07-30 15:23 | XMS_ITS ---
Author Organization [facility] Address [address] [place] [address] Care Team Providers Care Insurance Account Representative Name Role Phone Axel Whitehead MD Primary Care Provider Unavailab Maximiliano Baeza Unavailable [phone] Lamont Baker Unavailable Unavailable REASON FOR VISIT Patient presents today for anemia Encounters Encounter Location Date Provider Diagnosis [facility] [address] [place] [address] 01/19/2024 Maximiliano Coats Plan Of Treatment Next Appt Details Provider Name:Maximiliano Coats , 09/19/2024 01:20:00 PM, [address], [address], [place], [address], Progress Notes * ANGEL GEORGEDOB: [birth year] (74 yo F)Acc No.[id number]:01/19/2024 Progress Notes Patient:?ANGEL GEORGE Provider:?Maximiliano Coats MD :1950???Age:73 Y???Sex:Female D ate:01/19/2024 Address:[address] [place], [place] [address] Pcp:Axel Whitehead MD Subjective: * Chief Complaints: [...] MD Date:? 024 Generated for Melonie gomez/Ysabel/Sarah on:?07/30/2024 03:23 PM EDT
--- OUTSIDE RECORDS SUMMARY | 2024-07-30 15:23 | XMS_ITS ---
Author Organization [facility] Address [address] [facility] [address] [place] [address] Care Team Providers Care Vamp Throater Name Role Phone Axel Whitehead MD Primary Care Provider Unavailab Maximiliano Baeza Unavailable [phone] Lamont Baker Unavailable Unavailable REASON FOR VISIT Patient presents today for anemia Encounters Encounter Location Date Provider Diagnosis [facility] [address] [place] [address] 05/22/2024 Maximiliano Coats Plan Of Treatment Next Appt Details Provider Name:Maximiliano Coats , 09/19/2024 01:20:00 PM, [address], [address], [place], [address], Progress Notes * ANGEL GEORGEDOB: [birth year] (74 yo F)Acc No.[id number]:05/22/2024 Progress Notes Patient:?ANGEL GEORGE Provider:?Maximiliano Coats MD :1950???Age:73 Y???Sex:Female D ate:05/22/2024 Address:[address] [place], [place] [address] Pcp:Axel Whitehead MD Subjective: * Chief Complaints: [...] MD Date:? 025 Generated for Melonie gomez/Ysabel/Sarah on:?07/30/2024 03:23 PM EDT
--- OUTSIDE RECORDS SUMMARY | 2024-07-30 15:24 | XMS_ITS | Patient Health Record ---
Author Organization [facility] Address [address] [place] [address] Care Team Providers Care Barrel Liner Name Role Phone Axel Whitehead MD Primary Care Provider Unavailab Maximiliano Baeza Unavailable [phone] Lamont Baker Unavailable Unavailable Allergies Allergen (clinical [...] Problem Status W/U Status Risk Notes Problem 68450190 Weight loss (R63.4) Active confirmed Problem 712940631 Gastritis, unspecified, without bleeding (K29.70) Active confirmed Problem 823431785 Early satiety (R68.81) Active confirmed Problem Iron deficiency anemia (52255651) Iron deficiency anemia (D50.9) Active confirmed Problem 028704766 Abdominal pain, left upper quadrant (R10.12) Active confirmed Problem Gastritis (9691840) Gastritis (K29.70) Active confirmed Problem 156049399 Irregular bowel habits (R19.8) Active confirmed Problem 52221376 Iron deficiency anemia, unspecified iron deficiency anemia type (D50.9) Active confirmed Problem 950486355 Abnormal CT scan , stomach (R93.3) Active confirmed Problem Chronic constipation (218946312) Chronic constipation (K59.09) Active confirmed Problem Diverticulosis of colon (231715878) Diverticulosis of colon (K57.30) Active confirmed Problem 647112453 Left upper quadrant abdominal pain (R10.12) Active confirmed Encounters Encounter Location Date Provider Diagnosis [facility] [address] [place] [address] 01/19/2024 Maximiliano Coats [facility] [address] [place] [address] 05/21/2024 Maximiliano Coats Plan Of Treatment Pending Test [...] Name:Maximiliano Coats , 09/19/2024 01:20:00 PM, [address], [address], [place], [address], Insurance Providers Payer Name Payer Address Payer Phone Subscriber Number Group Number Insured Name Patient Relationship to Insured Coverage Start Date Coverage End Date [facility] Medicare Advantage Plan [address] [address] [place] [address] [id number] ANGEL GEORGE Self - patient is the insured [facility] [employer] [address] [place], [place] [id number] JACQUELIN GEORGETINA Self - patient is the [...] Upper endoscopy in October of 2022 at [facility] with Dr. Carter revealed some gastric intestinal [...]
--- OUTSIDE RECORDS SUMMARY | 2024-07-30 15:24 | XMS_ITS | Data Portability ---
Author Organization [facility], [address] Address [address] [place] [address] Care Team Providers Care Retail Marketing Manager Name Role Phone ORLANDO CHAVEZ Primary Care Provider [phone] Assessment No assessment recorded. Plan of Treatment Reminders Order Date Submit Date Provider Last Modified By Organization Details Last Modified Time Details Appointments None recorded. Lab SARS CoV 2 (COVID-19) Ag, QL, IA, upper respiratory specimen 2023 024 [email or web address] [address]100[address], [address] [place] [address], [address], 10:54:53 Referral general surgeon referral 2023 024 [email or web address] Not available 13:16:25 Procedures None recorded. Surgeries None recorded. Imaging None recorded. Medication Orders Bactrim DS 800 mg-160 mg tablet 2023 024 [id number], [address], [place], [id number], 11:25:44 Patient TargetsNo targets recorded. Patient Instructions Encounter Date Encounter Id Patient Instructions Last Modified By Organization Details Last Modified Time 07/02/2023 [id number] opened cut after surgery: care instructions mani Not available 07/02/2023 11:25:34 wound care* AMALIA Not available 06/19 12:04:06 application of wound dressing* AMALIA Not available 07/02/2023 12:03:43 Please follow up with your surgeon in 2-3 days mani Not available 07/02/2023 11:31:10 11/21/2023 [id number] coronavirus (covid-19): care instructions [email or web address] Not available [...] ve Not Available [address] [facility] [place], [address], 11/21/2023 10:54:25 11/21/19 24 11/21/2023 SARS CoV 2 (COVI D-19) Ag, QL, IA, upper respi rator y speci men Unknown Analyte yes Not Available _ [facility] [address] [place], [address], 11/21/2023 10:54:25 Result Notes None recorded. Problems Name Problem SNOMED Code Status Onset Date Resolution Date Notes Provider Name and Address Organization Details Recorded Time Hypertensive disorder 76069068 Active 2023 KAILA PARISICA null, PA - [facility] 10:47:58 Nerve injury 13931898 Active 2023 low back KAILA LUPICA null, PA - [facility] 10:48:55 Neuropathy 456410312 Active 2023 KAILA LUPICA null, PA - [facility] 10:49:05 Heart murmur 65898857 Active 2023 KAILA PARISICA null, PA - [facility] 10:51:29 Bundle branch block 7179370 Active 2023 left KAILA LUPICA null, PA - [facility] 4 10:51:59 Dehiscence of surgical wound 90246807 Active 2023 MATTY ATKINS NP [address], [place], [address] [facility] PA - [facility] 11:25:10 Problem Notes [...] Name and Address Organization Details Recorded Time 130358 vancomyci n medicatio n hives Not available Not available 07/02/2023 25495 RxNorm KAILA JO [facility], [place] - [facility] 10:44:47 Medications [...] Updated DateTime 4 163.83 cm 34.8 kg/m2 96271.0 3 g 4 16 /min 97.1 [degF] [...] Updated DateTime 4 163.83 cm 33.8 kg/m2 80828.4 7 g 0 98 % 98 % 75 /min 18 /min 97.1 [degF] 113 mm[Hg] 71 mm[Hg] Marlene Gonzales PA - [facility] 4 10:41:20 Social History Question Answer Notes LastModified by JamOrigin Details LastModified Time Tobacco Smoking Status Never Smoker KAILA bang PA - [facility] 07/02/2023 10:49:41 Have You Recently Traveled Abroad? No [email or web address] Information not available 07/02/2023 Sex: Unknown Functional Status Question Answer Note LastModified by [employer] ion Details LastModified Time Do you use any illicit or recreational drugs? No [email or web address] Information not available 07/02/2023 Do you or have you ever used any other forms of tobacco or nicotine? No Information not available 07/02/2023 What is your level of alcohol consumption? Occasional [email or web address] Information not available 07/02/2023 Mental Status None recorded. Family History Nothing Reported. Medical History No medical history recorded. Gynecological History Statement/Question Response Date of LMP Obstetrics History GPAL:G 0 P 0 0 0 0 Past Encounters Encounter ID Performer Location Encounter Start Date Encounter Closed Date Diagnosis/Indication Diagnosis SNOMED-CT Code Diagnosis ICD10 Code Diagnosis Note [id number] [address] [place] [address] 10/05/2015 08:13:12 10/05/2015 08:50:57 [id number] [address] [place] [address] 10/08/2015 09:45:44 10/08/2015 10:59:06 [id number] [address] [place] [address] 11/13/2016 09:08:27 11/13/2016 09:35:19 [id number] [address] [place] [address] 10/11/2015 09:45:49 10/11/2015 12:27:21 [id number] [address] [place] [address] 07/23/2019 13:57:32 07/23/2019 14:39:40 [id number] [address] [place] [address] 08/13/2017 09:39:52 08/13/2017 11:20:34 [id number] [address] [place] [address] 10/14/2015 12:36:29 10/14/2015 14:00:50 [id number] [address] [place] [address] 10/12/2015 12:00:42 10/12/2015 14:30:32 [id number] [address] [facility] [place] [address] 10/16/2015 10:58:27 10/16/2015 12:10:43 [id number] [address] [address] [place] [address] 05/17/2015 09:25:41 05/17/2015 10:07:05 [id number] [address] [place] [address] 08/19/2018 09:19:54 08/19/2018 11:25:06 [id number] [place] [address] [place] [address] 07/02/2023 10:16:54 07/02/2023 12:34:13 Dehiscence of surgical wound [id number] T81.30XA [id number] GRISEL Boyer [address] [place] [address] 11/21/2023 10:36:01 11/21/2023 10:56:24 COVID-19 625135517 U07.1 If you test positive for COVID-19, [...] e masking (see below).For travel guidance, see CDC? s Travel webpage. Health Concerns Section Related Observation LastModified by Organization Detai ls LastModified Time None Recorded Concern Status LastModified by Organization Details LastModified Time None Recorded Advance Directives Directive None Recorded Payers Insurance Date Sequence Insurance Name Policy Number Policy Méndez Covered Member ID Méndez Member ID Guarantor Name 12/23/2023 1 [place]: [employer] Negra Cameron [id number] Negra Cameron 11/24/2023 2 [facility] (PPO) [id number] Negra Cameron [id number] Negra Cameron 01/31/2024 1 [facility] (MEDICARE REPLACEMENT/A DVANTAGE - PPO) [id number] Negra Cameron [id number] Negra Cameron 01/31/2024 2 [employer] (PPO) [id number] Negra Cameron [id number] Negra Cameron Notes Date Note Type Note [...] no fever today MATTY ATKINS NP [address] [place], [address], [place] - [facility] 07/02/2023 11:31:38 11/21/2023 text/html 73 y/o female he re 5 days after testing positive for COVID. Her PCP started her on Paxlovid, she has a terrible taste in her mouth and has a hard time eating. Her cough is continuing, not taking anyhing OTC for symptoms GRISEL Boyer [address] [place], [address], PA - [facility] 11/21/2023 10:58:16 OBGyn Episode No OBEpisode recorded.
[2024-07-30 15:38] LABS: MANUAL DIFF FLAG NO
[2024-07-30 15:47] LABS: Basophils Absolute Auto 0.1 X10*3/uL (0.0-0.2); Basophils Percent Auto 0.8 % (0-2); Eosinophils Absolute Auto 0.4 X10*3/uL (0.0-0.4); Eosinophils Percent Auto 4.8 % (0-4); Hematocrit 28.4 % (37.0-47.0); Hemoglobin 9.3 g/dl (12.0-16.0); Imm Gran Abs Auto 0.02 X10*3/uL (0.00-0.03); Imm Gran Pct Auto 0.3 % (0.0-0.4); Lymphocytes Absolute Auto 1.9 X10*3/uL (1.2-4.9); Mean Corpuscular HGB Conc 32.7 g/dl (31.0-35.0); Mean Corpuscular Hemoglobin 22.9 pg (27.0-33.0); Mean Corpuscular Volume 69.8 fL (80.0-98.0); Mean Platelet Volume 8.9 fL (9.4-12.3); Monocytes Absolute Auto 0.7 X10*3/uL (0.1-1.2); Monocytes Percent Auto 8.4 % (2-11); Neutrophils Absolute Auto 4.8 x10*3/uL (2.0-8.3); Neutrophils Percent Auto 61.7 % (45-73); Platelet Count 276 X10*3/uL (160-400); Red Blood Count 4.07 X10*6/uL (4.20-5.50); Red Cell Distribution Width 19.2 % (11.0-16.0); White Blood Count 7.8 X10*3/uL (4.8-10.8)
[2024-07-30 16:17] LABS: Alanine Aminotransferase 14 U/L (0-31); Albumin Level 3.8 g/dL (3.5-5.0); Anion Gap 14 (12-20); Aspartate Amino Transferase 41 U/L (5-31); Bilirubin Total 0.3 mg/dL (0.0-1.0); Blood Urea Nitrogen 25 mg/dL (9-16); Calcium 8.8 mg/dL (8.4-10.2); Carbon Dioxide 22 mmol/L (22-29); Chloride 105 mmol/L (96-108); Cholesterol 143 mg/dL (<200); Estimated Glomerular Filt Rate 49; Glucose Random 82 mg/dL (60-115); HDL Cholesterol 55 mg/dL (>40); LDL Cholesterol Calculated 76 mg/dL (<100); Potassium 4.8 mmol/L (3.3-5.1); Sodium 136 mmol/L (135-145); Total Protein 6.9 g/dL (6.5-8.0); Triglycerides 60 mg/dL (<150)
[2024-07-30 16:45] LABS: Alkaline Phosphatase 56 U/L (39-117)
[2024-07-31 13:55] LABS: Iron 37 mcg/dL (30-160); Percent Iron Saturation 13 % (15-50); Total Iron Binding Capacity 290 mcg/dL (228-428); Unsaturated Iron Binding 253 ug/dL
[2024-07-31 14:01] LABS: Ferritin 72 ng/mL (10-250)
== END 2024-07-30 15:21 | disposition home or self-care (01) ==
LOC: HO.LAB 15:20
PROVIDERS: Absent Provider Internal Medicine Cardiovascular Disease; PCP Internal Medicine; Visit Provider Internal Medicine
DX: Z00.00 Encounter for general adult medical examination without abnormal findings (principal); D64.9 Anemia, unspecified; R53.83 Other fatigue; E78.5 Hyperlipidemia, unspecified
CPT/HCPCS: 36415; 80053; 80061; 82728; 83540; 85025

== ENCOUNTER → 2024-08-02 23:59 | Outpatient (BNV) | payer MEDICARE, SELFPAY | PROVIDERS: PCP Internal Medicine; Visit Provider Internal Medicine Cardiovascular Disease | DX: I35.0 Nonrheumatic aortic (valve) stenosis (principal) | CPT/HCPCS: 93458; 99152 ==

== ENCOUNTER 2024-08-16 10:02 | Outpatient (AMB) | payer MEDICARE, SELFPAY ==
[2024-08-16 10:06] VITALS: BP 136/80; PULSE 76; O2SAT 100; BMI 33.4
--- NOTE | 2024-08-16 10:06 | A.OFFVIS_ITS ---
Vital Signs 08/16/24 10:06 Height 5 ft 5 in Weight 200 lb 9.93 oz BMI 33.4 BP 136/80 Blood Pressure Location Lt brachial Position Sitting Pulse 76 Pulse Source Pulse Oximeter Pulse Oximetry (%) 100 Oxygen Delivery Method Room Air Intake Visit Reasons: 2wk follow up s/p cath Intake Note: Pt presents to the office today for a 2 week follow up s/p cath. PT denies any SOB,chest pain. Pt states she has been experiencing some fatigue. Allergies vancomycin [VANCOMYCIN] Allergy (Unknown, Verified 08/16/24 10:13) HIVES Medication List - Last Reconciled 08/16/24 by Olga Bernal, FINISH FILER-C aspirin (Ecotrin Low Strength) 81 mg PO DAILY atorvastatin 20 mg PO BEDTIME gabapentin 800 mg PO BID yxzqcskk-kdhdxqvst-IC 3.5-10,000-1 mg/mL-unit/mL-% 4 drps otic (ears) Q8H 7 days omeprazole 20 mg PO DAILY@0630 oxybutynin chloride ER 10 mg PO DAILY tramadol 50 mg PO BID PRN turmeric 400 mg PO DAILY HPI HPI 2wk follow up s/p cath: Details: Negra leblanc is a 74-year-old female with past medical history of hypertension, hyperlipidemia, left bundle branch block, severe aortic stenosis who was recently admitted to [facility] following presyncopal event. She was determined to have orthostatic hypotension at that time and her medications were adjusted. She recently underwent a cardiac catheterization which showed moderate LAD stenosis. She now presents for follow-up. Today she reports she has been doing well since her cardiac catheterization procedure. She has a small lump at the catheterization site which is tender to palpation. She has no chest discomfort at rest or with activity. She denies shortness of breath, PND, orthopnea. She has not had any recurrent episodes of presyncope. No syncope, falls. She tells me she stopped metoprolol, hydralazine and losartan. Home blood pressures have been ranging 110-128 systolic. She said she received a call from [facility] to schedule TAVR and she needs to call them back. COUNT INCLUDES THE [facility] Medical History Abnormal CT scan, gastrointestinal tract Left bundle branch block Aortic stenosis Arthritis Lower extremity edema Anemia Neuropathy Back pain Hyperlipidemia HTN (hypertension) Surgical History History of hernia repair (2015) History of rotator cuff surgery (2012) History of tonsillectomy (1978) History of cholecystectomy (1975) Family History Sister Breast cancer, Onset Age: 49 Father Prostate cancer Brother Leukemia Social History Household Members: None Housing: Apartment Do you presently have visiting nurse or other home services: No Alcohol intake: current Alcohol intake frequency: holidays/special occasions only Patient Tobacco Use Status: Never used Tobacco Review of Systems Const All systems reviewed & are unremarkable except as noted in HPI and below Card Denies no additional complaints, Denies chest pain, Denies chest pain at rest, Denies chest pain with activity, Reports syncope (one episode presyncope from low BP), Denies rapid heart rate, Denies dyspnea, Denies dyspnea on exertion and Denies orthopnea Resp Denies dyspnea and Denies dyspnea on exertion GI Denies no additional complaints Musc Details: chronic swelling in lower legs, jelena wrap on right lower leg Neuro Reports syncope (one episode presyncope from low BP) Physical Exam Vital Signs: Last Vital Signs Pulse 76 08/16/24 10:06 BP 136/80 08/16/24 10:06 Pulse Ox 100 08/16/24 10:06 Oxygen Delivery Method Room Air 08/16/24 10:06 BMI result Body Mass Index 33.4 Last Vital Signs Temp 98.3 F 07/15/24 07:18 Pulse 58 07/15/24 07:18 Resp 16 07/15/24 07:18 BP 124/60 07/15/24 07:18 Pulse Ox 97 07/15/24 07:18 O2 Del Method Room Air 07/15/24 07:18 BMI result Body Mass Index 36.8 Const General: comfortable and no acute distress; No cooperative or healthy appearing Orientation/consciousness: patient oriented x3 HEENT Other: Unremarkable Head: Yes normal to inspection Neck Neck: Yes normal visual inspection Chest Chest palpation & inspection: normal inspection of the chest Resp Auscultation: clear to auscultation bilaterally Cardio Palpation: normal PMI Heart sounds: S1 normal heart sound present, S2 normal heart sound present, no gallops, Murmur heart sound present (3/6) systolic III/ and at the right sternal border and no rubs GI Palpation (GI): Soft to palpation Back/Spine/Pelvis Other: unremarkable Skin General skin exam: no rashes or lesions noted Neuro General: patient oriented x3 Extrem Other: bilateral lower leg edema, jelena wrap on right lower leg Psych Mental Status: mental status grossly normal Assessment & Plan Assessment & Plan (1) S/P cardiac cath: Comment: 08/02/2024 left main normal lad proximal 50% stenosis, left circumflex and RCA minimal luminal irregularities Code(s): Z98.890 - Other specified postprocedural states Category: Medical Plan: Right radial catheterization site with small marble size palpable lump at cath insertion site, pulse present. Right hand assessment normal. Will send for ultrasound today to rule out pseudoaneurysm. (2) Aortic stenosis: Code(s): I35.0 - Nonrheumatic aortic (valve) stenosis Category: Medical Plan: History of aortic stenosis, now severe. She is undergoing evaluation for TAVR procedure. She just had cardiac catheterization showing moderate LAD stenosis which will be managed medically. She did have a recent hospital admission for presyncope which was felt to be related to orthostatic hypotension. She was taken off her antihypertensive medications and blood pressure has maintained good control. Cardinal signs of severe discussed with her. Emergency care if ever needed for symptoms. Cardiology follow-up post TAVR procedure. (3) Pre-syncope: Code(s): R55 - Syncope and collapse Category: Medical Plan[place] [facility] [place]. Determined to be related to low blood pressure/high with orthostatic hypotension. (4) Hospital discharge follow-up: Code(s): Z09 - Encounter for follow-up examination after completed treatment for conditions other than malignant neoplasm Category: Medical Plan: Discharge summary reviewed (5) HTN (hypertension): Code(s): I10 - Essential (primary) hypertension Category: Medical Plan: Blood pressure goal less than 130/80. Blood pressure today 136/80, home pressure is 110-128 systolic. No med changes made at this time. (6) Left bundle branch block: Code(s): I44.7 - Left bundle-branch block, unspecified Category: Medical Plan: Chronic on EKGs. (7) Coronary atherosclerosis: Code(s): I25.10 - Atherosclerotic heart disease of [place] coronary artery without angina pectoris Category: Medical Plan: New diagnosis of coronary artery disease based on cardiac cath findings. No anginal symptoms. She is on aspirin, atorvastatin. She was previously on metoprolol which was stopped due to low blood pressures. Plan I discussed with the patient the diagnosis of aortic valve stenosis and the necessity of the TAVR procedure. We reviewed the procedure details, including the use of catheters to replace the valve without open heart surgery. I explained the risks of untreated valve stenosis, including chest pain, heart failure, and the benefits of TAVR, such as rapid recovery. The patient was informed of the potential hospital stay and the expected elimination of the heart murmur post-procedure. We also discussed the current stable management of her coronary artery disease and the importance of monitoring her blood pressure. Consent for the procedure was obtained after discussing all risks, benefits, and alternatives. Orders: Orders US arterial duplex UE RT Today I72.9 - Aneurysm of unspecified site Patient Instructions: - Monitor blood pressure regularly at home. - Contact the medical team if experiencing chest pain, shortness of breath, or other concerning symptoms. - Follow up with [facility] to schedule the TAVR procedure. - Arrange for transportation and support during the recovery period. - Limit heavy lifting and strenuous activities until cleared post-procedure. Patient was informed and verbally consented to the use of an ambient scribe for clinic note documentation during this visit. Coding Level of Care Code Est Pt Level 4 (51793) Complex EM visit Add On G2211 Diagnoses S/P cardiac cath Z98.890 Aortic stenosis I35.0 Pre-syncope R55 Hospital discharge follow-up Z09 HTN (hypertension) I10 Left bundle branch block I44.7 Coronary atherosclerosis I25.10 Time Spent (min) 30
--- OUTSIDE RECORDS SUMMARY | 2024-08-16 10:22 | XMS_ITS ---
Author Organization [facility] Address [address] [place] [address] Care Team Providers Care Entry Level Civil Engineer Name Role Phone Axel Whitehead MD Primary Care Provider Unavailab Maximiliano Baeza Unavailable [phone] Lamont Baker Unavailable Unavailable Encounters Encounter Location Date Provider Diagnosis [facility] [address] [place] [address] 05/21/2024 Maximiliano Coats Plan Of Treatment Next Appt Details Provider Name:Maximiliano Coats , 09/19/2024 01:20:00 PM, [address], [address], [place], [address], Progress Notes * NAGEL GEORGEDOB: [birth year] (74 yo F)Acc No.[id number]:05/21/2024 Patient:?ANGEL GEORGE :1950???Age:73 Y???Sex:Female Address:[address] [place], [address] * true * Date:? Generated for Printi ng/Solangeg/eTransmitting on:?08/16/2024 10:22 AM EDT
== END 2024-08-16 10:50 | disposition home or self-care (01) ==
LOC: HO.HCS 10:03
PROVIDERS: PCP Internal Medicine; Visit Provider Nurse Practitioner Family
DX: Z98.890 Other specified postprocedural states (principal); I35.0 Nonrheumatic aortic (valve) stenosis; R55 Syncope and collapse; Z09 Encounter for follow-up examination after completed treatment for conditions other than malignant neoplasm; I10 Essential (primary) hypertension; I44.7 Left bundle-branch block, unspecified; I25.10 Atherosclerotic heart disease of native coronary artery without angina pectoris
CPT/HCPCS: 99214; G2211

== ENCOUNTER → 2024-08-16 10:02 | Outpatient (BNVA) | payer MEDICARE, SELFPAY | PROVIDERS: PCP Internal Medicine; Visit Provider Nurse Practitioner Family | DX: Z13.89 Encounter for screening for other disorder (principal) | CPT/HCPCS: 99212 ==

== ENCOUNTER 2024-08-16 12:31 | Outpatient (REF) | payer MEDICARE, SELFPAY ==
--- NOTE | ~2024-08-16 | US_ITS ---
EXAMINATION: US DOPPLER UPPER EXTREMITY ARTERIAL , RIGHT CLINICAL INFORMATION: Evaluate radial puncture site for pseudoaneurysm. COMPARISON: None available. TECHNIQUE: Grayscale and color Doppler ultrasound imaging of the right radial artery was performed with special attention to the region of puncture for recent cardiac catheterization. FINDINGS: Grayscale and color Doppler ultrasound imaging of the right radial artery demonstrate no evidence of a pseudoaneurysm. There is a tiny 3 x 1 x 4 mm fluid collection abutting the puncture site, likely a tiny hematoma. No internal color Doppler signal. There is normal color Doppler arterial flow with appropriate waveforms in the right radial artery. US/US arterial duplex UE RT IMPRESSION: Examination is negative for radial artery pseudoaneurysm. Electronically signed by: Jose Constantino MD 08/16/2024 01:31 PM EDT
== END 2024-08-16 12:32 | disposition home or self-care (01) ==
LOC: HO.US 12:31
PROVIDERS: Visit Provider Nurse Practitioner Family
DX: I72.8 Aneurysm of other specified arteries (principal)
CPT/HCPCS: 93931; 99212

== ENCOUNTER → 2024-08-16 12:35 | Outpatient (BNV) | payer MEDICARE, SELFPAY | PROVIDERS: Visit Provider Radiology Diagnostic Radiology | DX: L76.32 Postprocedural hematoma of skin and subcutaneous tissue following other procedure (principal) | CPT/HCPCS: 93931 ==

== ENCOUNTER → 2024-09-06 23:59 | Outpatient (BNV) | payer MEDICARE, SELFPAY | PROVIDERS: PCP Internal Medicine; Visit Provider Internal Medicine Cardiovascular Disease | DX: I35.0 Nonrheumatic aortic (valve) stenosis (principal); Z00.6 Encounter for examination for normal comparison and control in clinical research program | CPT/HCPCS: 33361; 99152 ==

== ENCOUNTER 2024-09-19 14:16 | Outpatient (REF) | payer MEDICARE, SELFPAY ==
--- OUTSIDE RECORDS SUMMARY | 2024-05-22 06:30 | XMS_ITS ---
Author Organization [facility] Address [address] [facility] [address] [place] [address] Care Team Providers Care Surgery Attendant Name Role Phone Petra Goetz Primary Care Provider Maximiliano De León [phone] REASON FOR VISIT Patient presents today for anemia Encounters Encounter Location Date Provider Diagnosis [facility] [address] [facility] [address] [place] [address] 05/22/2024 Maximiliano Coats Plan Of Treatment Next Appt Details Provider Name:Maximiliano Coats , 03/28/2025 09:00:00 AM, [address] [facility], [address], [place], [address], Progress Notes * ANGEL GEORGEDOB: [birth year] (74 yo F)Acc No.[id number]:05/22/2024 Progress Notes Patient: ANGEL MARTINEZ Provider: Monserrat Coats MD :1950 A ge:73 Y S ex:Female Date:05/22/2024 Address:[address] [place], [place] [id number] Pcp:VIRAL Sandoval Subjective: * Chief Complaints: * [...] 05/22/2024 Generated for Melonie gomez/Ysabel/Linseyitting on: 0 09/19/2024 02:49 PM EDT
[2024-09-19 14:31] LABS: MANUAL DIFF FLAG NO
--- OUTSIDE RECORDS SUMMARY | 2024-09-19 14:50 | XMS_ITS | Data Portability ---
Author Organization [facility], [address] Address [address] [place] [address] Care Team Providers Care Promotion Manager Name Role Phone ORLANDO CHAVEZ Primary Care Provider Assessment No assessment recorded. Plan of Treatment Reminders Order Date Submit Date Provider Last Modified By Organization Details Last Modified Time Details Appointments None recorded. Lab SARS CoV 2 (COVID-19) Ag, QL, IA, upper respiratory specimen 2023 [email or web address] 21009[facility], [address] [place] [address], [id number], 10:54:53 Referral general surgeon referral 2023 024 [email or web address] Not available 13:16:25 Procedures None recorded. Surgeries None recorded. Imaging None recorded. Medication Orders Bactrim DS 800 mg-160 mg tablet 2023 024 [id number], [address] [place], [place], [id number], 11:25:44 Patient TargetsNo targets recorded. Patient Instructions Encounter Date Encounter Id Patient Instructions Last Modified By Organization Details Last Modified Time 07/02/2023 [id number] opened cut after surgery: care instructions mani Not available 07/02/2023 11:25:34 wound care* AMALIA Not available 06/19 12:04:06 application of wound dressing* AMALIA Not available 07/02/2023 12:03:43 Please follow up with your surgeon in 2-3 days mani Not available 07/02/2023 11:31:10 11/21/2023 [id number] coronavirus (covid-19): care instructions [email or web address] Not available [...] Analyte negati ve Not Available [address] [place], [address], 11/21/2023 10:54:25 11/21/19 24 11/21/2023 SARS CoV 2 (COVI D-19) Ag, QL, IA, upper respi rator y speci men Unknown Analyte yes Not Available _ [facility] [address] [place], [address], 11/21/2023 10:54:25 Result Notes None recorded. Problems Name Problem SNOMED Code Status Onset Date Resolution Date Notes Provider Name and Address Organization Details Recorded Time Hypertensive disorder 28427423 Active 2023 KAILA JO null, PA - [facility] 4 10:47:58 Nerve injury 54653514 Active 2023 low back KAILA PARISICA null, PA - [facility] 4 10:48:55 Neuropathy 001085524 Active 2023 KAILA PARISICA null, PA - [facility] 4 10:49:05 Heart murmur 67462217 Active 2023 KAILA PARISICA null, PA - [facility] 4 10:51:29 Bundle branch block 8108653 Active 2023 left KAILA PARISICA null, PA - [facility] 4 10:51:59 Dehiscence of surgical wound 37017637 Active 2023 MATTY ATKINS NP [address], [place], [address] [place] - [facility] 11:25:10 Problem Notes [...] Name and Address Organization Details Recorded Time 605077 vancomyci n medicatio n hives Not available Not available 07/02/2023 28848 RxNorm KAILA JO [facility], [...] height Body mass index (BMI) Body weight Respiratory rate Body temperature Oxygen saturation Oxygen saturation in Arterial blood by Pulse oximetry Heart rate Systolic blood pressure Diastolic blood pressure Provider Name and Address Organization Details Last Updated DateTime 4 163.83 cm 34.8 kg/m2 25380.0 3 g 16 /min 97.1 [degF] 99 % 99 % 66 /min 120 mm[Hg] 72 mm[Hg] KAILA JO PA - [facility] 4 10:54:54 Date Recorded Body height Body mass index (BMI) Body weight Oxygen saturation Oxygen saturation in Arterial blood by Pulse oximetry Heart rate Respiratory rate Body temperature Systolic blood pressure Diastolic blood pressure Provider Name and Address Organization Details Last Updated DateTime 4 163.83 cm 33.8 kg/m2 09856.4 7 g 98 % 98 % 75 /min 18 /min 97.1 [degF] 113 mm[Hg] 71 mm[Hg] Marlene Gonzales PA - [facility] 4 10:41:20 Social History Question Answer Notes LastModified by [employer] ion Details LastModified Time Tobacco Smoking Status Never Smoker KAILA bang PA - [facility] 07/02/2023 10:49:41 Have You Recently Traveled Abroad? No [email or web address] Information not available 07/02/2023 Sex: Unknown Functional Status Question Answer Note LastModified by [employer] ion Details LastModified Time Do you use any illicit or recreational drugs? No Information not available 07/02/2023 Do you or have you ever used any other forms of tobacco or nicotine? No [email or web address] Information not available 07/02/2023 What is your level of alcohol consumption? Occasional [email or web address] Information not available 07/02/2023 Mental Status None recorded. Family History Nothing Reported. Medical History No medical history recorded. Gynecological History Statement/Question Response Date of LMP Obstetrics History GPAL:G 0 P 0 0 0 0 Past Encounters Encounter ID Performer Location Encounter Start Date Encounter Closed Date Diagnosis/Indication Diagnosis SNOMED-CT Code Diagnosis ICD10 Code Diagnosis Note [id number] [address] [place] [address] 10/05/2015 08:13:12 10/05/2015 08:50:57 [id number] [address] [place] [address] 10/08/2015 09:45:44 10/08/2015 10:59:06 [id number] [address] [place] [address] 11/13/2016 09:08:27 11/13/2016 09:35:19 [id number] [address] [place] [address] 10/11/2015 09:45:49 10/11/2015 12:27:21 [id number] [address] [place] [address] 07/23/2019 13:57:32 07/23/2019 14:39:40 [id number] [address] [place] [address] 08/13/2017 09:39:52 08/13/2017 11:20:34 [id number] [address] [place] [address] 10/14/2015 12:36:29 10/14/2015 14:00:50 [id number] [address] [place] [address] 10/12/2015 12:00:42 10/12/2015 14:30:32 [id number] [address] [place] [address] 10/16/2015 10:58:27 10/16/2015 12:10:43 [id number] [address] [place] [address] 05/17/2015 09:25:41 05/17/2015 10:07:05 [id number] [address] [place] [address] 08/19/2018 09:19:54 08/19/2018 11:25:06 [id number] [place] [address] [place] [address] 07/02/2023 10:16:54 07/02/2023 12:34:13 Dehiscence of surgical wound [id number] T81.30XA [id number] GRISEL Boyer [address] [place] [address] 11/21/2023 10:36:01 11/21/2023 10:56:24 COVID-19 350140624 U07.1 If you test positive for COVID-19, stay home for at least 5 days and isolate from others in your home. You are likely most infectious during these first 5 days. Wear a high-quali ty mask if you must be around others at home and in public.Do not go places where you are unable to wear a mask. For travel guidance, see [facility] s Travel webpage.Do not travel.Sta y home and separate from others as much as possible.U se a separate bathroom, if possible.T elsa steps to improve ventilatio n at home, if possible.D on t share personal household items, like cups, [...] e masking (see below).For travel guidance, see CDC s Travel webpage. Health Concerns Section Related Observation LastModified by Organization Detai ls LastModified Time None Recorded Concern Status LastModified by Organization Details LastModified Time None Recorded Advance Directives Directive None Recorded Payers Insurance Date Sequence Insurance Name Policy Number Policy Méndez Covered Member ID Méndez Member ID Guarantor Name 12/23/2023 1 [place]: [employer] Negra Cameron [id number] Negra Cameron 11/24/2023 2 [facility] (O) [id number] Negra Cameron [id number] Negra Cameron 01/31/2024 1 [facility] (MEDICARE REPLACEMENT/A DVANTAGE - PPO) [id number] Negra Cameron [id number] Negra Cameron 01/31/2024 2 [employer] (PPO) [id number] Negra Cameron [id number] Negra Cameron Notes Date Note Type Note [...] no fever today MATTY ATKINS NP [address], [place], [address], [place] - [facility] 07/02/2023 11:31:38 11/21/2023 text/html 73 y/o female he re 5 days after testing positive for COVID. Her PCP started her on Paxlovid, she has a terrible taste in her mouth and has a hard time eating. Her cough is continuing, not taking anyhing OTC for symptoms GRISEL Boyer [address], [place], [address], [facility] 11/21/2023 10:58:16 OBGyn Episode No OBEpisode recorded.
[2024-09-19 15:03] LABS: Imm Gran Abs Auto 0.03 X10*3/uL (0.00-0.03); Imm Gran Pct Auto 0.3 % (0.0-0.4); Lymphocytes Absolute Auto 1.8 X10*3/uL (1.2-4.9); Mean Corpuscular HGB Conc 33.2 g/dl (31.0-35.0); Mean Corpuscular Hemoglobin 22.1 pg (27.0-33.0); Mean Corpuscular Volume 66.8 fL (80.0-98.0); NRBC Abs Auto 0.000 X10*3/uL (0.0-0.012); NRBC Pct Auto 0.0 /100WBC (0.0-0.2); Platelet Count 227 X10*3/uL (160-400); Red Blood Count 2.98 X10*6/uL (4.20-5.50); White Blood Count 9.7 X10*3/uL (4.8-10.8)
[2024-09-19 15:06] LABS: Hematocrit 19.9 % (37.0-47.0); Hemoglobin 6.6 g/dl (12.0-16.0)
[2024-09-19 15:33] LABS: Iron 19 mcg/dL (30-160); Percent Iron Saturation 7 % (15-50); Total Iron Binding Capacity 288 mcg/dL (228-428); Unsaturated Iron Binding 269 ug/dL
[2024-09-19 15:51] LABS: Ferritin 16 ng/mL (10-250)
[2024-09-19 16:01] LABS: Folate 12.3 ng/mL (> or = 4.0); Vitamin B12 > 2000 pg/mL (200-900)
== END 2024-09-19 14:17 | disposition home or self-care (01) ==
LOC: HO.LAB 14:16
PROVIDERS: Visit Provider Internal Medicine
DX: D50.9 Iron deficiency anemia, unspecified (principal)
CPT/HCPCS: 36415; 82607; 82728; 82746; 83540; 85025

== ENCOUNTER 2024-09-19 16:23 | Emergency (ER) | payer MEDICARE, SELFPAY ==
[2024-09-19] VITALS (9 sets, daily range): BP systolic 95–108; BP diastolic 40–55; PULSE 66–102; RESP 14–18; TEMP 36.4–36.9; O2SAT 97–99; BMI 35.6
--- NOTE | 2024-09-19 16:33 | ECG_ITS ---
Test Reason : WEAKNESS Blood Pressure : */* mmHG Vent. Rate : 95 BPM Atrial Rate : 95 BPM P-R Int : 206 ms QRS Dur : 142 ms QT Int : 390 ms P-R-T Axes : -1 -28 119 degrees QTcB Int : 490 ms Normal sinus rhythm Left bundle branch block Abnormal ECG When compared with ECG of 13-Jul-2024 12:12, T wave inversion less evident in Lateral leads Referred By: Hung Molina Electronically Signed By: NORTH RODRIGUEZ MD
--- NOTE | 2024-09-19 16:57 | ED.GENADULT ---
HPI - General Adult General Chief complaint: Recheck/Abnormal Lab/Rx Stated complaint: coats sent to ER abd labs Related Data Home Medications ?Medication ?Instructions ?Recorded ?Confirmed gabapentin 800 mg tablet 800 mg PO BID 04/21/21 08/16/24 oxybutynin chloride 10 mg 10 mg PO DAILY 04/21/21 08/16/24 tablet,extended release 24 hr tramadol 50 mg tablet 50 mg PO BID PRN Pain 02/24/23 08/16/24 turmeric 400 mg capsule 400 mg PO DAILY 11/30/23 08/16/24 atorvastatin 20 mg tablet 20 mg PO BEDTIME 07/13/24 08/16/24 omeprazole 20 mg capsule,delayed 20 mg PO DAILY@0630 07/13/24 08/16/24 release Previous Rx's ?Medication ?Instructions ?Recorded aspirin 81 mg tablet,delayed 81 mg PO DAILY #30 tabs 06/06/24 release (Ecotrin Low Strength) wsbwpitd-pigzjrkap-ioxyysiwh 3.5 4 drp otic (ears) Q8H 7 days #10 mL 07/18/24 mg-10,000 unit/mL-1 % ear drops,susp Allergies Allergy/AdvReac Type Severity Reaction Status Date / Time vancomycin (VANCOMYCIN) Allergy Unknown HIVES Verified 09/19/24 16:41 [facility] Past Medical History Medical History Abnormal CT scan, gastrointestinal tract Left bundle branch block Aortic stenosis Arthritis Lower extremity edema Anemia Neuropathy Back pain Hyperlipidemia HTN (hypertension) Surgical History History of hernia repair (2015) History of rotator cuff surgery (2012) History of tonsillectomy (1978) History of cholecystectomy (1975) Family History Family History Sister Breast cancer, Onset Age: 49 Father Prostate cancer Brother Leukemia Social History Social History Household Members: None Housing: Apartment Do you presently have visiting nurse or other home services: No Alcohol intake: current Alcohol intake frequency: holidays/special occasions only Patient Tobacco Use Status: Never used Tobacco Do you have a plan to hurt others: No Plan Physical Exam ED Vital Signs: Vital Signs - 24 hr 09/19/24 16:40 Temperature 98.5 F Pulse Rate 102 H Respiratory Rate 16 Blood Pressure 100/52 L Pulse Oximetry 97 Oxygen Delivery Method Room Air BMI result Body Mass Index 35.6 Course Course Course Narrative: RME, this is a rapid medical exam performed by Prabhjot Molina please refer to primary provider for complete H&P- 74-year-old female with a history of anemia, atrial fibrillation on Eliquis had routine labs in the office today and was found to have a hemoglobin of 6.6. She does complain of some dizziness but otherwise feels well. Dr. Coats was hoping for blood transfusion and discharged home if the patient tolerates it well. Discharge Plan Discharge Prescriptions: No Action omeprazole 20 mg capsule,delayed release(DR/EC) 20 mg PO DAILY@0630 atorvastatin 20 mg tablet 20 mg PO BEDTIME oxybutynin chloride 10 mg tablet extended release 24hr 10 mg PO DAILY gabapentin 800 mg tablet 800 mg PO BID tramadol 50 mg tablet 50 mg PO BID PRN (Reason: Pain) turmeric 400 mg capsule 400 mg PO DAILY aspirin [Ecotrin Low Strength] 81 mg tablet,delayed release (DR/EC) 81 mg PO DAILY Qty: 30 5RF vglgxohw-jpkzqlppl-ZH 3.5-10,000-1 mg/mL-unit/mL-% drops,suspension 4 drp otic (ears) Q8H 7 Days Qty: 10 0RF Print Language: Sierra Leonean
[2024-09-19 17:14] LABS: MANUAL DIFF FLAG NO
[2024-09-19 17:15] LABS: Imm Gran Abs Auto 0.03 X10*3/uL (0.00-0.03); Imm Gran Pct Auto 0.3 % (0.0-0.4); Lymphocytes Absolute Auto 1.7 X10*3/uL (1.2-4.9); Mean Corpuscular HGB Conc 33.0 g/dl (31.0-35.0); Mean Corpuscular Hemoglobin 22.1 pg (27.0-33.0); Mean Corpuscular Volume 66.9 fL (80.0-98.0); NRBC Abs Auto 0.000 X10*3/uL (0.0-0.012); NRBC Pct Auto 0.0 /100WBC (0.0-0.2); Platelet Count 217 X10*3/uL (160-400); Red Blood Count 2.81 X10*6/uL (4.20-5.50); White Blood Count 9.3 X10*3/uL (4.8-10.8)
[2024-09-19 17:17] LABS: Hemoglobin 6.2 g/dl (12.0-16.0)
[2024-09-19 17:18] LABS: Hematocrit 18.8 % (37.0-47.0)
[2024-09-19 17:20] LABS: INTERNATIONAL NORM RATIO 1.7 (0.9-1.1); Prothrombin Time 19.5 SEC (10.9-12.4)
[2024-09-19 17:29] LABS: Alanine Aminotransferase 10 U/L (0-31); Albumin Level 3.7 g/dL (3.5-5.0); Alkaline Phosphatase 61 U/L (39-117); Anion Gap 12 (12-20); Aspartate Amino Transferase 33 U/L (5-31); Blood Urea Nitrogen 23 mg/dL (9-16); Calcium 8.6 mg/dL (8.4-10.2); Carbon Dioxide 24 mmol/L (22-29); Chloride 108 mmol/L (96-108); Creatinine Clr Calc Pharmacy 71.7; Estimated Glomerular Filt Rate > 60; Lipase 47 U/L (8-78); Potassium 3.8 mmol/L (3.3-5.1); Sodium 140 mmol/L (135-145); Total Protein 6.2 g/dL (6.5-8.0)
--- NOTE | 2024-09-19 17:51 | ED.GENADULT ---
HPI - General Adult General Chief complaint: Recheck/Abnormal Lab/Rx Stated complaint: gomez sent to ER abd labs Time Seen by Provider: 09/19/24 17:49 Source: patient Mode of arrival: EMS Limitations: no limitations History of Present Illness ED Provider: HPI narrative: Patient is 74 years old with significant past medical history of severe aortic stenosis s/p TAVR done 09/06 chronic iron deficiency status post endoscopy and colonoscopy 2021 without any active focus of bleed, hypertension sent by parachute inspector for hemoglobin of 6.2 patient's did not any symptoms patient is on Eliquis patient never had any iron transfusion in the past but had blood transfusions taking Eliquis only since last month after TAVR surgery Related Data Home Medications ?Medication ?Instructions ?Recorded ?Confirmed gabapentin 800 mg tablet 800 mg PO BID 04/21/21 08/16/24 oxybutynin chloride 10 mg 10 mg PO DAILY 04/21/21 08/16/24 tablet,extended release 24 hr tramadol 50 mg tablet 50 mg PO BID PRN Pain 02/24/23 08/16/24 turmeric 400 mg capsule 400 mg PO DAILY 11/30/23 08/16/24 atorvastatin 20 mg tablet 20 mg PO BEDTIME 07/13/24 08/16/24 omeprazole 20 mg capsule,delayed 20 mg PO DAILY@0630 07/13/24 08/16/24 release Previous Rx's ?Medication ?Instructions ?Recorded aspirin 81 mg tablet,delayed 81 mg PO DAILY #30 tabs 06/06/24 release (Ecotrin Low Strength) hiqrhhvk-pdleiefre-gqmdpykwt 3.5 4 drp otic (ears) Q8H 7 days #10 mL 07/18/24 mg-10,000 unit/mL-1 % ear drops,susp Allergies Allergy/AdvReac Type Severity Reaction Status Date / Time vancomycin (VANCOMYCIN) Allergy Unknown HIVES Verified 09/19/24 16:41 Review of Systems Review of Systems: Yes all other systems are reviewed and are negative PMFSH Past Medical History Medical History Abnormal CT scan, gastrointestinal tract Left bundle branch block Aortic stenosis Arthritis Lower extremity edema Anemia Neuropathy Back pain Hyperlipidemia HTN (hypertension) Surgical History History of hernia repair (2015) History of rotator cuff surgery (2012) History of tonsillectomy (1978) History of cholecystectomy (1975) Family History Family History Sister Breast cancer, Onset Age: 49 Father Prostate cancer Brother Leukemia Social History Social History Household Members: None Housing: Apartment Do you presently have visiting nurse or other home services: No Alcohol intake: current Alcohol intake frequency: holidays/special occasions only Patient Tobacco Use Status: Never used Tobacco Smoked in Last 30 Days: No Use of substances other than those prescribed or required for medical reasons: No Advance Directives: No Advance Directives Information Provided: No Do you have a plan to hurt others: No Plan Physical Exam ED Vital Signs: Vital Signs - 24 hr 09/19/24 16:40 09/19/24 18:19 09/19/24 18:32 Temperature 98.5 F 97.6 F 98.2 F Pulse Rate 102 H 88 89 Respiratory Rate 16 14 17 Blood Pressure 100/52 L 99/48 L 95/47 L Pulse Oximetry 97 98 Oxygen Delivery Method Room Air Room Air 09/19/24 18:53 09/19/24 20:21 09/19/24 21:16 Temperature 97.6 F 98.1 F 97.8 F Pulse Rate 83 90 81 Respiratory Rate 16 18 16 Blood Pressure 102/50 L 101/40 L 105/47 L Pulse Oximetry 99 Oxygen Delivery Method Room Air 09/19/24 21:55 09/19/24 21:59 09/19/24 23:43 Temperature 97.8 F 97.8 F 98.1 F Pulse Rate 84 70 66 Respiratory Rate 16 14 18 Blood Pressure 102/43 L 102/47 L 108/55 L Pulse Oximetry 97 Oxygen Delivery Method Room Air 09/20/24 00:10 Temperature 97.6 F Pulse Rate 77 Respiratory Rate 18 Blood Pressure 111/46 L Pulse Oximetry Oxygen Delivery Method BMI result Body Mass Index 35.6 Appearance: Alert. Oriented X3. No acute distress. Eyes: Pallor+++ ENT: Pharynx normal. Oral Mucosa moist Neck: Normal inspection. Neck supple. CVS: Normal heart rate and rhythm. Pulses normal. Systolic ejection murmur at the base Respiratory: No respiratory distress. Equal air entry bilateral, no wheezing/rales/rhonchi Abdomen: Soft and nontender. Bowel sounds are present, no mass palpable, no CVA tenderness rectal: Brown stool on the finger Skin: Skin warm and dry. Normal skin color. Normal skin turgor. Extremities: ++ lower extremity edema. No calf tenderness Neuro: Oriented X 3. No motor deficit. No sensory deficit.No cerebellar signs , cranial nerves II-XII intact Medications Administered Discontinued Medications Generic Name Dose Route Start Last Admin Trade Name Isamar PRN Reason Stop Dose Admin Apixaban 2.5 mg 09/19/24 19:21 09/19/24 19:50 Apixaban 2.5 Mg Tablet PO 09/19/24 19:22 2.5 mg ONCE ONE Administration Atorvastatin Calcium 20 mg 09/19/24 19:22 09/19/24 19:50 Atorvastatin Calcium 20 Mg Tablet PO 09/19/24 19:23 20 mg ONCE ONE Administration Gabapentin 800 mg 09/19/24 19:22 09/19/24 19:49 Gabapentin 600 Mg Tablet PO 09/19/24 19:23 800 mg ONCE ONE Administration Medical Decision Making Medical Decision Making [facility] Narrative: Patient with chronic iron-deficiency anemia second-degree to chronic blood loss with previous workups negative for any acute source of bleeding patient is already on Eliquis status post TAVR and AFib. Patient has received 2 units of blood transfusion initial H&H was 6.2/18.8 after 2 units of blood transfusion H&H is 7.1/20.7 unlikely patient is bleeding heavy will repeat CBC , no evidence of the major blood loss stool brown although guaiac positive melena no melena no hematochezia no acute abdomen will admit patient for further evaluation Patient does not want to stay in the hospital patient has had iron profile done earlier showed significant iron-deficiency parachute inspector wanted to give iron infusion which will give in the ER now as patient has requested does not want to stay in the hospital will like to follow up as outpatient patient is asymptomatic saturating 97% at room air vitals stable will discharge patient home after iron infusion Differential Diagnosis Differential Diagnoses: The differential diagnosis associated with the presentation includes Admission/Observation Consideration of admission/observation: Escalation of care including admission/observation considered Consult Healthcare Provider Management of the patient was discussed with: Hospitalist Lab Data [facility] Lab Attestation statement: I reviewed the patient's lab results. 09/20/24 01:09 09/19/24 17:05 Labs: Lab Results 09/19/24 09/19/24 09/20/24 Range/Units 17:05 19:47 00:25 WBC 9.3 (4.8-10.8) X10*3/uL RBC 2.81 L (4.20-5.50) X10*6/uL Hgb 6.2 L* 7.1 L (12.0-16.0) g/dl Hct 18.8 L* 20.7 L* (37.0-47.0) % MCV 66.9 L (80.0-98.0) fL MCH 22.1 L (27.0-33.0) pg MCHC 33.0 (31.0-35.0) g/dl RDW 19.7 H (11.0-16.0) % Plt Count 217 (160-400) X10*3/uL MPV 9.3 L (9.4-12.3) fL Immature Gran % (Auto) 0.3 (0.0-0.4) % Neut % (Auto) 69.7 (45-73) % Lymph % (Auto) 18.8 L (20-40) % Coffey % (Auto) 8.1 (2-11) % Eos % (Auto) 2.7 (0-4) % Baso % (Auto) 0.4 (0-2) % Lymph # (Auto) 1.7 (1.2-4.9) X10*3/uL Coffey # (Auto) 0.8 (0.1-1.2) X10*3/uL Eos # (Auto) 0.3 (0.0-0.4) X10*3/uL Baso # (Auto) 0.0 (0.0-0.2) X10*3/uL Abs Immat Gran (auto) 0.03 (0.00-0.03) X10*3/uL Absolute Neuts (auto) 6.4 (2.0-8.3) x10*3/uL Absolute Nucleated RBC 0.000 (0.0-0.012) X10*3/uL Nucleated RBC % (auto) 0.0 (0.0-0.2) /100WBC PT 19.5 H (10.9-12.4) SEC INR 1.7 H (0.9-1.1) Sodium 140 (135-145) mmol/L Potassium 3.8 D (3.3-5.1) mmol/L Chloride 108 (96-108) mmol/L Carbon Dioxide 24 (22-29) mmol/L Anion Gap 12 (12-20) BUN 23 H (9-16) mg/dL Creatinine 0.76 (0.5-1.4) mg/dL Estim Creat Clear Calc 71.7 Estimated GFR > 60 Random Glucose 97 (60-115) mg/dL Calcium 8.6 (8.4-10.2) mg/dL Total Bilirubin 0.4 (0.0-1.0) mg/dL AST 33 H (5-31) U/L ALT 10 (0-31) U/L Alkaline Phosphatase 61 (39-117) U/L Total Protein 6.2 L (6.5-8.0) g/dL Albumin 3.7 (3.5-5.0) g/dL Lipase 47 (8-78) U/L Stool Occult Blood POSITIVE (NEGATIVE) Blood Type O Negative Antibody Screen NEGATIVE Crossmatch See Detail 09/20/24 Range/Units 01:09 WBC 7.2 (4.8-10.8) X10*3/uL RBC 2.92 L (4.20-5.50) X10*6/uL Hgb 7.1 L (12.0-16.0) g/dl Hct 20.5 L* (37.0-47.0) % MCV 70.2 L (80.0-98.0) fL MCH 24.3 L (27.0-33.0) pg MCHC 34.6 (31.0-35.0) g/dl RDW 21.6 H (11.0-16.0) % Plt Count 190 (160-400) X10*3/uL MPV 9.4 (9.4-12.3) fL Immature Gran % (Auto) 0.1 (0.0-0.4) % Neut % (Auto) 64.7 (45-73) % Lymph % (Auto) 19.7 L (20-40) % Coffey % (Auto) 10.2 (2-11) % Eos % (Auto) 4.7 H (0-4) % Baso % (Auto) 0.6 (0-2) % Lymph # (Auto) 1.4 (1.2-4.9) X10*3/uL Coffey # (Auto) 0.7 (0.1-1.2) X10*3/uL Eos # (Auto) 0.3 (0.0-0.4) X10*3/uL Baso # (Auto) 0.0 (0.0-0.2) X10*3/uL Abs Immat Gran (auto) 0.01 (0.00-0.03) X10*3/uL Absolute Neuts (auto) 4.6 (2.0-8.3) x10*3/uL Absolute Nucleated RBC 0.000 (0.0-0.012) X10*3/uL Nucleated RBC % (auto) 0.0 (0.0-0.2) /100WBC PT (10.9-12.4) SEC INR (0.9-1.1) Sodium (135-145) mmol/L Potassium (3.3-5.1) mmol/L Chloride (96-108) mmol/L Carbon Dioxide (22-29) mmol/L Anion Gap (12-20) BUN (9-16) mg/dL Creatinine (0.5-1.4) mg/dL Estim Creat Clear Calc Estimated GFR Random Glucose (60-115) mg/dL Calcium (8.4-10.2) mg/dL Total Bilirubin (0.0-1.0) mg/dL AST (5-31) U/L ALT (0-31) U/L Alkaline Phosphatase (39-117) U/L Total Protein (6.5-8.0) g/dL Albumin (3.5-5.0) g/dL Lipase (8-78) U/L Stool Occult Blood (NEGATIVE) Blood Type Antibody Screen Crossmatch Discharge Plan Discharge Clinical Impression: Iron deficiency anemia due to chronic blood loss Patient Disposition: Home, Self-Care Instructions: Iron Rich Diet (ED), Anemia (ED) Additional Instructions: Continue take your iron tablets and follow up with the parachute inspector and PCP Report to the ER if any shortness a breath/chest pain/blood in his stool or black stool Prescriptions: No Action omeprazole 20 mg capsule,delayed release(DR/EC) 20 mg PO DAILY@0630 atorvastatin 20 mg tablet 20 mg PO BEDTIME oxybutynin chloride 10 mg tablet extended release 24hr 10 mg PO DAILY gabapentin 800 mg tablet 800 mg PO BID tramadol 50 mg tablet 50 mg PO BID PRN (Reason: Pain) turmeric 400 mg capsule 400 mg PO DAILY aspirin [Ecotrin Low Strength] 81 mg tablet,delayed release (DR/EC) 81 mg PO DAILY Qty: 30 5RF mohhcdzv-uuceqifeb-XR 3.5-10,000-1 mg/mL-unit/mL-% drops,suspension 4 drp otic (ears) Q8H 7 Days Qty: 10 0RF Print Language: Indonesian
--- NOTE | 2024-09-19 17:52 | PC.NURSE ---
Pt comes to ED today after getting labs done with Dr. Coats office this morning - He called and advised her to come after finding a low H/H. Pt is A&Ox4, she is asymptomatic. Denies pain, sob, dizziness, blood in stool. Pt states she feels well except she notices she looks pale. No fever. BPs soft. 20G IV line established.
[2024-09-19 19:55] LABS: OBS Int Ctl Valid YES; OBS1 POSITIVE (NEGATIVE)
--- NOTE | 2024-09-19 22:07 | PC.NURSE ---
Attempted to complete transfusion documentation @ 2116, unsuccessful, had to re-enter in another column.
[2024-09-20 00:10] VITALS: BP 111/46; PULSE 77; RESP 18; TEMP 36.4
[2024-09-20 00:32] LABS: Hemoglobin 7.1 g/dl (12.0-16.0)
[2024-09-20 00:35] LABS: Hematocrit 20.7 % (37.0-47.0)
--- NOTE | 2024-09-20 00:36 | PC.NURSE ---
Took over care RN Kaylie, completed blood transfusion, pt awaiting disposition, no sign of distress.
[2024-09-20 01:13] LABS: MANUAL DIFF FLAG NO
[2024-09-20 01:22] LABS: Hemoglobin 7.1 g/dl (12.0-16.0); Imm Gran Abs Auto 0.01 X10*3/uL (0.00-0.03); Imm Gran Pct Auto 0.1 % (0.0-0.4); Lymphocytes Absolute Auto 1.4 X10*3/uL (1.2-4.9); Mean Corpuscular HGB Conc 34.6 g/dl (31.0-35.0); Mean Corpuscular Hemoglobin 24.3 pg (27.0-33.0); Mean Corpuscular Volume 70.2 fL (80.0-98.0); NRBC Abs Auto 0.000 X10*3/uL (0.0-0.012); NRBC Pct Auto 0.0 /100WBC (0.0-0.2); Platelet Count 190 X10*3/uL (160-400); Red Blood Count 2.92 X10*6/uL (4.20-5.50); White Blood Count 7.2 X10*3/uL (4.8-10.8)
[2024-09-20 01:33] LABS: Hematocrit 20.5 % (37.0-47.0)
--- NOTE | 2024-09-20 02:56 | PC.NURSE ---
Denzel Gonsalez with Nurse special education supervisor Larissa, pt awaiting deposition.
[2024-09-20 04:28] VITALS: BP 124/63; PULSE 78; RESP 18; O2SAT 98
--- NOTE | 2024-09-20 04:46 | PC.NURSE ---
Iv removed, reviewed discharge instructions with pt. pt verbalized understanding, no sign of distress.
[2024-09-20 04:47] VITALS: BP 124/63; PULSE 78; RESP 18; TEMP 37; O2SAT 98
== END 2024-09-20 04:48 | disposition home or self-care (01) ==
PROVIDERS: Physician Assistant; Emergency Provider Internal Medicine
DX: D50.0 Iron deficiency anemia secondary to blood loss (chronic) (principal); I10 Essential (primary) hypertension; E78.5 Hyperlipidemia, unspecified; Z95.2 Presence of prosthetic heart valve; Z79.01 Long term (current) use of anticoagulants; Z79.899 Other long term (current) drug therapy; Z79.02 Long term (current) use of antithrombotics/antiplatelets; Z79.82 Long term (current) use of aspirin
CPT/HCPCS: 36415; 36430; 80053; 82272; 83690; 85014; 85018; 85025; 85610; 86850; 86900; 86901; 86923; 93005; 96365; 99285; J1756; P9016

== ENCOUNTER → 2024-09-19 16:33 | Outpatient (BNV) | payer MEDICARE, SELFPAY | PROVIDERS: Emergency Provider Internal Medicine; Visit Provider Internal Medicine Cardiovascular Disease | DX: I44.7 Left bundle-branch block, unspecified (principal) | CPT/HCPCS: 93010 ==

== ENCOUNTER → 2024-10-03 15:41 | Outpatient (BNV) | payer MEDICARE, SELFPAY | PROVIDERS: Visit Provider Internal Medicine | DX: D50.9 Iron deficiency anemia, unspecified (principal) | CPT/HCPCS: 99204; G2211 ==

== ENCOUNTER → 2024-10-09 10:15 | Outpatient (REF) | payer MEDICARE, SELFPAY ==
--- OUTSIDE RECORDS SUMMARY | 2024-05-22 06:30 | XMS_ITS ---
Author Organization [facility] Address [address] [facility] [address] [place] [address] Care Team Providers Care Spun Paste Machine Operator Name Role Phone Petra Goetz Primary Care Provider Maximiliano De León [phone] REASON FOR VISIT Patient presents today for anemia Encounters Encounter Location Date Provider Diagnosis [facility] [address] [facility] [address] [place] [address] 05/22/2024 Maximiliano Coats Plan Of Treatment Next Appt Details Provider Name:Maximiliano Coats , 03/28/2025 09:00:00 AM, [address] [facility], [address], [place], [address], Progress Notes * ANGEL GEORGEDOB: [birth year] (74 yo F)Acc No.[id number]:05/22/2024 Progress Notes Patient: ANGEL MARTINEZ Provider: Monserrat Coats MD :1950 A ge:73 Y S ex:Female Date:05/22/2024 Address:[address] [place], [place] [id number] Pcp:VIRAL Sandoval Subjective: * Chief Complaints: * [...] 05/22/2024 Generated for Melonie gomez/Ysabel/Linseyitting on: 0 10/09/2024 11:20 AM EDT
--- NOTE | 2024-10-09 10:19 | CA_ITS ---
Transthoracic Echocardiogram Patient (Last, First, Middle): Negra Cameron, Gender: Female Date of : 1950 Age: 74 Procedure Date: 10/09/2024 Procedure Type: Transthoracic Echocardiogram Location: OP Height: 162. cm Weight: 90.72 kg BSA: 1.95 m2 Heart Rate: 95 bpm BP: 115 / 70 mmHg Medical Biller Coder: YUNIOR Lei MD: Curtis Burr MD Director Child Development [facility]: Curtis Burr MD Symptoms: Z95.2 - Presence of prosthetic heart valve Study Quality: Technically Difficult, but Adequate ECG Rhythm: Sinus Conclusions: - Normal left ventricular size and systolic function. There is moderately increased left ventricular wall thickness. The visually estimated ejection fraction is between 60-65%. - There is severe septal asymmetric hypertrophy. Post Valsalva left ventricular outflow tract velocity 591 cm/sec with peak gradient 140 mm Hg. - The left atrium is severely dilated. - Hyperdynamic state with elevated gradient across aortic and mitral valve. There is dynamic LVOT obstruction present too. Findings Left Ventricle Normal left ventricular size and systolic function. There is moderately increased left ventricular wall thickness. The visually estimated ejection fraction is between 60-65%. There is no evidence of regional wall motion abnormalities. There is paradoxical septal motion consistent with a left bundle branch block. There is dynamic left ventricular outflow tract obstruction. There is systolic anterior motion of the mitral valve. Diastolic function is indeterminate on the basis of available data. There is severe septal asymmetric hypertrophy. Post Valsalva left ventricular outflow tract velocity 591 cm/sec with peak gradient 140 mm Hg. Right Ventricle Normal right ventricular cavity size and systolic function. Atria The left atrium is severely dilated. The right atrium is normal in size. Aortic Valve A bioprosthetic aortic valve is present. The peak aortic velocity is 3.09 m/s. The mean gradient is 23 mmHg. There is no aortic valve regurgitation. Hyperdynamic state with elevated gradient across aortic and mitral valve. There is dynamic LVOT obstruction present too. Mitral Valve There is severe mitral annular calcification. There is trace mitral valve regurgitation. There is systolic anterior motion of the mitral valve. High output state with MG across mitral valve 11 mm Hg. Pulmonic Valve The pulmonic valve was not well visualized. Tricuspid Valve Normal tricuspid valve structure. There is trace tricuspid valve regurgitation. Tricuspid regurgitation envelope is inadequate for calculation of right ventricular systolic pressure. Normal right atrial pressure. Great Vessels Ascending aorta is at upper limit of normal for age 3.7 cm Venous The inferior vena cava is normal in size and collapses greater than 50% with inspiration. Pericardium/Pleural There is no evidence of pericardial effusion. Prior Study Comparison Changes noted compared to prior study dated: 05/21/2024. s/p TAVR and anemic. High output state with elevated mitral and aortic gradient. There is dynamic LVOT obstruction present. Measurements 2D Linear Measurements IVSd: 1.53 0.6-0.9/0.6-1.0 cm LVIDd: 3.20 3.9-5.3/4.2-5.9 cm LVIDd Index: 1.64 2.4-3.2/2.2-3.1 cm/m2 LVIDs: 2.23 2.0-3.6 cm LVPWd: 1.30 0.7-1.1 cm LA Diam: 4.80 2.7-3.8/3.0-4.0 cm LAIDs Index: 2.46 1.5-2.3 cm/m2 LV Mass: 193.95 67-162/88-224 g LV Mass Index: 99.46 43-95/49-115 g/m2 LVOT Diam: 1.90 3.0+(-)1.3 cm 2D Systolic Function EF 4C: 61.30 >55% EF 2C: 58.00 >55% EF BiP: 60.10 >55% Mitral Valve MV VTI: 0.41 MV Pk Hans: 2.37 MV Mn Hans: 1.47 MV Pk Grad: 22.00 MV Mn Grad: 11.00 MV Pk E: 2.23 MV Decel Time: 175.00 E'Lateral: 17.50 E'Medial: 10.40 E/E' Med: 21.40 E/E' Lat: 12.70 PHT: 51.00 MVA PHT: 4.31 MVA Continuity: 3.02 Decel [place]: 12.73 Aortic Valve AoV Pk Hans: 3.09 AoV Mn Hans: 2.29 AoV VTI: 0.69 AoV Pk Grad: 38.00 Aov Mn Grad: 23.00 DEREK Cont.VTI: 1.81 LVOT LVOT Pk Hans: 2.19 LVOT Mn Hans: 1.62 LVOT VTI: 0.44 LVOT Pk Grad: 19.00 LVOT Diam: 1.90 LVOT Area: 2.84 Diastolic Function MV Pk E: 2.23 E'Medial: 10.40 E/E' Med: 21.40 E' Laterial: 17.50 E/E' Lat: 12.70 Right Ventricle TAPSE (mm): 23.90 TVS' Hans: 11.60 Tricuspid Valve TR Pk Hans: 1.97 TR Pk Grad: 16.00 Great Vessels Aorta Sinus of Valsalva: 3.00 2.0-3.5 cm Ao Asc: 3.70 2.1-3.4 cm Pulmonary Valve PV Pk Hans: 1.64 Peak PV Grad: 11.00 Updated in Other Vendor System with Status of Final Curtis Burr MD electronically signed on 10/11/2024 10:53:57 AM with status of Final
--- OUTSIDE RECORDS SUMMARY | 2024-10-09 11:20 | XMS_ITS | Data Portability ---
Author Organization [facility], [address] Address [address] [place] [address] Care Team Providers Care Broaching Machine Set Up Operator Name Role Phone ORLANDO HCAVEZ Primary Care Provider Assessment No assessment recorded. Plan of Treatment Reminders Order Date Submit Date Provider Last Modified By Organization Details Last Modified Time Details Appointments None recorded. Lab SARS CoV 2 (COVID-19) Ag, QL, IA, upper respiratory specimen 2023 [email or web address] [id number][facility], [address] [place] [address], [address], 10:54:53 Referral general surgeon referral 2023 024 [email or web address] Not available 13:16:25 Procedures None recorded. Surgeries None recorded. Imaging None recorded. Medication Orders Bactrim DS 800 mg-160 mg tablet 2023 024 [id number], [address] [place], [place], [id number], 11:25:44 Patient TargetsNo targets recorded. Patient Instructions Encounter Date Encounter Id Patient Instructions Last Modified By Organization Details Last Modified Time 07/02/2023 [id number] opened cut after surgery: care instructions mani Not available 07/02/2023 11:25:34 wound care* AMALIA Not available 06/19 12:04:06 application of wound dressing* AMALIA Not available 07/02/2023 12:03:43 Please follow up with your surgeon in 2-3 days mani Not available 07/02/2023 11:31:10 11/21/2023 [id number] coronavirus (covid-19): care instructions [email or web address] Not available [...] ve Not Available [address] [place], [address], 11/21/2023 10:54:25 11/21/19 24 11/21/2023 SARS CoV 2 (COVI D-19) Ag, QL, IA, upper respi rator y speci men Unknown Analyte yes Not Available _ [address] [facility] [address] [place], [address], 11/21/2023 10:54:25 Result Notes None recorded. Problems Name Problem SNOMED Code Status Onset Date Resolution Date Notes Provider Name and Address Organization Details Recorded Time Hypertensive disorder 49814617 Active 2023 KAILA JO null, PA - [facility] 4 10:47:58 Nerve injury 03560907 Active 2023 low back KAILA PARISICA null, PA - [facility] 4 10:48:55 Neuropathy 620142862 Active 2023 KAILA PARISICA null, PA - [facility] 4 10:49:05 Heart murmur 68386094 Active 2023 KAILA PARISICA null, PA - [facility] 4 10:51:29 Bundle branch block 7621805 Active 2023 left KAILA PARISICA null, PA - [facility] 4 10:51:59 Dehiscence of surgical wound 69941889 Active 2023 MATTY ATKINS NP [address] [place], [place], [address] [place] - [facility] 11:25:10 Problem [...] Name and Address Organization Details Recorded Time 612812 vancomyci n medicatio n hives Not available Not available 07/02/2023 56386 RxNorm KAILA JO [facility], [place] - [facility] 10:44:47 [...] blood by Pulse oximetry Heart rate Systolic And Diastolic Provider Name and Address Organization Details Last Updated DateTime 4 163.83 cm 34.8 kg/m2 90807.0 3 g 16 /min 97.1 [degF] 99 % 99 % 66 /min 120/72 mm[Hg] KAILA JO PA - [facility] 4 10:54:54 Date Recorded Body height Body mass index (BMI) Body weight Oxygen saturation Oxygen saturation in Arterial blood by Pulse oximetry Heart rate Respiratory rate Body temperature Systolic And Diastolic Provider Name and Address Organization Details Last Updated DateTime 4 163.83 cm 33.8 kg/m2 31472.4 7 g 98 % 98 % 75 /min 18 /min 97.1 [degF] 113/71 mm[Hg] Marlene Gonzales PA - [facility] 4 10:41:20 Social History Question Answer Notes LastModified by [employer] Details LastModified Time Tobacco Smoking Status Never Smoker KAILA bang PA - [facility] 07/02/2023 10:49:41 Have You Recently Traveled Abroad? No [email or web address] Information not available 07/02/2023 Sex: Unknown Functional Status Question Answer Note LastModified by [employer] Details LastModified Time Do you use any illicit or recreational drugs? No [email or web address] Information not available 07/02/2023 Do you or have you ever used any other forms of tobacco or nicotine? No [email or web address] Information not available 07/02/2023 What is your level of alcohol consumption? Occasional [email or web address] Information not available 07/02/2023 Mental Status None recorded. Family History Nothing Reported. Medical History No medical history recorded. Gynecological History Statement/Question Response Date of LMP Obstetrics History GPAL:G 0 P 0 0 0 0 Past Encounters Encounter ID Performer Location Encounter Start Date Encounter Closed Date Diagnosis/Indication Diagnosis SNOMED-CT Code Diagnosis ICD10 Code Diagnosis Note [id number] [address] [place] [address] 10/05/2015 08:13:12 10/05/2015 08:50:57 [id number] [address] [place] [address] 10/08/2015 09:45:44 10/08/2015 10:59:06 [id number] [address] [place] [address] 11/13/2016 09:08:27 11/13/2016 09:35:19 [id number] [address] [place] [address] 10/11/2015 09:45:49 10/11/2015 12:27:21 [id number] [address] [place] [address] 07/23/2019 13:57:32 07/23/2019 14:39:40 [id number] [address] [place] [address] 08/13/2017 09:39:52 08/13/2017 11:20:34 [id number] [address] [place] [address] 10/14/2015 12:36:29 10/14/2015 14:00:50 [id number] [address] [place] [address] 10/12/2015 12:00:42 10/12/2015 14:30:32 [id number] [address] [place] [address] 10/16/2015 10:58:27 10/16/2015 12:10:43 [id number] [address] [place] [address] 05/17/2015 09:25:41 05/17/2015 10:07:05 [id number] [address] [place] [address] 08/19/2018 09:19:54 08/19/2018 11:25:06 [id number] [place] [address] [place] [address] 07/02/2023 10:16:54 07/02/2023 12:34:13 Dehiscence of surgical wound 24791984 T81.30XA [id number] [facility] Boyer [address] [place] [address] 11/21/2023 10:36:01 11/21/2023 10:56:24 COVID-19 [id number] U07.1 If you test positive for COVID-19, stay home for at least 5 days and isolate from others in your home. You are likely most infectious during these first 5 days. Wear a high-quali ty mask if you must be around others at home and in public.Do not go places where you are unable to wear a mask. For travel guidance, see [facility] s Travel webpage.Do not travel.Sta y home [...] MEDIC[place] B-[place]: N[place] GOVERNMENT SERVICES Negra Cameron [id number] Negra Cameron 11/24/2023 2 [facility] (PPO) [id number] Negra Cameron [id number] Negra Cameron 01/31/2024 1 [facility] (MEDICARE REPLACEMENT/A DVANTAGE - PPO) [id number] Negra Cameron [id number] Negra Cameron 01/31/2024 2 [facility] (PPO) 504 Negra Cameron [id number] Negra Cameron Notes Date Note Type Note [...] MATTY ATKINS NP [address] [place], [address], [facility] 07/02/2023 11:31:38 11/21/2023 text/html 73 y/o female he re 5 days after testing positive for COVID. Her PCP started her on Paxlovid, she has a terrible taste in her mouth and has a hard time eating. Her cough is continuing, not taking anyhing OTC for symptoms [facility] [address], [place], [address], [facility] 11/21/2023 10:58:16 OBGyn Episode No OBEpisode recorded.
--- OUTSIDE RECORDS SUMMARY | 2024-10-09 11:20 | XMS_ITS | Encounter Summary ---
Author Organization [facility] Address [address] [place] [address] [place] [address] Phone Care Team Providers Care Respiratory Therapy Director Name Role Phone Axel Whitehead MD Primary Care Provider [phone]- [phone] Encounter Details Date Type Department Care Team (Late st Contact Info) Description 08/29/2023 Transcribe Orders [facility] [place] [address] [place] [address] Axel Whitehead MD [address] [place] [address] Social History Tobacco Use Types Packs/Day Years Used Date Smoking Tobacco: Never Assessed Education Answer Date Recorded Are you interested in more education? Not on airam e 08/30/2023 Are you concerned about learning? Not on file 08/30/2023 No 08/30/2023 No 08/30/2023 Digital Access Answer Date Recorded No 08/30/2023 No 08/30/2023 Reliable internet access at home? Not on file 08/30/2023 Device with a working camera? Not on file Comments Unknown Sex and Gender Information Value Date Recorded Sex Assigned at Not on file Legal Sex Female 1:03 PM EDT Gender Identity Not on file Sexual Orientation Not on file documented as of this encounter Plan of Treatment Not on file documented as of this encounter Visit Diagnoses Not on filedocumented in this encounter Care Teams Respiratory Therapy Director Relationship Specialty Start Date End Date Axel Whitehead MD [address] [place] [address] PCP - General Internal Medicine 08/19/23 documented as of this encounter Additional Source Comments The information contained in this document represents components of the legal health record. It is not the complete legal health record.[facility]
[2024-10-09 12:32] LABS: Hematocrit 29.0 % (37.0-47.0); Hemoglobin 9.4 g/dl (12.0-16.0); Mean Corpuscular HGB Conc 32.4 g/dl (31.0-35.0); Mean Corpuscular Hemoglobin 23.7 pg (27.0-33.0); Mean Corpuscular Volume 73.0 fL (80.0-98.0); NRBC Abs Auto 0.000 X10*3/uL (0.0-0.012); NRBC Pct Auto 0.0 /100WBC (0.0-0.2); Platelet Count 183 X10*3/uL (160-400); Red Blood Count 3.97 X10*6/uL (4.20-5.50); White Blood Count 10.1 X10*3/uL (4.8-10.8)
== END ==
LOC: HO.CARD 10:15
PROVIDERS: Internal Medicine; PCP Internal Medicine; Visit Provider Internal Medicine Cardiovascular Disease
DX: D64.9 Anemia, unspecified (principal); Z95.2 Presence of prosthetic heart valve
CPT/HCPCS: 36415; 85027; 93306

== ENCOUNTER → 2024-10-09 10:19 | Outpatient (BNV) | payer MEDICARE, SELFPAY | PROVIDERS: PCP Internal Medicine; Visit Provider Internal Medicine Cardiovascular Disease | DX: I42.2 Other hypertrophic cardiomyopathy (principal); R93.1 Abnormal findings on diagnostic imaging of heart and coronary circulation; I51.89 Other ill-defined heart diseases | CPT/HCPCS: 93306 ==

== ENCOUNTER 2024-10-11 13:52 | Outpatient (AMB) | payer MEDICARE, SELFPAY ==
--- OUTSIDE RECORDS SUMMARY | 2024-05-22 06:30 | XMS_ITS ---
Author Organization [facility] Address [address] [facility] [address] [place] [address] Care Team Providers Care Release And Technical Records Clerk Name Role Phone Petra Goetz Primary Care Provider Maximiliano De Lenó [phone] REASON FOR VISIT Patient presents today for anemia Encounters Encounter Location Date Provider Diagnosis [facility] [address] [facility] [address] [place] [address] 05/22/2024 Maximiliano Coats Plan Of Treatment Next Appt Details Provider Name:Maximiliano Coats , 03/28/2025 09:00:00 AM, [address] [facility], [address], [place], [address], Progress Notes * ANGEL GEORGEDOB: [birth year] (74 yo F)Acc No.[id number]:05/22/2024 Progress Notes Patient: ANGEL MARTINEZ Provider: Monserrat Coats MD :1950 A ge:73 Y S ex:Female Date:05/22/2024 Address:[address] [place], [place] [id number] Pcp:VIRAL Sandoval Subjective: * Chief Complaints: * [...] MD Date: 0 05/22/2024 Generated for Melonie gomez/Ysabel/Linseyitting on: 0 10/11/2024 01:55 PM EDT
--- NOTE | 2024-10-11 13:55 | MHC.OFFVIS ---
Vital Signs 10/11/24 13:56 Height 5 ft 3 in Weight 192 lb 10.944 oz BMI 34.1 BP 114/62 Blood Pressure Location Lt brachial Position Sitting Pulse 95 Pulse Source Monitor Intake Visit Reasons: Follow up- TAVR- [facility] Still Operator Gin Required: No Allergies vancomycin (VANCOMYCIN) Allergy (Unknown, Verified 10/11/24 14:00) HIVES Medication List - Last Reconciled 10/11/24 by Olga Bernal, SENIOR PROCUREMENT SPECIALIST-C atorvastatin 20 mg PO BEDTIME cyanocobalamin-cobamamide 5,000-100 mcg (B12) 1,000 silver DAILY gabapentin 800 mg PO BID meclizine 25 mg PO TID PRN naproxen 500 mg PO BID omeprazole 20 mg PO DAILY@0630 oxybutynin chloride ER 10 mg PO DAILY tramadol 50 mg PO BID PRN turmeric 400 mg PO DAILY HPI HPI Follow up- TAVR- [facility]: Details: Negra leblanc is a 74-year-old female with past medical history of hypertension, hyperlipidemia, left bundle branch block, syncope related to orthostatic hypotension, severe aortic stenosis, recent cardiac catheterization which showed moderate LAD stenosis who recently underwent a TAVR. She had been placed on Eliquis and then had anemia. Echocardiogram showed high flow state with increased gradients across the aortic and mitral valves. Eliquis was stopped. She now presents for follow-up. Today she reports that she has had no signs of bleeding. She was taken off the Eliquis and had repeat labs done showing improvement in her CBC numbers. She has no lightheadedness, presyncope, syncope or falls. She denies any chest discomfort at rest or during activity. She went for a walk yesterday and said she had some mild shortness of breath walking up her [facility] [place] [address]. Since early a.m. 722 she has been having discomfort in the left upper quadrant initially with nausea and vomiting. She is no longer vomiting but tells me she has no appetite. She has been staying hydrated. No bowel movement in the last 2 days. Currently on no antihypertensives. [facility], [facility] Medical History (Updated 10/11/24 @ 16:31 by Olga Bernal, SENIOR PROCUREMENT SPECIALIST-C) History of transcatheter aortic valve replacement (TAVR) Abnormal CT scan, gastrointestinal tract Left bundle branch block Aortic stenosis Arthritis Lower extremity edema Anemia Neuropathy Back pain Hyperlipidemia HTN (hypertension) Surgical History (Updated 10/11/24 @ 17:27 by Olga Bernal NP-C) History of hernia repair (2015) History of rotator cuff surgery (2012) History of tonsillectomy (1978) History of cholecystectomy (1975) Family History Sister Breast cancer, Onset Age: 49 Father Prostate cancer Brother Leukemia Social History Household Members: None Housing: Apartment Do you presently have visiting nurse or other home services: No Alcohol intake: current Alcohol intake frequency: holidays/special occasions only Review of Systems Const All systems reviewed & are unremarkable except as noted in HPI and below ENT Denies dizziness Card Denies chest pain, Denies chest pain at rest, Denies chest pain with activity, Denies rapid heart rate, Denies pedal edema, Denies edema, Denies leg edema, Denies lightheadedness, Denies palpitations, Denies dyspnea, Reports dyspnea on exertion (yesterday walking [place]) and Denies orthopnea Resp Denies cough, Denies dyspnea and Reports dyspnea on exertion (yesterday walking [place]) GI Details: no appetite Reports abdominal pain (left upper quad), Denies hematochezia, Denies change in stool character and Reports vomiting (2 days ago) Musc Denies abnormal gait, Reports limited range of motion, Reports muscle cramps, Denies muscle weakness, Denies numbness, Denies radiating pain into limb, Denies stiffness and Denies tingling Neuro Denies abnormal gait, Denies dizziness, Denies numbness and Denies tingling Endo Denies palpitations Physical Exam Vital Signs: Last Vital Signs Pulse 95 10/11/24 13:56 BP 114/62 10/11/24 13:56 BMI result Body Mass Index 34.1 Const General: cooperative, healthy appearing and no acute distress Orientation/consciousness: patient oriented x3 Neck Neck: Yes normal visual inspection Resp Effort & Inspection: normal respiratory effort Auscultation: clear to auscultation bilaterally, no rales, no rhonchi and no wheezes Cardio Rate: regular rate Rhythm: regular rhythm Heart sounds: S2 normal heart sound present and no rubs GI Other: no bloating, tenderness left upper quad to palpation. Neuro General: patient oriented x3 Extrem General: Yes normal to inspection Psych Appearance: grossly normal Mental Status: mental status grossly normal Speech and movement: Normal speech and movement present Office Procedures EKG Details: Today, read by me sinus rhythm with left axis deviation, left bundle branch block, rate 75 [id number], Complete Assessment & Plan Assessment & Plan (1) Aortic stenosis: Code(s): I35.0 - Nonrheumatic aortic (valve) stenosis Category: Medical Plan: History of severe aortic stenosis, TAVR procedure done 09/06/2024. Postprocedure her Plavix was changed to Eliquis., she then developed anemia with hemoglobin as low as 6.2. And she was transfused with 2 units of pack cells. She was also given iron pills and taken off Eliquis. Repeat CBC done 3 weeks later on 10/09/2024 showed hemoglobin 9.4. No signs of bleeding at this time though she does have left upper quadrant abdominal discomfort. Her echocardiogram was done on 10/09/2024 showing EF 60-65%, severe septal asymmetric hypertrophy, left atrium severely dilated, hyperdynamic state with elevated gradient across the aortic and mitral valve, dynamic LV O2 obstruction present. Currently no cardiac symptoms. Instructed to increase her p.o. fluid intake. Instructed to discuss her left upper quadrant discomfort with Dr. Coats, will forward this note to him. Will check CBC again in 1 week to evaluate for stability. Will plan repeat echo prior to next visit to reassess in the setting of improved blood counts. Cardiology follow-up with Dr. Burr in 1 month. (2) S/P TAVR (transcatheter aortic valve replacement): Comment: 09/06/[address] Burr Code(s): Z95.2 - Presence of prosthetic heart valve Category: Surgical Plan: As above (3) S/P cardiac cath: Comment: 08/02/2024 left main normal lad proximal 50% stenosis, left circumflex and RCA minimal luminal irregularities Code(s): Z98.890 - Other specified postprocedural states Category: Surgical Plan: As above (4) Coronary atherosclerosis: Code(s): I25.10 - Atherosclerotic heart disease of [place] coronary artery without angina pectoris Category: Medical Plan: New diagnosis of coronary artery disease based on cardiac cath findings. No anginal symptoms. She is not on aspirin due to recent significant anemia. Continue atorvastatin. Signs and symptoms of angina reviewed with her. (5) Pre-syncope: Code(s): R55 - Syncope and collapse Category: Medical Plan: Prior [facility] admission for presyncope. Determined to be related to low blood pressure/high with orthostatic hypotension. (6) Hospital discharge follow-up: Code(s): Z09 - Encounter for follow-up examination after completed treatment for conditions other than malignant neoplasm Category: Medical Plan: TAVR Discharge summary reviewed (7) HTN (hypertension): Code(s): I10 - Essential (primary) hypertension Category: Medical Plan: Blood pressure goal less than 130/80. Blood pressure today 114/62. Instructed to increase fluid intake. Not on antihypertensive. (8) Left bundle branch block: Code(s): I44.7 - Left bundle-branch block, unspecified Category: Medical Plan: Chronic on EKGs. (9) Abnormal echocardiogram: Code(s): R93.1 - Abnormal findings on diagnostic imaging of heart and coronary circulation Category: Medical Plan: As above (10) Abdominal discomfort: Code(s): R10.9 - Unspecified abdominal pain Category: Medical Plan: Reports of left upper quadrant abdominal discomfort for the last 2 days initially with nausea and vomiting. Currently no appetite but staying hydrated. Recent issues with significant anemia, requiring transfusion. Stool is guaiac positive. Was seen by Dr. Coats in consultation on 09/19/2024. Now with new symptoms. Will forward this note to him for review. (11) Anemia: Code(s): D64.9 - Anemia, unspecified Category: Medical Plan: As above Plan Time spent on chart review, documentation, interview and assessment Orders: Orders Complete Blood Count Auto Diff 1 Week I25.10 - Atherosclerotic heart disease of [place] coronary artery without angina pectoris Coding Level of Care Code Est Pt Level 4 (00487) Complex EM visit Add On G2211 Diagnoses Aortic stenosis I35.0 S/P TAVR (transcatheter aortic valve replacement) Z95.2 S/P cardiac cath Z98.890 Coronary atherosclerosis I25.10 Pre-syncope R55 Hospital discharge follow-up Z09 HTN (hypertension) I10 Left bundle branch block I44.7 Abnormal echocardiogram R93.1 Abdominal discomfort R10.9 Anemia D64.9 CPT Codes EKG - CPT: 39553-[id number], Complete ([id number]) Time Spent (min) 32
--- OUTSIDE RECORDS SUMMARY | 2024-10-11 13:55 | XMS_ITS | Encounter Summary ---
Author Organization [facility] Address [address] [place] [address] [place] [address] Phone Care Team Providers Care Government Affairs Specialist Name Role Phone Axel Whitehead MD Primary Care Provider [phone]- [phone] Encounter Details Date Type Department Care Team (Late st Contact Info) Description 08/29/2023 Transcribe Orders [facility] [place] [address] Axel Whitehead MD [address] [place] [address] Social History Tobacco Use Types Packs/Day Years [...] on filedocumented in this encounter Care Teams Government Affairs Specialist Relationship Specialty Start Date End Date Axel Whitehead MD [address] [place] [address] PCP - General Internal Medicine 08/19/23 documented as of this encounter Additional Source Comments The information contained in this document represents components of the legal health record. It is not the complete legal health record.[facility]
--- OUTSIDE RECORDS SUMMARY | 2024-10-11 13:55 | XMS_ITS | Data Portability ---
Author Organization [facility], [address] Address [address] [place] [address] Care Team Providers Care Streetcar Operator Name Role Phone ORLANDO CHAVEZ Primary Care Provider Assessment No assessment recorded. Plan of Treatment Reminders Order Date Submit Date Provider Last Modified By Organization Details Last Modified Time Details Appointments None recorded. Lab SARS CoV 2 (COVID-19) Ag, QL, IA, upper respiratory specimen 2023 [email or web address] [id number]_[facility], [address] [place] [address], [address], 10:54:53 Referral general surgeon referral 2023 024 [email or web address] Not available 13:16:25 Procedures None recorded. Surgeries None recorded. Imaging None recorded. Medication Orders Bactrim DS 800 mg-160 mg tablet 2023 024 [facility]89, [address] [place], [place], [phone], 11:25:44 Patient TargetsNo targets recorded. Patient Instructions Encounter Date Encounter Id Patient Instructions Last Modified By Organization Details Last Modified Time 07/02/2023 [id number] opened cut after surgery: care instructions mani Not available 07/02/2023 11:25:34 wound care* AMALIA Not available 06/19 12:04:06 application of wound dressing* AMALIA Not available 07/02/2023 12:03:43 Please follow up with your surgeon in 2-3 days mani Not available 07/02/2023 11:31:10 11/21/2023 [id number] coronavirus (covid-19): care instructions [email or web address] Not available [...] ve Not Available [address] [place], [address], 11/21/2023 10:54:25 11/21/19 24 11/21/2023 SARS CoV 2 (COVI D-19) Ag, QL, IA, upper respi rator y speci men Unknown Analyte yes Not Available _ [address] [place], [address], 11/21/2023 10:54:25 Result Notes None recorded. Problems Name Problem SNOMED Code Status Onset Date Resolution Date Notes Provider Name and Address Organization Details Recorded Time Hypertensive disorder 35543068 Active 2023 KAILA JO null, PA - [facility] 4 10:47:58 Nerve injury 07471864 Active 2023 low back KAILA PARISICA null, PA - [facility] 4 10:48:55 Neuropathy 112149384 Active 2023 KAILA PARISICA null, PA - [facility] 4 10:49:05 Heart murmur 17868394 Active 2023 KAILA PARISICA null, PA - [facility] 4 10:51:29 Bundle branch block 0695437 Active 2023 left KAILA PARISICA null, PA - [facility] 4 10:51:59 Dehiscence of surgical wound 97774457 Active 2023 MATTY ATKINS NP [address], [place], [address] , [place] - [facility] 11:25:10 Problem [...] Name and Address Organization Details Recorded Time 396510 vancomyci n medicatio n hives Not available Not available 07/02/2023 26713 RxNorm KAILA JO [facility], [place] - [facility] 10:44:47 Medications Name [...] Updated DateTime 4 163.83 cm 34.8 kg/m2 41603.0 3 g 4 16 /min 97.1 [degF] 99 % 99 % 66 /min 120/72 mm[Hg] KAILA JO PA - [facility] 4 10:54:54 Date Recorded Body height Body mass index (BMI) Body weight Pain severity - 0-10 verbal numeric rating [Score] - Reported Oxygen saturation Oxygen saturation in Arterial blood by Pulse oximetry Heart rate Respiratory rate Body temperature Systolic And Diastolic Provider Name and Address Organization Details Last Updated DateTime 4 163.83 cm 33.8 kg/m2 69629.4 7 g 0 98 % 98 % 75 /min 18 /min 97.1 [degF] 113/71 mm[Hg] Marlene Gonzales PA - [facility] 4 10:41:20 Social History Question Answer Notes LastModified by [employer] Details LastModified Time Tobacco Smoking Status Never Smoker KAILA bang PA - [facility] 07/02/2023 10:49:41 Have You Recently Traveled Abroad? No [email or web address] Information not available 07/02/2023 Sex: Unknown Functional Status Question Answer Note LastModified by [employer] Details LastModified Time Do you use any illicit or recreational drugs? No Information not available 07/02/2023 Do you or have you ever used any other forms of tobacco or nicotine? No [email or web address] Information not available 07/02/2023 What is your level of alcohol consumption? Occasional [email or web address] Information not available 07/02/2023 Mental Status None recorded. Family History Nothing Reported. Medical History No medical history recorded. Gynecological History Statement/Question Response Date of LMP Obstetrics History GPAL:G 0 P 0 0 0 0 Past Encounters Encounter ID Performer Location Encounter Start Date Encounter Closed Date Diagnosis/Indication Diagnosis SNOMED-CT Code Diagnosis ICD10 Code Diagnosis Note [id number] [address] [place] [address] 10/05/2015 08:13:12 10/05/2015 08:50:57 [id number] [address] [place] [address] 10/08/2015 09:45:44 10/08/2015 10:59:06 [id number] [address] [place] [address] 11/13/2016 09:08:27 11/13/2016 09:35:19 [id number] [address] [place] [address] 10/11/2015 09:45:49 10/11/2015 12:27:21 [id number] [address] [place] [address] 07/23/2019 13:57:32 07/23/2019 14:39:40 [id number] [address] [place] [address] 08/13/2017 09:39:52 08/13/2017 11:20:34 [id number] [address] [place] [address] 10/14/2015 12:36:29 10/14/2015 14:00:50 [id number] [address] [facility] [place] [address] 10/12/2015 12:00:42 10/12/2015 14:30:32 [id number] [address] [facility] [place] [address] 10/16/2015 10:58:27 10/16/2015 12:10:43 [id number] [facility] [address] [place] [address] 05/17/2015 09:25:41 05/17/2015 10:07:05 [id number] [address] [place] [address] 08/19/2018 09:19:54 08/19/2018 11:25:06 [id number] [place] [address] [place] [address] 07/02/2023 10:16:54 07/02/2023 12:34:13 Dehiscence of surgical wound 87145499 T81.30XA [id number] GRISEL Byoer [address] [place] [address] 11/21/2023 10:36:01 11/21/2023 10:56:24 COVID-19 856936579 U07.1 If you test positive for COVID-19, stay home for at least 5 days and isolate from others in your home. You are likely most infectious during these first 5 days. Wear a high-quali ty mask if you must be around others at home and in public.Do not go places where you are unable to wear a mask. For travel guidance, see CDC s Travel webpage.Do not travel.Sta y home [...] MEDICARE B-[place]: N[place] GOVERNMENT SERVICES Negra Cameron [id number] Negra Cameron 11/24/2023 2 [facility] (PPO) [id number] Negra Cameron [id number] Negra Cameron 01/31/2024 1 [facility] (MEDICARE REPLACEMENT/A DVANTAGE - PPO) [id number] Negra Cameron [id number] Negra Cameron 01/31/2024 2 [facility] (PPO) 504 Negra Cameron [id number] Negra Cameron Notes Date Note Type Note Provider Name and Address Organization Details Recorded Time 07/02/2023 text/html Generic HPI TemplateReported by PatientHPIFor source of patient information, (left lower quadrant abdominal woundpt had hernias surgery with mesh in june 01 2023, laparascopic and now reports that one of the lap sites arnold been draining, painful and redness,reports fever at home a few days ago.no fever today). MATTY ATKINS NP [address] [place], [address], [place] - [facility] 07/02/2023 11:31:38 11/21/2023 text/html 73 y/o female here 5 days after testing positive for COVID. Her PCP started her on Paxlovid, she has a terrible taste in her mouth and has a hard time eating. Her cough is continuing, not taking anyhing OTC for symptoms GRISEL Boyer [address] [place], [address], [place] - [facility] 11/21/2023 10:58:16 OBGyn Episode No OBEpisode recorded.
[2024-10-11 13:56] VITALS: BP 114/62; PULSE 95; BMI 34.1
== END 2024-10-11 15:16 | disposition home or self-care (01) ==
LOC: HO.HCS 13:52
PROVIDERS: PCP Internal Medicine; Visit Provider Nurse Practitioner Family
DX: I35.0 Nonrheumatic aortic (valve) stenosis (principal); Z95.2 Presence of prosthetic heart valve; Z98.890 Other specified postprocedural states; I25.10 Atherosclerotic heart disease of native coronary artery without angina pectoris; R55 Syncope and collapse; Z09 Encounter for follow-up examination after completed treatment for conditions other than malignant neoplasm; I10 Essential (primary) hypertension; I44.7 Left bundle-branch block, unspecified; R93.1 Abnormal findings on diagnostic imaging of heart and coronary circulation; R10.9 Unspecified abdominal pain; D64.9 Anemia, unspecified
CPT/HCPCS: 93010; 99214; G2211

== ENCOUNTER → 2024-10-11 13:52 | Outpatient (BNVA) | payer MEDICARE, SELFPAY | PROVIDERS: PCP Internal Medicine; Visit Provider Nurse Practitioner Family | DX: Z09 Encounter for follow-up examination after completed treatment for conditions other than malignant neoplasm (principal); I35.0 Nonrheumatic aortic (valve) stenosis; I25.10 Atherosclerotic heart disease of native coronary artery without angina pectoris; I10 Essential (primary) hypertension; I44.7 Left bundle-branch block, unspecified; R93.1 Abnormal findings on diagnostic imaging of heart and coronary circulation; R10.9 Unspecified abdominal pain; R55 Syncope and collapse; D64.9 Anemia, unspecified; Z95.2 Presence of prosthetic heart valve; R94.31 Abnormal electrocardiogram [ECG] [EKG]; Z98.890 Other specified postprocedural states | CPT/HCPCS: 93005; 99212 ==

== ENCOUNTER 2024-10-25 13:31 | Outpatient (REF) | payer MEDICARE, SELFPAY ==
--- OUTSIDE RECORDS SUMMARY | 2024-05-22 06:30 | XMS_ITS ---
Author Organization [facility] Address [address] [facility] [address] [place] [address] Care Team Providers Care Crane Operator Cab Name Role Phone Petra Goetz Primary Care Provider Maximiliano De León [phone] REASON FOR VISIT Patient presents today for anemia Encounters Encounter Location Date Provider Diagnosis [facility] [address] [facility] [address] [place] [address] 05/22/2024 Maximiliano Coats Plan Of Treatment Next Appt Details Provider Name:Maximiliano Coats , 03/28/2025 09:00:00 AM, [address] [facility], [address], [place], [address], Progress Notes * ARIEL ANGELDOB: [birth year] (74 yo F)Acc No.[id number]:05/22/2024 Progress Notes Patient: ANGEL MARTINEZ Provider: Monserrat Coats MD :1950 A ge:73 Y S ex:Female Date:05/22/2024 Address:[address] [place], [place] [phone] Pcp:VIRAL Sandoval Subjective: * Chief Complaints: * [...] 05/22/2024 Generated for Melonie gomez/Ysabel/Linseyitting on: 0 10/25/2024 01:33 PM EDT
--- NOTE | ~2024-10-25 | MM_ITS ---
EXAMINATION: DXA BONE DENSITY AXIAL HISTORY: POST-MENOPAUSAL, R/O OSTEOPOROSIS TECHNIQUE: [place]mint Dual energy absorptiometry (DEXA) of the lumbar spine, total left hip, and femoral neck was performed. COMPARISON: Comparison is made with the prior examination dated 04/30/2016. FINDINGS: The bone mineral density of the lumbar spine is 1.374 g/cm2, corresponding to a T-score of 1.6, and a Z-score of 2.6. This is indicative of normal bone mineral density. This represents a BMD change of -14.2% compared to the prior exam. This is statistically significant. The bone mineral density of the left total hip is 0.632 g/cm2, corresponding to a T-score of -3.0, and a Z-score of -1.9. This is indicative of osteoporosis. This represents a BMD change of -18.8% compared to the prior exam. This is statistically significant. The bone mineral density of the left femoral neck is 0.716 g/cm2, corresponding to a T-score of -2.3, and a Z-score of -1.0. This is indicative of osteopenia. This represents a BMD change of 1.0% compared to the prior exam. MM/XR DEXA axial skeleton IMPRESSION: Based on bone mineral density, and according to World Health Organization (WHO) criteria, the diagnosis is consistent with osteoporosis. Statistically, 68% of repeat scans fall within 1 SD (+/- 0.010 g/cm2 for AP spine L1-L4) and 1 SD (+/- 0.012 g/cm2 for femur total) FRAX is a trademark of the [employer]'s [place] for Metabolic Bone Disease, a World Health Organization (WHO) Collaborating Center. Electronically signed by: Maximiliano Anand MD 10/25/2024 02:33 PM EDT
--- NOTE | ~2024-10-25 | MM_ITS ---
EXAMINATION: MM SCREENING DIGITAL BREAST TOMOSYNTHESIS, BILATERAL CLINICAL INFORMATION: Screening. Asymptomatic. COMPARISON: Comparison made to multiple prior, most recent June 12, 2023, and most remote April 30, 2016. TECHNIQUE: Digital breast tomosynthesis is performed in both the craniocaudal and mediolateral oblique views along with computer-aided detection (CAD). Best possible images according to the technologist notes. FINDINGS: BREAST COMPOSITION: The breasts are heterogeneously dense, which may obscure small masses (ACR BI-RADS breast composition Category c). BILATERAL BREASTS: No significant masses, suspicious calcifications or other abnormalities are seen in either breast. MM/MM tomosynthesis screening BI IMPRESSION: BILATERAL BREASTS: Negative, no mammographic evidence of malignancy. Normal interval follow-up is recommended in 12 months. ASSESSMENT: BI-RADS 1 - Negative RECOMMENDATION: Routine annual mammography screening. FOLLOW-UP: 1 year F/U This examination should not preclude the clinical evaluation of a suspicious palpable abnormality. This patient's information was entered into a reminder system with a target due date for their next mammogram. Electronically signed by: Nery John MD 11/05/2024 08:10 AM EDT
--- OUTSIDE RECORDS SUMMARY | 2024-10-25 13:33 | XMS_ITS | Encounter Summary ---
Author Organization [facility] Address [address] [place] [address] [place] [id number] Phone Care Team Providers Care Financial Administrator Name Role Phone Axel Whitehead MD Primary Care Provider [phone] Encounter Details Date Type Department Care Team (Late st Contact Info) Description 08/29/2023 Transcribe Orders [facility] [place] [address] [place] [id number] Axel Whitehead MD [address] [place] [address] Social History Tobacco Use Types Packs/Day Years [...] on filedocumented in this encounter Care Teams Financial Administrator Relationship Specialty Start Date End Date Axel Whitehead MD [address] [place] [address] PCP - General Internal Medicine 08/19/23 documented as of this encounter Additional Source Comments The information contained in this document represents components of the legal health record. It is not the complete legal health record.[facility]
== END 2024-10-25 13:32 | disposition home or self-care (01) ==
LOC: HO.MAMMO 13:31
PROVIDERS: Visit Provider Internal Medicine
DX: Z12.31 Encounter for screening mammogram for malignant neoplasm of breast (principal); Z13.820 Encounter for screening for osteoporosis; Z78.0 Asymptomatic menopausal state
CPT/HCPCS: 77063; 77067; 77080

== ENCOUNTER → 2024-10-25 14:00 | Outpatient (BNV) | payer MEDICARE, SELFPAY | PROVIDERS: Visit Provider Radiology Diagnostic Radiology | DX: E28.39 Other primary ovarian failure (principal) | CPT/HCPCS: 77080 ==

== ENCOUNTER → 2024-11-13 09:50 | Outpatient (REF) | payer MEDICARE, SELFPAY ==
--- OUTSIDE RECORDS SUMMARY | 2024-01-19 07:00 | XMS_ITS ---
Author Organization [facility] Address [address] [facility] [address] [place] [address] Care Team Providers Care Flow Floor Attendant Name Role Phone Petra Goetz Primary Care Provider Maximiliano De León [phone] REASON FOR VISIT Patient presents today for anemia Encounters Encounter Location Date Provider Diagnosis [facility] [address] [facility] [address] [place] [address] 01/19/2024 Maximiliano Coats Plan Of Treatment Next Appt Details Provider Name:Maximiliano Coats , 03/28/2025 09:00:00 AM, [address] [facility], [address], [place], [address], Progress Notes * ARIEL ANGELDOB: [birth year] (74 yo F)Acc No.[id number]:01/19/2024 Progress Notes Patient: ANGEL MARTINEZ Provider: Monserrat Coats MD :1950 A ge:73 Y S ex:Female Date:01/19/2024 Address:[address] [place], [place] [id number] Pcp:VIRAL Sandoval Subjective: * Chief Complaints: * [...] 1 Generated for Melonie gomez/Ysabel/Linseyitting on: 0 11/13/2024 10:35 AM EDT
--- OUTSIDE RECORDS SUMMARY | 2024-05-22 06:30 | XMS_ITS ---
Author Organization [facility] Address 10 [facility] [address] [place] [address] Care Team Providers Care Supervisor Maintenance Name Role Phone Petra Goetz Primary Care Provider Maximiliano De León [phone] REASON FOR VISIT Patient presents today for anemia Encounters Encounter Location Date Provider Diagnosis [facility] [address] [facility] [address] [place] [address] 05/22/2024 Maximiliano Coats Plan Of Treatment Next Appt Details Provider Name:Maximiliano Coats , 03/28/2025 09:00:00 AM, [address] [facility], [address], [place], [address], Progress Notes * ANGEL GEORGEDOB: [birth year] (74 yo F)Acc No.[id number]:05/22/2024 Progress Notes Patient: ANGEL MARTINEZ Provider: Monserrat Coats MD :1950 A ge:73 Y S ex:Female Date:05/22/2024 Address:[address] [place], [place] [id number] Pcp:VIRAL Sandoval Subjective: * Chief Complaints: * [...] MD Date: 0 05/22/2024 Generated for Melonie gomez/Ysabel/Linesyitting on: 0 11/13/2024 10:35 AM EDT
--- NOTE | 2024-11-13 09:54 | CA_ITS ---
Transthoracic Echocardiogram Patient (Last, First, Middle): Negra Cameron, Gender: Female Date of : 1950 Age: 74 Procedure Date: 11/13/2024 Procedure Type: Transthoracic Echocardiogram Location: OP Height: 160.02 cm Weight: 87.09 kg BSA: 1.90 m2 Heart Rate: 65 bpm BP: 114 / 64 mmHg 3D Animator: SB Referring MD: Olga Bernal STRIPPER PRELIMINARYSergio Symptoms: R93.1 - Abnormal findings on diagnostic imaging of heart and coronary ci... Study Quality: Adequate ECG Rhythm: Sinus Conclusions: - The left ventricular systolic function is normal. The calculated ejection fraction is 56% by biplane method. - There is moderate septal asymmetric hypertrophy. - A bioprosthetic aortic valve is present. The prosthetic aortic valve appears to be functioning normally. - There is moderate posterior mitral annular calcification. Findings Left Ventricle Normal left ventricular cavity size. The left ventricular systolic function is normal. The calculated ejection fraction is 56% by biplane method. There is no evidence of regional wall motion abnormalities. Evidence suggests grade I (mild) diastolic dysfunction. There is moderate septal asymmetric hypertrophy. Low-level LVOT gradients, but no clear evidence of any obstruction. Right Ventricle Mildly increased right ventricular cavity size. There is normal right ventricular systolic function. Atria The left atrium is severely dilated. The right atrium is normal in size. Aortic Valve A bioprosthetic aortic valve is present. The prosthetic aortic valve appears to be functioning normally. There is no aortic valve regurgitation. Mitral Valve There is moderate posterior mitral annular calcification. There is mild mitral valve regurgitation. There is no mitral valve stenosis. Pulmonic Valve The pulmonic valve is likely normal. Tricuspid Valve There is mild tricuspid valve regurgitation. There is no evidence of pulmonary hypertension. Great Vessels The asc aorta is normal in size. Venous The inferior vena cava is normal in size and collapses less than 50% with inspiration. Pericardium/Pleural There is no evidence of pericardial effusion. Prior Study Comparison Changes noted compared to prior study dated: 10/09/2024. Decrease in LVOT gradients. Measurements 2D Linear Measurements IVSd: 1.50 0.6-0.9/0.6-1.0 cm LVIDd: 4.76 3.9-5.3/4.2-5.9 cm LVIDd Index: 2.51 2.4-3.2/2.2-3.1 cm/m2 LVIDs: 3.50 2.0-3.6 cm LVPWd: 0.70 0.7-1.1 cm LA Diam: 4.80 2.7-3.8/3.0-4.0 cm LAIDs Index: 2.53 1.5-2.3 cm/m2 LV Mass: 238.93 67-162/88-224 g LV Mass Index: 125.75 43-95/49-115 g/m2 LVOT Diam: 2.00 3.0+(-)1.3 cm 2D Systolic Function EF 4C: 51.60 >55% EF 2C: 60.10 >55% EF BiP: 55.50 >55% Mitral Valve MV VTI: 0.45 MV Pk Hans: 1.70 MV Mn Hans: 1.15 MV Pk Grad: 12.00 MV Mn Grad: 6.00 MV Pk E: 1.10 MV PK A: 1.52 MV Decel Time: 352.00 E/A: 0.70 E'Lateral: 3.81 E'Medial: 5.87 E/E' Med: 18.70 E/E' Lat: 28.90 PHT: 103.00 MVA PHT: 2.14 MVA Continuity: 3.08 Decel [place]: 3.12 MR VTI: 2.26 Aortic Valve AoV Pk Hans: 2.49 AoV Mn Hans: 1.76 AoV VTI: 0.59 AoV Pk Grad: 25.00 Aov Mn Grad: 14.00 DEREK Cont.VTI: 2.34 LVOT LVOT Pk Hans: 1.91 LVOT Mn Hans: 1.25 LVOT VTI: 0.44 LVOT Pk Grad: 15.00 LVOT Mn Grad: 8.00 LVOT Diam: 2.00 LVOT Area: 3.14 Diastolic Function MV Pk E: 1.10 MV Pk A: 1.52 E/A: 0.70 E'Medial: 5.87 E/E' Med: 18.70 E' Laterial: 3.81 E/E' Lat: 28.90 Right Ventricle TAPSE (mm): 25.80 TVS' Hans: 12.50 Tricuspid Valve TR Pk Hans: 2.59 TR Pk Grad: 27.00 RA Press: 3.00 RVSP: 30.00 Great Vessels Aorta Ao Asc: 3.60 2.1-3.4 cm Pulmonary Veins Pulm Vein S/D 1.50 Pulmonary Valve PV Pk Hans: 1.17 Peak PV Grad: 5.00 Updated in Other Vendor System with Status of Final Shine Malik MD electronically signed on 11/14/2024 11:16:05 AM with status of Final
--- OUTSIDE RECORDS SUMMARY | 2024-11-13 10:36 | XMS_ITS | Patient Health Record ---
Author Organization [facility] Address [address] [place] [address] Care Team Providers Care Poultry Packer Name Role Phone Petra Goetz Primary Care Provider Maximiliano De León [phone] Allergies Allergen (clinical drug ingredient) Drug/Non Drug Allergy documented on EMR Reaction Allergy Type Onset Date Status vancomycin Vancomycin hives Drug Allergy Activ e Results Component Value Reference Range Notes Ferritin Reviewed date:09/19/2024 05:59:00 PM Interpretation: Performing Lab:[facility], [address] [place] [phone] Notes/Report: Ferritin 16 10-250 ng/mL Complete Blood Count Auto Di ff (Not yet reviewed by provider) Interpretation: Performing Lab:[facility], [address] [place] [phone] Notes/Report: White Blood Count 9.7 4.8-10.8 X10*3/uL Red Blood Count 2.98 4.20-5.50 X10*6/uL Hemoglobin 6.6 12.0-16.0 g/dl Results of HGB called to and read back by MARCELO Blackman on 09/19/24 at 1506 by GE. Hematocrit 19.9 37.0-47.0 % Results of HCT called to and read back by MARCELO Blackman on 09/19/24 at 1506 by GE. Mean Corpuscular Volume 66.8 80.0-98.0 fL Mean Corpuscular Hemoglobin 22.1 27.0-33.0 pg Mean Corpuscular HGB Conc 33.2 31.0-35.0 g/dl Red Cell Distribution Width 19.5 11.0-16.0 % Platelet Count 227 160-400 X10*3/uL Mean Platelet Volume 9.4 9.4-12.3 fL Neutrophils Percent Auto 69.3 45-73 % Imm Gran Pct Auto 0.3 0.0-0.4 % Lymphocytes Percent Auto 18.6 20-40 % Monocytes Percent Auto 7.8 2-11 % Eosinophils Percent Auto 3.4 0-4 % Basophils Percent Auto 0.6 0-2 % NRBC Pct Auto 0.0 0.0-0.2 /100WBC Neutrophils Absolute Auto 6.7 2.0-8.3 x10*3/u L Imm Gran Abs Auto 0.03 0.00-0.03 X10*3/uL Lymphocytes Absolute Auto 1.8 1.2-4.9 X10*3/u L Monocytes Absolute Auto 0.8 0.1-1.2 X10*3/uL Eosinophils Absolute Auto 0.3 0.0-0.4 X10*3/u L Basophils Absolute Auto 0.1 0.0-0.2 X10*3/uL NRBC Abs Auto 0.000 0.0-0.012 X10*3/uL Pathologist Review - CBC Reviewed date:09/20/2024 07:25:45 PM Interpretation: Performing Lab:[address] [phone] Notes/Report: Pathologist Review - CBC SEE NOTE Variably hypochromic microcytic anemia; targets are present. Please correlate with iron studies. - Marty Ogden M.D. Pathology IRON PROFILE Reviewed date:09/19/2024 05:58:29 PM Interpretation: Performing Lab:[facility], [address] [place] [phone] Notes/Report: Iron 19 30-160 mcg/dL Total Iron Binding Capacity 288 228-428 mcg/d L Percent Iron Saturation 7 15-50 % Unsaturated Iron Binding 269 Vitamin B12 Reviewed date:09/19/2024 05:58:20 PM Interpretation: Performing Lab:[facility], [address] [place] [phone] Notes/Report: Vitamin B12 > 2000 200-900 pg/mL NORMAL 200-900 PG/ML INDETERMINATE 160-199 PG/ML DEFICIENT < 160 PG/ML Folate Reviewed date:09/19/2024 05:58:12 PM Interpretation: Performing Lab:[facility], [address] [place] [address], [place] [address] Notes/Report: Folate 12.3 > or = 4.0 ng/mL Reference Values: > or = 4.0 ng/mL < 4.0 ng/mL suggests folate deficiency Methotrexate, aminopterin and folinic acid (leucovorin) are chemotherapeutic agents whose molecular structures are similar to folate; therefore, the Clinical Director folate assay cannot be used for patients using these drugs. Reason For Referral No Information Medications Medication SIG (Take, Route, Frequency, Duration) Notes Start Date End Date Status Gabapentin 800 MG 1 tablet Orally Once a day for 30 day(s) Active Eliquis 2.5 MG TAKE 1 TABLET BY MOUTH TWO TIMES A DAY Oral for 30 Days Active hydrALAZINE HCl 25 MG 1 tablet with food Orally Twice a day Active oxyBUTYnin Chloride ER 10 MG 1 tablet Orally Once a day for 30 day(s) Active Atorvastatin Calcium 10 MG 1 tablet Orally Once a day for 30 day(s) Active Vitamin D-3 25 MCG (1000 UT) 1 capsule Orally Once a day for 30 day(s) 09/19/2024 Active Vitamin B 12 250 MCG 2 lozenges Orally Once a day for 30 day(s) 09/19/2024 Active Iron 325 (65 Fe) MG 1 tablet Orally Once a day for 30 day(s) not everydat Active Multivitamin Adult A ctive Cami Not-Taking Turmeric Active Omeprazole 20 MG 1 capsule 30 minutes before morning meal Orally Once a day for 30 day(s) Active Sudafed Not-Taking Align Active traMADol HCl 50 MG Oral for 7 Active Immunizations Vaccine Route Administration Date Status Comme nts Influenza Unknown 04/16/2020 Administered Influenza Unknown 12/19/2021 Administered Influenza Unknown 01/11/2024 Administered Social History Tobacco Use: Social History [...] Problem Status W/U Status Risk Notes Problem 13246529 Weight loss (R63.4) Active confirmed Problem 838472818 Gastritis, unspecified, without bleeding (K29.70) Active confirmed Problem 081219636 Early satiety (R68.81) Active confirmed Problem Iron deficiency anemia (40467890) Iron deficiency anemia (D50.9) Active confirmed Problem 243579328 Abdominal pain, left upper quadrant (R10.12) Active confirmed Problem Gastritis (2070105) Gastritis (K29.70) Active confirmed Problem 800454502 Irregular bowel habits (R19.8) Active confirmed Problem 10406226 Iron deficiency anemia, unspecified iron deficiency anemia type (D50.9) Active confirmed Problem 488793058 Abnormal CT scan , stomach (R93.3) Active confirmed Problem Chronic constipation (534799841) Chronic constipation (K59.09) Active confirmed Problem Diverticulosis of colon (819665033) Diverticulosis of colon (K57.30) Active confirmed Problem 459800396 Left upper quadrant abdominal pain (R10.12) Active confirmed Vital Signs Temperature 97.5 degrees Fahrenheit 09/19/2024 Blood pressure diastolic 01 mm Hg 09/19/2024 Height 64 in 09/19/2024 Blood pressure systolic 001 mm Hg 09/19/2024 Weight 200 lbs 09/19/2024 BMI 34.33 kg/m2 09/19/2024 Encounters Encounter Location Date Provider Diagnosis [facility] [address] [place] [phone] 09/19/2024 Maximiliano Coats Iron deficiency anemia, unspecified iron deficiency anemia type D50.9 [facility] [address] [place] [phone] 09/20/2024 Maximiliano Coats [facility] [address] [place] [phone] 01/19/2024 Maximiliano Coats [facility] [address] [place] [address] 05/21/2024 Maximiliano Coats Assessments Encounter Date Diagnosis (ICD Code) Assessment Notes Treatment Notes Treatment Clinical Notes Section Notes 09/19/2024 Iron deficiency anemia, unspecified iron deficiency anemia type (ICD-10 - D50.9) Try taking the Iron as much as possible and use the Miralax and/or Metamucil with that to help with constipation If your Iron is low we will schedule you to see the Pecan Grower to arrange for some IV Iron infusions Overall, Negra appears fairly well and stable considering her recent aortic valve replacement and previous hospitalizatio n. We did review that her anemia in June may have contributed to her presyncope that she experienced, although certainly her critical aortic stenosis may have been playing a role in that as well. I advised her that at this point it would be important that we be sure her anemia is stable and improving, especially on the Eliquis. I am going to repeat a CBC today along with iron studies, B12 and folate levels. Since she is having a hard time with oral iron I advised her that if the iron has remained low I would then plan to refer her for iron infusions at the [facility]. I did advise her to continue her daily omeprazole. I did advise her to try using the iron is much as possible but also take it with MiraLAX and Metamucil to help with any constipation. I did advise her to avoid all aspirin and NSAIDs while on Eliquis. I do not think she needs any further GI workup in regard to the anemia, as long as things are stable, given her studies back in 2021. If things are stable I will plan to see her in 6 months but we will continue to be sure her hemoglobin is improving. Negra was comfortable with this plan. Thank you again for allowing me to participate in Negra's care. I shall continue to keep you advised of her progress. Plan Of Treatment Pending Test Test Name Order Date IRON + IBC (FE) 05/25/2021 IRON + IBC (FE) 08/04/2021 IRON + IBC (FE) 09/19/2024 IRON + IBC (FE) 01/11/2023 IRON + IBC (FE) 02/20/2023 VITAMIN B12 AND FOLATE 05/25/2021 CBC w DIFF 01/11/2023 CBC w DIFF 02/20/2023 CBC w DIFF 08/04/2021 CBC w DIFF 05/25/2021 CBC w DIFF 09/19/2024 CELIAC PANEL #10 05/25/2021 XR GI SMALL BOWEL SERIES 05/25/2021 Complete Blood Count Auto Diff Ferritin 05/25/2021 Ferritin 01/11/2023 Ferritin 02/20/2023 Ferritin 08/04/2021 Vitamin B12 and Folate 09/19/2024 Intrinsic Factor Antibodies 05/25/2021 Parietal Cell Antibody 05/25/2021 Future Test Test Name Order Date UPPER GI ENDOSCOPY 04/28/2021 Next Appt Details Provider Name:Maximiliano Coats , 03/28/2025 09:00:00 AM, [address] [place] [address], [address], [place], [address], Insurance Providers Payer Name Payer Address Payer Phone Subscriber Number Group Number Insured Name Patient Relationship to Insured Coverage Start Date Coverage End Date [facility] Medicare Advantage Plan [address] [address] [place] [address] [id number] NEGRA GEORGE Self - patient is the insured Medical (General) History Medical History History ICD Code Iron deficiency anemia- nega tive colonoscopy in April of 2021, 2 [...] Upper endoscopy in October of 2022 [address] [facility] with Dr. aCrter revealed some gastric intestinal metaplasia but biopsies were negative for dysplasia and H. pylori. There was no ulcer disease or any other significant pathology. Having a stress test and echocardiogram with Dr. William at the end of 04/2023 Negative small bowel capsule study in January of 2023, although the capsule apparently did not reach the distal small bowel according to the report Aortic stenosis with aortic valve replac ement 09/06/2024- TAVR Surgical History Surgery Date(Month/Year) TAVR for aortic stenosis 09/06/2024 Tonsillectomy 1978 Gallbladder 1976 Rotator cuff surgery 2008 Intestinal surgery at [facility] for some type of internal hernia and SBO- resection of approx 20cm of necrotic small bowel 2015 Hospitalization History Reason Date(Month/Year) aortic valve replacement 09/06/2024
== END ==
LOC: HO.CARD 09:50
PROVIDERS: Visit Provider Nurse Practitioner Family
DX: R93.1 Abnormal findings on diagnostic imaging of heart and coronary circulation (principal)
CPT/HCPCS: 93306

== ENCOUNTER → 2024-11-13 09:54 | Outpatient (BNV) | payer MEDICARE, SELFPAY | PROVIDERS: Visit Provider Internal Medicine | DX: I42.2 Other hypertrophic cardiomyopathy (principal); I34.81 Nonrheumatic mitral (valve) annulus calcification | CPT/HCPCS: 93306 ==

== ENCOUNTER 2024-11-14 10:26 | Outpatient (REF) | payer MEDICARE, SELFPAY ==
--- OUTSIDE RECORDS SUMMARY | 2024-01-19 07:00 | XMS_ITS ---
Author Organization [facility] Address [address] [facility] [address] [place] [address] Care Team Providers Care Solar Sales Specialist Name Role Phone Petra Goetz Primary Care Provider Maximiliano De León [phone] REASON FOR VISIT Patient presents today for anemia Encounters Encounter Location Date Provider Diagnosis [facility] [address] [facility] [address] [place] [address] 01/19/2024 Maximiliano Coats Plan Of Treatment Next Appt Details Provider Name:Maximiliano Coats , 03/28/2025 09:00:00 AM, [address] [facility], [address], [place], [address], Progress Notes * ARIEL ANGELDOB: [birth year] (74 yo F)Acc No.[id number]:01/19/2024 Progress Notes Patient: ANGEL MARTINEZ Provider: Monserrat Coats MD :1950 A ge:73 Y S ex:Female Date:01/19/2024 Address:[address] [place], [place] [id number] Pcp:VIRAL Sandoval Subjective: * Chief Complaints: * [...] 1 Generated for Melonie gomez/Ysabel/Linseyitting on: 0 11/14/2024 11:18 AM EDT
--- OUTSIDE RECORDS SUMMARY | 2024-05-22 06:30 | XMS_ITS ---
Author Organization [facility] Address [address] [facility] [address] [place] [address] Care Team Providers Care Pre School Teacher Name Role Phone Petra Goetz Primary Care Provider Maximiliano De León [phone] REASON FOR VISIT Patient presents today for anemia Encounters Encounter Location Date Provider Diagnosis [facility] [address] [facility] [address] [place] [address] 05/22/2024 Maximiliano Coats Plan Of Treatment Next Appt Details Provider Name:Maximiliano Coats , 03/28/2025 09:00:00 AM, [address] [facility], [address], [place], [address], Progress Notes * ANGEL GEORGEDOB: [birth year] (74 yo F)Acc No.[id number]:05/22/2024 Progress Notes Patient: ANGEL MARTINEZ Provider: Monserrat Coats MD :1950 A ge:73 Y S ex:Female Date:05/22/2024 Address:[address] [place], [place] [phone] Pcp:VIRAL Sandoval Subjective: * Chief Complaints: * [...] 05/22/2024 Generated for Melonie gomez/Ysabel/Linseyitting on: 0 11/14/2024 11:18 AM EDT
--- OUTSIDE RECORDS SUMMARY | 2024-11-14 11:18 | XMS_ITS | Encounter Summary ---
Author Organization [facility] Address [address] [place] [address] [place] [phone] Phone Care Team Providers Care Deburrer Name Role Phone Axel Whitehead MD Primary Care Provider [phone]- [phone] Encounter Details Date Type Department Care Team (Late st Contact Info) Description 08/29/2023 Transcribe Orders [facility] [place] [address] Axel Whitehead MD [address] [place] [address] Social History Tobacco Use Types Packs/Day Years [...] on filedocumented in this encounter Care Teams Deburrer Relationship Specialty Start Date End Date Axel Whitehead MD [address] [place] [address] PCP - General Internal Medicine 08/19/23 documented as of this encounter Additional Source Comments The information contained in this document represents components of the legal health record. It is not the complete legal health record.[facility]
--- OUTSIDE RECORDS SUMMARY | 2024-11-14 11:18 | XMS_ITS | Clinical Summary ---
Author Organization [facility] Address [address] [facility] [address] [place] [address] Phone Care Team Providers Care Formation Testing Operator Name Role Phone Axel White[place] MD Primary Care Provider [phone]- [phone] Social History Tobacco Use Types Packs/Day Years [...] on file Sexual Orientation Not on file Plan of Treatment Health Maintenance Due Date Last Done Comments Adult Td,Tdap Booster 1952 LIPID PANEL 1952 DEPRESSION SCREENING 1964 SMOKING Hx and SMOKELESS TOB ACCO SCREENING 1965 HEPATITIS C SCREENING 1970 MAMMOGRAM 1992 COLOGUARD 1997 COLONOSCOPY 1997 COLORECTAL CANCER SCREENING 1997 FIT TEST 1997 FOBT 1997 SIGMOIDOSCOPY 1997 VIRTUAL COLONOSCOPY 1997 PNEUMOCOCCAL VACCINES (50+ y ears) (1 of 1 - PCV) 2002 ZOSTER VACCINES (1 of 2) 2002 OSTEOPOROSIS SCREENING INITI AL (ONE-TIME) 2017 COVID-19 VACCINE (2023-2 5 season) 2023 RSV VACCINE (1 - 1-dose 75+ series) 07/05/2027 HEPATITIS A VACCINES Aged Out No long er eligible based on patient's age to complete this topic HIB VACCINES Aged Out No longer eligi ble based on patient's age to complete this topic MENINGOCOCCAL VACCINES (ACWY) Aged Out No longer eligible based on patient's age to complete this topic MENINGOCOCCAL VACCINES (B) Aged Out N o longer eligible based on patient's age to complete this topic Medical Devices Not on file Insurance MEDICARE PART A & B [facility] MEDICARE REPLACEMENT MEDICARE PART A & B MEDICARE REPLACEMENT MEDICARE PART A & B MEDICARE REPLACEMENT MEDICARE PART A & B MEDICARE REPLACEMENT MEDICARE PART A & B MEDICARE REPLACEMENT MEDICARE PART A & B [facility] MEDICARE REPLACEMENT Care Teams Formation Testing Operator Relationship Specialty Start Date End Date Axel Whitehead MD [address] [place] [address] PCP - General Internal Medicine 08/19/23 Additional Source Comments The information contained in this document represents components of the legal health record. It is not the complete legal health record.[facility]
--- OUTSIDE RECORDS SUMMARY | 2024-11-14 11:19 | XMS_ITS | Patient Health Record ---
Author Organization [facility] Address [address] [place] [address] Care Team Providers Care Prover Name Role Phone Petra Goetz Primary Care Provider Maximiliano De León [phone] Allergies Allergen (clinical drug ingredient) Drug/Non Drug Allergy documented on EMR Reaction Allergy Type Onset Date Status vancomycin Vancomycin hives Drug Allergy Activ e Results Component Value Reference Range Notes Ferritin Reviewed date:09/19/2024 05:59:00 PM Interpretation: Performing Lab:[facility], [address] [place] [phone] Notes/Report: Ferritin 16 10-250 ng/mL Complete Blood Count Auto Di ff (Not yet reviewed by provider) Interpretation: Performing Lab:[facility], [address] [place] [phone] Notes/Report: White Blood Count 9.7 4.8-10.8 X10*3/uL [...] CBC Reviewed date:09/20/2024 07:25:45 PM Interpretation: Performing Lab:[address] [address] Notes/Report: Pathologist Review - CBC SEE NOTE Variably hypochromic microcytic anemia; targets are present. Please correlate with iron studies. - Marty [place] M.D. Pathology IRON PROFILE Reviewed date:09/19/2024 05:58:29 PM Interpretation: Performing Lab:[facility], [address] [place] [phone] Notes/Report: Iron 19 30-160 mcg/dL Total Iron Binding Capacity 288 228-428 mcg/d L Percent Iron Saturation 7 15-50 % Unsaturated Iron Binding 269 Vitamin B12 Reviewed date:09/19/2024 05:58:20 PM Interpretation: Performing Lab:[facility], [address] [place] [phone] Notes/Report: Vitamin B12 > 2000 200-900 pg/mL NORMAL 200-900 PG/ML INDETERMINATE 160-199 PG/ML DEFICIENT < 160 PG/ML Folate Reviewed date:09/19/2024 05:58:12 PM Interpretation: Performing Lab:[facility], [address] [place] [address], [place] [address] Notes/Report: Folate 12.3 > or = 4.0 ng/mL Reference Values: > or = 4.0 ng/mL < 4.0 ng/mL suggests folate deficiency Methotrexate, aminopterin and folinic acid (leucovorin) are chemotherapeutic agents whose molecular structures are similar to folate; therefore, the Certified Pediatric Nurse Practitioner folate assay cannot be used for patients [...] Problem Status W/U Status Risk Notes Problem 14217147 Weight loss (R63.4) Active confirmed Problem 316717272 Gastritis, unspecified, without bleeding (K29.70) Active confirmed Problem 006165593 Early satiety (R68.81) Active confirmed Problem Iron deficiency anemia (48822045) Iron deficiency anemia (D50.9) Active confirmed Problem 277497296 Abdominal pain, left upper quadrant (R10.12) Active confirmed Problem Gastritis (8472825) Gastritis (K29.70) Active confirmed Problem 521296954 Irregular bowel habits (R19.8) Active confirmed Problem 20246380 Iron deficiency anemia, unspecified iron deficiency anemia type (D50.9) Active confirmed Problem 120772477 Abnormal CT scan , stomach (R93.3) Active confirmed Problem Chronic constipation (277156045) Chronic constipation (K59.09) Active confirmed Problem Diverticulosis of colon (701146294) Diverticulosis of colon (K57.30) Active confirmed Problem 827260617 Left upper quadrant abdominal pain (R10.12) Active confirmed Vital Signs Temperature 97.5 degrees Fahrenheit 09/19/2024 Blood pressure diastolic 01 mm Hg 09/19/2024 Height 64 in 09/19/2024 Blood pressure systolic 001 mm Hg 09/19/2024 Weight 200 lbs 09/19/2024 BMI 34.33 kg/m2 09/19/2024 Encounters Encounter Location Date Provider Diagnosis [facility] [address] [place] [phone] 09/19/2024 Maximiliano Coats Iron deficiency anemia, unspecified iron deficiency anemia type D50.9 [facility] [address] [place] [phone] 09/20/2024 Maximiliano Coats [facility] [address] [place] [phone] 01/19/2024 Maximiliano Coats [facility] [address] [place] [address] 05/21/2024 Maximiliano Coats Assessments Encounter Date Diagnosis (ICD Code) Assessment Notes Treatment Notes Treatment Clinical Notes Section Notes 09/19/2024 Iron deficiency anemia, unspecified iron deficiency anemia type (ICD-10 - D50.9) Try taking the Iron as much as possible and use the Miralax and/or Metamucil with that to help with constipation If your Iron is low we will schedule you to see the Venue Manager to arrange for some IV Iron infusions [...] Provider Name:Maximiliano Coats , 03/28/2025 09:00:00 AM, [address] [place] [address], [address], [place], [address], Insurance Providers Payer Name Payer Address Payer Phone Subscriber Number Group Number Insured Name Patient Relationship to Insured Coverage Start Date Coverage End Date [facility] Medicare Advantage Plan [address] [address] [place] [address] [id number] NEGRA GEORGE Self - patient is the [...] Upper endoscopy in October of 2022 at [facility] with Dr. Carter revealed some gastric intestinal [...] Rotator cuff surgery 2008 Intestinal surgery at [facility] for some type of internal hernia and SBO- resection of approx 20cm of necrotic small bowel 2015 Hospitalization History Reason Date(Month/Year) aortic valve replacement 09/06/2024
[2024-11-14 12:21] LABS: INTERNATIONAL NORM RATIO 1.0 (0.9-1.1); Prothrombin Time 11.2 SEC (10.9-12.4)
[2024-11-14 12:33] LABS: Hematocrit 24.4 % (37.0-47.0); Hemoglobin 8.0 g/dl (12.0-16.0); Mean Corpuscular HGB Conc 32.8 g/dl (31.0-35.0); Mean Corpuscular Hemoglobin 22.5 pg (27.0-33.0); Mean Corpuscular Volume 68.5 fL (80.0-98.0); NRBC Abs Auto 0.000 X10*3/uL (0.0-0.012); NRBC Pct Auto 0.0 /100WBC (0.0-0.2); Platelet Count 242 X10*3/uL (160-400); Red Blood Count 3.56 X10*6/uL (4.20-5.50); White Blood Count 6.8 X10*3/uL (4.8-10.8)
[2024-11-14 12:43] LABS: Anion Gap 11 (12-20); Blood Urea Nitrogen 19 mg/dL (9-16); Calcium 8.8 mg/dL (8.4-10.2); Carbon Dioxide 23 mmol/L (22-29); Chloride 109 mmol/L (96-108); Estimated Glomerular Filt Rate > 60; Potassium 4.1 mmol/L (3.3-5.1); Sodium 139 mmol/L (135-145)
[2024-11-14 12:48] LABS: B Type Natriuretic Peptide 130 pg/mL (<100)
== END 2024-11-14 10:27 | disposition home or self-care (01) ==
LOC: HO.LAB 10:26
PROVIDERS: Visit Provider Internal Medicine Cardiovascular Disease
DX: I35.0 Nonrheumatic aortic (valve) stenosis (principal); Z95.2 Presence of prosthetic heart valve
CPT/HCPCS: 36415; 80048; 83880; 85027; 85610; 99212

== ENCOUNTER 2024-11-14 11:20 | Outpatient (AMB) | payer MEDICARE, SELFPAY ==
[2024-11-14 11:58] VITALS: BP 124/60; PULSE 51; BMI 35.8
--- NOTE | 2024-11-14 11:58 | MHC.OFFVIS ---
Vital Signs 11/14/24 11:58 Height 5 ft 3 in Weight 202 lb 6.15 oz BMI 35.8 BP 124/60 Blood Pressure Location Rt brachial Position Sitting Pulse 51 Pulse Source Pulse Oximeter Intake Visit Reasons: TAVR f/up- 09/06 Intake Note: TAVR f/up Rn Diabetes Educator Required: No Accompanied by: Self / Same As Patient Allergies vancomycin (VANCOMYCIN) Allergy (Unknown, Verified 10/11/24 14:00) HIVES Medication List - Last Reconciled 11/14/24 by Curtis Burr MD atorvastatin 20 mg PO BEDTIME cyanocobalamin-cobamamide 5,000-100 mcg (B12) 1,000 silver DAILY gabapentin 800 mg PO BID meclizine 25 mg PO TID PRN naproxen 500 mg PO BID omeprazole 20 mg PO DAILY@0630 oxybutynin chloride ER 10 mg PO DAILY tramadol 50 mg PO BID PRN turmeric 400 mg PO DAILY HPI Comments Details: [age] year female who is here for follow-up. She underwent transcatheter aortic valve replacement. She was on Eliquis after the procedure and had GI blood loss and anemia. Subsequent to that echocardiography had shown elevated gradients across aortic valve as well as LVOT gradient and systolic anterior motion of mitral valve. She was asymptomatic with all these findings. Her Eliquis was stopped and hemoglobin has improved. She is saying she will be getting iron infusions through oncology. She had repeat echocardiography done which showed normally functioning TAVR valve and LVOT gradients decreased significantly as hemoglobin improved. She has some fatigue but overall has no significant dyspnea or any dizziness/syncope. [facility] Medical History (Reviewed 11/14/24 @ 11:59 by Jazz Romero [facility]) History of transcatheter aortic valve replacement (TAVR) Abnormal CT scan, gastrointestinal tract Left bundle branch block Aortic stenosis Arthritis Lower extremity edema Anemia Neuropathy Back pain Hyperlipidemia HTN (hypertension) Surgical History History of hernia repair (2015) History of rotator cuff surgery (2012) History of tonsillectomy (1978) History of cholecystectomy (1975) Family History Sister Breast cancer, Onset Age: 49 Father Prostate cancer Brother Leukemia Social History Household Members: None Housing: Apartment Do you presently have visiting nurse or other home services: No Alcohol intake: current Alcohol intake frequency: holidays/special occasions only Review of Systems Const Denies chills, Denies fatigue, Denies fever(s), Denies frequent falls, Denies weakness, Denies weight gain and Denies weight loss ENT Denies dizziness Card Denies chest pain, Denies leg edema, Denies lightheadedness, Denies palpitations, Denies dyspnea and Denies dyspnea on exertion Resp Denies cough, Denies dyspnea and Denies dyspnea on exertion GI Denies hematochezia Musc Denies abnormal gait, Denies muscle weakness, Denies numbness, Denies radiating pain into limb and Denies tingling Neuro Denies abnormal gait, Denies dizziness, Denies frequent falls, Denies numbness, Denies tingling and Denies weakness Endo Denies fatigue and Denies palpitations Physical Exam Vital Signs: Last Vital Signs Pulse 51 11/14/24 11:58 BP 124/60 11/14/24 11:58 BMI result Body Mass Index 35.8 GENERAL APPEARANCE: Obese, in no acute distress. NECK: No carotid bruits, no jugular venous distention. SKIN: no suspicious lesions, warm and dry. HEART: Systolic murmur all over the precordium, regular rate and rhythm. LUNGS: clear to auscultation bilaterally. Diminished breath sounds bilaterally. ABDOMEN: soft, nontender. EXTREMITIES: Bilateral lymphedema-legs are wrapped. PERIPHERAL PULSES: equal. NEUROLOGIC: No gross deficits, AAO X 3 Assessment & Plan Assessment & Plan (1) Aortic stenosis: Code(s): I35.0 - Nonrheumatic aortic (valve) stenosis Category: Medical (2) S/P TAVR (transcatheter aortic valve replacement): Comment: 09/06/[address] Burr Code(s): Z95.2 - Presence of prosthetic heart valve Category: Surgical Plan Pleasant 74 year female who is here for follow-up. She has background of severe aortic valve stenosis underwent transcatheter aortic valve replacement. Subsequent to TAVR she was started on Eliquis due to concern for poor flow in the sinus and risk of thrombus formation. She unfortunately had GI blood loss and developed anemia. Eliquis has been held. Overall anemia is improving. She is getting iron infusions. While she was anemic and hyperdynamic she had high gradients across the aortic valve and also developed LVOT obstruction which was asymptomatic. With hemoglobin improving her LVOT obstruction has improved and her valve gradients have also improved. She has a systolic murmur due to LVOT gradient at this point. I have advised her that she should keep herself well hydrated. If she developed any infection she may have LVOT obstruction risk which I have explained to her that if she gets any dizziness or lightheadedness she should definitely see care for that. As hemoglobin improves I think we should consider starting her on Plavix. She had a duodenal polyp from it she had blood loss in the past. There was planned to remove it in the past and she will be seeing her clam sorter Dr. Coats he will discuss this further. Thank you for allowing me to participate in the care of your patient. Please feel free to contact me if you have any questions. Coding Level of Care Code Est Pt Level 4 (37291) Diagnoses Aortic stenosis I35.0 S/P TAVR (transcatheter aortic valve replacement) Z95.2
== END 2024-11-14 12:29 | disposition home or self-care (01) ==
LOC: HO.HCS 11:20
PROVIDERS: Visit Provider Internal Medicine Cardiovascular Disease
DX: I35.0 Nonrheumatic aortic (valve) stenosis (principal); Z95.2 Presence of prosthetic heart valve
CPT/HCPCS: 99214

== ENCOUNTER 2024-12-13 07:56 | Outpatient (AMB) | payer MEDICARE, SELFPAY ==
--- OUTSIDE RECORDS SUMMARY | 2024-01-19 07:00 | XMS_ITS ---
Author Organization [facility] Address [address] [facility] [address] [place] [address] Care Team Providers Care College Instructor Name Role Phone Petra Goetz Primary Care Provider Maximiliano De León [phone] REASON FOR VISIT Patient presents today for anemia Encounters Encounter Location Date Provider Diagnosis [facility] [address] [facility] [address] [place] [address] 01/19/2024 Maximiliano Coats Plan Of Treatment Next Appt Details Provider Name:Maximiliano Coats , 03/28/2025 09:00:00 AM, [address] [facility], [address], [place], [address], Progress Notes * ARIEL ANGELDOB: [birth year] (74 yo F)Acc No.[id number]:01/19/2024 Progress Notes Patient: ANGEL MARTINEZ Provider: Monserrat Coats MD :1950 A ge:73 Y S ex:Female Date:01/19/2024 Address:[address] [place], [place] [id number] Pcp:VIRAL Sandoval Subjective: * Chief Complaints: * [...] Coats MD Date: 1 Generated for Melonie gomez/Ysabel/Linseyitting on: 0 12/13/2024 07:59 AM EDT
--- OUTSIDE RECORDS SUMMARY | 2024-05-22 06:30 | XMS_ITS ---
Author Organization [facility] Address [address] [facility] [address] [place] [address] Care Team Providers Care Interventional Pain Physician Name Role Phone Petra Goetz Primary Care Provider Maximiliano De León [phone] REASON FOR VISIT Patient presents today for anemia Encounters Encounter Location Date Provider Diagnosis [facility] [address] [facility] [address] [place] [address] 05/22/2024 Maximiliano Coats Plan Of Treatment Next Appt Details Provider Name:Maximiliano Coats , 03/28/2025 09:00:00 AM, [address] [facility], [address], [place], [address], Progress Notes * ANGEL GEORGEDOB: [birth year] (74 yo F)Acc No.[id number]:05/22/2024 Progress Notes Patient: ANGEL MARTINEZ Provider: Monserrat Coats MD :1950 A ge:73 Y S ex:Female Date:05/22/2024 Address:[address] [place], [place] [id number] Pcp:VIRAL Sandoval Subjective: * Chief Complaints: * [...] 05/22/2024 Generated for Melonie gomez/Ysabel/Linseyitting on: 0 12/13/2024 07:59 AM EDT
--- OUTSIDE RECORDS SUMMARY | 2024-12-13 07:59 | XMS_ITS | Clinical Summary ---
Author Organization [facility] Address [address] [place] [address] [place] [address] Phone Care Team Providers Care Managing Supervisor Name Role Phone Axel Whitehead MD Primary Care Provider +1- [phone] Social History Tobacco Use Types Packs/Day Years [...] 2002 OSTEOPOROSIS SCREENING INITI AL (ONE-TIME) 2017 INFLUENZA VACCINE (#1) 2024 COVID-19 VACCINE (2023-2 5 season) 2024 RSV VACCINE (1 - 1-dose 75+ series) [...] file Insurance MEDICARE PART A & B [facility] MEDICARE REPLACEMENT MEDICARE PART A & B MEDICARE REPLACEMENT MEDICARE PART A & B MEDICARE REPLACEMENT MEDICARE PART A & B MEDICARE REPLACEMENT MEDICARE PART A & B MEDICARE REPLACEMENT MEDICARE PART A & B [facility] MEDICARE REPLACEMENT Care Teams Managing Supervisor Relationship Specialty Start Date End Date Axel Whitehead MD [address] [place] [id number] PCP - General Internal Medicine 08/19/23 Additional Source Comments The information contained in this document represents components of the legal health record. It is not the complete legal health record.[facility]
--- OUTSIDE RECORDS SUMMARY | 2024-12-13 07:59 | XMS_ITS | Encounter Summary ---
Author Organization [facility] Address [address] [place] [address] [place] [address] Phone Care Team Providers Care Intermediate Accountant Name Role Phone Axel Whitehead MD Primary Care Provider +1- [phone] Encounter Details Date Type Department Care Team (Late st Contact Info) Description 08/29/2023 Transcribe Orders [facility] [place] [address] Axel Whitehead MD [address] [place] [address] Social History Tobacco Use Types Packs/Day Years [...] on filedocumented in this encounter Care Teams Intermediate Accountant Relationship Specialty Start Date End Date Axel Whitehead MD [address] [place] [address] PCP - General Internal Medicine 08/19/23 documented as of this encounter Additional Source Comments The information contained in this document represents components of the legal health record. It is not the complete legal health record.[facility]
--- OUTSIDE RECORDS SUMMARY | 2024-12-13 08:00 | XMS_ITS | Patient Health Record ---
Author Organization [facility] Address [address] [place] [address] Care Team Providers Care Tattooer Name Role Phone Petra Goetz Primary Care Provider Maximiliano De León [phone] Allergies Allergen (clinical drug ingredient) Drug/Non Drug Allergy documented on EMR Reaction Allergy Type Onset Date Status vancomycin Vancomycin hives Drug Allergy Activ e Results Component Value Reference Range Notes Ferritin Reviewed date:09/19/2024 05:59:00 PM Interpretation: Performing Lab:[facility], [address] [place] [phone] Notes/Report: Ferritin 16 10-250 ng/mL Complete Blood Count Auto Di ff (Not yet reviewed by provider) Interpretation: Performing Lab:[facility], [address] [place] [phone] Notes/Report: White Blood Count 9.7 4.8-10.8 X10*3/uL [...] CBC Reviewed date:09/20/2024 07:25:45 PM Interpretation: Performing Lab:[address] [phone] Notes/Report: Pathologist Review - CBC SEE NOTE Variably hypochromic microcytic anemia; targets are present. Please correlate with iron studies. - Marty Ogden M.D. Pathology IRON PROFILE Reviewed date:09/19/2024 05:58:29 PM Interpretation: Performing Lab:[facility], [address] [place] [phone] Notes/Report: Iron 19 30-160 mcg/dL Total Iron Binding Capacity 288 228-428 mcg/d L Percent Iron Saturation 7 15-50 % Unsaturated Iron Binding 269 Vitamin B12 Reviewed date:09/19/2024 05:58:20 PM Interpretation: Performing Lab:[facility], [address] [place] [phone] Notes/Report: Vitamin B12 > 2000 200-900 pg/mL NORMAL 200-900 PG/ML INDETERMINATE 160-199 PG/ML DEFICIENT < 160 PG/ML Folate Reviewed date:09/19/2024 05:58:12 PM Interpretation: Performing Lab:[facility], [address] [place] [address], [place] [address] Notes/Report: Folate 12.3 > or = 4.0 ng/mL Reference Values: > or = 4.0 ng/mL < 4.0 ng/mL suggests folate deficiency Methotrexate, aminopterin and folinic acid (leucovorin) are chemotherapeutic agents whose molecular structures are similar to folate; therefore, the Resource Director folate assay cannot be used for [...] Problem Status W/U Status Risk Notes Problem 17346147 Weight loss (R63.4) Active confirmed Problem 871920519 Gastritis, unspecified, without bleeding (K29.70) Active confirmed Problem 050340262 Early satiety (R68.81) Active confirmed Problem Iron deficiency anemia (15094198) Iron deficiency anemia (D50.9) Active confirmed Problem 728892885 Abdominal pain, left upper quadrant (R10.12) Active confirmed Problem Gastritis (0808673) Gastritis (K29.70) Active confirmed Problem 152499977 Irregular bowel habits (R19.8) Active confirmed Problem 91725775 Iron deficiency anemia, unspecified iron deficiency anemia type (D50.9) Active confirmed Problem 726698470 Abnormal CT scan , stomach (R93.3) Active confirmed Problem Chronic constipation (053667995) Chronic constipation (K59.09) Active confirmed Problem Diverticulosis of colon (690585401) Diverticulosis of colon (K57.30) Active confirmed Problem 441853258 Left upper quadrant abdominal pain (R10.12) Active confirmed Vital Signs Temperature 97.5 degrees Fahrenheit 09/19/2024 Blood pressure diastolic 01 mm Hg 09/19/2024 Height 64 in 09/19/2024 Blood pressure systolic 001 mm Hg 09/19/2024 Weight 200 lbs 09/19/2024 BMI 34.33 kg/m2 09/19/2024 Encounters Encounter Location Date Provider Diagnosis [facility] [address] [place] [phone] 09/19/2024 Maximiliano Coats Iron deficiency anemia, unspecified iron deficiency anemia type D50.9 [facility] [address] [place] [phone] 01/19/2024 Maximiliano Coats [facility] [address] [place] [phone] 05/21/2024 Maximiliano Coats [facility] [address] [place] [address] 09/20/2024 Maximiliano Coats Assessments Encounter Date Diagnosis (ICD Code) Assessment Notes Treatment Notes Treatment Clinical Notes Section Notes 09/19/2024 Iron deficiency anemia, unspecified iron deficiency anemia type (ICD-10 - D50.9) Try taking the Iron as much as possible and use the Miralax and/or Metamucil with that to help with constipation If your Iron is low we will schedule you to see the Music Video Producer to arrange for some IV Iron infusions [...] Provider Name:Maximiliano Coats , 03/28/2025 09:00:00 AM, [address] [place] [address], [address], [place], [address], Insurance Providers Payer Name Payer Address Payer Phone Subscriber Number Group Number Insured Name Patient Relationship to Insured Coverage Start Date Coverage End Date [facility] Medicare Advantage Plan [address] [address] [place] [address] [id number] NEGRA GEORGE Self - patient is the [...] Upper endoscopy in October of 2022 at [facility] with Dr. Carter revealed some gastric [...] Rotator cuff surgery 2008 Intestinal surgery at [facility] for some type of internal hernia and SBO- resection of approx 20cm of necrotic small bowel 2015 Hospitalization History Reason Date(Month/Year) aortic valve replacement 09/06/2024
[2024-12-13 08:16] VITALS: BP 100/52; PULSE 69; BMI 34.5
--- NOTE | 2024-12-13 08:16 | A.OFFVIS_ITS ---
Vital Signs 12/13/24 08:16 Height 5 ft 4 in Weight 201 lb 0.985 oz BMI 34.5 BP 100/52 L Blood Pressure Location Lt brachial Position Sitting Pulse 69 Pulse Source Pulse Oximeter Intake Visit Reasons: 6 mth s/p echo Doughnut Dough Mixer Required: No Allergies vancomycin (VANCOMYCIN) Allergy (Unknown, Verified 12/13/24 08:19) HIVES Medication List - Last Reconciled 12/13/24 by Olga Bernal CARPET MECHANIC-C atorvastatin 20 mg PO BEDTIME cyanocobalamin-cobamamide 5,000-100 mcg (B12) 1,000 silver DAILY gabapentin 800 mg PO BID hydralazine 25 mg PO BID meclizine 25 mg PO TID PRN naproxen 500 mg PO BID omeprazole 20 mg PO DAILY@0630 oxybutynin chloride ER 10 mg PO DAILY tramadol 50 mg PO BID PRN turmeric 400 mg PO DAILY [Vitamin D3 1,000 mg PO DAILY] HPI HPI 6 mth s/p echo: Details: Negra leblanc is a 74-year-old female with past medical history of hypertension, hyperlipidemia, left bundle branch block, syncope related to orthostatic hypotension, severe aortic stenosis, recent cardiac catheterization which showed moderate LAD stenosis who recently underwent a TAVR then was put on Eliquis to help prevent clotting. She developed significant anemia and Echo showed high flow state with increased gradients across the aortic and mitral valves, LVOT obstruction. Eliquis was stopped and she was transfused. Repeat echo showed improvement in gradiants and obstruction. She is following with Hemotology and GI. She now presents for follow-up. Today she reports that she has been doing generally well. She is back to work part-time [employer]. She has no signs of bleeding. She is finishing up 4 weeks of iron infusions. She has no lightheadedness, presyncope, syncope or falls. She denies any chest discomfort at rest or during activity. No concerning shortness of breath, PND, orthopnea or edema. Not having any abdominal discomfort. Taking meds as directed. Works 25-27 hours per week. [facility] Medical History History of transcatheter aortic valve replacement (TAVR) Abnormal CT scan, gastrointestinal tract Left bundle branch block Aortic stenosis Arthritis Lower extremity edema Anemia Neuropathy Back pain Hyperlipidemia HTN (hypertension) Surgical History History of hernia repair (2015) History of rotator cuff surgery (2012) History of tonsillectomy (1978) History of cholecystectomy (1975) Family History Sister Breast cancer, Onset Age: 49 Father Prostate cancer Brother Leukemia Social History Household Members: None Housing: Apartment Do you presently have visiting nurse or other home services: No Alcohol intake: current Alcohol intake frequency: holidays/special occasions only Patient Tobacco Use Status: Never used Tobacco Review of Systems Const All systems reviewed & are unremarkable except as noted in HPI and below ENT Denies dizziness Card Denies chest pain, Denies chest pain at rest, Denies chest pain with activity, Denies rapid heart rate, Denies pedal edema, Denies edema, Denies leg edema, Denies lightheadedness, Denies palpitations, Denies dyspnea, Denies dyspnea on exertion and Denies orthopnea Resp Denies cough, Denies dyspnea and Denies dyspnea on exertion GI Denies hematochezia and Denies change in stool character Musc Reports abnormal gait (uses walker), Denies limited range of motion, Denies muscle cramps, Denies muscle weakness, Denies numbness, Denies radiating pain into limb, Denies stiffness and Denies tingling Neuro Reports abnormal gait (uses walker), Denies dizziness, Denies numbness and Denies tingling Endo Denies palpitations Physical Exam Vital Signs: Last Vital Signs Pulse 69 12/13/24 08:16 BP 100/52 L 12/13/24 08:16 BMI result Body Mass Index 34.5 Const General: cooperative, healthy appearing and no acute distress Orientation/consciousness: patient oriented x3 Neck Neck: Yes normal visual inspection Resp Effort & Inspection: normal respiratory effort Auscultation: clear to auscultation bilaterally, no rales, no rhonchi and no wheezes Cardio Rate: regular rate Rhythm: regular rhythm Heart sounds: Murmur heart sound present (systolic murmur across precordium) and no rubs Neuro General: patient oriented x3 Extrem General: Yes normal to inspection Psych Appearance: grossly normal Mental Status: mental status grossly normal Speech and movement: Normal speech and movement present Assessment & Plan Assessment & Plan (1) Aortic stenosis: Code(s): I35.0 - Nonrheumatic aortic (valve) stenosis Category: Medical Plan: History of severe aortic stenosis, TAVR procedure done 09/06/2024. Postprocedure her Plavix was changed to Eliquis, she then developed anemia with hemoglobin as low as 6.2, requiring transfusion. She was taken off Eliquis is and following with Hematolgy and GI, Dr Coats. With anemia she had elevated gradiants across the aortic and mitral valve, dynamic LVOT obstruction present, which improved when anemia treated. Last echo done 11/13/2024 showed EF 56%, bioprosthetic AVR functioning normally and moderate septal asymmetric hyp ertrophy. Currently no cardiac symptoms. Will check with Hematology regarding use of Plavix on her -as mentioned in last cardiology note. Cardiology follow- up 3 months, sooner if needed. (2) S/P TAVR (transcatheter aortic valve replacement): Comment: 09/06/[address] Burr Code(s): Z95.2 - Presence of prosthetic heart valve Category: Surgical Plan: As above (3) S/P cardiac cath: Comment: 08/02/2024 left main normal lad proximal 50% stenosis, left circumflex and RCA minimal luminal irregularities Code(s): Z98.890 - Other specified postprocedural states Category: Surgical Plan: As above (4) Coronary atherosclerosis: Code(s): I25.10 - Atherosclerotic heart disease of [place] coronary artery without angina pectoris Category: Medical Plan: New diagnosis of coronary artery disease based on cardiac cath findings. No anginal symptoms. She is not on antiplatelet or anticoagulation due to recent significant anemia. Continue atorvastatin. Signs and symptoms of angina reviewed with her. (5) HTN (hypertension): Code(s): I10 - Essential (primary) hypertension Category: Medical Plan: Blood pressure goal less than 130/80. Blood pressure on low side today 100/52, asymptomatic. Instructed to increase fluid intake. She can continue hydralazine however may need to reduce dose if she is having ongoing low blood pressures/symptoms. (6) Left bundle branch block: Code(s): I44.7 - Left bundle-branch block, unspecified Category: Medical Plan: Chronic on EKGs. (7) Anemia: Code(s): D64.9 - Anemia, unspecified Category: Medical Plan: As above Plan Time spent on chart review, documentation, interview and assessment Coding Level of Care Code Est Pt Level 4 (02931) Complex EM visit Add On G2211 Diagnoses Aortic stenosis I35.0 S/P TAVR (transcatheter aortic valve replacement) Z95.2 S/P cardiac cath Z98.890 Coronary atherosclerosis I25.10 HTN (hypertension) I10 Left bundle branch block I44.7 Anemia D64.9 Time Spent (min) 28
== END 2024-12-13 08:54 | disposition home or self-care (01) ==
LOC: HO.HCS 07:56
PROVIDERS: PCP Internal Medicine; Visit Provider Internal Medicine Cardiovascular Disease
DX: I35.0 Nonrheumatic aortic (valve) stenosis (principal); Z95.2 Presence of prosthetic heart valve; Z98.890 Other specified postprocedural states; I25.10 Atherosclerotic heart disease of native coronary artery without angina pectoris; I10 Essential (primary) hypertension; I44.7 Left bundle-branch block, unspecified; D64.9 Anemia, unspecified
CPT/HCPCS: 99214; G2211

== ENCOUNTER → 2024-12-13 07:56 | Outpatient (BNVA) | payer MEDICARE, SELFPAY | PROVIDERS: PCP Internal Medicine; Visit Provider Internal Medicine Cardiovascular Disease | DX: I35.0 Nonrheumatic aortic (valve) stenosis (principal); Z95.2 Presence of prosthetic heart valve; Z98.890 Other specified postprocedural states; I25.10 Atherosclerotic heart disease of native coronary artery without angina pectoris; I10 Essential (primary) hypertension; I44.7 Left bundle-branch block, unspecified; D64.9 Anemia, unspecified; E78.5 Hyperlipidemia, unspecified | CPT/HCPCS: 99212 ==

== ENCOUNTER 2024-12-13 09:30 | Outpatient (RCR) | payer MEDICARE, SELFPAY ==
[2024-11-20 14:57] VITALS: BP 104/54; PULSE 90; RESP 16; TEMP 36.6; O2SAT 96
[2024-11-21 08:47] VITALS: BP 126/38; PULSE 66; RESP 16; TEMP 36.6; O2SAT 99
[2024-11-27 15:00] VITALS: BP 134/56; PULSE 99; RESP 16; TEMP 36.6; O2SAT 99
[2024-11-29 07:55] VITALS: BP 126/53; PULSE 72; RESP 18; TEMP 36.8; O2SAT 97
[2024-12-04 14:59] VITALS: BP 97/43; PULSE 74; RESP 16; TEMP 37.2; O2SAT 96
[2024-12-04] MEDS: 0.9 % Sodium Chloride Flush 10 ML SYRINGE 5 ML IVFLUSH (15:36)
[2024-12-05 08:57] VITALS: BP 145/44; PULSE 75; RESP 16; TEMP 36.6; O2SAT 98
[2024-12-11 14:59] VITALS: BP 99/45; PULSE 82; RESP 16; TEMP 36.4; O2SAT 96
[2024-12-13 09:17] VITALS: BP 134/72; PULSE 68; RESP 16; TEMP 36.7; O2SAT 98
== END 2024-12-13 10:07 | disposition home or self-care (01) ==
LOC: HO.INF 09:30
PROVIDERS: Visit Provider Internal Medicine
DX: D64.9 Anemia, unspecified (principal)
CPT/HCPCS: 96365; 96374; J1756

== ENCOUNTER 2025-02-06 10:58 | Day surgery (SDC) | payer MEDICARE, SELFPAY ==
--- OUTSIDE RECORDS SUMMARY | 2024-01-19 07:00 | XMS_ITS ---
Author Organization [facility] Address [address] [facility] [address] [place] [address] Care Team Providers Care Manager Supplier Name Role Phone Petra Goetz Primary Care Provider Maximiliano De León [phone] REASON FOR VISIT Patient presents today for anemia Encounters Encounter Location Date Provider Diagnosis [facility] [address] [facility] [address] [place] [address] 01/19/2024 Maximiliano Coats Plan Of Treatment Next Appt Details Provider Name:Maximiliano Coats , 03/28/2025 09:00:00 AM, [address] [facility], [address], [place], [address], Progress Notes * ARIEL ANGELDOB: [birth year] (74 yo F)Acc No.[id number]:01/19/2024 Progress Notes Patient: ANGEL MARTINEZ Provider: Monserrat Coats MD :1950 A ge:73 Y S ex:Female Date:01/19/2024 Address:[address] [place], [place] [id number] Pcp:VIRAL Sandoval Subjective: * Chief Complaints: * 1 . Patient presents today for anemia. * Medical History: Objective: * Vitals: Assessment: Plan: * Treatment: * * The named appointment provid er may or may not be the originator of this progress note, and it is not deemed complete until electronically signed by the appointment provider. Sign off status: Pending * Provider: Monserrat Coats MD Date: Generated for Melonie gomez/Ysabel/Linseyitting on: 03:24 PM EDT
--- OUTSIDE RECORDS SUMMARY | 2024-05-22 06:30 | XMS_ITS ---
Author Organization [facility] Address [address] [facility] [address] [place] [address] Care Team Providers Care Color Matcher Name Role Phone Petra Goetz Primary Care Provider Maximiliano De León [phone] REASON FOR VISIT Patient presents today for anemia Encounters Encounter Location Date Provider Diagnosis [facility] [address] [facility] [address] [place] [address] 05/22/2024 Maximiliano Coats Plan Of Treatment Next Appt Details Provider Name:Maximiliano Coats , 03/28/2025 09:00:00 AM, [address] [facility], [address], [place], [address], Progress Notes * ANGEL GEORGEDOB: [birth year] (74 yo F)Acc No.[id number]:05/22/2024 Progress Notes Patient: ANGEL MARTINEZ Provider: Monserrat Coats MD :1950 A ge:73 Y S ex:Female Date:05/22/2024 Address:[address] [place], [place] [id number] Pcp:VIRAL Sandoval Subjective: * Chief Complaints: * [...] 0 05/22/2024 Generated for Melonie gomez/Ysabel/Linseyitting on: 1 03:24 PM EDT
--- OUTSIDE RECORDS SUMMARY | 2025-01-15 15:24 | XMS_ITS | Clinical Summary ---
Author Organization [facility] Address [address] [place] [address] [place] [address] Phone Care Team Providers Care Continuous Yarn Dyeing Machine Operator Name Role Phone Axel Whitehead MD Primary Care Provider +1- [phone] Social History Tobacco Use Types Packs/Day Years [...] 2017 INFLUENZA VACCINE (#1) 2024 COVID-19 VACCINE (2024-2 6 season) 2024 RSV VACCINE (1 - 1-dose [...] file Insurance MEDICARE PART A & B [facility] MEDICARE REPLACEMENT MEDICARE PART A & B MEDICARE REPLACEMENT MEDICARE PART A & B MEDICARE REPLACEMENT MEDICARE PART A & B MEDICARE REPLACEMENT MEDICARE PART A & B MEDICARE REPLACEMENT MEDICARE PART A & B [facility] MEDICARE REPLACEMENT Care Teams Continuous Yarn Dyeing Machine Operator Relationship Specialty Start Date End Date Axel Whitehead MD [address] [place] [id number] PCP - General Internal Medicine 08/19/23 Additional Source Comments The information contained in this document represents components of the legal health record. It is not the complete legal health record.[facility]
--- OUTSIDE RECORDS SUMMARY | 2025-01-15 15:24 | XMS_ITS | Encounter Summary ---
Author Organization [facility] Address [address] [place] [address] [place] [address] Phone Care Team Providers Care Cotton Expert Name Role Phone Axel Whitehead MD Primary Care Provider +1- [phone] Encounter Details Date Type Department Care Team (Late st Contact Info) Description 08/29/2023 Transcribe Orders [facility] [place] [address] Axel Whitehead MD [address] [place] [address] Social History Tobacco Use Types Packs/Day Years [...] on filedocumented in this encounter Care Teams Cotton Expert Relationship Specialty Start Date End Date Axel Whitehead MD [address] [place] [address] PCP - General Internal Medicine 08/19/23 documented as of this encounter Additional Source Comments The information contained in this document represents components of the legal health record. It is not the complete legal health record.[facility]
--- OUTSIDE RECORDS SUMMARY | 2025-01-15 15:25 | XMS_ITS | Patient Health Record ---
Author Organization [facility] Address [address] [place] [address] Care Team Providers Care Inside Sales Person Name Role Phone Petra Goetz Primary Care Provider Maximiliano De León [phone] Allergies Allergen (clinical drug ingredient) Drug/Non Drug Allergy documented on EMR Reaction Allergy Type Onset Date Status vancomycin Vancomycin hives Drug Allergy Activ e Results Component Value Reference Range Notes Ferritin Reviewed date:09/19/2024 05:59:00 PM Interpretation: Performing Lab:[facility], [address] [place] [phone] Notes/Report: Ferritin 16 10-250 ng/mL Complete Blood Count Auto Di ff (Not yet reviewed by provider) Interpretation: Performing Lab:[facility], [address] [place] [phone] Notes/Report: White Blood Count 9.7 4.8-10.8 X10*3/uL [...] CBC Reviewed date:09/20/2024 07:25:45 PM Interpretation: Performing Lab:[address] [phone] Notes/Report: Pathologist Review - CBC SEE NOTE Variably hypochromic microcytic anemia; targets are present. Please correlate with iron studies. - Marty Ogden M.D. Pathology IRON PROFILE Reviewed date:09/19/2024 05:58:29 PM Interpretation: Performing Lab:[facility], [address] [place] [phone] Notes/Report: Iron 19 30-160 mcg/dL Total Iron Binding Capacity 288 228-428 mcg/d L Percent Iron Saturation 7 15-50 % Unsaturated Iron Binding 269 Vitamin B12 Reviewed date:09/19/2024 05:58:20 PM Interpretation: Performing Lab:[facility], [address] [place] [phone] Notes/Report: Vitamin B12 > 2000 200-900 pg/mL NORMAL 200-900 PG/ML INDETERMINATE 160-199 PG/ML DEFICIENT < 160 PG/ML Folate Reviewed date:09/19/2024 05:58:12 PM Interpretation: Performing Lab:[facility], [address] [place] [phone] Notes/Report: Folate 12.3 > or = 4.0 ng/mL Reference Values: > or = 4.0 ng/mL < 4.0 ng/mL suggests folate deficiency Methotrexate, aminopterin and folinic acid (leucovorin) are chemotherapeutic agents whose molecular structures are similar to folate; therefore, the D[employer] folate assay cannot be used for patients using these drugs. Reason For Referral No Information Medications Medication SIG (Take, Route, Frequency, Duration) Notes Start Date End Date Status Gabapentin 800 MG 1 tablet Orally Once a day; Duration: 30 day(s) Active Eliquis 2.5 MG TAKE 1 TABLET BY MOUTH TWO TIMES A DAY Oral; Duration: 30 Days Active hydrALAZINE HCl 25 MG 1 tablet with food Orally Twice a day Active oxyBUTYnin Chloride ER 10 MG 1 tablet Orally Once a day; Duration: 30 day(s) Active Atorvastatin Calcium 10 MG 1 tablet Orally Once a day; Duration: 30 day(s) Active Vitamin D-3 25 MCG (1000 UT) 1 capsule Orally Once a day; Duration: 30 day(s) 09/19/2024 Active Vitamin B 12 250 MCG 2 lozenges Orally Once a day; Duration: 30 day(s) 09/19/2024 Active Iron 325 (65 Fe) MG 1 tablet Orally Once a day; Duration: 30 day(s) not everydat Active Multivitamin Adult A ctive Cami Not-Taking Turmeric Active Omeprazole 20 MG 1 capsule 30 minutes before morning meal Orally Once a day; Duration: 30 day(s) Active Sudafed Not-Taking Align Active traMADol HCl 50 MG Oral; Duration: 7 Active Immunizations Vaccine Route Administration Date [...] Problem Status W/U Status Risk Notes Problem Weight loss (826926286) Weight loss (R63.4) Active confirmed Problem Gastroduodenitis (208789834) Gastritis, unspecified, without bleeding (K29.70) Active confirmed Problem Early satiety (545924691) Early satiety (R68.81) Active confirmed Problem Iron deficiency anemia (05487354) Iron deficiency anemia (D50.9) Active confirmed Problem Left upper quadrant pain (545551097) Abdominal pain, left upper quadrant (R10.12) Active confirmed Problem Gastritis (9743554) Gastritis (K29.70) Active confirmed Problem Irregular bowel habits (877159214) Irregular bowel habits (R19.8) Active confirmed Problem Iron deficiency anemia (01471124) Iron deficiency anemia, unspecified iron deficiency anemia type (D50.9) Active confirmed Problem Computed tomography of abdomen abnormal (89456495855115736) Abnormal CT scan, stomach (R93.3) Active confirmed Problem Chronic constipation (844040175) Chronic constipation (K59.09) Active confirmed Problem Diverticulosis of colon (940519225) Diverticulosis of colon (K57.30) Active confirmed Problem Left upper quadrant pain (232099683) Left upper quadrant abdominal pain (R10.12) Active confirmed Vital Signs Temperature 97.5 degrees Fahrenheit 09/19/2024 Blood pressure diastolic 01 mm Hg 09/19/2024 Height 64 in 09/19/2024 Blood pressure systolic 001 mm Hg 09/19/2024 Weight 200 lbs 09/19/2024 BMI 34.33 kg/m2 09/19/2024 Encounters Encounter Location Date Provider Diagnosis [facility] [address] [place] [address] 09/19/2024 Maximiliano Coats Iron deficiency anemia, unspecified iron deficiency anemia type D50.9 [facility] [address] [place] [address] 01/19/2024 Maximiliano Coats [facility] [address] [place] [address] 05/21/2024 Maximiliano Coats [facility] [address] [place] [address] 09/20/2024 Maximiliano Coats Assessments Encounter Date Diagnosis (ICD Code) Assessment Notes Treatment Notes Treatment Clinical Notes Section Notes 09/19/2024 Iron deficiency anemia, unspecified iron deficiency anemia type (ICD-10 - D50.9) Try taking the Iron as much as possible and use the Miralax and/or Metamucil with that to help with constipation If your Iron is low we will schedule you to see the Phone Operator to arrange for some IV Iron infusions [...] ENDOSCOPY 04/28/2021 Next Appt Details Provider Name:Maximiliano De La Torre Coats , 03/28/2025 09:00:00 AM, [address] [place] [address], [address], [place], [address], Insurance Providers Payer Name Payer Address Payer Phone Subscriber Number Group Number Insured Name Patient Relationship to Insured Coverage Start Date Coverage End Date [facility] Medicare Advantage Plan [address] [address] [place] [address] [id number] NEGRA GEORGE Self - patient is the [...] Upper endoscopy in October of 2022 at [facility] with Dr. Carter revealed some [...] Date(Month/Year) TAVR for aortic stenosis 09/06/2024 Tonsillectomy 1977 Gallbladder 1975 Rotator cuff surgery 2008 Intestinal surgery at [facility] for some type of internal hernia and SBO- resection of approx 20cm of necrotic small bowel 2015 Hospitalization History Reason Date(Month/Year) aortic valve replacement 09/06/2024
[2025-02-06] VITALS (13 sets, daily range): BP systolic 107–154; BP diastolic 50–76; PULSE 66–92; RESP 11–16; TEMP 36.6–36.8; O2SAT 94–100; BMI 34.5
--- NOTE | ~2025-02-06 | CT_ITS ---
History: Anemia PROCEDURES: 1. Limited preprocedure CT of the pelvis. Permanent images saved in PACS. 2. 11 g bone marrow core biopsy of the left posterior iliac spine 3. 11 g bone marrow aspirate of the left posterior iliac spine CLINICIANS: Tyshawn Duggan NP Preprocedural imaging reviewed with Jere Chris MD MEDICATIONS: -Versed, Fentanyl , and lidocaine 1% SQ -Antibiotics: None -For additional details, please see nursing flowsheet. COMPLICATIONS: None ESTIMATED BLOOD LOSS: < 5 ml CONTRAST: None SPECIMENS: 11 g core placed in formalin. Bone marrow aspirate placed in EDTA and sodium heparin tubes MODERATE SEDATION TIME: 45 min PROCEDURE NOTE: The procedure, risks, benefits, and alternatives were carefully explained to the patient and written informed consent was obtained. The patient was placed prone on the CT table. A timeout was performed. A limited CT of the pelvis was performed to localize posterior iliac spine and choose appropriate needle entry and trajectory. The patient was prepped and draped in usual sterile fashion. The skin, subcutaneous tissues, and periosteum were anesthetized with lidocaine. Under CT guidance, an 11-gauge bone marrow biopsy needle was advanced into the posterior iliac spine, with the tip positioned slightly cephalad. A bone marrow aspirate was performed. The specimen was placed in the provided EDTA and sodium heparin tubes. Next, the 11-gauge bone marrow biopsy needle was then advanced into the posterior iliac spine, under CT guidance, with the tip positioned slightly caudal. An 11-gauge core biopsy of the bone marrow was performed, needle removed and the specimen was placed in formalin. A dry dressing was applied and secured with Tegaderm. There were no immediate complications. The patient was stable after the procedure and was transferred to the post anesthesia care unit. The procedure was done under moderate sedation with a dedicated nurse for monitoring of vital signs. CT/CT biopsy asp core bone marrow Impression: CT-guided bone marrow biopsy and aspirate This procedure was performed by Tyshawn Duggan NP and supervised by Jere Chris MD. Electronically signed by: Jere Chris MD 02/12/2025 10:12 AM [facility] Workstation: [id number]
[2025-02-06 12:30] LABS: INTERNATIONAL NORM RATIO 1.1 (0.9-1.1); Prothrombin Time 13.0 SEC (11.2-13.5)
== END 2025-02-06 16:01 | disposition home or self-care (01) ==
LOC: HO.SSS 10:58
PROVIDERS: Radiology Diagnostic Radiology; Visit Provider Internal Medicine
DX: D50.9 Iron deficiency anemia, unspecified (principal); I35.0 Nonrheumatic aortic (valve) stenosis; Z95.2 Presence of prosthetic heart valve; I44.7 Left bundle-branch block, unspecified; I10 Essential (primary) hypertension; E78.5 Hyperlipidemia, unspecified; R60.9 Edema, unspecified; G62.9 Polyneuropathy, unspecified; Z79.1 Long term (current) use of non-steroidal anti-inflammatories (NSAID); Z79.899 Other long term (current) drug therapy; Z98.890 Other specified postprocedural states; Z88.1 Allergy status to other antibiotic agents; Z79.01 Long term (current) use of anticoagulants
CPT/HCPCS: 36415; 38222; 77012; 85610; 88184; 88185; 88237; 88264; 88305; 88311; 88313; 99152; J1885; J2003; J2250; J3010

== ENCOUNTER → 2025-02-06 13:04 | Outpatient (BNV) | payer MEDICARE, SELFPAY | DX: D64.9 Anemia, unspecified (principal) | CPT/HCPCS: 38222; 77012 ==

== ENCOUNTER 2025-02-12 14:27 | Outpatient (AMB) | payer MEDICARE, SELFPAY ==
--- OUTSIDE RECORDS SUMMARY | 2024-01-19 06:00 | XMS_ITS ---
Author Organization [facility] Address [address] [facility] [address] [place] [address] Care Team Providers Care Light Industrial Name Role Phone Petra Goetz Primary Care Provider Maximiliano De León [phone] REASON FOR VISIT Patient presents today for anemia Encounters Encounter Location Date Provider Diagnosis [facility] [address] [facility] [address] [place] [address] 01/19/2024 Maximiliano Coats Plan Of Treatment Next Appt Details Provider Name:Maximiliano Coats , 03/28/2025 09:00:00 AM, [address] [facility], [address], [place], [address], Progress Notes * ANGEL GEORGEDOB: [birth year] (74 yo F)Acc No.[id number]:01/19/2024 Progress Notes Patient: Carlos LOWE ANGEL Provider: Monserrat Coats MD :1950 A ge:73 Y S ex:Female Date:01/19/2024 Address:[address] [place], [place] [id number] Pcp:VIRAL Sandoval Subjective: * Chief Complaints: * P atient presents today for anemia * The named appointment provid er may or may not be the originator of this progress note, and it is not deemed complete until electronically signed by the appointment provider. Sign off status: Pending * Provider: Monserrat Coats MD Date: 1 Generated for Melonie gomez/Ysabel/Dougsmitting on: 1 04/14/2024 06:20 PM EST
--- OUTSIDE RECORDS SUMMARY | 2024-05-22 05:30 | XMS_ITS ---
Author Organization [facility] Address [address] [facility] [address] [place] [address] Care Team Providers Care Bridal Service Sales And Management Name Role Phone Petra Goetz Primary Care Provider Maximiliano De León [phone] REASON FOR VISIT Patient presents today for anemia Encounters Encounter Location Date Provider Diagnosis [facility] [address] [facility] [address] [place] [address] 05/22/2024 Maximiliano Coats Plan Of Treatment Next Appt Details Provider Name:Maximiliano Coats , 03/28/2025 09:00:00 AM, [address] [facility], [address], [place], [address], Progress Notes * ANGEL GEORGEDOB: [birth year] (74 yo F)Acc No.[id number]:05/22/2024 Progress Notes Patient: Carlos LOWE ANGEL Provider: Monserrat Coats MD :1950 A ge:73 Y S ex:Female Date:05/22/2024 Address:[address] [place], [place] [id number] Pcp:VIRAL Sandoval Subjective: * Chief Complaints: * P atient presents today for anemia * The named appointment provid er may or may not be the originator of this progress note, and it is not deemed complete until electronically signed by the appointment provider. Sign off status: Pending * Provider: Monserrat Coats MD Date: 0 05/22/2024 Generated for Melonie gomez/Ysabel/Dougsmitting on: 1 04/14/2024 06:20 PM EST
[2025-02-12 14:36] VITALS: BP 120/62; PULSE 81; RESP 18; O2SAT 98; BMI 34.7
--- NOTE | 2025-02-12 14:36 | MHC.PC.OV ---
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 Operator Required: No Accompanied by: Self / Same As Patient Allergies vancomycin (VANCOMYCIN) Allergy (Unknown, Verified 02/12/25 14:57) HIVES Medication List - Last Reconciled 02/12/25 by REINALDO Rangel atorvastatin 20 mg PO BEDTIME cyanocobalamin-cobamamide 5,000-100 mcg (B12) 1,000 silver DAILY ferrous sulfate 325 mg PO BEDTIME gabapentin 800 mg PO BID hydralazine 25 mg PO BID meclizine 25 mg PO TID PRN multivitamin 1 tab PO DAILY naproxen 500 mg PO BID omeprazole 20 mg PO DAILY@0630 oxybutynin chloride ER 10 mg PO DAILY tramadol 50 mg PO BID PRN turmeric 400 mg PO DAILY [Vitamin D3 1,000 mg PO DAILY] Tobacco use date assessed: 02/12/25 Fall risk assessment: No Falls in past year Last assessed Fall Risk: 02/12/25 Dental Screening Dental Screen Date: 02/12/25 Did you have a dental visit in the last 12 months?: No Did you have a dental problem in the last 6 months where you did not have access to dental care?: No Was dental information given to patient?: No HPI HPI Comments History of Present Illness Details Previous PCP: Charley Last visit:07/2023 Last PE:same Specialist: Jorge L medel, Dr. 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 The patient is a 74-year-old individual presenting for a new patient visit to establish care and manage multiple chronic conditions. Past medical history is significant for anemia, a gastric or small bowel mass, left ventricular hypertrophy, and a heart murmur. The patient reports arthritis in both knees, with the left being more symptomatic, as well as in both hands. Many years ago, the patient was told the knee would need to be replaced but that the patient was too young at the time. The patient also experiences neuropathy and lower back pain with nerve symptoms, for which the patient takes tramadol as needed for severe pain. The patient reports near-deafness in one ear, which started after a COVID-19 infection. The patient has stress urinary incontinence and nocturia. The patient's last Pap smear was at age 71, after which the patient was told they were no longer necessary. The patient recently had a bone density scan and bloodwork last week, which included an iron level check, but cholesterol and thyroid levels were not done. Family history is notable for a mother with end-stage renal failure and a father with prostate cancer that metastasized to the bone. The patient also has a sister who had a brain aneurysm and a family member with leukemia. Current medications include gabapentin, omeprazole, meclizine, and tramadol. 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 Health Maintenance - Gynecologic screening: The patient's last Pap smear was at age 71, and the patient was informed that further screenings may not be necessary. - Bone density: A bone density scan was performed recently. - Laboratory screening: An order will be placed for a cholesterol panel and TSH, as these were not included in recent bloodwork. - ENT follow-up: A referral to an ENT specialist is recommended for evaluation of unilateral hearing loss. - Musculoskeletal imaging: An X-ray of the left knee will be ordered to assess for arthritis. Social History - Employment: The patient works at [employer]. - Functional Status: The patient reports getting tired from activities such as cleaning the house and experiences dizziness with rapid movements at work. 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 Results - Hearing Test: A prior hearing test confirmed near-deafness in one ear. - Labs: Recent labs last week included an iron level check. - Imaging: A knee X-ray many years ago suggested a need for knee replacement. For certain medications she uses [facility], does not delivery frequently. [email or web address] in [place] [facility] is her next option. [phone] [facility], [facility] Medical History Murmur Overactive bladder GERD (gastroesophageal reflux disease) History of transcatheter aortic valve replacement (TAVR) Abnormal CT scan, gastrointestinal tract Left bundle branch block Aortic stenosis Arthritis Lower extremity edema Anemia Neuropathy Back pain Hyperlipidemia HTN (hypertension) Surgical History History of hernia repair (2015) History of rotator cuff surgery (2012) History of tonsillectomy (1978) History of cholecystectomy (1975) Family History Sister Breast cancer, Onset Age: 49 Father Prostate cancer Brother Leukemia Social History Household Members: None Housing: Apartment Do you presently have visiting nurse or other home services: No Alcohol intake: current Alcohol intake frequency: holidays/special occasions only Patient Tobacco Use Status: Never used Tobacco Questionnaire PHQ-9 Over the last 2 weeks, how often have you been bothered by any of the following problems? 1. Little interest or pleasure in doing things: not at all 2. Feeling down, depressed, or hopeless: not at all 3. Trouble falling or staying asleep, or sleeping too much: more than half the days 4. Feeling tired or having little energy: nearly every day 5. Poor appetite or overeating: more than half the days 6. Feeling bad about yourself - or that you are a failure or have let yourself or your family down: more than half the days 7. Trouble concentrating on things, such as reading the newspaper or watching television: not at all 8. Moving or speaking so slowly that other people could have noticed. Or the opposite - being so fidgety or restless that you have been moving around a lot more than usual: not at all 9. Thoughts that you would be better off or of hurting yourself in some way: not at all Total score: 9 Source: Developed by Drs. Maximiliano Ornelas, Carrie Phan, Hemant Webber and colleagues, with an educational yu from [employer]. Thrive Questionnaire Date Thrive assessed: 02/12/25 What is your living situation today?: I have a steady place to live Within the past 12 months, did the food you bought not last and you didn't have the money to get more?: Never true Within the past 12 months, did you worry whether your food would run out before you got money to buy more?: I choose not to answer this question Do you have trouble paying for medicines?: No Do you have trouble getting transportation to medical appointments?: No Do you have trouble paying your heating and electricity bill?: No Do you have trouble taking care of your child, family member or friend?: I choose not to answer this question Do you have trouble with day-to-day activities such as bathing, preparing meals, shopping, managing finances, etc.?: No Are you currently unemployed and looking for a job?: I choose not to answer this question Are you interested in more education?: I choose not to answer this question Currently or been in a relationship where the following occur: No concerns reported THRIVE Score: 0 RADHA-7 AMB Questionnaire RADHA-7 Date RADHA - 7 assessed: 02/12/25 Being so restless that it is hard to sit still: 0 = Not at all Source: Developed by Drs. Maximiliano Ornelas, Carrie Phan, Hemant Webber and colleagues, with an educational yu from [employer]. Review of Systems Narrative Review of Systems - Constitutional: Reports fatigue. - Cardiovascular: Denies chest pain and palpitations. - Respiratory: Denies shortness of breath. - Neurological: Reports occasional dizziness with rapid movement. - GI: Denies changes in bowel habits. - : Reports urinary frequency, nocturia, and stress incontinence. - Musculoskeletal: Reports arthralgia in both knees (worse on the left) and hands. - ENT: Reports being nearly deaf in one ear. Const Reports fatigue and Denies headache(s) Eyes Denies loss of vision ENT Denies vertigo, Reports dizziness (Occasional with rapid movement), Denies headache(s), Reports hearing loss (partial in right ear) and Denies sore throat Card Denies chest pain, Reports leg edema (Right leg lymphedema) and Denies lightheadedness Resp Denies cough, Denies hemoptysis and Denies wheezing GI Denies abdominal pain, Denies melena, Denies constipation, Denies diarrhea and Denies vomiting Denies urinary frequency, Reports nocturia, Denies dysuria, Reports urinary incontinence (stress and urge) and Reports urinary urgency Musc Reports arthralgias (both knee, worse in left knee and bilateral hands), Denies joint swelling, Denies numbness, Denies tingling and Reports other Neuro Denies Abnormal speech present, Denies behavioral changes, Denies vertigo, Reports dizziness (Occasional with rapid movement), Denies headache(s), Denies loss of vision, Denies memory loss, Denies numbness and Denies tingling Psych Denies anxiety, Denies behavioral changes, Denies depression, Denies memory loss and Denies panic attacks Endo Reports fatigue Estevan/Lymph Denies easy bleeding and Denies easy bruising Aller/Immun Denies wheezing Physical exam (Primary Care) Vital Signs: Last Vital Signs Pulse 81 02/12/25 14:36 Resp 18 02/12/25 14:36 BP 120/62 02/12/25 14:36 Pulse Ox 98 02/12/25 14:36 Oxygen Delivery Method Room Air 02/12/25 14:36 BMI result Body Mass Index 34.7 Tobacco/Smoking Status: Tobacco use Status Tobacco use date assessed 02/12/25 02/12/25 14:53 Patient Tobacco Use Status Never used Tobacco 02/12/25 14:53 PHQ-9: PHQ-9 Score PHQ-9: Total score 9 02/12/25 15:07 Thrive Assessment: Date of Thrive Assessment Date Thrive assessed 02/12/25 02/12/25 14:53 Currently or been in a relationship where the following occur: No concerns reported Narrative Physical Exam - Cardiovascular: A heart murmur is present on auscultation. - Pulmonary: Lungs are clear to auscultation bilaterally. - Extremities: One leg is swollen with edema. Const General: healthy appearing, no acute distress, alert and awake Nutritional Appearance: well nourished Orientation/consciousness: oriented to person, oriented to place and oriented to time HENMI Ears: TM's normal bilaterally General nose exam: Normal nasal mucous membranes and turbinates present Eyes Conjunctivae: conjunctivae normal Sclerae: sclerae normal Pupils: Equal, round and reactive pupils present Neck Neck: Yes no lymphadenopathy and Yes no JVD Thyroid: Thyroid normal Carotids: no bruits Resp Effort & Inspection: normal respiratory effort and not tachypneic Auscultation: no crackles, no rales, no rhonchi and no wheezes Cardio Rate: regular rate Rhythm: regular rhythm Heart sounds: Murmur heart sound present systolic III/ and normal S1 and S2 GI Palpation (GI): Soft to palpation, nontender, no hepatomegaly and no splenomegaly Auscultation: normal bowel sounds General: Yes no CVA tenderness Back/Spine/Pelvis Back: no CVA tenderness Skin General skin exam: no rashes or lesions noted and dry skin Neuro General: oriented to person, oriented to place and oriented to time Cranial nerves: Yes Equal, round and reactive pupils present and Yes Nystagmus not present Speech: No Abnormal speech present Gait exam (Neuro): Normal gait present Motor exam (neuro): no tremor noted Extrem Right upper extremity: full ROM Left upper extremity: full ROM Right lower extremity: full ROM, edema Details: 3+ and knee Details: no tenderness and no swelling Left lower extremity: full ROM, edema Details: 2+ and knee Details: tenderness and swelling Psych Mental Status: mental status grossly normal Speech and movement: Normal speech and movement present Affect: normal affect Attitude: cooperative Thought process: Normal thought process present Coding Level of Care Code New Pt Level 4 (12777) Diagnoses Iron deficiency anemia, unspecified iron deficiency anemia type D50.9 Anemia type: iron deficiency Iron deficiency anemia type: unspecified iron deficiency Nonrheumatic aortic valve stenosis I35.0 Cardiac valve disease etiology: nonrheumatic Bilateral hand pain M79.641; M79.642 Chronic pain of left knee M25.562; G89.29 Chronicity: chronic Dizziness R42 Hearing loss of right ear, unspecified hearing loss type H91.91 Hearing loss type: unspecified Time Spent (min) 39 Assessment & Plan Assessment & Plan (1) Anemia: Code(s): D64.9 - Anemia, unspecified Category: Medical Qualifiers: Anemia type: iron deficiency Iron deficiency anemia type: unspecified iron deficiency Qualified Code(s): D50.9 - Iron deficiency anemia, unspecified Plan: Lungs done in iron deficiency. Status post iron infusion. She continue ferrous sulfate 325 mg and vitamin b 12 supplement. H&H is stable follow up with oncology as scheduled. We will continue to monitor CBC regularly (2) Aortic stenosis: Code(s): I35.0 - Nonrheumatic aortic (valve) stenosis Category: Medical Qualifiers: Cardiac valve disease etiology: nonrheumatic Qualified Code(s): I35.0 - Nonrheumatic aortic (valve) stenosis Plan: Status post TAVR who was shown to improve her LVOT gradient. She was on Eliquis which was discontinued due to GI bleed. Continue atorvastatin 20 mg at bedtime (3) Bilateral hand pain: Code(s): M79.641 - Pain in right hand; M79.642 - Pain in left hand Category: Medical Plan: Bilateral hand x-ray ordered to further evaluate. (4) Left knee pain: Code(s): M25.562 - Pain in left knee Category: Medical Qualifiers: Chronicity: chronic Qualified Code(s): M25.562 - Pain in left knee; G89.29 - Other chronic pain Plan: Left knee x-ray ordered to further evaluate (5) Dizziness: Code(s): R42 - Dizziness and giddiness Category: Medical Plan: Reports dizziness with quick movements. Multifactorial, the patient is anemic and has cardiac related issues that effect her circulation. Encouraged the patient to move slowly when changing positions and to ensure adequate fluid hydration. (6) Hearing loss in right ear: Code(s): H91.91 - Unspecified hearing loss, right ear Category: Medical Qualifiers: Hearing loss type: unspecified Qualified Code(s): H91.91 - Unspecified hearing loss, right ear Plan: ENT referral placed Plan Plan Patient was informed and verbally consented to the use of an ambient scribe for clinic note documentation during this visit. 1. Osteoarthritis Of Knee The patient reports significant pain due to arthritis, primarily in the left knee, with a remote history of being advised for a knee replacement. A new X-ray of the left knee will be ordered to assess the current condition. Results will be reviewed at the follow-up visit to formulate a management plan. 2. Unilateral Hearing Loss The patient reports near-deafness in one ear following a COVID-19 infection. A referral to an ENT specialist is required for further evaluation and management, and the patient will find a suitable provider. 3. Preventive Health Services The patient is establishing care and requires updated health maintenance screenings. Recent bloodwork was incomplete, so an order for a lipid panel and TSH will be placed. The patient's preferred pharmacies, [facility] and [email or web address] in [place], have been documented for medication management. A follow-up visit is scheduled in 7 weeks to review the results of all pending diagnostics and create a comprehensive care plan. Discussion Notes I have discussed the plan with the patient for this initial visit. I explained that we would order an X-ray of the left knee to evaluate the extent of the arthritis and check bloodwork for cholesterol and thyroid levels, as these were missing from recent labs. I also advised that a referral to an ENT specialist is necessary for the patient's unilateral hearing loss and that the patient will need to obtain one to be seen. We have scheduled a follow-up appointment in approximately seven weeks to review all the diagnostic results and formulate a more detailed management plan together. I acknowledged the patient's previous choice of another provider and assured that a transfer could be facilitated in the future if desired, but the immediate goal is to get the current diagnostic process underway. I confirmed the patient's preferred pharmacies to ensure continuity of care for medications. Patient Instructions - Please go to the lab to have your blood drawn for cholesterol and thyroid tests. - We have ordered an X-ray of your left knee. - Please schedule this at your convenience. - You need a referral to see an ENT (ear, nose, and throat) specialist for your hearing problem. - Please contact your niece or our office to help you find a doctor. - Please schedule a follow-up appointment with our office in about 7 weeks to review your test results. - Continue to take your current medications as prescribed. Orders: Orders TSH reflex Free T4 02/12/25 E78.5 - Hyperlipidemia, unspecified, I10 - Essential (primary) hypertension, I25.10 - Atherosclerotic heart disease of [place] coronary artery without angina pectoris, I35.0 - Nonrheumatic aortic (valve) stenosis, I44.7 - Left bundle-branch block, unspecified, I51.7 - Cardiomegaly, I72.9 - Aneurysm of unspecified site, R93.1 - Abnormal findings on diagnostic imaging of heart and coronary circulation, Z95.2 - Presence of prosthetic heart valve XR Hand Cesar 2V Today M79.641 - Pain in right hand, M79.642 - Pain in left hand Lipid Panel 02/12/25 D64.9 - Anemia, unspecified, E78.5 - Hyperlipidemia, unspecified, I10 - Essential (primary) hypertension, I35.0 - Nonrheumatic aortic (valve) stenosis, I44.7 - Left bundle-branch block, unspecified, I51.7 - Cardiomegaly, R93.1 - Abnormal findings on diagnostic imaging of heart and coronary circulation, Z95.2 - Presence of prosthetic heart valve, Z98.890 - Other specified postprocedural states XR knee LT 3V Today M25.562 - Pain in left knee Referrals Ear/Nose/Throat Referral H91.91 - Unspecified hearing loss, right ear
--- OUTSIDE RECORDS SUMMARY | 2025-02-12 18:20 | XMS_ITS | Encounter Summary ---
Author Organization [facility] Address [address] [place] [address] [place] [id number] Phone Care Team Providers Care Plant Wire Chief Name Role Phone Axel Whitehead MD Primary Care Provider [phone] Encounter Details Date Type Department Care Team (Late st Contact Info) Description 08/29/2023 Transcribe Orders [facility] [place] [address] [address] [place] [address] Axel Whitehead MD [address] [place] [address] Social History Tobacco Use Types Packs/Day Years [...] on filedocumented in this encounter Care Teams Plant Wire Chief Relationship Specialty Start Date End Date Axel Whitehead MD [address] [place] [address] PCP - General Internal Medicine 08/19/23 documented as of this encounter Additional Source Comments The information contained in this document represents components of the legal health record. It is not the complete legal health record.[facility]
--- OUTSIDE RECORDS SUMMARY | 2025-02-12 18:20 | XMS_ITS | Patient Health Record ---
Author Organization [facility] Address [address] [place] [address] Care Team Providers Care Broadcast Program Director Name Role Phone Petra Goetz Primary Care Provider Maximiliano De León [phone] Allergies Allergen (clinical drug ingredient) Drug/Non Drug Allergy documented on EMR Reaction Allergy Type Onset Date Status vancomycin Vancomycin hives Drug Allergy Activ e Results Component Value Reference Range Flag Notes Ferritin Reviewed date:09/19/2024 05:59:00 PM Interpretation: Performing Lab:[facility], [address] [place] [phone] Notes/Report: Ferritin 16 10-250 ng/mL N Complete Blood Count Auto Di ff (Not yet reviewed by provider) Interpretation: Performing Lab:[facility], [address] [place] [phone] Notes/Report: White Blood Count 9.7 4.8-10.8 X10*3/uL N Red Blood Count 2.98 4.20-5.50 X10*6/uL L Hemoglobin 6.6 12.0-16.0 g/dl LL Results of HGB called to and read back by MARCELO Blackman on 09/19/24 at 1506 by GE. Hematocrit 19.9 37.0-47.0 % LL Results of HCT called to and read back by MARCELO Blackman on 09/19/24 at 1506 by GE. Mean Corpuscular Volume 66.8 80.0-98.0 fL L Mean Corpuscular Hemoglobin 22.1 27.0-33.0 pg L Mean Corpuscular HGB Conc 33.2 31.0-35.0 g/dl N Red Cell Distribution Width 19.5 11.0-16.0 % H Platelet Count 227 160-400 X10*3/uL N Mean Platelet Volume 9.4 9.4-12.3 fL N Neutrophils Percent Auto 69.3 45-73 % N Imm Gran Pct Auto 0.3 0.0-0.4 % N Lymphocytes Percent Auto 18.6 20-40 % L Monocytes Percent Auto 7.8 2-11 % N Eosinophils Percent Auto 3.4 0-4 % N Basophils Percent Auto 0.6 0-2 % N NRBC Pct Auto 0.0 0.0-0.2 /100WBC N Neutrophils Absolute Auto 6.7 2.0-8.3 x10*3/uL N Imm Gran Abs Auto 0.03 0.00-0.03 X10*3/uL N Lymphocytes Absolute Auto 1.8 1.2-4.9 X10*3/uL N Monocytes Absolute Auto 0.8 0.1-1.2 X10*3/uL N Eosinophils Absolute Auto 0.3 0.0-0.4 X10*3/uL N Basophils Absolute Auto 0.1 0.0-0.2 X10*3/uL N NRBC Abs Auto 0.000 0.0-0.012 X10*3/uL N Pathologist Review - CBC Reviewed date:09/20/2024 07:25:45 PM Interpretation: Performing Lab:[facility], [address] [place] [phone] Notes/Report: Pathologist Review - CBC SEE NOTE Variably hypochromic microcytic anemia; targets are present. Please correlate with iron studies. - Marty Ogden M.D. Pathology IRON PROFILE Reviewed date:09/19/2024 05:58:29 PM Interpretation: Performing Lab:[facility], [address] [place] [phone] Notes/Report: Iron 19 30-160 mcg/dL L Total Iron Binding Capacity 288 228-428 mcg/dL N Percent Iron Saturation 7 15-50 % L Unsaturated Iron Binding 269 Vitamin B12 Reviewed date:09/19/2024 05:58:20 PM Interpretation: Performing Lab:[facility], [address] [place] [phone] Notes/Report: Vitamin B12 > 2000 200-900 pg/mL H NORMAL 200-900 PG/ML INDETERMINATE 160-199 PG/ML DEFICIENT < 160 PG/ML Folate Reviewed date:09/19/2024 05:58:12 PM Interpretation: Performing Lab:[facility], [address] [place] [phone] Notes/Report: Folate 12.3 > or = 4.0 ng/mL Reference Values: > or = 4.0 ng/mL < 4.0 ng/mL suggests folate deficiency Methotrexate, aminopterin and folinic acid (leucovorin) are chemotherapeutic agents whose molecular structures are similar to folate; therefore, the [employer] folate assay cannot be used for patients using these drugs. Reason For Referral No Information Medications Medication SIG (Take, Route, Frequency, Duration) Notes Start Date End Date Status Gabapentin 800 MG Tablet 1 tablet Orally Once a day; Duration: 30 day(s) Active Eliquis 2.5 MG Tablet TAKE 1 TABLET BY MOUTH TWO TIMES A DAY Oral; Duration: 30 Days Active hydrALAZINE HCl 25 MG Tablet 1 tablet with food Orally Twice a day Active oxyBUTYnin Chloride ER 10 MG Tablet Extended Release 24 Hour 1 tablet Orally Once a day; Duration: 30 day(s) Active Atorvastatin Calcium 10 MG Tablet 1 tablet Orally Once a day; Duration: 30 day(s) Active Vitamin D-3 25 MCG (1000 UT) Capsule 1 capsule Orally Once a day; Duration: 30 day(s) 09/19/2024 Active Vitamin B 12 250 MCG Lozenge 2 lozenges Orally Once a day; Duration: 30 day(s) 09/19/2024 Active Iron 325 (65 Fe) MG Tablet 1 tablet Orally Once a day; Duration: 30 day(s) not everydat Active Multivitamin Adult A ctive Cami Not-Taking /PRN Turmeric Active Omeprazole 20 MG Capsule Delayed Release 1 capsule 30 minutes before morning meal Orally Once a day; Duration: 30 day(s) Active Sudafed Not-Taking /PRN Align Active traMADol HCl 50 MG Tablet Oral; Duration: 7 Active Immunizations Vaccine Route Administration Date Status Comme nts Influenza Unknown 04/16/2020 Administered Influenza Unknown 12/19/2021 Administered Influenza Unknown 01/11/2024 Administered Social History Tobacco Use: Social History Observation Description Date Details (start date - stop date) Never Smoker NA - NA Social History Drugs/Alcohol: Social Info Question Answer Notes Alcohol Screen Did you have a drink containing alcohol in the past year? Yes How often did you have a drink containing alcohol in the past year? Never (0 point) How many drinks did you have on a typical day when you were drinking in the past year? 1 or 2 drinks (0 point) How often did you have 6 or more drinks on one occasion in the past year? Never (0 point) Points 0 Interpretation Negative Tobacco Use: Social Info Question Answer Notes Tobacco Use/Smoking Patient is a nonsmoker Additional Details Category Social Info Options Details Miscellaneous: Marital status: single Occupation: retired [employer] Section Notes: Nonsmoker; no sig alcohol Nonsmoker; no sig alcohol Nonsmoker; no sig alcohol Nonsmoker; no sig alcohol Nonsmoker; no sig alcohol Nonsmoker; no sig alcohol Problems Problem Type SNOMED Code ICD Code Onset Dates Problem Status W/U Status Risk Notes Problem Weight loss (743706982) Weight loss (R63.4) Active confirmed Problem Gastroduodenitis (445182893) Gastritis, unspecified, without bleeding (K29.70) Active confirmed Problem Early satiety (361264238) Early satiety (R68.81) Active confirmed Problem Iron deficiency anemia (83666300) Iron deficiency anemia (D50.9) Active confirmed Problem Left upper quadrant pain (359786380) Abdominal pain, left upper quadrant (R10.12) Active confirmed Problem Gastritis (2884373) Gastritis (K29.70) Active confirmed Problem Irregular bowel habits (041132420) Irregular bowel habits (R19.8) Active confirmed Problem Iron deficiency anemia (85916194) Iron deficiency anemia, unspecified iron deficiency anemia type (D50.9) Active confirmed Problem Computed tomography of abdomen abnormal (47465902324043171) Abnormal CT scan, stomach (R93.3) Active confirmed Problem Chronic constipation (382610276) Chronic constipation (K59.09) Active confirmed Problem Diverticulosis of colon (294237519) Diverticulosis of colon (K57.30) Active confirmed Problem Left upper quadrant pain (096754339) Left upper quadrant abdominal pain (R10.12) Active confirmed Vital Signs Temperature 97.5 degrees Fahrenheit 09/19/2024 Blood pressure diastolic 01 mm Hg 09/19/2024 Height 64 in 09/19/2024 Blood pressure systolic 001 mm Hg 09/19/2024 Weight 200 lbs 09/19/2024 BMI 34.33 kg/m2 09/19/2024 Encounters Encounter Location Date Provider Diagnosis [facility] [address] [place] [address] 09/19/2024 Maximiliano Coats Iron deficiency anemia, unspecified iron deficiency anemia type D50.9 [facility] [address] [place] [address] 05/21/20[facility] [address] [place] [address] 09/20/2024 Maximiliano Coats Assessments Encounter Date Diagnosis (ICD Code) Assessment Notes Treatment Notes Treatment Clinical Notes Section Notes 09/19/2024 Iron deficiency anemia, unspecified iron deficiency anemia type (ICD-10 - D50.9) Try taking the Iron as much as possible and use the Miralax and/or Metamucil with that to help with constipation If your Iron is low we will schedule you to see the Dozer Operator to arrange for some IV Iron [...] IBC (FE) 08/04/2021 IRON + IBC (FE) 01/11/2023 IRON + IBC (FE) 05/25/2021 IRON + IBC (FE) 09/19/2024 IRON + IBC (FE) 02/20/2023 VITAMIN B12 AND FOLATE 05/25/2021 CBC w DIFF 02/20/2023 CBC w DIFF 09/19/2024 CBC w DIFF 05/25/2021 CBC w DIFF 01/11/2023 CBC w DIFF 08/04/2021 CELIAC PANEL #10 05/25/2021 XR GI SMALL BOWEL SERIES 05/25/2021 Complete Blood Count Auto Diff Ferritin 08/04/2021 Ferritin 01/11/2023 Ferritin 05/25/2021 Ferritin 02/20/2023 Vitamin B12 and Folate 09/19/2024 Intrinsic Factor Antibodies 05/25/2021 Parietal Cell Antibody 05/25/2021 Future Test Test Name Order Date UPPER GI ENDOSCOPY 04/28/2021 Next Appt Details Provider Name:Maximiliano De La Torre Jorge L , 03/28/2025 09:00:00 AM, [address] [place] [address], [facility] [address], [place], [address], Insurance Providers Payer Name Payer Address Payer Phone Subscriber Number Group Number Insured Name Patient Relationship to Insured Coverage Start Date Coverage End Date [facility] Medicare Advantage Plan [address] [address] [place] [phone] [id number] NEGRA GEORGE Self - patient is the [...] Upper endoscopy in October of 2022 at [facility] with Dr. Carter revealed some gastric [...] ement 09/06/2024- TAVR Surgical History Surgery Date(Month/Year) Intestinal surgery at [facility] for some type of internal hernia and SBO- resection of approx 20cm of necrotic small bowel 2015 Rotator cuff surgery 2008 Gallbladder 1975 Tonsillectomy 1977 TAVR for aortic stenosis 09/06/2024 Hospitalization History Reason Date(Month/Year) aortic valve replacement 09/06/2024
--- OUTSIDE RECORDS SUMMARY | 2025-02-12 18:20 | XMS_ITS | Clinical Summary ---
Author Organization [facility] Address [address] [place] [phone] Phone Care Team Providers Care Awning Maker Name Role Phone Axel Whitehead MD Primary Care Provider [phone] Social History Tobacco Use Types Packs/Day Years [...] file Insurance MEDICARE PART A & B [facility] MEDICARE REPLACEMENT MEDICARE PART A & B MEDICARE REPLACEMENT MEDICARE PART A & B MEDICARE REPLACEMENT MEDICARE PART A & B MEDICARE REPLACEMENT MEDICARE PART A & B MEDICARE REPLACEMENT MEDICARE PART A & B [facility] MEDICARE REPLACEMENT Care Teams Awning Maker Relationship Specialty Start Date End Date Axel Whitehead MD [address] [place] [phone] PCP - General Internal Medicine 08/19/23 Additional Source Comments The information contained in this document represents components of the legal health record. It is not the complete legal health record.[facility]
== END 2025-02-12 15:47 | disposition home or self-care (01) ==
LOC: HO.HMCH 14:28
DX: D50.9 Iron deficiency anemia, unspecified (principal); I35.0 Nonrheumatic aortic (valve) stenosis; M79.641 Pain in right hand; M79.642 Pain in left hand; M25.562 Pain in left knee; G89.29 Other chronic pain; R42 Dizziness and giddiness; H91.91 Unspecified hearing loss, right ear

== ENCOUNTER → 2025-02-12 14:27 | Outpatient (BNVA) | payer MEDICARE, SELFPAY | DX: I35.0 Nonrheumatic aortic (valve) stenosis (principal); R42 Dizziness and giddiness; H91.91 Unspecified hearing loss, right ear; M25.562 Pain in left knee; G89.29 Other chronic pain; M79.641 Pain in right hand; M79.642 Pain in left hand; D50.9 Iron deficiency anemia, unspecified; I10 Essential (primary) hypertension; I51.7 Cardiomegaly; I72.9 Aneurysm of unspecified site; Z95.2 Presence of prosthetic heart valve; I25.10 Atherosclerotic heart disease of native coronary artery without angina pectoris; Z13.31 Encounter for screening for depression; Z13.39 Encounter for screening examination for other mental health and behavioral disorders | CPT/HCPCS: 96127; 99202 ==